=== PATIENT | male | born 1975 | race Caucasian/White ===

== ENCOUNTER → 2019-12-03 | Outpatient (CLI) | payer BC ==
--- NOTE | 2019-12-03 18:15 | Diagnostic Imaging Report ---
INDICATION: Injury to right wrist. EXAMINATION: AP, oblique, and lateral views of the right wrist are obtained. FINDINGS: No fracture or acute bony abnormality is seen. Joint spaces appear unremarkable. IMPRESSION: Negative right wrist. Dictated by: Dictated on workstation # [id number]
== END ==
LOC: RAD FS 17:08
PROVIDERS: ATTEND Nurse Practitioner
DX: S69.91XA Unspecified injury of right wrist, hand and finger(s), initial encounter (principal)
CPT/HCPCS: 73110

== ENCOUNTER 2021-07-22 15:36 | Observation (INO) | payer BC ==
[~2021-07-22] VITALS: Ht 180.4 cm; Wt 116.3 kg
--- NOTE | 2021-07-22 16:16 | ED General ---
General Chief Complaint: General Problems/Pain Stated Complaint: LOW HEMOGLOBIN Source of Information: Patient Exam Limitations: No Limitations History of Present Illness Date Seen by Provider: Jul 22, 2021 Time Seen by Provider: 15:59 Initial Comments Patient is a 45-year-old type II diabetic who presents to the emergency department with a chief complaint of "low hemoglobin. Patient states that he recently about 10 days ago started seeing a nurse practitioner at [facility] in [place]. He states 3 days ago he had labs that showed his hemoglobin was 5. He had another fingerstick done yesterday which confirmed this at [facility]. He states in recent weeks he has become very fatigued, short of breath. Over the last several weeks he has developed significant lymphedema. He only takes medications for type 2 diabetes. He states he recently restarted them. He had gone about 2 years without seeing a physician right around the time his got with their [id number] son. He states that the edema is quite decreased over recent weeks. He has developed sores on his bilateral lower extremities that are weeping. He has been putting Shadi wraps around his lower legs and he states at times been wearing an abdominal binder. He denies any black or bloody stools, blood in his urine. He is not on blood thinners. He does take about 600 mg of ibuprofen twice daily for the discomfort in his legs. He is a smoker. All other review of systems reviewed and negative except as stated Timing/Duration: Getting Worse Severity: Severe Associated Systoms: Malaise, Shortness of Air, Weakness Allergies and Home Medications Allergies Coded Allergies: No Known Drug Allergies (Unverified , 07/22/21) Patient Home Medication List Home Medication List Reviewed: Yes Review of Systems Review of Systems Constitutional: see HPI, malaise, weakness EENTM: no symptoms reported Respiratory: dyspnea on exertion, short of breath Cardiovascular: no symptoms reported Gastrointestinal: no symptoms reported Genitourinary: no symptoms reported Musculoskeletal: joint swelling Skin: other (wounds on legs) Psychiatric/Neurological: No Symptoms Reported All Other Systems Reviewed Negative Unless Noted: Yes Physical Exam Vital Signs Vital Signs - First Documented 07/22/21 15:55 Temp 37.7 Pulse 87 Resp 22 B/P (MAP) 160/84 (109) Pulse Ox 97 O2 Delivery Room Air Capillary Refill : Height, Weight, BMI Height: '" Weight: lbs. oz. kg; BMI Method: General Appearance: No Apparent Distress, WD/WN Eyes: Bilateral Eye PERRL, Bilateral Eye EOMI, Bilateral Eye Conjunctivae Pale HEENT: PERRL/EOMI, Pharynx Normal, Other (pale oral mucosa) Neck: Normal Inspection Respiratory: Lungs Clear, Normal Breath Sounds, No Accessory Muscle Use, No Respiratory Distress Cardiovascular: Regular Rate, Rhythm, Normal Peripheral Pulses (good DP pulses bilater feet), Systolic Murmur (hars systolic murmur 3+/5 best heard left upper sternal border) Gastrointestinal: Non Tender, Soft, Other (morbid obesity) Genital/Rectal: Other (no ext hemorrhoids; soft yellow stool in vault; heme negative) Extremity: Pedal Edema (3+ edema nilat LE with pustules and open shallow ulcers on the anterior surfaces of both shins) Neurologic/Psychiatric: Alert, Oriented x3, No Motor/Sensory Deficits, Normal 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, 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 Norm as Tested Skin: Warm/Dry, Pallor Progress/Results/Core Measures Suspected Sepsis SIRS Temperature: Pulse: Respiratory Rate: Laboratory Tests 07/22/21 16:00: White Blood Count 8.0 Blood Pressure / Mean: Laboratory Tests 07/22/21 16:00: Creatinine 0.79, Platelet Count 271, Total Bilirubin 0.5 Results/Orders Lab Results Laboratory Tests Test 07/22/21 16:00 Range/Units White Blood Count 8.0 4.3-11.0 10^3/uL Red Blood Count 3.42 L 4.30-5.52 10^6/uL Hemoglobin 6.0 *L 13.3-17.7 g/dL Hematocrit 23 L 40-54 % Mean Corpuscular Volume 67 L 80-99 fL Mean Corpuscular Hemoglobin 18 L 25-34 pg Mean Corpuscular Hemoglobin Concent 26 L 32-36 g/dL Red Cell Distribution Width 18.6 H 10.0-14.5 % Platelet Count 271 130-400 10^3/uL Mean Platelet Volume 9.7 9.0-12.2 fL Immature Granulocyte % (Auto) 1 % Neutrophils (%) (Auto) 68 42-75 % Lymphocytes (%) (Auto) 24 12-44 % Monocytes (%) (Auto) 6 0-12 % Eosinophils (%) (Auto) 1 0-10 % Basophils (%) (Auto) 1 0-10 % Neutrophils # (Auto) 5.4 1.8-7.8 10^3/uL Lymphocytes # (Auto) 1.9 1.0-4.0 10^3/uL Monocytes # (Auto) 0.5 0.0-1.0 10^3/uL Eosinophils # (Auto) 0.1 0.0-0.3 10^3/uL Basophils # (Auto) 0.1 0.0-0.1 10^3/uL Immature Granulocyte # (Auto) 0.1 0.0-0.1 10^3/uL Percent Immature Platelet Fraction 1.8 0.0-7.6 % Absolute Reticulocyte Count 112 H 24-90 10e9/uL Percent Reticulocyte Count 3.26 H 0.50-2.40 % Sodium Level 134 L 135-145 MMOL/L Potassium Level 3.6 3.6-5.0 MMOL/L Chloride Level 103 98-107 MMOL/L Carbon Dioxide Level 20 L 21-32 MMOL/L Anion Gap 11 5-14 MMOL/L Blood Urea Nitrogen 9 7-18 MG/DL Creatinine 0.79 0.60-1.30 MG/DL Estimat Glomerular Filtration Rate 112 BUN/Creatinine Ratio 11 Glucose Level 436 *H 70-105 MG/DL Calcium Level 7.7 L 8.5-10.1 MG/DL Corrected Calcium 8.7 8.5-10.1 MG/DL Total Bilirubin 0.5 0.1-1.0 MG/DL Aspartate Amino Transf (AST/SGOT) 47 H 5-34 U/L Alanine Aminotransferase (ALT/SGPT) 53 0-55 U/L Alkaline Phosphatase 125 40-136 U/L Total Protein 6.5 6.4-8.2 GM/DL Albumin 2.7 L 3.2-4.5 GM/DL My Orders Orders - JOE CHOE MD Ed Iv/Invasive Line Start (07/22/21 16:08) Cbc With Automated Diff (07/22/21 16:08) Comprehensive Metabolic Panel (07/22/21 16:08) Urinalysis (07/22/21 16:08) Wound Culture (07/22/21 16:08) Iron Tibc %Sat & Ferritin (07/22/21 16:08) Reticulocyte Count (07/22/21 16:08) Chest 1 View, Ap/Pa Only (07/22/21 16:08) Fecal Occult Bedside (07/22/21 16:08) Type And Screen (07/22/21 16:08) Red Cells Leukocytes Reduced (07/22/21 16:16) Smear For Path Review (07/22/21 17:11) Vital Signs/I&O 07/22/21 15:55 Temp 37.7 Pulse 87 Resp 22 B/P (MAP) 160/84 (109) Pulse Ox 97 O2 Delivery Room Air Capillary Refill : Progress Note : Time: 16:15 Progress Note Advised the patient he would require at least one overnight stay to work-up and evaluate causes for anemia along with blood transfusions. He is reluctantly accepting of this. Vital signs are stable. He does have a really loud systolic ejection murmur. He is got multiple shallow ulcers that appear slightly cellulitic. He does not have fever tachycardia low blood pressure concerning for sepsis. Hemoccult negative on digital rectal examination. Abdomen is soft and nontender. I am uncertain that he actually grasps the severity of his current clinical condition. He is quite hesitant about undergoing medical evaluation Departure Communication (Admissions) Time/Spoke to Admitting Phy: 17:[address] Tyler; add B12 level Impression Primary Impression: Anemia Qualified Codes: D64.9 - Anemia, unspecified Additional Impressions: Hyperglycemia due to type 2 diabetes mellitus Qualified Codes: E11.65 - Type 2 diabetes mellitus with hyperglycemia Peripheral edema Disposition: ADMITTED INPATIENT Condition: Stable Admissions Decision to Admit Reason: Admit from ER (General) Decision to Admit/Date: Jul 22, 2021 Time/Decision to Admit Time: 17:28 Departure-Patient Inst. Referrals: SLICK LOGAN BASEBALL INSPECTOR AND REPAIRER (PCP/Family) Primary Care Physician JOE CHOE MD Jul 22, 2021 16:16
--- NOTE | 2021-07-22 16:27 | Diagnostic Imaging Report ---
INDICATION: Shortness of breath. COMPARISON: None. FINDINGS: Single view of the chest demonstrates mild cardiac enlargement with interstitial infiltrates. This may represent pneumonia and/or CHF. There is no pneumothorax or effusion. Osseous structures are stable. IMPRESSION: Pneumonia versus CHF. Dictated by: Dictated on workstation # [id number]
[2021-07-22 16:32] LABS: ALBUMIN 2.7 GM/DL (3.2-4.5); POTASSIUM 3.6 MMOL/L (3.6-5.0)
[2021-07-22 16:33] LABS: CALCIUM 7.7 MG/DL (8.5-10.1)
[2021-07-22 16:35] LABS: TOTAL PROTEIN 6.5 GM/DL (6.4-8.2)
[2021-07-22 16:36] LABS: BILIRUBIN,TOTAL 0.5 MG/DL (0.1-1.0)
[2021-07-22 16:38] LABS: CREATININE SERUM 0.79 MG/DL (0.60-1.30)
[2021-07-22 17:26] LABS: ABSOLUTE RETIC # 112 10e9/uL (24-90); BASOPHILS # (AUTO) 0.1 10^3/uL (0.0-0.1); BASOPHILS % (AUTO) 1 % (0-10); EOSINOPHILS # (AUTO) 0.1 10^3/uL (0.0-0.3); EOSINOPHILS % (AUTO) 1 % (0-10); HEMATOCRIT 23 % (40-54); LYMPHOCYTES # (AUTO) 1.8 10^3/uL (1.0-4.0); LYMPHOCYTES % (AUTO) 22 % (12-44); MEAN CORPUSCULAR HEMOGLOBIN 18 pg (25-34); MEAN CORPUSCULAR HGB CONC 27 g/dL (32-36); MEAN CORPUSCULAR VOLUME 67 fL (80-99); MEAN PLATELET VOLUME 9.6 fL (9.0-12.2); MONOCYTES # (AUTO) 0.5 10^3/uL (0.0-1.0); MONOCYTES % (AUTO) 6 % (0-12); NEUTROPHILS # (AUTO) 5.6 10^3/uL (1.8-7.8); NEUTROPHILS % (AUTO) 69 % (42-75); PLATELET COUNT 268 10^3/uL (130-400); RETICULOCYTE % 3.26 % (0.50-2.40); WHITE BLOOD COUNT 8.1 10^3/uL (4.3-11.0)
[2021-07-22] MEDS ORDERED: LORazepam 0.5 MG (ATIVAN) TABLET PO STA (17:40)
[2021-07-22] MEDS ORDERED: NICOTINE 14 MG (NICODERM) PATCH TD ONE ×2 (17:45→21:18)
[2021-07-22] MEDS ORDERED: inSUlin (REGULAR) HUMAN 1 UNIT/0.01 ML (CHARGE PER UNIT) SC STA (17:50)
[2021-07-22 17:54] LABS: HEMOGLOBIN 6.1 g/dL (13.3-17.7)
[2021-07-22 18:06] LABS: BAND NEUTROPHILS 0 %; BASOPHILS % (MANUAL) 1 %; EOSINOPHILS % (MANUAL) 0 %; LYMPHOCYTES % (MANUAL) 16 %; MONOCYTES % (MANUAL) 3 %; NEUTROPHILS % (MANUAL) 80 %; POLYCHROMASIA SLIGHT
[2021-07-22 18:07] LABS: ANISOCYTOSIS MARKED; HYPOCHROMASIA MARKED; MICROCYTOSIS MARKED
[2021-07-22 18:18] LABS: BILIRUBIN,URINE NEGATIVE (NEGATIVE); CLARITY,URINE CLEAR; COLOR,URINE YELLOW; GLUCOSE, URINE (UA) 3+ (NEGATIVE); KETONES,URINE NEGATIVE (NEGATIVE); LEUKOCYTE ESTERASE ,URINE NEGATIVE (NEGATIVE); NITRITE,URINE NEGATIVE (NEGATIVE); PROTEIN,URINE NEGATIVE (NEGATIVE)
[2021-07-22 18:21] VITALS: BP 140/63
[2021-07-22 18:28] LABS: BACTERIA,URINE NEGATIVE /HPF
[2021-07-22] MEDS ORDERED: NS 100 ML (IVPB) BAG IV NR (18:30)
[2021-07-22] MEDS ORDERED: NS IV 500 ML 500 ML ONE (18:32)
[2021-07-22] MEDS ORDERED: CATHETER FLUSH 10 ML SYR IVP PRN (18:45)
[2021-07-22 18:49] VITALS: BP 146/73
[2021-07-22 19:04] VITALS: BP 136/74
[2021-07-22 19:32] VITALS: BP 146/73
[2021-07-22] MEDS ORDERED: inSUlin ASPART (NovoLOG) 1 UNIT/0.01 ML (CHARGE PER UNIT) SC SCH ×2 (20:00)
[2021-07-22] MEDS ORDERED: inSUlin (REGULAR) HUMAN 1 UNIT/0.01 ML (CHARGE PER UNIT) SC SCH ×2 (21:00)
[2021-07-22] MEDS: inSUlin (REGULAR) HUMAN 1 UNIT/0.01 ML (CHARGE PER UNIT) SC SCH (21:23)
[2021-07-22 21:32] VITALS: BP 128/60
[2021-07-23] VITALS (7 sets, daily range): BP systolic 126–151; BP diastolic 60–77
[2021-07-23 00:04] LABS: HEMOGLOBIN 6.2 g/dL (13.3-17.7)
[2021-07-23] MEDS ORDERED: NS IV 500 ML 500 ML IV SCH (00:30)
[2021-07-23] MEDS: inSUlin (REGULAR) HUMAN 1 UNIT/0.01 ML (CHARGE PER UNIT) SC SCH (05:16)
[2021-07-23 06:42] LABS: BASOPHILS # (AUTO) 0.1 10^3/uL (0.0-0.1); BASOPHILS % (AUTO) 1 % (0-10); EOSINOPHILS # (AUTO) 0.2 10^3/uL (0.0-0.3); EOSINOPHILS % (AUTO) 2 % (0-10); HEMATOCRIT 26 % (40-54); HEMOGLOBIN 7.2 g/dL (13.3-17.7); LYMPHOCYTES # (AUTO) 2.8 10^3/uL (1.0-4.0); LYMPHOCYTES % (AUTO) 29 % (12-44); MEAN CORPUSCULAR HEMOGLOBIN 19 pg (25-34); MEAN CORPUSCULAR HGB CONC 28 g/dL (32-36); MEAN CORPUSCULAR VOLUME 69 fL (80-99); MONOCYTES # (AUTO) 0.7 10^3/uL (0.0-1.0); MONOCYTES % (AUTO) 7 % (0-12); NEUTROPHILS # (AUTO) 5.9 10^3/uL (1.8-7.8); NEUTROPHILS % (AUTO) 61 % (42-75); PLATELET COUNT 241 10^3/uL (130-400); WHITE BLOOD COUNT 9.7 10^3/uL (4.3-11.0)
[2021-07-23] MEDS ORDERED: BUPR1TAB45 PO (09:32)
[2021-07-23] MEDS ORDERED: EMPA1TAB15 PO (09:32)
[2021-07-23] MEDS ORDERED: FERR-84 PO (09:57)
--- NOTE | 2021-07-23 10:42 | Short Stay Summary-Hospitalist ---
History of Present Illness HPI/Chief Complaint Patient is a 45-year-old type II diabetic who presents to the emergency department with a chief complaint of "low hemoglobin. Patient states that he recently about 10 days ago started seeing a nurse practitioner at [facility] in [place]. He states 3 days ago he had labs that showed his hemoglobin was 5. He had another fingerstick done yesterday which confirmed this at [facility]. He states in recent weeks he has become very fatigued, short of breath. Over the last several weeks he has developed significant lymphedema. He only takes medications for type 2 diabetes. He states he recently restarted them. He had gone about 2 years without seeing a physician right around the time his got with their 30-osjem-smm son. He states that the edema is quite decreased over recent weeks. He has developed sores on his bilateral lower extremities that are weeping. He has been putting Shadi wraps around his lower legs and he states at times been wearing an abdominal binder. He denies any black or bloody stools, blood in his urine. He is not on blood thinners. He does take about 600 mg of ibuprofen twice daily for the discomfort in his legs. Patient reports that he been feeling well and until he moved from [place] to [place] several months ago. He had been eating at home previous to this but he and his have been getting all of their nutrition from fast food typic ally 2 meals per day bouts when he noted increased swelling in the lower extremities. Denied chest pain orthopnea PND but did note fatigue and for me denied melena indigestion dysphagia with some occasional lower quadrant abdominal cramping and no bright red blood per rectum or bowel habit change. He also denied cough night sweats chills or fever. Date Seen 07/23/21 Time Seen by a Provider: 08:00 Attending Physician Noah Tyler MD PCP Meghan Judd Aprn Referring Physician Date of Admission Jul 22, 2021 at 17:27 Home Medications & Allergies Home Medications Reviewed patient Home Medication Reconciliation performed by pharmacy medication reconciliations underwriting technician and/or nursing. Patients Allergies have been reviewed. Allergies Allergies Coded Allergies No Known Drug Allergies (Unverified07/22/21) Past Wuddmeq-Bjnmxh-Ssibnr Hx Patient Social History Tobacco Use?: Yes Tobacco type used: Cigarettes Smoking Status: Current Everyday Smoker Use of E-Cig and/or Vaping dev: No Substance use?: No Alcohol Use?: No Pt feels they are or have been: No Current Status Advance Directives: No Communicates: Verbally Primary Language: Fijian Preferred Spoken Language: Fijian Is interpretation needed?: No Implanted or Applied Medical D: None Review of Systems Constitutional: see HPI Physical Exam Physical Exam Vital Signs Vital Signs - First Documented 07/22/21 15:55 Temp 37.7 Pulse 87 Resp 22 B/P (MAP) 160/84 (109) Pulse Ox 97 O2 Delivery Room Air Capillary Refill : Less Than 3 Seconds Height, Weight, BMI Height: '" Weight: lbs. oz. kg; 35.73 BMI Method: General Appearance: No Apparent Distress, WD/WN Eyes: Bilateral Eye PERRL, Bilateral Eye EOMI, Bilateral Eye Conjunctivae Pale HEENT: PERRL/EOMI, Pharynx Normal, Other (pale oral mucosa) Neck: Normal Inspection Respiratory: Lungs Clear, Normal Breath Sounds, No Accessory Muscle Use, No Respiratory Distress Cardiovascular: Regular Rate, Rhythm, Normal Peripheral Pulses (good DP pulses bilater feet), Systolic Murmur (hars systolic murmur 3+/5 best heard left upper sternal border) Gastrointestinal: Non Tender, Soft, Other (morbid obesity) Genital/Rectal: Other (no ext hemorrhoids; soft yellow stool in vault; heme negative) Extremity: Pedal Edema (3+ edema nilat LE with pustules and open shallow ulcers on the anterior surfaces of both shins) Neurologic/Psychiatric: Alert, Oriented x3, No Motor/Sensory Deficits, Normal Mood/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 Short Stay Diagnosis Discharge Diagnosis-Short Stay Admission Diagnosis 1. Severe iron deficiency anemia confirmed with iron studies. Stool occult negative. 2. uncontrolled type 2 diabetes mellitus with recent initiation of of Synjardy. 3. Systolic ejection murmur 4. Lower extremity edema with likely venous insufficiency related ulceration and inflammatory change doubt cellulitis. Final Discharge Diagnosis Same as admission diagnosis Conclusion Plan Patient was admitted and given 2 units of packed cells overnight. Hemoglobin increased from 5-7.2. Patient denied shortness of breath or chest discomfort and was ambulating to the bathroom and back without assistance. Patient is noted significant decrease in edema of the lower extremities and increase in urination over the past several days likely due to the recent addition of Synjardy his only diabetic medication. We discussed the fact that combination of fast food with increased salt intake and persistent ibuprofen use were likely aggravating lower extremity swelling lower extremities were wrapped discussed the importance of elevation avoiding fast food and discontinuing ibuprofen. Discussed possibility of silent ulceration secondary to ibuprofen and advised Tylenol only with follow-up with his primary care provider next week which he was planning on. Upon my arrival the morning of his discharge his systolic ejection murmur was graded at 2/6 likely improved from description from the emergency room physician. While there is likely underlying cardiac pathology his murmur was probably more significant last night due to profound anemia and better after 2 units of packed cells. He is being discharged on ferrous sulfate 325 mg daily and there should be consideration for endoscopy despite occult negative stool study in the emergency room. he reports that he is in the process of being set up for echocardiography for further evaluation of his murmur which based on physical examination appears to be emanating from the aortic valve. Copy Copies To 1: [facility]/NOAH SANTANA MD Jul 23, 2021 10:41
== END 2021-07-23 09:54 | disposition home or self-care (01) ==
LOC: EDUNIT# 15:36 → ER 15:38 → UNDOADMOB 17:27 → 4TH 17:27 → UNDODISOB 07-23 11:00
PROVIDERS: ADMIT Internal Medicine; ATTEND Internal Medicine
DX: E11.65 Type 2 diabetes mellitus with hyperglycemia (principal); D50.9 Iron deficiency anemia, unspecified; R60.9 Edema, unspecified; F17.210 Nicotine dependence, cigarettes, uncomplicated
CPT/HCPCS: 71045; 80053; 81000; 82274; 82728; 82947 ×2; 83540; 83550; 85007; 85014; 85018; 85025 ×2; 85027; 85045; 85055; 86850; 86900; 86901; 86920; 87070; 87077; 87186; 87205; 96372; 99284; P9016 ×2; 36415; 36430; G0378

== ENCOUNTER 2022-05-30 17:51 | Inpatient (IN) | payer BC ==
[~2022-05-30] VITALS: Ht 180.3 cm; Wt 82.3 kg
[~2022-05-30 17:51] MED LIST: BUPR1TAB45 SL; EMPA1TAB15 PO; FERR-84 PO
--- NOTE | 2022-05-30 18:00 | ED Lower Extremity ---
General Stated Complaint: SORE ON FOOT BLEEDING History of Present Illness Date Seen by Provider: May 30, 2022 Time Seen by Provider: 18:00 Initial Comments 46-year-old male with PMH of DM 2, uncontrolled/HTN/umbilical hernia with history of 4 past surgeries/fatty liver/chronic nonhealing left foot ulcer, is here with complaints of left foot wound bleeding from the ulcer. Patient states that his last hemoglobin A1c was 11. Patient ran out of insulin and has not seen his PCP for refills yet. Patient also has redness and swelling and pain in his lower extremities. Denies fever and chills, abdominal pain, nausea and vomiting, injuries, trauma, falls. Allergies and Home Medications Allergies Coded Allergies: No Known Drug Allergies (Unverified , 07/22/21) Patient Home Medication List Home Medication List Reviewed: Yes Buprenorphine HCl/Naloxone HCl (Buprenorphin-Naloxon 8-2 mg Sl) 8 Mg-2 Mg Tab.subl, 8 MG PO BID PRN PRN for AGITATION, (Reported) Entered as Reported by: ANTHONY MCDANIEL on 07/23/21 0932 Empagliflozin/Metformin HCl (Synjardy Xr 10-1,000 mg Tablet) 10 Mg-1,000 Mg Tab.bp.24h, 10-1,000 MG PO DAILY, (Reported) Entered as Reported by: ANTHONY MCDANIEL on 07/23/21 0932 Ferrous Sulfate (Iron) 325 Mg (65 Mg Iron) Tablet, 325 MG PO DAILY Prescribed by: ADRI MACIEL on 07/23/21 0957 Review of Systems Constitutional: no symptoms reported EENTM: no symptoms reported Respiratory: no symptoms reported Cardiovascular: no symptoms reported Gastrointestinal: no symptoms reported Genitourinary: no symptoms reported Musculoskeletal: joint pain Skin: lesions Psychiatric/Neurological: No Symptoms Reported Physical Exam Vital Signs Vital Signs - First Documented 05/30/22 18:01 Temp 36.7 Pulse 98 Resp 18 B/P (MAP) 148/90 (109) Pulse Ox 99 O2 Delivery Room Air Capillary Refill : Height, Weight, BMI Height: '" Weight: lbs. oz. kg; 35.73 BMI Method: General Appearance: WD/WN, no apparent distress HEENT: PERRL/EOMI Neck: full range of motion Cardiovascular: regular rate, rhythm Respiratory: lungs clear, normal breath sounds Gastrointestinal: normal bowel sounds, non tender, soft, distended Back: no CVA tenderness Ankles: bilateral ankle soft tissue tenderness (Bilateral erythema/warm to touch/swelling/bruising present up to mid lower leg.), bilateral ankle swelling Feet: left foot normal range of motion, left foot bone tenderness, left foot infection (Chronic nonhealing ulcer on the sole of the foot on the forefoot at the base of the fifth toe that measures approximately 3 cm diameter, with exposure of underlying bone. Multiple chronic ulcers in between the toes of the left foot with mild bleeding and discharge), left foot pain, left foot soft tissue tenderness, left foot swelling Neurologic/Tendon: normal sensation, normal motor functions Neurologic/Psychiatric: no motor/sensory deficits, alert, normal mood/affect, oriented x 3 Skin: other (See ankle and foot exam) Progress/Results/Core Measures Results/Orders Lab Results Laboratory Tests Test 05/30/22 18:10 05/30/22 18:51 Range/Units White Blood Count 12.4 H 4.3-11.0 10^3/uL Red Blood Count 4.64 4.30-5.52 10^6/uL Hemoglobin 13.6 13.3-17.7 g/dL Hematocrit 39 L 40-54 % Mean Corpuscular Volume 84 80-99 fL Mean Corpuscular Hemoglobin 29 25-34 pg Mean Corpuscular Hemoglobin Concent 35 32-36 g/dL Red Cell Distribution Width 14.2 10.0-14.5 % Platelet Count 166 130-400 10^3/uL Mean Platelet Volume 9.0 9.0-12.2 fL Immature Granulocyte % (Auto) 1 % Neutrophils (%) (Auto) 59 42-75 % Lymphocytes (%) (Auto) 28 12-44 % Monocytes (%) (Auto) 9 0-12 % Eosinophils (%) (Auto) 3 0-10 % Basophils (%) (Auto) 1 0-10 % Neutrophils # (Auto) 7.4 1.8-7.8 10^3/uL Lymphocytes # (Auto) 3.5 1.0-4.0 10^3/uL Monocytes # (Auto) 1.1 H 0.0-1.0 10^3/uL Eosinophils # (Auto) 0.4 H 0.0-0.3 10^3/uL Basophils # (Auto) 0.1 0.0-0.1 10^3/uL Immature Granulocyte # (Auto) 0.1 0.0-0.1 10^3/uL Erythrocyte Sedimentation Rate 39 H 0-15 MM/HR Prothrombin Time 14.4 12.2-14.7 SEC INR Comment 1.1 0.8-1.4 Activated Partial Thromboplast Time 30 24-35 SEC D-Dimer 0.70 H 0.00-0.49 UG/ML Sodium Level 137 135-145 MMOL/L Potassium Level 3.9 3.6-5.0 MMOL/L Chloride Level 102 98-107 MMOL/L Carbon Dioxide Level 25 21-32 MMOL/L Anion Gap 10 5-14 MMOL/L Blood Urea Nitrogen 10 7-18 MG/DL Creatinine 0.47 L 0.60-1.30 MG/DL Estimat Glomerular Filtration Rate 130 BUN/Creatinine Ratio 21 Glucose Level 257 H 70-105 MG/DL Calcium Level 8.9 8.5-10.1 MG/DL Corrected Calcium 9.5 8.5-10.1 MG/DL Total Bilirubin 0.7 0.1-1.0 MG/DL Aspartate Amino Transf (AST/SGOT) 54 H 5-34 U/L Alanine Aminotransferase (ALT/SGPT) 74 H 0-55 U/L Alkaline Phosphatase 229 H 40-136 U/L C-Reactive Protein 2.64 H <0.50 MG/DL Pro-B-Type Natriuretic Peptide 98.8 <125.0 PG/ML Total Protein 7.6 6.4-8.2 GM/DL Albumin 3.3 3.2-4.5 GM/DL Urine Color YELLOW Urine Clarity CLEAR Urine pH 6.0 5-9 Urine Specific [place] 1.010 L 1.016-1.022 Urine Protein NEGATIVE NEGATIVE Urine Glucose (UA) 3+ H NEGATIVE Urine Ketones NEGATIVE NEGATIVE Urine Nitrite NEGATIVE NEGATIVE Urine Bilirubin NEGATIVE NEGATIVE Urine Urobilinogen 2.0 < = 1.0 MG/DL Urine Leukocyte Esterase NEGATIVE NEGATIVE Urine RBC (Auto) NEGATIVE NEGATIVE Urine RBC NONE /HPF Urine WBC NONE /HPF Urine Squamous Epithelial Cells 0-2 /HPF Urine Crystals NONE /LPF Urine Bacteria NEGATIVE /HPF Urine Casts NONE /LPF Urine Mucus NEGATIVE /LPF Urine Culture Indicated NO My Orders Orders - MORENO BALBUENA MD Cbc With Automated Diff (05/30/22 18:10) Comprehensive Metabolic Panel (05/30/22 18:10) Fibrin Degradation Products (05/30/22 18:10) Protime With Inr (05/30/22 18:10) Partial Thromboplastin Time (05/30/22 18:10) Ua Culture If Indicated (05/30/22 18:10) Erythrocyte Sedimentation Rate (05/30/22 18:10) Probnp Fs (05/30/22 18:10) Crp Fs (05/30/22 18:10) Foot 3 View Left (05/30/22 18:11) Vital Signs/I&O 05/30/22 18:01 Temp 36.7 Pulse 98 Resp 18 B/P (MAP) 148/90 (109) Pulse Ox 99 O2 Delivery Room Air Progress Progress Note : Progress Note 1. CELLULITIS BILATERAL LOWER EXTREMITIES/ CHRONIC NON-HEALING LEFT FOOT ULCER/ SUSPICION FOR OSTEOMYELITIS: - XR LEFT FOOT: Fracture of the distal third metatarsal with some distraction at the fracture site. Involvement with osteomyelitis cannot be entirely excluded. - WBC is 12.4 - ESR is 39 and CRP is 2.64 - D-dimer is slightly elevated at 0.70. Patient will be needing Doppler ultrasound, which is not available at [employer] [facility] at this time. - Blood cultures and wound cultures sent -Patient will need MRI of the bone tomorrow at [place]. -Wound cleaning and dressing done in the ER - Vanco/ Zosyn iv STAT in ER -Discussed with hospitalist and accepted for admission to observation unit Diagnostic Imaging Diagonstic Imaging: Xray Plain Films/CT/US/NM/MRI: other Comments [facility], [place] NAME: MABEL TORREZ [facility] REC#: [id number] PT STATUS: REG ER : 1975 PHYSICIAN: MORENO BALBUENA MD ADMIT DATE: 05/30/22/ER FS Draft Date of Exam:05/30/22 FOOT 3 VIEW LEFT INDICATION: Left foot ulceration. Study is performed to evaluate for osteomyelitis. TIME OF EXAM: 06:19 p.m. COMPARISON: No prior studies available for comparison. FINDINGS: There is a fracture in the distal aspect of the third metatarsal. There is some distraction at the fracture site. There appears to be some periosteal reaction involving the distal aspect of the fourth metatarsal. The third toe is significantly demineralized and somewhat difficult to evaluate. The remaining phalanges are intact. Remaining metatarsals are intact. Midfoot and hindfoot are unremarkable apart from a large plantar calcaneal spur. No other fractures are seen. There is questionable ulceration noted on the lateral view in the plantar aspect of the level of the MTP joints. IMPRESSION: Fracture of the distal third metatarsal with some distraction at the fracture site. There is also periosteal reaction of the distal fourth metatarsal. The third toe appears to be severely demineralized and incompletely imaged on this study. Involvement with osteomyelitis cannot be entirely excluded. No other significant abnormalities are seen. Dictated on workstation # [id number] Dict: 05/30/22 183 Trans: 05/30/221837 AS6 [id number] Interpreted by: BENJY WILKERSON MD Electronically signed by: Departure Communication (Admissions) Time/Spoke to Admitting Phy: 18:[address] Langley, hospitalist, and accepted for admission to observation Impression Primary Impression: Bilateral cellulitis of lower leg Additional Impressions: Non-healing ulcer of left foot with necrosis of bone Osteomyelitis of left foot Qualified Codes: M86.9 - Osteomyelitis, unspecified Fracture of third metatarsal bone of left foot Qualified Codes: S92.335A - Nondisplaced fracture of third metatarsal bone, left foot, initial encounter for closed fracture Disposition: 30 STILL A PATIENT Condition: Stable Admissions Decision to Admit Reason: Admit from ER (General) Decision to Admit/Date: May 30, 2022 Time/Decision to Admit Time: 18:00 Transfer Method of Transfer: EMS Departure-Patient Inst. Referrals: SLICK LOGAN APRN (PCP/Family) Primary Care Physician MORENO BALBUENA MD May 30, 2022 18:00
[2022-05-30 18:24] LABS: BASOPHILS # (AUTO) 0.1 10^3/uL (0.0-0.1); BASOPHILS % (AUTO) 1 % (0-10); EOSINOPHILS # (AUTO) 0.4 10^3/uL (0.0-0.3); EOSINOPHILS % (AUTO) 3 % (0-10); HEMATOCRIT 39 % (40-54); HEMOGLOBIN 13.6 g/dL (13.3-17.7); LYMPHOCYTES # (AUTO) 3.5 10^3/uL (1.0-4.0); LYMPHOCYTES % (AUTO) 28 % (12-44); MEAN CORPUSCULAR HEMOGLOBIN 29 pg (25-34); MEAN CORPUSCULAR HGB CONC 35 g/dL (32-36); MEAN CORPUSCULAR VOLUME 84 fL (80-99); MONOCYTES # (AUTO) 1.1 10^3/uL (0.0-1.0); MONOCYTES % (AUTO) 9 % (0-12); NEUTROPHILS # (AUTO) 7.4 10^3/uL (1.8-7.8); NEUTROPHILS % (AUTO) 59 % (42-75); PLATELET COUNT 166 10^3/uL (130-400); WHITE BLOOD COUNT 12.4 10^3/uL (4.3-11.0)
--- NOTE | 2022-05-30 18:38 | Diagnostic Imaging Report ---
INDICATION: Left foot ulceration. Study is performed to evaluate for osteomyelitis. TIME OF EXAM: 06:19 p.m. COMPARISON: No prior studies available for comparison. FINDINGS: There is a fracture in the distal aspect of the third metatarsal. There is some distraction at the fracture site. There appears to be some periosteal reaction involving the distal aspect of the fourth metatarsal. The third toe is significantly demineralized and somewhat difficult to evaluate. The remaining phalanges are intact. Remaining metatarsals are intact. Midfoot and hindfoot are unremarkable apart from a large plantar calcaneal spur. No other fractures are seen. There is questionable ulceration noted on the lateral view in the plantar aspect of the level of the MTP joints. IMPRESSION: Fracture of the distal third metatarsal with some distraction at the fracture site. There is also periosteal reaction of the distal fourth metatarsal. The third toe appears to be severely demineralized and incompletely imaged on this study. Involvement with osteomyelitis cannot be entirely excluded. No other significant abnormalities are seen. Dictated by: Dictated on workstation # [id number]
[2022-05-30 18:47] LABS: FIBRIN DEGRADATION PRODUCTS 0.7 UG/ML (0.00-0.49); INR 1.1 (0.8-1.4); PROTHROMBIN TIME PATIENT 14.4 SEC (12.2-14.7)
[2022-05-30 18:55] LABS: POTASSIUM 3.9 MMOL/L (3.6-5.0)
[2022-05-30 18:56] LABS: ALBUMIN 3.3 GM/DL (3.2-4.5); BILIRUBIN,TOTAL 0.7 MG/DL (0.1-1.0); CALCIUM 8.9 MG/DL (8.5-10.1); CREATININE SERUM 0.47 MG/DL (0.60-1.30); TOTAL PROTEIN 7.6 GM/DL (6.4-8.2)
[2022-05-30 19:00] LABS: ERYTHROCYTE SEDIMENTATION RATE 39 MM/HR (0-15)
[2022-05-30 19:01] LABS: BILIRUBIN,URINE NEGATIVE (NEGATIVE); CLARITY,URINE CLEAR; COLOR,URINE YELLOW; GLUCOSE, URINE (UA) 3+ (NEGATIVE); KETONES,URINE NEGATIVE (NEGATIVE); LEUKOCYTE ESTERASE ,URINE NEGATIVE (NEGATIVE); NITRITE,URINE NEGATIVE (NEGATIVE); PROTEIN,URINE NEGATIVE (NEGATIVE)
[2022-05-30 19:18] LABS: BACTERIA,URINE NEGATIVE /HPF; SQUAMOUS EPITHELIAL CELL,UR 0-2 /HPF
[2022-05-30] MEDS ORDERED: PIPERACILLIN SODIUM/TAZOBACTAM 4.5 GM in NS (IVPB) 100 ML IV ONE (19:30)
[2022-05-30] MEDS ORDERED: VANCOMYCIN INJECTION 1,000 MG in NS (IVPB) 250 ML IV ONE (19:30)
[2022-05-30] MEDS ORDERED: NS (IVPB) 100 ML ONE (19:36)
[2022-05-30] MEDS ORDERED: VANCOMYCIN 1000 MG/VIAL ONE (19:36)
[2022-05-30] MEDS ORDERED: NS (IVPB) 250 ML ONE (19:36)
[2022-05-30] MEDS ORDERED: PIPERACILLIN/TAZO 4.5 GM VIAL (ZOSYN) IV ONE (19:36)
[2022-05-30 22:25] VITALS: BP 163/77
[2022-05-30] MEDS ORDERED: KETOROLAC 15 MG/ML VIAL IV PRN (23:00)
[2022-05-30] MEDS ORDERED: VANCOMYCIN 750 MG/NS 250 ML IVPB IV ONE ×2 (23:00)
[2022-05-30] MEDS ORDERED: ACETAMINOPHEN 325 MG TABLET PO PRN (23:00)
[2022-05-30] MEDS ORDERED: RT-ALBUTEROL SULF 2.5 MG/3 ML PRE-MIX VIAL INH PRN (23:00)
[2022-05-30 23:21] VITALS: BP 129/70
[2022-05-30] MEDS: MELATONIN 3 MG TABLET PO PRN (23:53)
[2022-05-30] MEDS: LORazepam 1 MG (ATIVAN) TAB PO PRN (23:53)
[2022-05-31] MEDS: PIPERACILLIN SODIUM/TAZOBACTAM 4.5 GM in NS (IVPB) 100 ML IV SCH ×3 (02:52→18:12)
[2022-05-31 03:04] VITALS: BP 135/63
[2022-05-31] MEDS: VANCOMYCIN 1250 MG/NS 250 ML PREMIX IV SCH ×3 (05:45→20:59)
[2022-05-31] MEDS: CATHETER FLUSH 10 ML SYR IVP SCH ×3 (05:46→21:02)
[2022-05-31 05:50] LABS: BASOPHILS % (AUTO) 0 % (0-10); EOSINOPHILS # (AUTO) 0.4 10^3/uL (0.0-0.3); EOSINOPHILS % (AUTO) 3 % (0-10); HEMATOCRIT 35 % (40-54); HEMOGLOBIN 12.1 g/dL (13.3-17.7); LYMPHOCYTES # (AUTO) 3.2 10^3/uL (1.0-4.0); LYMPHOCYTES % (AUTO) 28 % (12-44); MEAN CORPUSCULAR HEMOGLOBIN 29 pg (25-34); MEAN CORPUSCULAR HGB CONC 34 g/dL (32-36); MEAN CORPUSCULAR VOLUME 85 fL (80-99); MEAN PLATELET VOLUME 8.8 fL (9.0-12.2); MONOCYTES # (AUTO) 0.8 10^3/uL (0.0-1.0); MONOCYTES % (AUTO) 7 % (0-12); NEUTROPHILS # (AUTO) 6.8 10^3/uL (1.8-7.8); NEUTROPHILS % (AUTO) 61 % (42-75); PLATELET COUNT 150 10^3/uL (130-400); WHITE BLOOD COUNT 11.2 10^3/uL (4.3-11.0)
[2022-05-31 06:06] LABS: CALCIUM 8.3 MG/DL (8.5-10.1); CREATININE SERUM 0.58 MG/DL (0.60-1.30); POTASSIUM 3.9 MMOL/L (3.6-5.0)
[2022-05-31] MEDS: inSUlin ASPART (NovoLOG) 1 UNIT/0.01 ML (CHARGE PER UNIT) SC SCH ×4 (06:27→21:00)
[2022-05-31] MEDS ORDERED: GADOTERATE 0.5 MMOL/ML (CLARISCAN) 20 ML VIAL IV ONE (08:00)
--- NOTE | 2022-05-31 08:18 | Consultation - Surgery ---
AARON FLORES 05/31/22 0818: History of Present Illness History of Present Illness Patient Consulted On(pepper/time) 05/31/22 08:13 Date Seen by Provider: May 31, 2022 Time Seen by Provider: 08:13 History of Present Illness 46-year-old male with PMH of DM 2, uncontrolled/HTN/umbilical hernia with history of 4 past surgeries/fatty liver/chronic nonhealing left foot ulcer was admitted overnight for a bleeding ulcer over the later left foot. Pt states he first noticed the ulcer 1 month ago and it has continued to worsen and expand ever since. Pts last A1C was 11 and has ran out of insulin and not seen PCP to refill. He states he is in no pain today. Denies any fever,chills, SOB, CP, n/v, or unrinary symptoms. Pt states his last BM was 3 days ago but that is "normal for my bowel habits." Left foot covered with dressing with associated bloody discharge. X-ray showed fx of 3rd metatarsal and periosteal retraction and demineralization of 4th metatarsal. Pt states the last time he had anything to drink or eat was before midnight. Allergies and Home Medications Allergies Coded Allergies: No Known Drug Allergies (Unverified , 07/22/21) Patient Home Medication List Buprenorphine HCl/Naloxone HCl (Buprenorphin-Naloxon 8-2 mg Sl) 8 Mg-2 Mg Tab.subl, 1 EA SL BID, (Reported) Entered as Reported by: ANTHONY MCDANIEL on 07/23/21 0932 Last Action: Converted Empagliflozin/Metformin HCl (Synjardy Xr 12.5-1,000 mg Tab) 12.5 Mg-1,000 Mg Tab.bp.24h, 1 EA PO BID, (Reported) Entered as Reported by: AGUSTO BRYANT on 05/31/221156 Last Action: Held Ferrous Sulfate (Ferosul) 325 Mg (65 Mg Iron) Tablet, 325 MG PO DAILY, (Reported) Entered as Reported by: AGUSTO BRYANT on 05/31/221156 Last Action: Continued Lisinopril (Lisinopril) 10 Mg Tablet, 10 MG PO DAILY, (Reported) Entered as Reported by: AGUSTO BRYANT on 05/31/221156 Last Action: Continued Discontinued Medications Empagliflozin/Metformin HCl (Synjardy Xr 10-1,000 mg Tablet) 10 Mg-1,000 Mg Tab.bp.24h, 10-1,000 MG PO DAILY, (Reported) Discontinued Reason: Duplicate Order Entered as Reported by: ANTHONY MCDANIEL on 07/23/21931 Last Action: Discontinued Ferrous Sulfate (Iron) 325 Mg (65 Mg Iron) Tablet, 325 MG PO DAILY Discontinued Reason: Duplicate Order Prescribed by: ADRI MACIEL on 07/23/21956 Last Action: Discontinued Past Ukeqcpb-Jxhqlt-Wgldll Hx Patient Social History Smoking Status: Current Everyday Smoker Alcohol Use?: No Surgeries History of Surgeries: Yes Surgeries: Abdominal ( cholecystectomy ) Respiratory History of Respiratory Disorde: No Cardiovascular History of Cardiac Disorders: Yes Cardiac Disorders: Hypertension Neurological History of Neurological Disord: No Reproductive System Hx Reproductive Disorders: No Sexually Transmitted Disease: No HIV/AIDS: No Genitourinary History of Genitourinary Disor: No Gastrointestinal History of Gastrointestinal Di: Yes Gastrointestinal Disorders: Abdominal Hernia (x4) Musculoskeletal History of Musculoskeletal Dis: No Endocrine History of Endocrine Disorders: Yes Endocrine Disorders: Diabetes, Insulin dep HEENT History of HEENT Disorders: No Cancer History of Cancer: No Psychosocial History of Psychiatric Problem: No Family Medical History Significant Family History: Heart Disease (Father- CHF secondary to drug abuse, at 55), Cancer (mom- ovarian dx at 50, at 57 ) Review of Systems-General Constitutional: No chills, No diaphoresis EENTM: No blurred vision, No double vision, No nose congestion Respiratory: No cough, No dyspnea on exertion, No short of breath Cardiovascular: No chest pain, No palpitations, No syncope Gastrointestinal: No abdominal pain, No diarrhea, No dysphagia Genitourinary: No dysuria, No frequency Musculoskeletal: No back pain, No muscle pain Skin: lesions (lt foot); No lumps, No pruritus Psychiatric/Neurological: Denies Anxiety, Denies Depressed, Denies Headache Physical Exam-General Problems Physical Exam Vital Signs Vital Signs - First Documented 05/30/22 05/30/22 18:01 22:45 Temp 36.7 Pulse 98 Resp 18 B/P (MAP) 148/90 (109) Pulse Ox 99 O2 Delivery Room Air FiO2 21 Capillary Refill : General Appearance: WD/WN, no apparent distress Eyes: Bilateral Eye Normal Inspection, Bilateral Eye PERRL, Bilateral Eye EOMI HEENT: PERRL/EOMI, other (moist mucus membranes ) Neck: non-tender, normal inspection Respiratory: chest non-tender, lungs clear, normal breath sounds, no respiratory distress, no accessory muscle use Cardiovascular: regular rate, rhythm, no murmur Peripheral Pulses: 2+ Dorsalis Pedis (R), 2+ Left Dors-Pedis (L); 3+ Radial Pulses (R), 3+ Radial Pulses (L) Gastrointestinal: normal bowel sounds, non tender, soft, no organomegaly, no pulsatile mass Back: normal inspection, no CVA tenderness Extremities: non-tender, no calf tenderness, other (lt foot wrapped in dressing with bloody discharge, errythema of proximal lt foot. ) Neurologic/Psychiatric: alert, normal mood/affect, oriented x 3 Skin: warm/dry, other (errythema of distal lt LE) Lymphatic: no adenopathy Data Review Labs Laboratory Tests 05/30/22 18:10: White Blood Count 12.4H, Red Blood Count 4.64, Hemoglobin 13.6, Hematocrit 39L, Mean Corpuscular Volume 84, Mean Corpuscular Hemoglobin 29, Mean Corpuscular Hemoglobin Concent 35, Red Cell Distribution Width 14.2, Platelet Count 166, Mean Platelet Volume 9.0, Immature Granulocyte % (Auto) 1, Neutrophils (%) (Auto) 59, Lymphocytes (%) (Auto) 28, Monocytes (%) (Auto) 9, Eosinophils (%) (Auto) 3, Basophils (%) (Auto) 1, Neutrophils # (Auto) 7.4, Lymphocytes # (Auto) 3.5, Monocytes # (Auto) 1.1H, Eosinophils # (Auto) 0.4H, Basophils # (Auto) 0.1, Immature Granulocyte # (Auto) 0.1, Erythrocyte Sedimentation Rate 39H, Prothrombin Time 14.4, INR Comment 1.1, Activated Partial Thromboplast Time 30, D-Dimer 0.70H, Sodium Level 137, Potassium Level 3.9, Chloride Level 102, Carbon Dioxide Level 25, Anion Gap 10, Blood Urea Nitrogen 10, Creatinine 0.47L, Estimat Glomerular Filtration Rate 130, BUN/Creatinine Ratio 21, Glucose Level 257H, Calcium Level 8.9, Corrected Calcium 9.5, Total Bilirubin 0.7, Aspartate Amino Transf (AST/SGOT) 54H, Alanine Aminotransferase (ALT/SGPT) 74H, Alkaline Phosphatase 229H, C-Reactive Protein 2.64H, Pro-B-Type Natriuretic Peptide 98.8, Total Protein 7.6, Albumin 3.3 05/30/22 18:51: Urine Color YELLOW, Urine Clarity CLEAR, Urine pH 6.0, Urine Specific [place] 1.010L, Urine Protein NEGATIVE, Urine Glucose (UA) 3+H, Urine Ketones NEGATIVE, Urine Nitrite NEGATIVE, Urine Bilirubin NEGATIVE, Urine Urobilinogen 2.0, Urine Leukocyte Esterase NEGATIVE, Urine RBC (Auto) NEGATIVE, Urine RBC NONE, Urine WBC NONE, Urine Squamous Epithelial Cells 0-2, Urine Crystals NONE, Urine Bacteria NEGATIVE, Urine Casts NONE, Urine Mucus NEGATIVE, Urine Culture In dicated NO 05/31/22 05:43: White Blood Count 11.2H, Red Blood Count 4.16L, Hemoglobin 12.1L, Hematocrit 35L , Mean Corpuscular Volume 85, Mean Corpuscular Hemoglobin 29, Mean Corpuscular Hemoglobin Concent 34, Red Cell Distribution Width 14.0, Platelet Count 150, Mean Platelet Volume 8.8L, Immature Granulocyte % (Auto) 0, Neutrophils (%) (Auto) 61, Lymphocytes (%) (Auto) 28, Monocytes (%) (Auto) 7, Eosinophils (%) (Auto) 3, Basophils (%) (Auto) 0, Neutrophils # (Auto) 6.8, Lymphocytes # (Auto) 3.2, Monocytes # (Auto) 0.8, Eosinophils # (Auto) 0.4H, Basophils # (Auto) 0.0, Immature Granulocyte # (Auto) 0.1, Sodium Level 139, Potassium Level 3.9, Chloride Level 110H, Carbon Dioxide Level 22, Anion Gap 7, Blood Urea Nitrogen 11, Creatinine 0.58L, Estimat Glomerular Filtration Rate 122, BUN/Creatinine Ratio 19, Glucose Level 160H, Calcium Level 8.3L Assessment/Plan Assessment/Plan Assessment/Plan non healing Diabetic ulcer of left foot- CT confirmed osteomylitis DMII HTN tobacco use NPO discussed possible amputation with associated intra-operative cultures continue IV abx therapy continue insulin therapy start on home HTN medication regimen nicotine supplementation MABEL MYRICK DO 05/31/22 1245: History of Present Illness History of Present Illness Time Seen by Provider: 09:00 History of Present Illness Surgery asked to consult regarding Non-healing wound left foot, possible Osteomyelitis. HPI per ED: 46-year-old male with PMH of DM 2, uncontrolled/HTN/umbilical hernia with history of 4 past surgeries/fatty liver/chronic nonhealing left foot ulcer, is here with complaints of left foot wound bleeding from the ulcer. Patient states that his last hemoglobin A1c was 11. Patient ran out of insulin and has not seen his PCP for refills yet. Patient also has redness and swelling and pain in his lower extremities. Denies fever and chills, abdominal pain, nausea and vomiting, injuries, trauma, falls. When I spoke with pt he denied any trauma to the foot, doesn't remember kicking anything. He states his foot has been "bad" for over a month and he has been "just trying to put gauze and stuff on it at home". Denies pain of that foot. Allergies and Home Medications Allergies Coded Allergies: No Known Drug Allergies (Unverified , 07/22/21) Patient Home Medication List Home Medication List Reviewed: Yes Buprenorphine HCl/Naloxone HCl (Buprenorphin-Naloxon 8-2 mg Sl) 8 Mg-2 Mg Tab.subl, 1 EA SL BID, (Reported) Entered as Reported by: ANTHONY MCDANIEL on 07/23/21931 Last Action: Converted Empagliflozin/Metformin HCl (Synjardy Xr 12.5-1,000 mg Tab) 12.5 Mg-1,000 Mg Tab.bp.24h, 1 EA PO BID, (Reported) Entered as Reported by: AGUSTO BRYANT on 05/31/221156 Last Action: Held Ferrous Sulfate (Ferosul) 325 Mg (65 Mg Iron) Tablet, 325 MG PO DAILY, (Rep orted) Entered as Reported by: AGUSTO BRYANT on 05/31/221156 Last Action: Continued Lisinopril (Lisinopril) 10 Mg Tablet, 10 MG PO DAILY, (Reported) Entered as Reported by: AGUSTO BRYANT on 05/31/221156 Last Action: Continued Discontinued Medications Empagliflozin/Metformin HCl (Synjardy Xr 10-1,000 mg Tablet) 10 Mg-1,000 Mg Tab.bp.24h, 10-1,000 MG PO DAILY, (Reported) Discontinued Reason: Duplicate Order Entered as Reported by: ANTHONY MCDANIEL on 07/23/21931 Last Action: Discontinued Ferrous Sulfate (Iron) 325 Mg (65 Mg Iron) Tablet, 325 MG PO DAILY Discontinued Reason: Duplicate Order Prescribed by: ADRI MACIEL on 07/23/21956 Last Action: Discontinued Past Kyoklox-Dviybu-Vdkklp Hx Patient Social History Smoking Status: Current Everyday Smoker Alcohol Use?: No Surgeries History of Surgeries: Yes Surgeries: Abdominal ( cholecystectomy ) Respiratory History of Respiratory Disorde: No Cardiovascular History of Cardiac Disorders: Yes Cardiac Disorders: Hypertension Neurological History of Neurological Disord: Yes Neurological Disorders: Neuropathy Reproductive System Hx Reproductive Disorders: No Sexually Transmitted Disease: No HIV/AIDS: No Genitourinary History of Genitourinary Disor: No Gastrointestinal History of Gastrointestinal Di: Yes Gastrointestinal Disorders: Abdominal Hernia (x4) Musculoskeletal History of Musculoskeletal Dis: Yes Musculoskeletal Disorders: Fractures Endocrine History of Endocrine Disorders: Yes Endocrine Disorders: Diabetes, Insulin dep HEENT History of HEENT Disorders: No Cancer History of Cancer: No Integumentary History of Skin or Integumenta: Yes (foot) Family Medical History Significant Family History: Heart Disease (Father- CHF secondary to drug abuse, at 55), Cancer (mom- ovarian dx at 50, at 57 ) Review of Systems-General Constitutional: No chills, No diaphoresis EENTM: No blurred vision, No double vision, No nose congestion Respiratory: No cough, No dyspnea on exertion, No short of breath Cardiovascular: No chest pain, No palpitations, No syncope Gastrointestinal: No abdominal pain, No diarrhea, No dysphagia Genitourinary: No dysuria, No frequency Musculoskeletal: No back pain, No muscle pain Skin: lesions (lt foot); No lumps, No pruritus Psychiatric/Neurological: Denies Anxiety, Denies Depressed, Denies Headache Physical Exam-General Problems Physical Exam General Appearance: WD/WN, no apparent distress Eyes: Bilateral Eye PERRL, Bilateral Eye EOMI HEENT: pharynx normal; No scleral icterus (R), No scleral icterus (L); other (edentulous) Neck: non-tender, supple Respiratory: chest non-tender, lungs clear, normal breath sounds, no respiratory distress, no accessory muscle use Cardiovascular: regular rate, rhythm, no murmur Gastrointestinal: normal bowel sounds, non tender, soft, no organomegaly, no pulsatile mass Rectal: deferred Back: normal inspection, no CVA tenderness Extremities: non-tender, no calf tenderness, other (lt foot wrapped in dressing with bloody discharge, errythema of proximal lt foot. ) Neurologic/Psychiatric: alert, normal mood/affect, oriented x 3 Skin: warm/dry, other (errythema of distal lt LE, venous stasis changes) Lymphatic: no adenopathy (neck, axilla or groin) Data Review Radiology Date of Exam:05/31/22 MRI LT LOWER EXT W/WO CON TECHNIQUE: Multiplanar, multisequence pre and post contrast-enhanced MRI of the left lower extremity was accomplished. INDICATION: Swelling and redness with seeping from the left forefoot. Possible osteomyelitis. EXAMINATION: Left lower extremity MRI with and without contrast 05/31/2022 CORRELATION made to radiographs of the foot from 05/30/2022 FINDINGS: There is diffuse abnormal signal intensity involving the mid and distal aspects of the fourth metatarsal diffusely hyperintense on T2-weighted imaging and hypointense on T1-weighted imaging. This also involves all of the phalanges of the fourth toe. Mild similar abnormal signal intensity is seen throughout the distal third metatarsal some of which may be due to the known underlying fracture although superimposed osteomyelitis is suspected. Abnormal signal intensity involves all of the residual third phalanges with areas of T1 hyperintensity of uncertain etiology perhaps blood products. Mild signal alteration is noted within the distal aspect of the proximal second phalanx and the second middle phalanx possibly osteomyelitis as well. Enhancement in all of the above-mentioned abnormal osseous structures is noted consistent with osteomyelitis. Within the soft tissues surrounding the fourth metatarsal and fourth toe, diffuse abnormal signal intensity is noted with areas of T2 hyperintensity and multiple fluid collections demonstrating peripheral enhancement consistent with abscesses. The largest abnormality lies along the plantar surface of the fourth metatarsophalangeal joint level extending to the joint likely causing a septic joint. This extends in the plantar surface of the fourth toe and proximally extends in between the third and fourth metatarsal heads. Given its extent, it is difficult to measure but is approximately 1.9 x 0.6 x 0.6 cm in size. This extends across the plantar surface of the fourth metatarsal head level to lie in between the 4th and 5th toes, as well. Diffuse surrounding heterogeneous signal intensity is likely due to cellulitis. Visualized tendons appear intact. There is however surrounding inflammatory/infectious change about the flexor tendons of the fourth toe with tenosynovitis likely. There is diffuse T2 hyperintensity and enhancement within all visualized musculature of the forefoot suggesting myositis. IMPRESSION: 1. Findings of osteomyelitis which involve the mid and distal 4th metatarsal, the mid and distal third metatarsal, all fourth and third phalanges and possibly portions of the second toe, as described above. Surrounding findings of edema and cellulitis noted with abscesses along the plantar surface of the forefoot surrounding the fourth metatarsophalangeal joint and toe, fourth toe as detailed above. A septic joint at the fourth metatarsophalangeal joint is also suspected. 2. Likely tenosynovitis along the fourth flexor tendon. 3. Not mentioned in the body report, mild signal alteration is seen throughout the fifth phalanges. Early osteomyelitis in the 5th toe is not excluded. Dictated by: Dictated on workstation # [id number] Dict: 05/31/22 0913 Trans: 05/31/22 [address] [facility] [id number] Interpreted by: DEDRICK ORDAZ MD Electronically signed by: DEDRICK ORDAZ MD 05/31/22 1007 Assessment/Plan Assessment/Plan Assessment/Plan Osteomyelitis - MRI confirmed, Left foot Non healing Diabetic ulcer of left foot DMII - uncontrolled HTN tobacco use Plan I reviewed the MRI and discussed his case with Dr. Langley. When I first saw him a 9am, I gave him 3 choices; 1) do nothing, 2) attempted debridement and then 8 weeks of PICC line IV ABX (daily) and 3) Left BKA. All of those were before I saw the MRI. I haven't gone back to talk to pt, but unfortunately with MRI reading he now only has option 3. I will go back to discuss possible amputation with associated intra-operative cultures. At this time will continue IV abx therapy, continue insulin therapy (needs to get good glucose control so he heals well), start on home HTN medication regimen, nicotine patch. Supervisory-Addendum Brief Verification & Attestation Participated in pt care: history, MDM, physical Personally performed: exam, history, MDM, supervision of care Care discussed with: Medical Student Procedures: n/a Verification and Attestation of Medical Student E/M Service A medical student performed and documented this service. I then reviewed and verified all information documented by the medical student and made modifications to such information, when appropriate. I personally performed a physical exam, medical decision making and then discussed any differences between the notes and made revisions as necessary to create one note. Mabel Myrick , 05/31/22 , 12:49 AARON JACKSON May 31, 2022 08:18 MABEL MYRICK DO May 31, 2022 12:45
--- NOTE | 2022-05-31 08:26 | Diagnostic Imaging Report ---
INDICATION: Bilateral cellulitis COMPARISON: None TECHNIQUE: Duplex, watson-scale and color-flow imaging of the bilateral lower extremity venous system was performed. FINDINGS: The common femoral vein, superficial femoral vein, profunda femoris, and popliteal veins are normal. These vessels show normal compressibility, color flow, and doppler augmentation. The deep calf veins, although not very well seen, demonstrate no distinct intraluminal thrombus. IMPRESSION: Negative venous Doppler of the bilateral lower extremities. Dictated by: Dictated on workstation # [id number]
--- NOTE | 2022-05-31 09:43 | Diagnostic Imaging Report ---
TECHNIQUE: Multiplanar, multisequence pre and post contrast-enhanced MRI of the left lower extremity was accomplished. INDICATION: Swelling and redness with seeping from the left forefoot. Possible osteomyelitis. EXAMINATION: Left lower extremity MRI with and without contrast 05/31/2022 CORRELATION made to radiographs of the foot from 05/30/2022 FINDINGS: There is diffuse abnormal signal intensity involving the mid and distal aspects of the fourth metatarsal diffusely hyperintense on T2-weighted imaging and hypointense on T1-weighted imaging. This also involves all of the phalanges of the fourth toe. Mild similar abnormal signal intensity is seen throughout the distal third metatarsal some of which may be due to the known underlying fracture although superimposed osteomyelitis is suspected. Abnormal signal intensity involves all of the residual third phalanges with areas of T1 hyperintensity of uncertain etiology perhaps blood products. Mild signal alteration is noted within the distal aspect of the proximal second phalanx and the second middle phalanx possibly osteomyelitis as well. Enhancement in all of the above-mentioned abnormal osseous structures is noted consistent with osteomyelitis. Within the soft tissues surrounding the fourth metatarsal and fourth toe, diffuse abnormal signal intensity is noted with areas of T2 hyperintensity and multiple fluid collections demonstrating peripheral enhancement consistent with abscesses. The largest abnormality lies along the plantar surface of the fourth metatarsophalangeal joint level extending to the joint likely causing a septic joint. This extends in the plantar surface of the fourth toe and proximally extends in between the third and fourth metatarsal heads. Given its extent, it is difficult to measure but is approximately 1.9 x 0.6 x 0.6 cm in size. This extends across the plantar surface of the fourth metatarsal head level to lie in between the 4th and 5th toes, as well. Diffuse surrounding heterogeneous signal intensity is likely due to cellulitis. Visualized tendons appear intact. There is however surrounding inflammatory/infectious change about the flexor tendons of the fourth toe with tenosynovitis likely. There is diffuse T2 hyperintensity and enhancement within all visualized musculature of the forefoot suggesting myositis. IMPRESSION: 1. Findings of osteomyelitis which involve the mid and distal 4th metatarsal, the mid and distal third metatarsal, all fourth and third phalanges and possibly portions of the second toe, as described above. Surrounding findings of edema and cellulitis noted with abscesses along the plantar surface of the forefoot surrounding the fourth metatarsophalangeal joint and toe, fourth toe as detailed above. A septic joint at the fourth metatarsophalangeal joint is also suspected. 2. Likely tenosynovitis along the fourth flexor tendon. 3. Not mentioned in the body report, mild signal alteration is seen throughout the fifth phalanges. Early osteomyelitis in the 5th toe is not excluded. Dictated by: Dictated on workstation # [id number]
[2022-05-31 09:44] VITALS: BP 138/76
--- NOTE | 2022-05-31 10:07 | History & Physical ---
HPI History of Present Illness: Pt states he has been having high blood sugars, states due to not having right meds. Has only been on Jardiance, blood sugars have been above 300, they had asked about lantus, and they were going to start if he stayed high, they just called and were trying to get that started but haven't yet. Has ulcer on bottom of foot, has been doing care at home, that has been 1-2 months ago. He has had problems with ulcers in the past, but they had been doing better before this. He states he just didn't make it happen getting in to wound care. Foot started swelling about a week ago more significantly and he thinks that's when cellulitis hit, but at first he just thought if he elevated it that would help, but he admits he didn't even really do that, was trying to help with their 2.5 year old. Yesterday he was walking around with a adhesive bandage making operator and he looked down and had blood seeping out of the toe of the shoe. Denies fever. Source: patient Date seen by provider: May 31, 2022 Time Seen by Provider: 10:05 Attending Physician Meghan Judd Aprn PCP Admitting Physician: Alejandrina Langley MD Attending Physician: Alejandrina Langley MD Consult Date of Admission May 30, 2022 at 22:05 Home Medications Home Medications Reviewed patient Home Medication Reconciliation performed by pharmacy medication reconciliations alignment technician and/or nursing. Patients Allergies have been reviewed. Allergies Coded Allergies: No Known Drug Allergies (Unverified , 07/22/21) PVU-[id number] Hx Patient Social History Smoking Status: Current Everyday Smoker Alcohol Use?: No Tobacco type used: Cigarettes Immunizations Up To Date Influenza Vaccine Up-to-Date: No; Not Current COVID19 Vaccine Community Director: NEVER RECEIVED Past Medical History PMHx: DMII HTN Opioid dependence disorder SurgHx: Abdominal hernia repair x 4 Cholecystectomy Review of Systems ([facility]) Constitutional: No fever EENTM: nose congestion; No throat pain Respiratory: No cough, No short of breath Cardiovascular: No chest pain Gastrointestinal: No abdominal pain, No constipation, No diarrhea, No nausea, No vomiting Genitourinary: No dysuria Musculoskeletal: see HPI Skin: see HPI Psychiatric/Neurological: Anxiety; Denies Depressed Reviewed Test Results Reviewed Test Results Lab Laboratory Tests Test 05/30/22 18:10 05/30/22 18:51 05/31/22 05:43 Range/Units White Blood Count 12.4 H 11.2 H 4.3-11.0 10^3/uL Red Blood Count 4.64 4.16 L 4.30-5.52 10^6/uL Hemoglobin 13.6 12.1 L 13.3-17.7 g/dL Hematocrit 39 L 35 L 40-54 % Mean Corpuscular Volume 84 85 80-99 fL Mean Corpuscular Hemoglobin 29 29 25-34 pg Mean Corpuscular Hemoglobin Concent 35 34 32-36 g/dL Red Cell Distribution Width 14.2 14.0 10.0-14.5 % Platelet Count 166 150 130-400 10^3/uL Mean Platelet Volume 9.0 8.8 L 9.0-12.2 fL Immature Granulocyte % (Auto) 1 0 % Neutrophils (%) (Auto) 59 61 42-75 % Lymphocytes (%) (Auto) 28 28 12-44 % Monocytes (%) (Auto) 9 7 0-12 % Eosinophils (%) (Auto) 3 3 0-10 % Basophils (%) (Auto) 1 0 0-10 % Neutrophils # (Auto) 7.4 6.8 1.8-7.8 10^3/uL Lymphocytes # (Auto) 3.5 3.2 1.0-4.0 10^3/uL Monocytes # (Auto) 1.1 H 0.8 0.0-1.0 10^3/uL Eosinophils # (Auto) 0.4 H 0.4 H 0.0-0.3 10^3/uL Basophils # (Auto) 0.1 0.0 0.0-0.1 10^3/uL Immature Granulocyte # (Auto) 0.1 0.1 0.0-0.1 10^3/uL Erythrocyte Sedimentation Rate 39 H 0-15 MM/HR Prothrombin Time 14.4 12.2-14.7 SEC INR Comment 1.1 0.8-1.4 Activated Partial Thromboplast Time 30 24-35 SEC D-Dimer 0.70 H 0.00-0.49 UG/ML Sodium Level 137 139 135-145 MMOL/L Potassium Level 3.9 3.9 3.6-5.0 MMOL/L Chloride Level 102 110 H 98-107 MMOL/L Carbon Dioxide Level 25 22 21-32 MMOL/L Anion Gap 10 7 5-14 MMOL/L Blood Urea Nitrogen 10 11 7-18 MG/DL Creatinine 0.47 L 0.58 L 0.60-1.30 MG/DL Estimat Glomerular Filtration Rate 130 122 BUN/Creatinine Ratio 21 19 Glucose Level 257 H 160 H 70-105 MG/DL Calcium Level 8.9 8.3 L 8.5-10.1 MG/DL Corrected Calcium 9.5 8.5-10.1 MG/DL Total Bilirubin 0.7 0.1-1.0 MG/DL Aspartate Amino Transf (AST/SGOT) 54 H 5-34 U/L Alanine Aminotransferase (ALT/SGPT) 74 H 0-55 U/L Alkaline Phosphatase 229 H 40-136 U/L C-Reactive Protein 2.64 H <0.50 MG/DL Pro-B-Type Natriuretic Peptide 98.8 <125.0 PG/ML Total Protein 7.6 6.4-8.2 GM/DL Albumin 3.3 3.2-4.5 GM/DL Urine Color YELLOW Urine Clarity CLEAR Urine pH 6.0 5-9 Urine Specific Morris 1.010 L 1.016-1.022 Urine Protein NEGATIVE NEGATIVE Urine Glucose (UA) 3+ H NEGATIVE Urine Ketones NEGATIVE NEGATIVE Urine Nitrite NEGATIVE NEGATIVE Urine Bilirubin NEGATIVE NEGATIVE Urine Urobilinogen 2.0 < = 1.0 MG/DL Urine Leukocyte Esterase NEGATIVE NEGATIVE Urine RBC (Auto) NEGATIVE NEGATIVE Urine RBC NONE /HPF Urine WBC NONE /HPF Urine Squamous Epithelial Cells 0-2 /HPF Urine Crystals NONE /LPF Urine Bacteria NEGATIVE /HPF Urine Casts NONE /LPF Urine Mucus NEGATIVE /LPF Urine Culture Indicated NO Radiology 05/30/22 Foot xray: IMPRESSION: Fracture of the distal third metatarsal with some distraction at the fracture site. There is also periosteal reaction of the distal fourth metatarsal. The third toe appears to be severely demineralized and incompletely imaged on this study. Involvement with osteomyelitis cannot be entirely excluded. No other significant abnormalities are seen. MRI foot: IMPRESSION: 1. Findings of osteomyelitis which involve the mid and distal 4th metatarsal, the mid and distal third metatarsal, all fourth and third phalanges and possibly portions of the second toe, as described above. Surrounding findings of edema and cellulitis noted with abscesses along the plantar surface of the forefoot surrounding the fourth metatarsophalangeal joint and toe, fourth toe as detailed above. A septic joint at the fourth metatarsophalangeal joint is also suspected. 2. Likely tenosynovitis along the fourth flexor tendon. 3. Not mentioned in the body report, mild signal alteration is seen throughout the fifth phalanges. Early osteomyelitis in the 5th toe is not excluded. Bilateral venous dopplers: IMPRESSION: Negative venous Doppler of the bilateral lower extremities. Physical Exam-([facility]) Physical Exam Vital Signs VS - Last 72 Hours, by Label 05/30/22 05/30/22 05/30/22 05/30/22 18:01 21:08 22:25 22:30 Temp 36.7 36.4 Pulse 98 85 87 Resp 18 18 20 B/P (MAP) 148/90 (109) 145/73 163/77 (105) Pulse Ox 99 98 100 O2 Delivery Room Air Room Air Room Air Room Air 05/30/22 05/30/22 05/31/22 05/31/22 22:45 23:21 03:04 09:44 Temp 36.6 36.6 36.8 Pulse 87 86 82 77 Resp 20 20 18 B/P (MAP) 129/70 (89) 135/63 (87) 138/76 (96) Pulse Ox 99 97 97 98 O2 Delivery Room Air Room Air Room Air FiO2 21 05/31/22 11:17 Temp 36.9 Pulse 68 Resp 18 B/P (MAP) 147/73 (97) Pulse Ox 98 O2 Delivery Room Air Capillary Refill : General Appearance: no apparent distress Respiratory: lungs clear, normal breath sounds Cardiovascular: regular rate, rhythm, no murmur Gastrointestinal: normal bowel sounds, non tender, soft Extremities: other (left foot wrapped in gazue and TRE, bleeding noted from distal toe area. Erythema to distal third of calf.) Neurologic/Psychiatric: alert, other (anxious) Assessment/Plan Assessment/Plan Admission Status: Inpatient Order (span 2 midnights) Reason for Inpatient Admission: Osteomyelitis (1) Osteomyelitis of left foot Status: Acute Assessment & Plan: Started Zosyn and vancomycin on admit. Surgery consulted. He does not want to have surgery, was hoping to manage with IV antibiotics, however, MRI findings are quite significant. Discussed with him I anticipate need for surgery. He is very anxious and tearful, wants to go home first. I disc ussed the danger of that and recommend staying for IV antibiotics, and can continue to process the information and discuss next steps while inpatient and he agrees that is acceptable to him. Qualifiers: Qualified Codes: M86.9 - Osteomyelitis, unspecified (2) Hyperglycemia due to type 2 diabetes mellitus Status: Acute Assessment & Plan: Sliding scale insulin. Anticipate will need scheduled long acting, will determine pending intake and glucose results. Qualifiers: Qualified Codes: E11.65 - Type 2 diabetes mellitus with hyperglycemia (3) Bilateral cellulitis of lower leg Status: Acute (4) Hypertension Status: Chronic Assessment & Plan: Resume home meds (5) Opioid dependence in remission Status: Chronic Assessment & Plan: Resume home meds (6) Elevated liver enzymes Status: Acute Assessment & Plan: Uncertain chronicity. Will review clinic chart. Check hepatitis panel, consider liver US if not done prior. (7) DVT prophylaxis Status: Acute Assessment & Plan: Enoxaparin if not going to surgery shortly ALEJANDRINA LANGLEY MD May 31, 2022 10:07
[2022-05-31] MEDS ORDERED: HYPOCHLOROUS ACID/NaCl (VASHE) 250 ML IR SCH (11:15)
[2022-05-31 11:17] VITALS: BP 147/73
[2022-05-31] MEDS ORDERED: EMPA1TAB21 PO (11:57)
[2022-05-31] MEDS ORDERED: LISI10TA25 PO (11:57)
[2022-05-31] MEDS ORDERED: FERR325T24 PO (11:57)
--- NOTE | 2022-05-31 15:34 | Diagnostic Imaging Report ---
PROCEDURE: US Bilateral lower extremity arterial. TECHNIQUE: Multiple real-time grayscale images are obtained through both lower extremity arterial systems with color Doppler imaging and color Doppler spectral analysis. INDICATION: Osteomyelitis, cellulitis, left foot ulceration. COMPARISON: None. FINDINGS: There is atherosclerosis in the bilateral lower extremities. Right lower extremity: The right common femoral artery is triphasic and measures 121 cm/s. The deep femoral artery is triphasic and measures 141 cm/s. The superficial femoral artery is triphasic and ranges between 95 and 125 cm/s. The popliteal artery is triphasic and measures 92 cm/s. The posterior tibial artery is triphasic and measures 101 cm/s. The dorsalis pedis is triphasic and measures 35 cm/s. Left lower extremity: The left common femoral artery is triphasic and measures 161 cm/s. The deep femoral artery is biphasic and measures 51 cm/s. The superficial femoral artery is triphasic and ranges between 139 and 152 cm/s. The popliteal artery is triphasic and measures 213 cm/s. The posterior tibial artery is monophasic and measures 113 cm/s. The dorsalis pedis is monophasic and measures 140 cm/s. The anterior tibial artery is monophasic and measures 118 cm/s. There are multiple prominent lymph nodes in the left inguinal region, likely reactive. IMPRESSION: 1. Atherosclerosis in the lower extremities with no high-grade stenosis or occlusion seen. 2. Monophasic waveforms in the left lower leg may be due to distal hyperemia. 3. Prominent left inguinal lymph nodes, likely reactive. Dictated by: Dictated on workstation # [id number]
[2022-05-31 16:11] VITALS: BP 135/71
[2022-05-31 19:28] VITALS: BP 137/72
[2022-05-31] MEDS ORDERED: TROUGH ORDER-PHARMACY XX NR (20:00)
[2022-05-31 23:06] VITALS: BP 128/69
[2022-05-31 23:45] LABS: HEPATITIS C ANTIBODY C Reactive (Non-Reactive)
[2022-06-01] MEDS: PIPERACILLIN SODIUM/TAZOBACTAM 4.5 GM in NS (IVPB) 100 ML IV SCH ×3 (01:54→17:11)
[2022-06-01] MEDS: CATHETER FLUSH 10 ML SYR IVP SCH ×3 (01:54→21:15)
[2022-06-01] MEDS: VANCOMYCIN 1250 MG/NS 250 ML PREMIX IV SCH ×3 (04:07→21:11)
[2022-06-01 04:10] VITALS: BP 143/80
[2022-06-01 05:29] LABS: HEMATOCRIT 36 % (40-54); HEMOGLOBIN 12.4 g/dL (13.3-17.7); MEAN CORPUSCULAR HEMOGLOBIN 29 pg (25-34); MEAN CORPUSCULAR HGB CONC 35 g/dL (32-36); MEAN CORPUSCULAR VOLUME 84 fL (80-99); PLATELET COUNT 143 10^3/uL (130-400); WHITE BLOOD COUNT 9.5 10^3/uL (4.3-11.0)
[2022-06-01 05:45] LABS: ALBUMIN 2.5 GM/DL (3.2-4.5)
[2022-06-01 05:47] LABS: CALCIUM 7.8 MG/DL (8.5-10.1)
[2022-06-01 05:48] LABS: TOTAL PROTEIN 6.4 GM/DL (6.4-8.2)
[2022-06-01 05:50] LABS: BILIRUBIN,TOTAL 0.7 MG/DL (0.1-1.0)
[2022-06-01 05:51] LABS: CREATININE SERUM 0.59 MG/DL (0.60-1.30)
[2022-06-01] MEDS: inSUlin ASPART (NovoLOG) 1 UNIT/0.01 ML (CHARGE PER UNIT) SC SCH ×4 (06:10→21:14)
[2022-06-01 07:35] VITALS: BP 142/74
--- NOTE | 2022-06-01 07:56 | Progress Note - Surgery ---
KULDIP TEJEDA 06/01/22 0756: Subjective Date Seen by a Provider: Jun 01, 2022 Time Seen by a Provider: 07:50 Subjective/Events-last exam Patient denies pain of the left foot or leg or numbness of the extremities. He additionally denies chills, fatigue, SOB, or CP. Review of Systems General: No Chills, No Night Sweats HEENT: No Head Aches Pulmonary: No Dyspnea Cardiovascular: No: Chest Pain Gastrointestinal: No: Nausea, Vomiting, Abdominal Pain Genitourinary: No Dysuria, No Frequency Musculoskeletal: No: leg pain, foot pain Neurological: No: Weakness, Numbness Objective Exam Vital Signs Date Time Temp Pulse Resp B/P (MAP) Pulse Ox O2 Delivery O2 Flow Rate FiO2 06/01/22 07:35 36.2 79 18 142/74 (96) 94 Room Air 06/01/22 04:10 36.4 67 20 143/80 (101) 97 Room Air 05/31/22 23:06 36.3 66 20 128/69 (88) 96 Room Air 05/31/22 20:58 Room Air 05/31/22 19:28 35.4 73 20 137/72 (93) 96 Room Air 05/31/22 16:11 35.9 69 20 135/71 (92) 98 Room Air 05/31/22 11:17 36.9 68 18 147/73 (97) 98 Room Air 05/31/22 09:44 36.8 77 18 138/76 (96) 98 Room Air 05/31/22 08:00 Room Air I & O 06/01/22 07:00 Intake Total 3640 ml Output Total 4425 ml Balance -785 ml Capillary Refill : General Appearance: No Apparent Distress Neck: Non Tender, Supple Respiratory: Lungs Clear Cardiovascular: Regular Rate, Rhythm Peripheral Pulses: 2+ Dorsalis Pedis (R), 2+ Left Dors-Pedis (L); 3+ Radial Pulses (R), 3+ Radial Pulses (L) Gastrointestinal: normal bowel sounds, non tender, soft, no organomegaly, no pulsatile mass Extremity: Normal Capillary Refill, No Calf Tenderness, Other (erythema and swelling on left lower leg above casting) Neurologic/Psychiatric: Alert, Oriented x3 Skin: Warm/Dry Results Lab Laboratory Tests 05/31/22 19:58: Vancomycin Level Trough 15.5 05/31/22 20:52: Glucometer 252H 06/01/22 05:00: White Blood Count 9.5, Red Blood Count 4.27L, Hemoglobin 12.4L, Hematocrit 36L, Mean Corpuscular Volume 84, Mean Corpuscular Hemoglobin 29, Mean Corpuscular Hemoglobin Concent 35, Red Cell Distribution Width 13.8, Platelet Count 143, Mean Platelet Volume 9.0, Sodium Level 136, Potassium Level 4.0, Chloride Level 108H, Carbon Dioxide Level 21, Anion Gap 7, Blood Urea Nitrogen 12, Creatinine 0.59L, Estimat Glomerular Filtration Rate 121, BUN/Creatinine Ratio 20, Glucose Level 156H, Calcium Level 7.8L, Corrected Calcium 9.0, Total Bilirubin 0.7, Aspartate Amino Transf (AST/SGOT) 95H, Alanine Aminotransferase (ALT/SGPT) 86H, Alkaline Phosphatase 148H, Total Protein 6.4, Albumin 2.5L Microbiology 05/30/22 Blood Culture - Preliminary, Resulted No growth Assessment/Plan Assessment/Plan Assessment/Plan Osteomyelitis - MRI confirmed, Left foot Non healing Diabetic ulcer of left foot DMII - uncontrolled HTN tobacco use Plan I reviewed the MRI and discussed his case with Dr. Langley. When I first saw him a 9am, I gave him 3 choices; 1) do nothing, 2) attempted debridement and then 8 weeks of PICC line IV ABX (daily) and 3) Left BKA. All of those were before I saw the MRI. I haven't gone back to talk to pt, but unfortunately with MRI reading he now only has option 3. I will go back to discuss possible amputation with associated intra-operative cultures. At this time will continue IV abx therapy, continue insulin therapy (needs to get good glucose control so he heals well), start on home HTN medication regimen, nicotine patch. NOLAN MYRICK DO 06/01/22 0923: Subjective Time Seen by a Provider: 08:48 Subjective/Events-last exam Pt seen and examined, no changes. Denies abdominal pain or leg pain. Review of Systems Pulmonary: No Dyspnea Cardiovascular: No: Chest Pain Gastrointestinal: No: Nausea, Vomiting, Abdominal Pain Musculoskeletal: No: leg pain Objective Exam General Appearance: No Apparent Distress HEENT: Moist Mucous Membranes Respiratory: Lungs Clear, Normal Breath Sounds, No Accessory Muscle Use, No Respiratory Distress Cardiovascular: Regular Rate, Rhythm, No Murmur Gastrointestinal: non tender, soft, no organomegaly, other (pt has scar just above umbilicus "from my 4 hernia surgeries", palpable mesh - firm mass) Extremity: No Calf Tenderness, Other (erythema and edema with chronic venous stasis changes. bandage covering left foot) Neurologic/Psychiatric: Alert, Oriented x3 Assessment/Plan Assessment/Plan Assessment/Plan Osteomyelitis - MRI confirmed, Left foot Non healing Diabetic ulcer of left foot DMII - uncontrolled HTN tobacco use Plan I did talk to pt yesterday about amputation, he was not very receptive; when I spoke to him today asking if he had made a decision he said he knew he needed it but wants his here to discuss it more. At this time will continue IV abx therapy, continue insulin therapy (needs to get good glucose control so he heals well), start on home HTN medication regimen, nicotine patch. Supervisory-Addendum Brief Verification & Attestation Participated in pt care: history, MDM, physical Personally performed: exam, history, MDM, supervision of care Care discussed with: Medical Student Procedures: n/a Verification and Attestation of Medical Student E/M Service A medical student performed and documented this service. I then reviewed and verified all information documented by the medical student and made modifications to such information, when appropriate. I personally performed a physical exam, medical decision making and then discussed any differences between the notes and made revisions as necessary to create one note. Nolan Myrick , 06/01/22 , 09:22 KULDIP TEJEDA Jun 01, 2022 07:56 NOLAN MYRICK DO Jun 01, 2022 09:23
[2022-06-01] MEDS: FERROUS SULF 325 MG (IRON) TAB PO SCH (09:20)
[2022-06-01] MEDS: lisINopril 10 MG (PRINIVIL) TABLET PO SCH (09:20)
[2022-06-01] MEDS ORDERED: NALOXONE SL SCH (10:30)
[2022-06-01] MEDS ORDERED: BUPRENORPHINE SL SCH (10:30)
[2022-06-01 11:08] VITALS: BP 141/79
--- NOTE | 2022-06-01 12:40 | Progress Note - Hospitalist ---
JENNIFER MYERS 06/01/22 1240: Subjective HPI/CC On Admission Date Seen by Provider: Jun 01, 2022 Time Seen by Provider: 09:00 Lower limb cellulitis/high BGL Subjective/Events-last exam Patient seen at bedside this morning. He has not spoken with general surgery today but seems to be aware that he "needs his foot removed" due to the severity of his wound. He otherwise has no complaints. He's been eating/drinking and urinating. He has not had a BM yet but feels that he may have one today. Hospital Course: This is a 46 y/o male who presented to the ER on 05/31 complaining of uncontrolled blood sugars and seeping from his left foot ulcer he has had chronically. He reported to admitting team that he was at work yesterday when he noticed the wound had seeped through his sock and was bloody appearing. He also said that he had been taking Jardiance for his DM but his BGLs have been in the 300s and that he wasn't on the right medication regimens. His lower extremities were imaged via XR and MRI and were found to have extensive osteomyelitis in the 2-4 metatarsals along with septic joint involvement. General surgery had been consulted prior to this and had previously told the patient he could do nothing, do long-term IV antibiotic treatment in conjunction with a debridement, or a BKA. After the imaging results however, general surgery strongly recommended a BKA as the only option. Currently the patient's BGLs and chronic conditions are being managed by IM as he awaits his BKA surgery scheduled for 06/02/2022. Objective Exam Vital Signs Vital Signs Date Time Temp Pulse Resp B/P (MAP) Pulse Ox O2 Delivery O2 Flow Rate FiO2 06/01/22 11:08 36.2 68 18 141/79 (99) 97 Room Air 05/30/22 22:45 21 Capillary Refill : General Appearance: No Apparent Distress, Anxious HEENT: PERRL/EOMI, Moist Mucous Membranes Neck: Full Range of Motion, Supple Respiratory: Lungs Clear Cardiovascular: Regular Rate, Rhythm, Systolic Murmur (Crescendo-decrescendo, grade 2/6) Gastrointestinal: Normal Bowel Sounds, Non Tender, Soft Rectal: Deferred Extremity: No Pedal Edema, Other (cellulitis/wound on left foot, appropriately bandaged/dressed) Neurologic/Psychiatric: Alert, Oriented x3 Skin: Normal Color, Warm/Dry Results/Procedures Lab Laboratory Tests 06/01/22 05:00 Patient resulted labs reviewed. Imaging: Reviewed Imaging Films Radiology NAME: MABEL TORREZ [facility] REC#: [id number] PT STATUS: ADM Bel[place] : 1975 PHYSICIAN: ALEJANDRINA LAO MD ADMIT DATE: 05/30/22 Signed Date of Exam:05/31/22 MRI LT LOWER EXT W/WO CON TECHNIQUE: Multiplanar, multisequence pre and post contrast-enhanced MRI of the left lower extremity was accomplished. INDICATION: Swelling and redness with seeping from the left forefoot. Possible osteomyelitis. EXAMINATION: Left lower extremity MRI with and without contrast 05/31/2022 CORRELATION made to radiographs of the foot from 05/30/2022 FINDINGS: There is diffuse abnormal signal intensity involving the mid and distal aspects of the fourth metatarsal diffusely hyperintense on T2-weighted imaging and hypointense on T1-weighted imaging. This also involves all of the phalanges of the fourth toe. Mild similar abnormal signal intensity is seen throughout the distal third metatarsal some of which may be due to the known underlying fracture although superimposed osteomyelitis is suspected. Abnormal signal intensity involves all of the residual third phalanges with areas of T1 hyperintensity of uncertain etiology perhaps blood products. Mild signal alteration is noted within the distal aspect of the proximal second phalanx and the second middle phalanx possibly osteomyelitis as well. Enhancement in all of the above-mentioned abnormal osseous structures is noted consistent with osteomyelitis. Within the soft tissues surrounding the fourth metatarsal and fourth toe, diffuse abnormal signal intensity is noted with areas of T2 hyperintensity and multiple fluid collections demonstrating peripheral enhancement consistent with abscesses. The largest abnormality lies along the plantar surface of the fourth metatarsophalangeal joint level extending to the joint likely causing a septic joint. This extends in the plantar surface of the fourth toe and proximally extends in between the third and fourth metatarsal heads. Given its extent, it is difficult to measure but is approximately 1.9 x 0.6 x 0.6 cm in size. This extends across the plantar surface of the fourth metatarsal head level to lie in between the 4th and 5th toes, as well. Diffuse surrounding heterogeneous signal intensity is likely due to cellulitis. Visualized tendons appear intact. There is however surrounding inflammatory/infectious change about the flexor tendons of the fourth toe with tenosynovitis likely. There is diffuse T2 hyperintensity and enhancement within all visualized musculature of the forefoot suggesting myositis. IMPRESSION: 1. Findings of osteomyelitis which involve the mid and distal 4th metatarsal, the mid and distal third metatarsal, all fourth and third phalanges and possibly portions of the second toe, as described above. Surrounding findings of edema and cellulitis noted with abscesses along the plantar surface of the forefoot surrounding the fourth metatarsophalangeal joint and toe, fourth toe as detailed above. A septic joint at the fourth metatarsophalangeal joint is also suspected. 2. Likely tenosynovitis along the fourth flexor tendon. 3. Not mentioned in the body report, mild signal alteration is seen throughout the fifth phalanges. Early osteomyelitis in the 5th toe is not excluded. Dictated by: Dictated on workstation # [id number] Dict: 05/31/22 0913 Trans: 05/31/22 1007 [facility] [id number] Interpreted by: DEDRICK ORDAZ MD Electronically signed by: DEDRICK ORDAZ MD 05/31/22 1007 NAME: MABEL TORREZ MED REC#: [id number] PT STATUS: ADM IN : 1975 PHYSICIAN: ALEJANDRINA LAO MD ADMIT DATE: 05/30/22 Signed Date of Exam:05/31/22 US VENOUS LOWER EXT NAYANA INDICATION: Bilateral cellulitis COMPARISON: None TECHNIQUE: Duplex, watson-scale and color-flow imaging of the bilateral lower extremity venous system was performed. FINDINGS: The common femoral vein, superficial femoral vein, profunda femoris, and popliteal veins are normal. These vessels show normal compressibility, color flow, and doppler augmentation. The deep calf veins, although not very well seen, demonstrate no distinct intraluminal thrombus. IMPRESSION: Negative venous Doppler of the bilateral lower extremities. Dictated by: Dictated on workstation # [id number] Dict: 05/31/22821 Trans: 05/31/22 1718 [facility] [id number] Interpreted by: GURDEEP CROWE MD Electronically signed by: GURDEEP CROWE MD 05/31/22 1718 NAME: MABEL TORREZ MED REC#: [id number] PT STATUS: ADM IN : 1975 PHYSICIAN: ALEJANDRINA LAO MD ADMIT DATE: 05/30/22 Signed Date of Exam:05/31/22 US NAYANA LOWER EXT [id number] PROCEDURE: US Bilateral lower extremity arterial. TECHNIQUE: Multiple real-time grayscale images are obtained through both lower extremity arterial systems with color Doppler imaging and color Doppler spectral analysis. INDICATION: Osteomyelitis, cellulitis, left foot ulceration. COMPARISON: None. FINDINGS: There is atherosclerosis in the bilateral lower extremities. Right lower extremity: The right common femoral artery is triphasic and measures 121 cm/s. The deep femoral artery is triphasic and measures 141 cm/s. The superficial femoral artery is triphasic and ranges between 95 and 125 cm/s. The popliteal artery is triphasic and measures 92 cm/s. The posterior tibial artery is triphasic and measures 101 cm/s. The dorsalis pedis is triphasic and measures 35 cm/s. Left lower extremity: The left common femoral artery is triphasic and measures 161 cm/s. The deep femoral artery is biphasic and measures 51 cm/s. The superficial femoral artery is triphasic and ranges between 139 and 152 cm/s. The popliteal artery is triphasic and measures 213 cm/s. The posterior tibial artery is monophasic and measures 113 cm/s. The dorsalis pedis is monophasic and measures 140 cm/s. The anterior tibial artery is monophasic and measures 118 cm/s. There are multiple prominent lymph nodes in the left inguinal region, likely reactive. IMPRESSION: 1. Atherosclerosis in the lower extremities with no high-grade stenosis or occlusion seen. 2. Monophasic waveforms in the left lower leg may be due to distal hyperemia. 3. Prominent left inguinal lymph nodes, likely reactive. Dictated by: Dictated on workstation # [id number] Dict: 05/31/22 1519 Trans: 05/31/22 1723 [id number] Interpreted by: MACHO JARVIS MD Electronically signed by: MACHO JARVIS MD 05/31/22 1722 Assessment/Plan Assessment and Plan Assess & Plan/Chief Complaint Assessment: This is a 46 y/o male who presented with a exudative left lower limb wound and uncontrolled diabetes mellitus Osteomyelitis of the left lower 2nd, 3rd, and 4th metatarsal with probable septic joint involvement Hyperglycemia, Type II Diabetes mellitus - uncontrolled HTN Opioid use disorder - remission Elevated liver enzymes on admission 1) Osteomyelitis of LLE Septic Joint -On vanc/zosyn -Surgery planning for BKA tomorrow -VSS, afebrile -Lower extremity U/S and dopplers negative for any clots/blockages/significant atherosclerosis disrupting blood flow to the wound area. 2) Hyperglycemia 2/2 uncontrolled TIIDM -Fasting BGL have been ~150s in AM on CMPs -Post-prandials 240-250s -Continue SSI for inpatient cares -Post-operatively can consider adding on long-acting insulin agent -Renal function WNL, on lisinopril 3) HTN -continuing home lisinopril -mildly elevated BP to 140s systolic; 4) Opioid use disorder - remission -using ketorlac/APAP for pain management currently -Refused suboxone - will DC as been in long-term remission -Post-operative pain control per surgery 5) Elevated liver enzymes -Bili WNL -Unclear etiology at this time, possibly chronic NAFLD -Recommend FU outpatient after acute problems addressed BETTE ANNA DO 06/02/22 0456: Supervisory-Addendum Brief Verification & Attestation Participated in pt care: history, MDM, physical Personally performed: exam, history, MDM, supervision of care Care discussed with: Medical Student Procedures: n/a Results interpretation: Verified all documentation Verification and Attestation of Medical Student E/M Service A medical student performed and documented this service in my presence. I reviewed and verified all information documented by the medical student and made modifications to such information, when appropriate. I personally performed the physical exam and medical decision making. Bette Anna Jun 02, 2022,04:56 JENNIFER MYERS Jun 01, 2022 12:40 BETTE ANNA DO Jun 02, 2022 04:56
[2022-06-01] MEDS: LORazepam 1 MG (ATIVAN) TAB PO PRN ×2 (13:36→21:22)
[2022-06-01] MEDS ORDERED: CATHETER FLUSH 10 ML SYR IVP PRN (14:30)
[2022-06-01 16:39] VITALS: BP 149/80
[2022-06-01 20:15] VITALS: BP 158/83
[2022-06-01 23:24] VITALS: BP 137/70
[2022-06-02] VITALS (12 sets, daily range): BP systolic 111–173; BP diastolic 58–92
[2022-06-02] MEDS: PIPERACILLIN SODIUM/TAZOBACTAM 4.5 GM in NS (IVPB) 100 ML IV SCH ×3 (01:56→17:25)
[2022-06-02] MEDS: CATHETER FLUSH 10 ML SYR IVP SCH ×3 (01:56→20:52)
[2022-06-02] MEDS: VANCOMYCIN 1250 MG/NS 250 ML PREMIX IV SCH ×3 (04:49→20:52)
[2022-06-02] MEDS: inSUlin ASPART (NovoLOG) 1 UNIT/0.01 ML (CHARGE PER UNIT) SC SCH ×4 (06:08→20:51)
--- NOTE | 2022-06-02 06:36 | Progress Note - Surgery ---
KULDIP TEJEDA 06/02/22 0636: Subjective Date Seen by a Provider: Jun 02, 2022 Time Seen by a Provider: 06:20 Subjective/Events-last exam 46 you patient with a history of uncontrolled DM-II, HTN and tobacco use being followed for osteomyelitis, cellulitis, and plantar abscesses of the left foot. He was awoken from sleep to perform the evaluation and drowsy when answering questions. He denies foot and ankle pain, tingling or tenderness, chills, lightheadedness, SOB, chest pain, abdominal pain or N/V/D. Left BKA is scheduled for today. Review of Systems General: No Chills, No Fatigue HEENT: No Head Aches Pulmonary: No Dyspnea Cardiovascular: No: Chest Pain, Palpitations Gastrointestinal: No: Nausea, Vomiting, Abdominal Pain Genitourinary: No Dysuria, No Frequency Musculoskeletal: No: leg pain, foot pain Objective Exam Vital Signs Date Time Temp Pulse Resp B/P (MAP) Pulse Ox O2 Delivery O2 Flow Rate FiO2 06/02/22 04:51 36.6 82 18 154/81 (105) 94 Room Air 06/02/22 03:14 68 97 21 06/01/22 23:24 36.3 78 18 137/70 (92) 96 Room Air 06/01/22 23:02 Room Air 06/01/22 20:45 Room Air 06/01/22 20:15 36.1 70 18 158/83 (108) 97 Room Air 06/01/22 16:39 36.3 71 17 149/80 (103) 98 Room Air 06/01/22 11:08 36.2 68 18 141/79 (99) 97 Room Air 06/01/22 10:58 Room Air 06/01/22 08:00 Room Air 06/01/22 07:35 36.2 79 18 142/74 (96) 94 Room Air I & O 06/02/22 07:00 Intake Total 2480 ml Output Total 3850 ml Balance -1370 ml Capillary Refill : General Appearance: No Apparent Distress, Anxious HEENT: Pharynx Normal, Moist Mucous Membranes Neck: Non Tender, Supple Respiratory: Lungs Clear, Normal Breath Sounds, No Accessory Muscle Use Cardiovascular: Regular Rate, Rhythm, No Murmur, Systolic Murmur (Crescendo- decrescendo, grade 2/6) Peripheral Pulses: 2+ Dorsalis Pedis (R), 2+ Left Dors-Pedis (L); 3+ Radial Pulses (R), 3+ Radial Pulses (L) Gastrointestinal: normal bowel sounds, non tender, soft, no organomegaly, other (surgical scar above umbilicus, surgical mesh palpable (hx of hernia repairs)) Extremity: No Calf Tenderness, Other (cellulitis/wound on left foot, appropriately bandaged/dressed) Neurologic/Psychiatric: Alert, Oriented x3 Skin: Normal Color (erythema and edema of ankles bilaterally consistent with venous stasis), Warm/Dry, Other Results Lab Laboratory Tests 06/01/22 11:03: Glucometer 242H 06/01/22 16:43: Glucometer 215H 06/01/22 20:19: Glucometer 226H 06/02/22 06:07: Glucometer 194H Microbiology 05/30/22 Blood Culture - Preliminary, Resulted No growth Assessment/Plan Assessment/Plan Assessment/Plan Osteomyelitis - MRI confirmed, Left foot Non healing Diabetic ulcer of left foot DMII - uncontrolled HTN tobacco use Plan: Left BKA today Clinical Quality Measures DVT/VTE Risk/Contraindication: Contraindications-Pharm: Other *list below* Other: OR NOLAN GUNDERSON DO 06/02/22 0945: Subjective Time Seen by a Provider: 09:06 Subjective/Events-last exam Pt seen and examined, with family in the room. Pt denies any new complaints, they have a few questions about surgery. Review of Systems HEENT: No Head Aches Pulmonary: No Dyspnea Cardiovascular: No: Chest Pain, Palpitations Gastrointestinal: No: Nausea, Vomiting, Abdominal Pain Objective Exam General Appearance: No Apparent Distress, Anxious Respiratory: Lungs Clear, Normal Breath Sounds, No Accessory Muscle Use, No Respiratory Distress Cardiovascular: Systolic Murmur (Crescendo-decrescendo, grade 2/6) Gastrointestinal: normal bowel sounds, non tender, soft, no organomegaly, other (surgical scar above umbilicus, surgical mesh palpable (hx of hernia repairs)) Extremity: Other (cellulitis/wound on left foot, appropriately bandaged/dressed) Neurologic/Psychiatric: Alert, Oriented x3 Assessment/Plan Assessment/Plan Assessment/Plan Osteomyelitis - MRI confirmed, Left foot Non healing Diabetic ulcer of left foot DMII - uncontrolled HTN tobacco use Plan: Left BKA today Supervisory-Addendum Brief Verification & Attestation Participated in pt care: history, MDM, physical Personally performed: exam, history, MDM, supervision of care Care discussed with: Medical Student Procedures: n/a Verification and Attestation of Medical Student E/M Service A medical student performed and documented this service. I then reviewed and verified all information documented by the medical student and made modifications to such information, when appropriate. I personally performed a physical exam, medical decision making and then discussed any differences between the notes and made revisions as necessary to create one note. Nolan Gunderson , 06/02/22 , 09:45 KULDIP TEJEDA Jun 02, 2022 06:36 NOLAN GUNDERSON DO Jun 02, 2022 09:45
[2022-06-02] MEDS: LACTATED RINGERS 1,000 ML IV PRN ×2 (09:45→10:39)
[2022-06-02] MEDS ORDERED: ONDANSETRON 4 MG/2 ML (SDV) Z0FRAN ONE (09:46)
[2022-06-02] MEDS ORDERED: ROCURONIUM 50 MG/5 ML (ZEMURON) VIAL IV ONE (09:46)
[2022-06-02] MEDS ORDERED: MIDAZOLAM 2 MG/2 ML (VERSED) VIAL ONE (09:46)
[2022-06-02] MEDS ORDERED: fentaNYL INJ 100 MCG/2 ML AMP ONE ×2 (09:46→11:34)
[2022-06-02] MEDS ORDERED: proPOfol 200 MG/20 ML (DIPRIVAN) VIAL IV ONE (09:46)
[2022-06-02] MEDS ORDERED: LIDOCAINE PF 2% 5 ML (XYLOCAINE) VIAL ONE (09:46)
[2022-06-02] MEDS ORDERED: NEOSTIGMINE (BLOXIVERZ ) 1 MG/1ML 10 ML VIAL ONE (11:05)
[2022-06-02] MEDS ORDERED: SEVOFLURANE (ULTANE) 15 ML INHAL SOLN ONE (11:05)
[2022-06-02] MEDS ORDERED: GLYCOPYRROLATE 0.2 MG/ML (ROBINUL) 2 ML VIAL ONE (11:05)
[2022-06-02] MEDS ORDERED: HYDROmorphone 2 MG/ML VIAL (DILAUDID) ONE (11:06)
--- NOTE | 2022-06-02 11:17 | Progress Note-Post Operative ---
Post-Operative Progess Note Surgeon (s)/Bone Char Operator (s) Surgeon MABEL MYRICK DO Bone Char Operator: Claude Pre-Operative Diagnosis Osteomyelitis left foot Post-Operative Diagnosis same Procedure & Operative Findings Date of Procedure 06/02/22 Procedure Performed/Findings Left BKA After informed consent was obtained, the patient was brought to the operating room, a fish mouth incision was made about a 20 cm below the patella with a #10 blade, carried down through skin and subcutaneous tissue, had raised the tourniquet on the upper leg and then continued this incision with Bovie electrocautery going through muscle, skin and tissue. The tissue was very hard and firm because of venous stasis changes went into the muscle, identifying the vascular bundles and tying them off, going up to about 10 cm below the tibial plateau on the tibia and then pushed all the muscle and periosteum off, then used a bone saw to come through here. Continued cutting through muscle and went up to about 8 cm below the tibial plateau with the fibula and then cut this off of the bone saw and then took the rest of the muscle off with Bovie electrocautery. Completed the fishmouth incision on the back of the leg and then removed this portion of the leg. At this point, then started cauterizing muscle to stop the bleeding. There were some larger vessels these were tied off with 0 Vicryl tie. Then started to close the incision to control for some of the oozing muscle. All of the vessels had stopped the bleeding, brought the tissue together with 0 Prolene sutures approximately 8 or 9 vertical mattress and then closed the skin with naye. Area was cleaned and dried and then a pressure dressing placed. The patient tolerated the procedure. Sponge, instrument and needle count correct at the end of the case. Dr. Arce assisted on this case helping to make incision, identify anatomy and hold anatomy out of the way Anesthesia Type GET Estimated Blood Loss Estimated blood loss (mL): appx 50ml Specimens/Packing Specimens Removed Left leg MABEL MYRICK DO Jun 02, 2022 11:17
--- NOTE | 2022-06-02 11:25 | Anesthesia-General Post-Op ---
General Patient Condition Mental Status/LOC: Same as Preop Cardiovascular: Satisfactory Nausea/Vomiting: Absent Respiratory: Satisfactory Pain: Controlled Complications: Absent Post Op Complications Complications None Follow Up Care/Instructions Patient Instructions None needed. Anesthesia/Patient Condition Patient Condition Patient is doing well, no complaints, stable vital signs, no apparent adverse anesthesia problems. No complications reported per nursing. SYLVIA ALFONSO CRNA Jun 02, 2022 11:25
[2022-06-02] MEDS ORDERED: ONDANSETRON 4 MG/2 ML (SDV) Z0FRAN IVP PRN (11:30)
[2022-06-02] MEDS ORDERED: fentaNYL INJ 100 MCG/2 ML AMP IVP ONE (11:30)
[2022-06-02] MEDS ORDERED: HYDROmorphone 2 MG/ML VIAL (DILAUDID) IV ONE (11:30)
[2022-06-02] MEDS: lisINopril 10 MG (PRINIVIL) TABLET PO SCH (12:46)
[2022-06-02] MEDS: LORazepam 1 MG (ATIVAN) TAB PO PRN ×2 (12:46→20:51)
[2022-06-02] MEDS: FERROUS SULF 325 MG (IRON) TAB PO SCH (12:46)
--- NOTE | 2022-06-02 12:51 | Progress Note - Hospitalist ---
JENNIFER MYERS 06/02/22 1251: Subjective HPI/CC On Admission Date Seen by Provider: Jun 02, 2022 Time Seen by Provider: 09:25 Hospital Course: This is a 46 y/o male who presented to the ER on 05/31 complaining of uncontrolled blood sugars and seeping from his left foot ulcer he has had chronically. He reported to admitting team that he was at work yesterday when he noticed the wound had seeped through his sock and was bloody appearing. He also said that he had been taking Jardiance for his DM but his BGLs have been in the 300s and that he wasn't on the right medication regimens. His lower extremities were imaged via XR and MRI and were found to have extensive osteomyelitis in the 2-4 m etatarsals along with septic joint involvement. General surgery had been consulted prior to this and had previously told the patient he could do nothing, do long-term IV antibiotic treatment in conjunction with a debridement, or a BKA. After the imaging results however, general surgery strongly recommended a BKA as the only option. Currently the patient's BGLs and chronic conditions are being managed by IM as he awaits his BKA surgery scheduled for 06/02/2022. Subjective/Events-last exam Patient is seen at bedside. He is sitting up in bed and has many family members visiting him this AM before his surgery. He says he was anxious last night and xanax helped and thought he could use another one. He otherwise has no complaints or concerns at this time but is just ready to get through the surgery. Objective Exam Vital Signs Vital Signs Date Time Temp Pulse Resp B/P (MAP) Pulse Ox O2 Delivery O2 Flow Rate FiO2 06/02/22 12:38 36.7 95 18 127/65 (85) 94 Room Air 06/02/22 11:45 2.00 06/02/22 03:14 21 Capillary Refill : General Appearance: No Apparent Distress, Anxious HEENT: PERRL/EOMI Neck: Full Range of Motion, Non Tender Respiratory: Lungs Clear, Normal Breath Sounds Cardiovascular: Regular Rate, Rhythm, Systolic Murmur (crescendo-decrescendo, grade 2/6.) Gastrointestinal: Normal Bowel Sounds, Non Tender, Soft Extremity: Other (LLE is bandaged where cellulitis/wound is. ) Results/Procedures Lab Imaging: Reviewed Imaging Films Radiology No new images to report on 06/02/22. Assessment/Plan Assessment and Plan Assess & Plan/Chief Complaint Assessment: This is a 46 y/o male who presented with a exudative left lower limb wound and uncontrolled diabetes mellitus Osteomyelitis of the left lower 2nd, 3rd, and 4th metatarsal with probable septic joint involvement Hyperglycemia, Type II Diabetes mellitus - uncontrolled HTN Opioid use disorder - remission Elevated liver enzymes on admission Reactive Hepatitis C ab 1) Osteomyelitis of LLE Septic Joint -On vanc/zosyn - will likely be able to DC post-operatively as no blood culture growth -Surgery planning for BKA tomorrow -VSS, afebrile -Lower extremity U/S and dopplers negative for any clots/blockages/significant atherosclerosis disrupting blood flow to the wound area. 2) Hyperglycemia 2/2 uncontrolled TIIDM -Fasting BGL have been ~150s in AM on CMPs -Post-prandials 240-250s -Continue SSI for inpatient cares -Post-operatively can consider adding on long-acting insulin agent -Renal function WNL, on lisinopril 3) HTN -continuing home lisinopril 10mg -elevated BPs up to 170s overnight; diastolics ok likely 2/2 to anxiety -will reevaluate post-operatively 4) Opioid use disorder - remission -using ketorlac/APAP for pain management currently -Refused suboxone - will DC as been in long-term remission -Post-operative pain control per surgery 5) Elevated aminotransferases Acute hepatitis C infection vs chronic vs cleared previous infection -Bili WNL -HCV ab reactive as of 05/31 with ab index high at 14.3 will check [facility] records for any record of HCV hx or testing -Can draw viral load if uncertain records -No symptoms of acute hepatitis at this time Clinical Quality Measures DVT/VTE Risk/Contraindication: Contraindications-Pharm: Other *list below* Other: OR BETTE ANNA DO 06/03/22 0539: Supervisory-Addendum Brief Verification & Attestation Participated in pt care: history, MDM, physical Personally performed: exam, history, MDM, supervision of care Care discussed with: Medical Student Procedures: n/a Results interpretation: Verified all documentation Verification and Attestation of Medical Student E/M Service A medical student performed and documented this service in my presence. I reviewed and verified all information documented by the medical student and made modifications to such information, when appropriate. I personally performed the physical exam and medical decision making. Bette Anna, Jun 03, 2022,05:38 JENNIFER MYERS Jun 02, 2022 12:51 BETTE ANNA DO Jun 03, 2022 05:39
[2022-06-02] MEDS: morphine INJ 4 MG/ML 1 ML (VIAL/SYRINGE) IVP PRN ×2 (14:30→17:25)
[2022-06-02] MEDS: oxyCODONE/APAP 7.5-325 MG (PERCOCET 7.5) TABLET PO PRN ×2 (16:16→20:51)
[2022-06-03] VITALS (7 sets, daily range): BP systolic 136–172; BP diastolic 78–93
[2022-06-03] MEDS: MELATONIN 3 MG TABLET PO PRN (01:19)
[2022-06-03] MEDS: oxyCODONE/APAP 7.5-325 MG (PERCOCET 7.5) TABLET PO PRN ×3 (01:20→20:45)
[2022-06-03] MEDS: PIPERACILLIN SODIUM/TAZOBACTAM 4.5 GM in NS (IVPB) 100 ML IV SCH ×3 (01:21→18:35)
[2022-06-03] MEDS: VANCOMYCIN 1250 MG/NS 250 ML PREMIX IV SCH ×3 (05:26→20:49)
[2022-06-03] MEDS: CATHETER FLUSH 10 ML SYR IVP SCH ×3 (05:26→20:49)
[2022-06-03] MEDS: inSUlin ASPART (NovoLOG) 1 UNIT/0.01 ML (CHARGE PER UNIT) SC SCH ×5 (06:06→20:48)
--- NOTE | 2022-06-03 07:33 | Progress Note - Hospitalist ---
Subjective HPI/CC On Admission Date Seen by Provider: Jun 03, 2022 Time Seen by Provider: 11:00 Hospital Course: This is a 46 y/o male who presented to the ER on 05/31 complaining of uncontrolled blood sugars and seeping from his left foot ulcer he has had chronically. He reported to admitting team that he was at work yesterday when he noticed the wound had seeped through his sock and was bloody appearing. He also said that he had been taking Jardiance for his DM but his BGLs have been in the 300s and that he wasn't on the right medication regimens. His lower extremities were imaged via XR and MRI and were found to have extensive osteomyelitis in the 2-4 metatarsals along with septic joint involvement. General surgery had been consulted prior to this and had previously told the patient he could do nothing, do long-term IV antibiotic treatment in conjunction with a debridement, or a BKA. After the imaging results however, general surgery strongly recommended a BKA as the only option. Currently the patient's BGLs and chronic conditions are being managed by IM as he awaits his BKA surgery scheduled for 06/02/2022. Subjective/Events-last exam Sleeping Pain is an issue Noted sugar levels Increased insulin Review of Systems General: Fatigue, Malaise Musculoskeletal: leg pain Objective Exam Vital Signs Vital Signs Date Time Temp Pulse Resp B/P (MAP) Pulse Ox O2 Delivery O2 Flow Rate FiO2 06/03/22 19:36 36.5 102 19 151/86 (107) 97 Room Air 06/03/22 08:00 2.00 06/02/22 03:14 21 Capillary Refill : General Appearance: No Apparent Distress, WD/WN, Chronically ill Respiratory: Lungs Clear, Normal Breath Sounds Cardiovascular: Regular Rate, Rhythm Results/Procedures Lab Laboratory Tests 06/03/22 12:45 Patient resulted labs reviewed. Imaging: Reviewed Imaging Films Assessment/Plan Assessment and Plan Assess & Plan/Chief Complaint Assessment: This is a 46 y/o male who presented with a exudative left lower limb wound and uncontrolled diabetes mellitus Osteomyelitis of the left lower 2nd, 3rd, and 4th metatarsal with probable septic joint involvement Hyperglycemia, Type II Diabetes mellitus - uncontrolled HTN Opioid use disorder - remission Elevated liver enzymes on admission Reactive Hepatitis C ab 1) Osteomyelitis of LLE Septic Joint -On vanc/zosyn - will likely be able to DC post-operatively as no blood culture growth -Surgery planning for BKA tomorrow -VSS, afebrile -Lower extremity U/S and dopplers negative for any clots/blockages/significant atherosclerosis disrupting blood flow to the wound area. 2) Hyperglycemia 2/2 uncontrolled TIIDM -Fasting BGL have been ~150s in AM on CMPs -Post-prandials 240-250s -Continue SSI for inpatient cares -Post-operatively can consider adding on long-acting insulin agent -Renal function WNL, on lisinopril 3) HTN -continuing home lisinopril 10mg -elevated BPs up to 170s overnight; diastolics ok likely 2/2 to anxiety -will reevaluate post-operatively 4) Opioid use disorder - remission -using ketorlac/APAP for pain management currently -Refused suboxone - will DC as been in long-term remission -Post-operative pain control per surgery 5) Elevated aminotransferases Acute hepatitis C infection vs chronic vs cleared previous infection -Bili WNL -HCV ab reactive as of 05/31 with ab index high at 14.3 will check [facility] records for any record of HCV hx or testing -Can draw viral load if uncertain records -No symptoms of acute hepatitis at this time Clinical Quality Measures DVT/VTE Risk/Contraindication: Contraindications-Pharm: Other *list below* Other: OR DESTIN ANNA DO Jun 03, 2022 07:33
[2022-06-03] MEDS: FERROUS SULF 325 MG (IRON) TAB PO SCH (08:25)
[2022-06-03] MEDS: lisINopril 10 MG (PRINIVIL) TABLET PO SCH (08:26)
[2022-06-03] MEDS: LORazepam 1 MG (ATIVAN) TAB PO PRN ×2 (08:30→20:48)
--- NOTE | 2022-06-03 08:42 | Progress Note - Surgery ---
MATTHEW COSTA 06/03/22 0842: Subjective Date Seen by a Provider: Jun 03, 2022 Subjective/Events-last exam Mr Javed is seen at bedside this morning resting comfortably. He reports last night he fell off the side of the bed while attempting to urinate and hit his stump on the floor. It began to bleed and caused severe pain. After pain medications and adjustment of the dressing his pain improved and he was able to rest. Reports 6/10 pain in L lower extremity this morning that is improved from before surgery. No BM since surgery. Tolerating normal diet without issue. Wound is covered and does not appear to have bled through dressing. Review of Systems General: No Chills, No Night Sweats HEENT: No Head Aches Pulmonary: No Dyspnea, No Cough Cardiovascular: No: Chest Pain, Palpitations Gastrointestinal: No: Nausea, Vomiting, Abdominal Pain Genitourinary: No Dysuria, No Hematuria Musculoskeletal: leg pain Neurological: No: Weakness, Confusion Objective Exam Vital Signs Date Time Temp Pulse Resp B/P (MAP) Pulse Ox O2 Delivery O2 Flow Rate FiO2 06/03/22 07:38 36.6 94 18 153/86 (108) 98 Room Air 06/03/22 04:04 36.3 95 18 167/93 (117) 97 Room Air 06/03/22 00:20 36.4 92 18 159/89 (112) 97 Room Air 06/02/22 23:31 36.9 96 18 163/86 (111) 97 Room Air 06/02/22 22:01 Room Air 06/02/22 20:50 Room Air 06/02/22 19:12 37.4 110 20 173/92 (119) 98 Room Air 06/02/22 15:31 36.6 105 18 171/89 (116) 98 Room Air 06/02/22 12:38 36.7 95 18 127/65 (85) 94 Room Air 06/02/22 12:18 Room Air 06/02/22 12:10 36.7 16 131/74 (93) 97 Room Air 06/02/22 12:00 Room Air 06/02/22 12:00 18 137/77 (97) 95 Room Air 06/02/22 11:50 16 129/64 (85) 97 Room Air 06/02/22 11:45 OxyMask 2.00 06/02/22 11:40 17 111/62 (78) 97 OxyMask 2.00 06/02/22 11:30 OxyMask 3.00 06/02/22 11:30 17 116/58 (77) 96 OxyMask 3.00 06/02/22 11:19 OxyMask 6.00 06/02/22 11:19 36.7 20 140/79 (99) 97 OxyMask 6.00 I & O 06/03/22 07:00 Intake Total 3340 ml Output Total 5100 ml Balance -1760 ml Capillary Refill : General Appearance: No Apparent Distress, Anxious HEENT: PERRL/EOMI Neck: Full Range of Motion, Non Tender Respiratory: Lungs Clear, Normal Breath Sounds Cardiovascular: Regular Rate, Rhythm, Systolic Murmur (crescendo-decrescendo, grade 2/6.) Peripheral Pulses: 2+ Dorsalis Pedis (R), 2+ Left Dors-Pedis (L); 3+ Radial Pulses (R), 3+ Radial Pulses (L) Gastrointestinal: normal bowel sounds, non tender, soft, no organomegaly, other (surgical scar above umbilicus, surgical mesh palpable (hx of hernia repairs)) Extremity: No Pedal Edema (R), Other (LLE is covered at stump after surgery) Neurologic/Psychiatric: Alert, Oriented x3 Skin: Normal Color (erythema remains in R lower extremity w slight edema), Warm/Dry, Other Lymphatic: No Adenopathy Results Lab Laboratory Tests 06/02/22 12:37: Glucometer 238H 06/02/22 15:33: Glucometer 265H 06/02/22 20:43: Glucometer 257H 06/03/22 05:31: Glucometer 210H Microbiology 06/02/22 MRSA Screen - Preliminary, Resulted MRSA not isolated 05/30/22 Blood Culture - Preliminary, Resulted No growth Assessment/Plan Assessment/Plan Assessment/Plan Osteomyelitis - MRI confirmed, Left foot Non healing Diabetic ulcer of left foot DMII - uncontrolled HTN tobacco use POD1 L BKA Plan: Pain control w percocet and morphine Continue abx- Vanc and Zosyn Continue changing dressing as needed, monitor for signs of purulence or increased bleeding from wound Pt is agreeable that he needs to use call light for nurses when he want to get out of bed to avoid further damaging his L LE Clinical Quality Measures DVT/VTE Risk/Contraindication: Contraindications-Pharm: Other *list below* Other: OR CHELLY ARCE DO 06/03/22 1219: Subjective Subjective/Events-last exam Patient resting. Hit stump last night and had some bleeding. Reinforced. Pain better controlled, last night had a few delays in pain meds given. No new complaints. Denies n/v fever sweats chills shortness of breath or chest pain. Objective Exam General Appearance: No Apparent Distress HEENT: PERRL/EOMI Neck: Full Range of Motion, Non Tender Respiratory: Chest Non Tender, No Accessory Muscle Use, No Respiratory Distress Cardiovascular: Regular Rate, Rhythm, No JVD Gastrointestinal: non tender, soft, other (surgical scar above umbilicus, surgical mesh palpable (hx of hernia repairs)) Extremity: Other (LLE is covered at stump ) Neurologic/Psychiatric: Alert Skin: Normal Color (erythema remains in R lower extremity w slight edema), Warm/Dry Lymphatic: No Adenopathy Assessment/Plan Assessment/Plan Assessment/Plan S/p left bka pain control repeat labs in am will leave dressing intact today and take down tomorrow. Supervisory-Addendum Brief Verification & Attestation Participated in pt care: history, MDM, physical Personally performed: exam, history, MDM, supervision of care Care discussed with: Medical Student Procedures: n/a Results interpretation: Verified all documentation Verification and Attestation of Medical Student E/M Service A medical student performed and documented this service in my presence. I reviewed and verified all information documented by the medical student and made modifications to such information, when appropriate. I personally performed the physical exam and medical decision making. Chelly Arce Jun 03, 2022,12:19 MATTHEW COSTA Jun 03, 2022 08:42 CHELLY ARCE DO Jun 03, 2022 12:19
[2022-06-03] MEDS: morphine INJ 4 MG/ML 1 ML (VIAL/SYRINGE) IVP PRN ×2 (09:43→15:46)
[2022-06-03] MEDS ORDERED: hydrALAZINE (APRESOLINE) 25 MG TAB PO PRN (12:15)
[2022-06-03] MEDS ORDERED: amLODIPine 5 MG (NORVASC) TAB PO ONE (12:15)
[2022-06-03 12:54] LABS: BASOPHILS # (AUTO) 0.1 10^3/uL (0.0-0.1); BASOPHILS % (AUTO) 0 % (0-10); EOSINOPHILS % (AUTO) 0 % (0-10); HEMATOCRIT 40 % (40-54); LYMPHOCYTES # (AUTO) 3.3 10^3/uL (1.0-4.0); LYMPHOCYTES % (AUTO) 16 % (12-44); MEAN CORPUSCULAR HEMOGLOBIN 29 pg (25-34); MEAN CORPUSCULAR HGB CONC 35 g/dL (32-36); MEAN CORPUSCULAR VOLUME 83 fL (80-99); MEAN PLATELET VOLUME 8.5 fL (9.0-12.2); MONOCYTES # (AUTO) 1.1 10^3/uL (0.0-1.0); MONOCYTES % (AUTO) 5 % (0-12); NEUTROPHILS # (AUTO) 15.5 10^3/uL (1.8-7.8); NEUTROPHILS % (AUTO) 77 % (42-75); PLATELET COUNT 154 10^3/uL (130-400); WHITE BLOOD COUNT 20.1 10^3/uL (4.3-11.0)
[2022-06-03] MEDS ORDERED: ENOXAPARIN 40 MG/0.4 ML (LOVENOX) SYR SC SCH (13:00)
[2022-06-03 13:05] LABS: ALBUMIN 2.8 GM/DL (3.2-4.5); POTASSIUM 4.3 MMOL/L (3.6-5.0)
[2022-06-03 13:06] LABS: CALCIUM 8.2 MG/DL (8.5-10.1)
[2022-06-03 13:07] LABS: TOTAL PROTEIN 7.1 GM/DL (6.4-8.2)
[2022-06-03 13:11] LABS: CREATININE SERUM 0.67 MG/DL (0.60-1.30)
[2022-06-03 13:16] LABS: BAND NEUTROPHILS 0 %; BASOPHILS % (MANUAL) 0 %; EOSINOPHILS % (MANUAL) 0 %; LYMPHOCYTES % (MANUAL) 14 %; MONOCYTES % (MANUAL) 4 %; NEUTROPHILS % (MANUAL) 82 %; RBC MORPH NORMAL
--- NOTE | 2022-06-03 15:40 | Physical Therapy Evaluation ---
PT Evaluation-General Medical Diagnosis Admission Date May 30, 2022 at 22:05 Medical Diagnosis: (L) BKA Onset Date: May 30, 2022 Therapy Diagnosis Therapy Diagnosis: limited mobility and recent fall Precautions Precautions/Isolations: Standard Precautions Weight Bear Status Right Lower Extremity: Right Full Weight Bearing Referral Physician: Bette Corey DO Reason for Referral: Evaluation/Treatment Medical History Pertinent Medical History: DM, HTN Additional Medical History opiod dependence disorder, hernia 4x, cholecystectomy Current History Admit due to (L) LE cellulitis, with subsequent (L) BKA performed. Reviewed History: Yes Social History Home: Single Level Current Living Status: Significant Other Entry Into Home: Stairs With Railing PT Steps Into Home: 4 Prior Prior Level of Function SCALE: Activities may be completed with or without assistive devices. 4-Lweqjhxvyc-jgtcbmb completes the activity by him/herself with no assistance from a helper. 5-Set-up or Clean-up Assistance-helper sets up or cleans up; patient completes activity. [place] assists only prior to or following the activity. 4-Supervision or Touching Assistance-helper provides verbal cues and/or touching/steadying and/or contact guard assistance as patient completes activity. Assistance may be provided throughout the activity or intermittently. 3-Partial/Moderate Assistance-helper does LESS THAN HALF the effort. [place] lifts, holds or supports trunk or limbs, but provides less than half the effort. 2-Substantial/Maximal Assistance-helper does MORE THAN HALF the effort. [place] lifts or holds trunk or limbs and provides more than half the effort. 3-Yhpjrzzob-nmnosc does ALL the effort. Patient does none of the effort to complete the activity. Or, the assistance of 2 or more helpers is required for the patient to complete the activity. If activity was not attempted, code reason: 7-Patient Refused. 9-Not Applicable-not attempted and the patient did not perform the activity before the current illness, exacerbation or injury. 10-Not Attempted due to Environmental Limitations-(lack of equipment, weather restraints, etc.). 88-Not Attempted due to Medical Conditions or Safety Concerns. Bed Mobility: 6 Transfers (B,C,W/C): 6 Gait: 6 Stairs: 6 Indoor Mobility (Ambulation): Independent Stairs: Independent Pt had only just recently begun using a walker in the past week. PT Evaluation-Current Subjective (L) LE pain with movement. Pt fell while sitting up to use the urinal last night. Landing on the (L) residual limb. Pain Numeric Pain Scale: 8 Location: Left Location Body Site: Calf Pain Description: Stabbing, Throbbing, Burning, Sharp Pt/Family Goals Return home Objective Patient Orientation: Person, Place, Time, Situation Attachments: IV ROM/Strength ROM Upper Extremities WFL ROM Lower Extremities WFL Strength Upper Extremities WFL Strength Lower Extremities (I) with supine exercises for (B) LEs Integumentary/Posture Bowel Incontinence: No Bladder Incontinence: Yes Neuromuscular (Tone, Coordination, Reflexes) intact Sensory Vision: Functional Hearing: Functional Hand Dominance: Right Sensation Right Upper Extremit: Intact Sensation Left Upper Extremity: Intact Sensation Right Lower Extremit: Intact Sensation Left Lower Extremity: Intact Sensation Lower Extremities (L) residual limb is currently wrapped, but pt reported intact sensation in that area. Transfers Roll Left to Right (QC): 6 Sit to Lying (QC): 6 Lying to Sitting/Side of Bed(Q: 6 Sit to Stand (QC): 3 Chair/Lss-pn-Vpkuy Xfer(QC): 3 Gait Does the Patient Walk?: Yes Mode of Locomotion: Walk Anticipated Mode of Locomotion: Walk Walk 10 feet (QC): 3 Distance: 12ft Gait Assistive Device: FWW Comments/Gait Description Good stability with gait and able to make a full turn, slowly, with good form. Pt had to stop his walk short to use the urinal, but he was not able to make it to the urinal and voided on the floor. Wheelchair Training Does the Pt Use a Wheelchair?: No Balance Sitting Static: Good Sitting Dynamic: Good Standing Static: Fair Standing Dynamic: Fair Assessment/Needs Pt performed well with bed mobility, transfer, and gait. He absolutely requires supervision during transfers and gait. Rehab Potential: Good PT Senior Care Goals Senior Care Goals PT Uniform Force Captain Goals Time Frame: Jun 10, 2022 Roll Left & Right (QC): 6 Sit to Lying (QC): 6 Lying-Sitting on Side/Bed(QC): 6 Sit to Stand (QC): 6 Chair/Cgd-mc-Szvey Xfer(QC): 6 Toilet Transfer (QC): 6 Car Transfer (QC): 6 Does the Patient Walk: Yes Walk 10 feet (QC): 6 Walk 50ft with 2 Turns (QC): 6 Walk 150 ft (QC): 3 1 Step (curb) (QC): 4 PT Plan Problem List Problem List: Activity Tolerance, Safety, Balance, Gait, Transfer, Bed Mobility Treatment/Plan Treatment Plan: Continue Plan of Care Treatment Plan: Functional Activity Angeli, Functional Strength, Gait, Safety, Therapeutic Exercise, Transfers Treatment Duration: Jun 03, 2022 Frequency: 6 times per week Estimated Hrs Per Day: .25 hour per day Patient and/or Family Agrees t: Yes Time Time In: 1250 Time Out: 1305 DATE: Jun 03, 2022 Total Billed Treatment Time: 15 Total Billed Treatment 1, harshad 15 GARY MANN PT Jun 03, 2022 15:40
[2022-06-04 03:19] VITALS: BP 137/77
[2022-06-04] MEDS: VANCOMYCIN 1250 MG/NS 250 ML PREMIX IV SCH ×3 (05:06→20:50)
[2022-06-04] MEDS: CATHETER FLUSH 10 ML SYR IVP SCH ×3 (05:06→20:52)
[2022-06-04 05:30] LABS: BASOPHILS # (AUTO) 0.1 10^3/uL (0.0-0.1); BASOPHILS % (AUTO) 1 % (0-10); EOSINOPHILS # (AUTO) 0.2 10^3/uL (0.0-0.3); EOSINOPHILS % (AUTO) 1 % (0-10); HEMATOCRIT 38 % (40-54); HEMOGLOBIN 13.4 g/dL (13.3-17.7); LYMPHOCYTES # (AUTO) 4.3 10^3/uL (1.0-4.0); LYMPHOCYTES % (AUTO) 22 % (12-44); MEAN CORPUSCULAR HEMOGLOBIN 29 pg (25-34); MEAN CORPUSCULAR HGB CONC 35 g/dL (32-36); MEAN CORPUSCULAR VOLUME 83 fL (80-99); MEAN PLATELET VOLUME 8.8 fL (9.0-12.2); MONOCYTES # (AUTO) 1.4 10^3/uL (0.0-1.0); MONOCYTES % (AUTO) 7 % (0-12); NEUTROPHILS # (AUTO) 13.4 10^3/uL (1.8-7.8); NEUTROPHILS % (AUTO) 69 % (42-75); PLATELET COUNT 168 10^3/uL (130-400); WHITE BLOOD COUNT 19.6 10^3/uL (4.3-11.0)
[2022-06-04 05:52] LABS: ALBUMIN 2.6 GM/DL (3.2-4.5); BILIRUBIN,TOTAL 0.9 MG/DL (0.1-1.0); CALCIUM 8.4 MG/DL (8.5-10.1); CREATININE SERUM 0.59 MG/DL (0.60-1.30); POTASSIUM 3.6 MMOL/L (3.6-5.0); TOTAL PROTEIN 7.1 GM/DL (6.4-8.2)
[2022-06-04] MEDS: inSUlin ASPART (NovoLOG) 1 UNIT/0.01 ML (CHARGE PER UNIT) SC SCH ×7 (05:54→20:52)
--- NOTE | 2022-06-04 07:10 | Progress Note - Hospitalist ---
Subjective HPI/CC On Admission Date Seen by Provider: Jun 04, 2022 Time Seen by Provider: 11:00 Hospital Course: This is a 46 y/o male who presented to the ER on 05/31 complaining of uncontrolled blood sugars and seeping from his left foot ulcer he has had chronically. He reported to admitting team that he was at work yesterday when he noticed the wound had seeped through his sock and was bloody appearing. He also said that he had been taking Jardiance for his DM but his BGLs have been in the 300s and that he wasn't on the right medication regimens. His lower extremities were imaged via XR and MRI and were found to have extensive osteomyelitis in the 2-4 metatarsals along with septic joint involvement. General surgery had been consulted prior to this and had previously told the patient he could do nothing, do long-term IV antibiotic treatment in conjunction with a debridement, or a BKA. After the imaging results however, general surgery strongly recommended a BKA as the only option. Currently the patient's BGLs and chronic conditions are being managed by IM as he awaits his BKA surgery scheduled for 06/02/2022. Subjective/Events-last exam No major issues Updated patient and on ARU Labs ok Sugars improved with increased insulin Updated him on dx of HCV Has appt with GI for liver issues Review of Systems General: Fatigue, Malaise Objective Exam Vital Signs Vital Signs Date Time Temp Pulse Resp B/P (MAP) Pulse Ox O2 Delivery O2 Flow Rate FiO2 06/04/22 12:42 Room Air 06/04/22 11:15 36.2 85 18 130/77 (94) 95 06/03/22 08:00 2.00 06/02/22 03:14 21 Capillary Refill : General Appearance: No Apparent Distress, WD/WN, Chronically ill Respiratory: Lungs Clear, Normal Breath Sounds Cardiovascular: Regular Rate, Rhythm Neurologic/Psychiatric: Alert, Oriented x3 Results/Procedures Lab Laboratory Tests 06/04/22 05:13 Patient resulted labs reviewed. Imaging: Reviewed Imaging Films Assessment/Plan Assessment and Plan Assess & Plan/Chief Complaint Assessment: This is a 46 y/o male who presented with a exudative left lower limb wound and uncontrolled diabetes mellitus Osteomyelitis of the left lower 2nd, 3rd, and 4th metatarsal with probable septi c joint involvement Hyperglycemia, Type II Diabetes mellitus - uncontrolled HTN Opioid use disorder - remission Elevated liver enzymes on admission Reactive Hepatitis C ab 1) Osteomyelitis of LLE Septic Joint -On vanc/zosyn - will likely be able to DC post-operatively as no blood culture growth -Surgery s/p BKA -VSS, afebrile -Lower extremity U/S and dopplers negative for any clots/blockages/significant atherosclerosis disrupting blood flow to the wound area. 2) Hyperglycemia 2/2 uncontrolled TIIDM -Fasting BGL have been ~150s in AM on CMPs -Post-prandials 240-250s -Continue SSI for inpatient cares -Post-operatively can consider adding on long-acting insulin agent -Renal function WNL, on lisinopril 3) HTN -continuing home lisinopril 10mg -elevated BPs up to 170s overnight; diastolics ok likely 2/2 to anxiety -will reevaluate post-operatively 4) Opioid use disorder - remission -using ketorlac/APAP for pain management currently -Refused suboxone - will DC as been in long-term remission -Post-operative pain control per surgery 5) Elevated aminotransferases Acute hepatitis C infection vs chronic vs cleared previous infection -Bili WNL -HCV ab reactive as of 05/31 with ab index high at 14.3 will check [facility] records for any record of HCV hx or testing -Can draw viral load if uncertain records -No symptoms of acute hepatitis at this time Clinical Quality Measures DVT/VTE Risk/Contraindication: Contraindications-Pharm: Other *list below* Other: OR DESTIN ANNA DO Jun 04, 2022 07:10
[2022-06-04 07:41] VITALS: BP 109/73
[2022-06-04] MEDS: amLODIPine 5 MG (NORVASC) TAB PO SCH (08:34)
[2022-06-04] MEDS: FERROUS SULF 325 MG (IRON) TAB PO SCH (08:34)
[2022-06-04] MEDS: lisINopril 10 MG (PRINIVIL) TABLET PO SCH (08:34)
[2022-06-04] MEDS: oxyCODONE/APAP 7.5-325 MG (PERCOCET 7.5) TABLET PO PRN ×3 (08:39→20:54)
[2022-06-04] MEDS: LORazepam 1 MG (ATIVAN) TAB PO PRN ×2 (08:39→15:51)
--- NOTE | 2022-06-04 09:03 | Progress Note - Surgery ---
MATTHEW COSTA 06/04/22 0903: Subjective Date Seen by a Provider: Jun 04, 2022 Time Seen by a Provider: 08:58 Subjective/Events-last exam Mr Javed is seen at bedside this morning. He reports pain is improved, 5/10 in LLE. He reports being tired but rested well overnight with no new issues. No more falls out of bed. No fever or chills overnight. Dressing in place, will be changed today. Denies bleeding or purulence at surgical site. Review of Systems General: No Chills, No Night Sweats HEENT: No Head Aches, No Sore Throat Pulmonary: No Dyspnea, No Cough Cardiovascular: No: Chest Pain, Palpitations, Lt Headedness Gastrointestinal: No: Nausea, Vomiting, Abdominal Pain Genitourinary: No Dysuria, No Hematuria Musculoskeletal: leg pain Neurological: No: Change in speech, Confusion Objective Exam Vital Signs Date Time Temp Pulse Resp B/P (MAP) Pulse Ox O2 Delivery O2 Flow Rate FiO2 06/04/22 07:41 36.8 95 16 109/73 (85) 96 Room Air 06/04/22 03:19 36.2 87 16 137/77 (97) 97 Room Air 06/03/22 23:53 35.8 75 16 136/78 (97) 97 Room Air 06/03/22 20:45 Room Air 06/03/22 19:36 36.5 102 19 151/86 (107) 97 Room Air 06/03/22 15:23 36.5 100 20 172/87 (115) 98 Room Air 06/03/22 11:42 36.6 92 18 166/87 (113) 97 Room Air 06/03/22 09:56 Room Air I & O 06/04/22 07:00 Intake Total 2440 ml Output Total 3000 ml Balance -560 ml Capillary Refill : General Appearance: No Apparent Distress, WD/WN HEENT: PERRL/EOMI, Moist Mucous Membranes Neck: Full Range of Motion, Non Tender Respiratory: Lungs Clear, Normal Breath Sounds Cardiovascular: Regular Rate, Rhythm, Normal Peripheral Pulses Peripheral Pulses: 3+ Radial Pulses (R), 3+ Radial Pulses (L) Gastrointestinal: non tender, soft, other (surgical scar above umbilicus, surgical mesh palpable (hx of hernia repairs)) Extremity: Other (LLE is covered, dressing appears clean) Neurologic/Psychiatric: Alert, Oriented x3 Skin: Normal Color (erythema remains in R lower extremity, not painful or worsening), Warm/Dry Lymphatic: No Adenopathy Results Lab Laboratory Tests 06/03/22 12:18: Glucometer 201H 06/03/22 12:45: White Blood Count 20.1H, Red Blood Count 4.77, Hemoglobin 14.0, Hematocrit 40, Mean Corpuscular Volume 83, Mean Corpuscular Hemoglobin 29, Mean Corpuscular Hemoglobin Concent 35, Red Cell Distribution Width 14.0, Platelet Count 154, Mean Platelet Volume 8.5L, Immature Granulocyte % (Auto) 1, Neutrophils (%) (Auto) 77H, Lymphocytes (%) (Auto) 16, Monocytes (%) (Auto) 5, Eosinophils (%) (Auto) 0, Basophils (%) (Auto) 0, Neutrophils # (Auto) 15.5H, Lymphocytes # (Auto) 3.3, Monocytes # (Auto) 1.1H, Eosinophils # (Auto) 0.0, Basophils # (Auto) 0.1, Immature Granulocyte # (Auto) 0.1, Neutrophils % (Manual) 82, Lymphocytes % (Manual) 14, Monocytes % (Manual) 4, Eosinophils % (Manual) 0, Basophils % (Manual) 0, Band Neutrophils 0, Blood Morphology Comment NORMAL, Sodium Level 134L, Potassium Level 4.3, Chloride Level 103, Carbon Dioxide Level 23, Anion Gap 8, Blood Urea Nitrogen 10, Creatinine 0.67, Estimat Glomerular Filtration Rate 117, BUN/Creatinine Ratio 15, Glucose Level 207H, Calcium Level 8.2L, Corrected Calcium 9.2, Total Bilirubin 1.0, Aspartate Amino Transf (AST/SGOT) 86H, Alanine Aminotransferase (ALT/SGPT) 105H, Alkaline Phosphatase 172H, Total Protein 7.1, Albumin 2.8L 06/03/22 15:52: Glucometer 246H 06/03/22 20:25: Glucometer 246H 06/04/22 05:13: White Blood Count 19.6H, Red Blood Count 4.57, Hemoglobin 13.4, Hematocrit 38L, Mean Corpuscular Volume 83, Mean Corpuscular Hemoglobin 29, Mean Corpuscular Hemoglobin Concent 35, Red Cell Distribution Width 14.2, Platelet Count 168, Mean Platelet Volume 8.8L, Immature Granulocyte % (Auto) 1, Neutrophils (%) (Auto) 69, Lymphocytes (%) (Auto) 22, Monocytes (%) (Auto) 7, Eosinophils (%) (Auto) 1, Basophils (%) (Auto) 1, Neutrophils # (Auto) 13.4H, Lymphocytes # (Auto) 4.3H, Monocytes # (Auto) 1.4H, Eosinophils # (Auto) 0.2, Basophils # (Auto) 0.1, Immature Granulocyte # (Auto) 0.2H, Sodium Level 135, Potassium Level 3.6, Chloride Level 103, Carbon Dioxide Level 25, Anion Gap 7, Blood Urea Nitrogen 11, Creatinine 0.59L, Estimat Glomerular Filtration Rate 121, BUN/Creatinine Ratio 19, Glucose Level 165H, Calcium Level 8.4L, Corrected Calcium 9.5, Total Bilirubin 0.9, Aspartate Amino Transf (AST/SGOT) 72H, Alanine Aminotransferase (ALT/SGPT) 91H, Alkaline Phosphatase 152H, Total Protein 7.1, Albumin 2.6L Microbiology 06/02/22 MRSA Screen - Final, Complete MRSA not isolated 05/30/22 Blood Culture - Preliminary, Resulted No growth Assessment/Plan Assessment/Plan Assessment/Plan Osteomyelitis - MRI confirmed, Left foot Non healing Diabetic ulcer of left foot DMII - uncontrolled HTN tobacco use POD1 L BKA Plan: Pain control w percocet and morphine- improving Continue abx- Vanc and Zosyn Dressing will be changes today Medicine team has started long acting and mealtime insulin for glucose control Clinical Quality Measures DVT/VTE Risk/Contraindication: Contraindications-Pharm: Other *list below* Other: OR CHELLY ARCE DO 06/04/22 1248: Subjective Subjective/Events-last exam Pain better controlled. No new complaints. Denies n/v fever sweats chills shortness of breath or chest pain. Objective Exam General Appearance: No Apparent Distress, WD/WN HEENT: PERRL/EOMI, Moist Mucous Membranes Neck: Full Range of Motion, Non Tender Respiratory: Chest Non Tender, No Accessory Muscle Use, No Respiratory Distress Cardiovascular: Regular Rate, Rhythm, No JVD Gastrointestinal: non tender, soft, other (surgical scar above umbilicus, surgical mesh palpable (hx of hernia repairs)) Extremity: Other (LLE is slight blood clot and superficial blisters no signs of infection) Neurologic/Psychiatric: Alert, Oriented x3 Skin: Normal Color (erythema remains in R lower extremity, not painful or worsening), Warm/Dry Lymphatic: No Adenopathy Assessment/Plan Assessment/Plan Assessment/Plan Osteomyelitis - MRI confirmed, Left foot Non healing Diabetic ulcer of left foot DMII - uncontrolled HTN tobacco use POD2 L BKA Plan: Pain control w percocet and morphine- improving Continue abx- Vanc and Zosyn Dressing changed Medicine team has started long acting and mealtime insulin for glucose control Supervisory-Addendum Brief Verification & Attestation Participated in pt care: history, MDM, physical Personally performed: exam, history, MDM, supervision of care Care discussed with: Medical Student Procedures: n/a Results interpretation: Verified all documentation Verification and Attestation of Medical Student E/M Service A medical student performed and documented this service in my presence. I reviewed and verified all information documented by the medical student and made modifications to such information, when appropriate. I personally performed the physical exam and medical decision making. Chelly Arce Jun 04, 2022,12:48 MATTHEW COSTA Jun 04, 2022 09:03 CHELLY ARCE DO Jun 04, 2022 12:48
[2022-06-04] MEDS: morphine INJ 4 MG/ML 1 ML (VIAL/SYRINGE) IVP PRN (11:03)
[2022-06-04 11:15] VITALS: BP 130/77
--- NOTE | 2022-06-04 11:15 | Consultation-Cardiology ---
HPI-Cardiology Cardiology Consultation Date of Consultation 06/04/22 Date of Admission Time Seen by Provider: 11:10 Indication: Peripheral arterial disease HPI 46 years old gentleman with history of diabetes mellitus, hypertension and tobaccoism. Patient was admitted for hyperglycemia, he had nonhealing wound with cellulitis on his lower extremity for the past month. Patient was admitted, underwent left BKA. On my evaluation was laying down comfortably in bed, denied any chest pain. No shortness of breath. Home Medications & Allergies Allergies: Coded Allergies: No Known Drug Allergies (Unverified , 07/22/21) Home Medication List Reviewed: Yes EGO-Wxeirm-Mefbbe Hx Patient Social History Marital Status: Employed/Student: employed Smoking Status: Current Everyday Smoker Alcohol Use?: No Past Medical History Discussed below Family Medical History Significant Family History: Heart Disease (Father- CHF secondary to drug abuse, at 55), Cancer (mom- ovarian dx at 50, at 57 ) Review of Systems-General Review of Systems Constitutional: No chills, No diaphoresis EENTM: No blurred vision, No double vision, No nose congestion Respiratory: No cough, No dyspnea on exertion, No short of breath Cardiovascular: see HPI; No chest pain, No palpitations, No syncope Gastrointestinal: No abdominal pain, No diarrhea, No dysphagia Genitourinary: No dysuria, No frequency Musculoskeletal: No back pain, No muscle pain Skin: lesions (lt foot); No lumps, No pruritus Psychiatric/Neurological: Denies Anxiety, Denies Depressed, Denies Headache Reviewed Test Results Reviewed Test Results Lab Laboratory Tests Test 06/03/22 12:18 06/03/22 12:45 06/03/22 15:52 06/03/22 20:25 Range/Units Glucometer 201 H 246 H 246 H 70-110 MG/DL White Blood Count 20.1 H 4.3-11.0 10^3/uL Red Blood Count 4.77 4.30-5.52 10^6/uL Hemoglobin 14.0 13.3-17.7 g/dL Hematocrit 40 40-54 % Mean Corpuscular Volume 83 80-99 fL Mean Corpuscular Hemoglobin 29 25-34 pg Mean Corpuscular Hemoglobin Concent 35 32-36 g/dL Red Cell Distribution Width 14.0 10.0-14.5 % Platelet Count 154 130-400 10^3/uL Mean Platelet Volume 8.5 L 9.0-12.2 fL Immature Granulocyte % (Auto) 1 % Neutrophils (%) (Auto) 77 H 42-75 % Lymphocytes (%) (Auto) 16 12-44 % Monocytes (%) (Auto) 5 0-12 % Eosinophils (%) (Auto) 0 0-10 % Basophils (%) (Auto) 0 0-10 % Neutrophils # (Auto) 15.5 H 1.8-7.8 10^3/uL Lymphocytes # (Auto) 3.3 1.0-4.0 10^3/uL Monocytes # (Auto) 1.1 H 0.0-1.0 10^3/uL Eosinophils # (Auto) 0.0 0.0-0.3 10^3/uL Basophils # (Auto) 0.1 0.0-0.1 10^3/uL Immature Granulocyte # (Auto) 0.1 0.0-0.1 10^3/uL Neutrophils % (Manual) 82 % Lymphocytes % (Manual) 14 % Monocytes % (Manual) 4 % Eosinophils % (Manual) 0 % Basophils % (Manual) 0 % Band Neutrophils 0 % Blood Morphology Comment NORMAL Sodium Level 134 L 135-145 MMOL/L Potassium Level 4.3 3.6-5.0 MMOL/L Chloride Level 103 98-107 MMOL/L Carbon Dioxide Level 23 21-32 MMOL/L Anion Gap 8 5-14 MMOL/L Blood Urea Nitrogen 10 7-18 MG/DL Creatinine 0.67 0.60-1.30 MG/DL Estimat Glomerular Filtration Rate 117 BUN/Creatinine Ratio 15 Glucose Level 207 H 70-105 MG/DL Calcium Level 8.2 L 8.5-10.1 MG/DL Corrected Calcium 9.2 8.5-10.1 MG/DL Total Bilirubin 1.0 0.1-1.0 MG/DL Aspartate Amino Transf (AST/SGOT) 86 H 5-34 U/L Alanine Aminotransferase (ALT/SGPT) 105 H 0-55 U/L Alkaline Phosphatase 172 H 40-136 U/L Total Protein 7.1 6.4-8.2 GM/DL Albumin 2.8 L 3.2-4.5 GM/DL Test 06/04/22 05:13 Range/Units White Blood Count 19.6 H 4.3-11.0 10^3/uL Red Blood Count 4.57 4.30-5.52 10^6/uL Hemoglobin 13.4 13.3-17.7 g/dL Hematocrit 38 L 40-54 % Mean Corpuscular Volume 83 80-99 fL Mean Corpuscular Hemoglobin 29 25-34 pg Mean Corpuscular Hemoglobin Concent 35 32-36 g/dL Red Cell Distribution Width 14.2 10.0-14.5 % Platelet Count 168 130-400 10^3/uL Mean Platelet Volume 8.8 L 9.0-12.2 fL Immature Granulocyte % (Auto) 1 % Neutrophils (%) (Auto) 69 42-75 % Lymphocytes (%) (Auto) 22 12-44 % Monocytes (%) (Auto) 7 0-12 % Eosinophils (%) (Auto) 1 0-10 % Basophils (%) (Auto) 1 0-10 % Neutrophils # (Auto) 13.4 H 1.8-7.8 10^3/uL Lymphocytes # (Auto) 4.3 H 1.0-4.0 10^3/uL Monocytes # (Auto) 1.4 H 0.0-1.0 10^3/uL Eosinophils # (Auto) 0.2 0.0-0.3 10^3/uL Basophils # (Auto) 0.1 0.0-0.1 10^3/uL Immature Granulocyte # (Auto) 0.2 H 0.0-0.1 10^3/uL Sodium Level 135 135-145 MMOL/L Potassium Level 3.6 3.6-5.0 MMOL/L Chloride Level 103 98-107 MMOL/L Carbon Dioxide Level 25 21-32 MMOL/L Anion Gap 7 5-14 MMOL/L Blood Urea Nitrogen 11 7-18 MG/DL Creatinine 0.59 L 0.60-1.30 MG/DL Estimat Glomerular Filtration Rate 121 BUN/Creatinine Ratio 19 Glucose Level 165 H 70-105 MG/DL Calcium Level 8.4 L 8.5-10.1 MG/DL Corrected Calcium 9.5 8.5-10.1 MG/DL Total Bilirubin 0.9 0.1-1.0 MG/DL Aspartate Amino Transf (AST/SGOT) 72 H 5-34 U/L Alanine Aminotransferase (ALT/SGPT) 91 H 0-55 U/L Alkaline Phosphatase 152 H 40-136 U/L Total Protein 7.1 6.4-8.2 GM/DL Albumin 2.6 L 3.2-4.5 GM/DL Radiology Date of Exam:05/31/22 MRI LT LOWER EXT W/WO CON TECHNIQUE: Multiplanar, multisequence pre and post contrast-enhanced MRI of the left lower extremity was accomplished. INDICATION: Swelling and redness with seeping from the left forefoot. Possible osteomyelitis. EXAMINATION: Left lower extremity MRI with and without contrast 05/31/2022 CORRELATION made to radiographs of the foot from 05/30/2022 FINDINGS: There is diffuse abnormal signal intensity involving the mid and distal aspects of the fourth metatarsal diffusely hyperintense on T2-weighted imaging and hypointense on T1-weighted imaging. This also involves all of the phalanges of the fourth toe. Mild similar abnormal signal intensity is seen throughout the distal third metatarsal some of which may be due to the known underlying fracture although superimposed osteomyelitis is suspected. Abnormal signal intensity involves all of the residual third phalanges with areas of T1 hyperintensity of uncertain etiology perhaps blood products. Mild signal alteration is noted within the distal aspect of the proximal second phalanx and the second middle phalanx possibly osteomyelitis as well. Enhancement in all of the above-mentioned abnormal osseous structures is noted consistent with osteomyelitis. Within the soft tissues surrounding the fourth metatarsal and fourth toe, diffuse abnormal signal intensity is noted with areas of T2 hyperintensity and multiple fluid collections demonstrating peripheral enhancement consistent with abscesses. The largest abnormality lies along the plantar surface of the fourth metatarsophalangeal joint level extending to the joint likely causing a septic joint. This extends in the plantar surface of the fourth toe and proximally extends in between the third and fourth metatarsal heads. Given its extent, it is difficult to measure but is approximately 1.9 x 0.6 x 0.6 cm in size. This extends across the plantar surface of the fourth metatarsal head level to lie in between the 4th and 5th toes, as well. Diffuse surrounding heterogeneous signal intensity is likely due to cellulitis. Visualized tendons appear intact. There is however surrounding inflammatory/infectious change about the flexor tendons of the fourth toe with tenosynovitis likely. There is diffuse T2 hyperintensity and enhancement within all visualized musculature of the forefoot suggesting myositis. IMPRESSION: 1. Findings of osteomyelitis which involve the mid and distal 4th metatarsal, the mid and distal third metatarsal, all fourth and third phalanges and possibly portions of the second toe, as described above. Surrounding findings of edema and cellulitis noted with abscesses along the plantar surface of the forefoot surrounding the fourth metatarsophalangeal joint and toe, fourth toe as detailed above. A septic joint at the fourth metatarsophalangeal joint is also suspected. 2. Likely tenosynovitis along the fourth flexor tendon. 3. Not mentioned in the body report, mild signal alteration is seen throughout the fifth phalanges. Early osteomyelitis in the 5th toe is not excluded. Dictated by: Dictated on workstation # [id number] Dict: 05/31/22 0913 Trans: 05/31/22 1007 [facility] [id number] Interpreted by: DEDRICK ORDAZ MD Electronically signed by: DEDRICK ORDAZ MD 05/31/22 1007 Physical Exam Physical Exam Vital Signs Vital Signs - First Documented 05/30/22 05/30/22 06/02/22 18:01 22:45 11:19 Temp 36.7 Pulse 98 Resp 18 B/P (MAP) 148/90 (109) Pulse Ox 99 O2 Delivery Room Air O2 Flow Rate 6.00 FiO2 21 Capillary Refill : Height, Weight, BMI Height: '" Weight: lbs. oz. kg; 24.97 BMI Method: General Appearance: No Apparent Distress, WD/WN Eyes: Bilateral Eye Normal Inspection, Bilateral Eye PERRL, Bilateral Eye EOMI HEENT: PERRL/EOMI, Moist Mucous Membranes Neck: Full Range of Motion, Non Tender Respiratory: Lungs Clear, Normal Breath Sounds Cardiovascular: Regular Rate, Rhythm, Normal Peripheral Pulses Gastrointestinal: Normal Bowel Sounds, Non Tender, Soft Rectal: Deferred Extremity: Other (LLE is covered, dressing appears clean) Neurologic/Psychiatric: Alert, Oriented x3 Skin: Normal Color (erythema remains in R lower extremity, not painful or worsening), Warm/Dry Lymphatic: No Adenopathy A/P-Cardiology Admission Diagnosis Osteomyelitis Peripheral arterial disease Diabetes mellitus Hypertension Assessment/Plan Peripheral arterial disease, nonhealing left foot ulcer, osteomyelitis Status post left BKA. Recovering slowly Diabetes mellitus, poor control. Noncompliant with medication, managed by medical team History of sinus tachycardia and anemia. Currently better, continue to monitor Hypertension, was maintained on lisinopril as an outpatient. Continue to monitor Elevated liver enzymes. History of opioid dependence Clinical Quality Measures DVT/VTE Risk/Contraindication: Contraindications-Pharm: Other *list below* Other: OR NOÉ MARTEL MD Jun 04, 2022 11:15
[2022-06-04] MEDS: LACTULOSE SYRUP 10GM/15ML (ENULOSE) 30ML UDC PO SCH ×2 (12:06→20:52)
[2022-06-04] MEDS: SENNA W/DOCUSATE (SENOKOT S) TABLET PO SCH ×2 (12:06→20:50)
[2022-06-04] MEDS: polyethylene glycoL POWDER 17 GM (MIRALAX) PACK PO SCH ×2 (12:06→20:51)
[2022-06-04 15:39] VITALS: BP 129/57
[2022-06-04 19:40] VITALS: BP 135/68
[2022-06-05] VITALS (7 sets, daily range): BP systolic 116–135; BP diastolic 59–77
[2022-06-05] MEDS: LORazepam 1 MG (ATIVAN) TAB PO PRN ×3 (00:20→20:43)
[2022-06-05] MEDS: oxyCODONE/APAP 7.5-325 MG (PERCOCET 7.5) TABLET PO PRN ×4 (04:47→20:43)
[2022-06-05 05:55] LABS: BASOPHILS # (AUTO) 0.1 10^3/uL (0.0-0.1); BASOPHILS % (AUTO) 0 % (0-10); EOSINOPHILS # (AUTO) 0.4 10^3/uL (0.0-0.3); EOSINOPHILS % (AUTO) 2 % (0-10); HEMATOCRIT 33 % (40-54); HEMOGLOBIN 11.4 g/dL (13.3-17.7); LYMPHOCYTES % (AUTO) 24 % (12-44); MEAN CORPUSCULAR HEMOGLOBIN 29 pg (25-34); MEAN CORPUSCULAR HGB CONC 35 g/dL (32-36); MEAN CORPUSCULAR VOLUME 84 fL (80-99); MEAN PLATELET VOLUME 8.9 fL (9.0-12.2); MONOCYTES # (AUTO) 1.2 10^3/uL (0.0-1.0); MONOCYTES % (AUTO) 8 % (0-12); NEUTROPHILS # (AUTO) 10.5 10^3/uL (1.8-7.8); NEUTROPHILS % (AUTO) 65 % (42-75); PLATELET COUNT 164 10^3/uL (130-400); WHITE BLOOD COUNT 16.2 10^3/uL (4.3-11.0)
[2022-06-05] MEDS: CATHETER FLUSH 10 ML SYR IVP SCH ×3 (06:01→20:44)
[2022-06-05] MEDS: inSUlin ASPART (NovoLOG) 1 UNIT/0.01 ML (CHARGE PER UNIT) SC SCH ×7 (06:02→20:43)
[2022-06-05 06:19] LABS: ALBUMIN 2.3 GM/DL (3.2-4.5); BILIRUBIN,TOTAL 0.7 MG/DL (0.1-1.0); CALCIUM 8.1 MG/DL (8.5-10.1); CREATININE SERUM 0.57 MG/DL (0.60-1.30); POTASSIUM 3.7 MMOL/L (3.6-5.0); TOTAL PROTEIN 6.5 GM/DL (6.4-8.2)
--- NOTE | 2022-06-05 07:33 | Progress Note - Surgery ---
AARON JACKSON 06/05/22 0733: Subjective Date Seen by a Provider: Jun 05, 2022 Time Seen by a Provider: 06:45 Subjective/Events-last exam 46 M day 4 s/p Lt BKA due to osteomyelitis on Lt foot is resting comfortably in bed during examination. Pt states his pain has decreased since yesterday rating it a 4/10 that is localized to the Lt LE. Wound is covered w/o signs of drainage. Dressing was last changed yesterday after Dr. Arce examined wound site. Pt is tolerating diet w/o complaints. Voiding with no issues. Pt has not had a BM since his surgery, but claims he is passing flatus. Was given stool softeners and laxatives last night. Denies any fever, chills, n/v, SOB, or CP. Pt last saw PT/OT on Sunday and was expressing he would like more therapy prior to dc. Review of Systems General: No Chills, No Night Sweats HEENT: No Head Aches, No Dysphasia Pulmonary: No Dyspnea, No Cough Cardiovascular: No: Chest Pain, Palpitations Gastrointestinal: Constipation; No: Nausea, Vomiting, Abdominal Pain Genitourinary: No Dysuria, No Frequency Musculoskeletal: leg pain (Lt LE); No: back pain Neurological: No: Weakness, Numbness Objective Exam Vital Signs Date Time Temp Pulse Resp B/P (MAP) Pulse Ox O2 Delivery O2 Flow Rate FiO2 06/05/22 03:44 36.1 91 18 133/72 (92) 95 Room Air 06/05/22 00:22 36.5 86 18 128/73 (91) 95 Room Air 06/04/22 20:45 Room Air 06/04/22 19:40 35.4 90 20 135/68 (90) 95 Room Air 0.00 0.00 06/04/22 15:39 35.3 98 20 129/57 (81) 97 Room Air 06/04/22 12:42 Room Air 06/04/22 11:15 36.2 85 18 130/77 (94) 95 Room Air 06/04/22 10:50 Room Air 06/04/22 07:41 36.8 95 16 109/73 (85) 96 Room Air I & O 06/05/22 07:00 Intake Total 2120 ml Output Total 3450 ml Balance -1330 ml Capillary Refill : General Appearance: No Apparent Distress, WD/WN HEENT: PERRL/EOMI, Moist Mucous Membranes Neck: Full Range of Motion, Non Tender Respiratory: Lungs Clear, Normal Breath Sounds, No Accessory Muscle Use, No Respiratory Distress Cardiovascular: Regular Rate, Rhythm, No Murmur Peripheral Pulses: 2+ Dorsalis Pedis (R); 3+ Radial Pulses (R), 3+ Radial Pulses (L) Gastrointestinal: non tender, soft, abnormal bowel sounds (hypoactive x 4 ), distended, other (surgical scar above umbilicus, surgical mesh palpable (hx of hernia repairs)) Extremity: Non Tender (RT LE), Other (LLE covered by dressing w/o signs of surrounding inflamation or infection ) Neurologic/Psychiatric: Alert, Oriented x3 Skin: Normal Color (erythema remains in R lower extremity, not painful or worsening), Warm/Dry Lymphatic: No Adenopathy Results Lab Laboratory Tests 06/04/22 11:14: Glucometer 176H 06/04/22 15:13: Glucometer 205H 06/05/22 05:22: White Blood Count 16.2H, Red Blood Count 3.93L, Hemoglobin 11.4L, Hematocrit 33L , Mean Corpuscular Volume 84, Mean Corpuscular Hemoglobin 29, Mean Corpuscular Hemoglobin Concent 35, Red Cell Distribution Width 14.3, Platelet Count 164, Mean Platelet Volume 8.9L, Immature Granulocyte % (Auto) 1, Neutrophils (%) (Auto) 65, Lymphocytes (%) (Auto) 24, Monocytes (%) (Auto) 8, Eosinophils (%) (Auto) 2, Basophils (%) (Auto) 0, Neutrophils # (Auto) 10.5H, Lymphocytes # (Auto) 4.0, Monocytes # (Auto) 1.2H, Eosinophils # (Auto) 0.4H, Basophils # (Auto) 0.1, Immature Granulocyte # (Auto) 0.1, Sodium Level 134L, Potassium Level 3.7, Chloride Level 104, Carbon Dioxide Level 25, Anion Gap 5, Blood Urea Nitrogen 13, Creatinine 0.57L, Estimat Glomerular Filtration Rate 122, BUN/Creatinine Ratio 23, Glucose Level 170H, Calcium Level 8.1L, Corrected Calcium 9.5, Total Bilirubin 0.7, Aspartate Amino Transf (AST/SGOT) 77H, Alanine Aminotransferase (ALT/SGPT) 85H, Alkaline Phosphatase 138H, Total Protein 6.5, Albumin 2.3L 06/05/22 05:37: Glucometer 161H Microbiology 06/02/22 MRSA Screen - Final, Complete MRSA not isolated 05/30/22 Blood Culture - Preliminary, Resulted No growth Assessment/Plan Assessment/Plan Assessment/Plan Osteomyelitis - MRI confirmed, Left foot Non healing Diabetic ulcer of left foot DMII - uncontrolled HTN tobacco use POD4 L BKA Hemoglobin decreasing from 13.4 to 11.2 today, continue to monitor with serial CBC post-op constipation Plan: continue pain control w percocet and morphine Continue IV abx- Vanc and Zosyn continue post-prandial glucose control PT/OT continue stool softener and laxative PRN, increase ambulation leave wound dressing today, plan to replace tomorrow Clinical Quality Measures DVT/VTE Risk/Contraindication: Contraindications-Pharm: Other *list below* Other: OR NOLAN MYRICK DO 06/05/22 1112: Subjective Time Seen by a Provider: 10:54 Subjective/Events-last exam Pt seen and examined, standing at bedside with PT. He states pain is mostly controlled. Review of Systems General: No Chills, No Night Sweats Pulmonary: No Dyspnea, No Cough Cardiovascular: No: Chest Pain, Palpitations Gastrointestinal: Constipation Objective Exam General Appearance: No Apparent Distress, WD/WN Respiratory: Lungs Clear, Normal Breath Sounds, No Accessory Muscle Use, No Respiratory Distress Cardiovascular: Regular Rate, Rhythm, No Murmur Gastrointestinal: abnormal bowel sounds (hypoactive x 4 ), distended, other (surgical scar above umbilicus, surgical mesh palpable (hx of hernia repairs)) Extremity: Other (LLE covered by dressing w/o signs of surrounding inflamation or infection ) Assessment/Plan Assessment/Plan Assessment/Plan S/P L BKA for Osteomyelitis left foot POD #4 DMII - uncontrolled HTN tobacco use Anemia - Hg decreased from 13.4 to 11.2 today, continue to monitor with serial CBC post-op constipation Plan: continue pain control w percocet and morphine Continue IV abx- Vanc and Zosyn continue glucose control PT/OT continue stool softener and laxative PRN, increase ambulation leave wound dressing today, plan to replace tomorrow Supervisory-Addendum Brief Verification & Attestation Participated in pt care: history, MDM, physical Personally performed: exam, history, MDM, supervision of care Care discussed with: Medical Student Procedures: n/a Verification and Attestation of Medical Student E/M Service A medical student performed and documented this service. I then reviewed and verified all information documented by the medical student and made modifications to such information, when appropriate. I personally performed a physical exam, medical decision making and then discussed any differences between the notes and made revisions as necessary to create one note. Nolan Myrick , 06/05/22 , 11:11 AARON JACKSON Jun 05, 2022 07:33 NOLAN MYRICK DO Jun 05, 2022 11:12
[2022-06-05] MEDS: lisINopril 10 MG (PRINIVIL) TABLET PO SCH (07:36)
[2022-06-05] MEDS: FERROUS SULF 325 MG (IRON) TAB PO SCH (07:36)
[2022-06-05] MEDS: amLODIPine 5 MG (NORVASC) TAB PO SCH (07:36)
[2022-06-05] MEDS: LACTULOSE SYRUP 10GM/15ML (ENULOSE) 30ML UDC PO SCH ×2 (07:41→20:45)
[2022-06-05] MEDS: polyethylene glycoL POWDER 17 GM (MIRALAX) PACK PO SCH ×2 (07:41→20:45)
[2022-06-05] MEDS: SENNA W/DOCUSATE (SENOKOT S) TABLET PO SCH ×2 (07:41→20:45)
--- NOTE | 2022-06-05 09:18 | Cardiology Progress Note ---
Subjective Date Seen by Provider: Jun 05, 2022 Time Seen by Provider: 09:17 Subjective/Events-last exam Patient was seen at bedside, laying down comfortably. No new complain Review of Systems General: No Chills, No Night Sweats, No Fatigue, No Malaise, No Appetite, No Other HEENT: No Head Aches, No Visual Changes, No Eye Pain, No Ear Pain, No Dysphasia, No Sinus Congestion, No Post Nasal Drip, No Sore Throat, No Other Pulmonary: No Dyspnea, No Cough, No Pleuritic Chest Pain, No Other Cardiovascular: No: Chest Pain, Palpitations, Orthopnea, Paroxysmal Noc. Dyspnea, Edema, Lt Headedness, Other Objective-Cardiology Exam Last Set of Vital Signs Vital Signs 06/02/22 06/04/22 06/05/22 03:14 19:40 07:51 Temp 36.0 Pulse 94 Resp 16 B/P (MAP) 132/66 (88) Pulse Ox 94 O2 Delivery Room Air O2 Flow Rate 0.00 0.00 FiO2 21 I&O Intake and Output 06/05/22 00:00 Intake Total 2120 ml Output Total 3050 ml Balance -930 ml Intake Oral 2120 ml Output Urine Total 3050 ml General: Alert, Oriented X3, Cooperative HEENT: Atraumatic, PERRLA Neck: Supple, No JVD, No Thyromegaly Lungs: Clear to Auscultation, Normal Air Movement Heart: Regular Rate, Normal S1, Normal S2, No Murmurs Abdomen: Normal Bowel Sounds, Soft, No Tenderness, No Hepatosplenomegaly, No Masses Extremities: No Clubbing, No Cyanosis, No Edema, Normal Pulses, No Tenderness/Swelling, Other (Left BKA) Skin: No Rashes, No Breakdown, No Significant Lesion Neuro: Normal Gait, Normal Speech, Strength at 5/5 X4 Ext, Normal Tone, Sensation Intact Psych/Mental Status: Mental Status NL, Mood NL Results Lab Laboratory Tests 06/05/22 05:22 A/P-Cardiology Admission Diagnosis Osteomyelitis Peripheral arterial disease Diabetes mellitus Hypertension Assessment/Plan Peripheral arterial disease, nonhealing left foot ulcer, osteomyelitis Status post left BKA. Recovering slowly Diabetes mellitus, poor control. Noncompliant with medication, managed by medical team History of sinus tachycardia and anemia. Currently better, continue to monitor Multiple risk factors for coronary artery disease, will consider stress test as an outpatient Hypertension, was maintained on lisinopril as an outpatient. Continue to monitor Elevated liver enzymes. History of opioid dependence NOÉ MARTEL MD Jun 05, 2022 09:18
--- NOTE | 2022-06-05 09:18 | Cardiology Progress Note ---
Subjective Date Seen by Provider: Jun 05, 2022 Time Seen by Provider: 09:16 Subjective/Events-last exam Patient in bed, denies any chest pain or dyspnea. Objective-Cardiology Exam Last Set of Vital Signs Vital Signs 06/02/22 06/04/22 06/05/22 06/05/22 03:14 19:40 07:51 08:00 Temp 36.0 Pulse 94 Resp 16 B/P (MAP) 132/66 (88) Pulse Ox 94 O2 Delivery Room Air O2 Flow Rate 0.00 0.00 FiO2 21 I&O Intake and Output 06/05/22 00:00 Intake Total 2120 ml Output Total 3050 ml Balance -930 ml Intake Oral 2120 ml Output Urine Total 3050 ml General: Alert, Oriented X3, Cooperative Lungs: Clear to Auscultation, Normal Air Movement Heart: Regular Rate Abdomen: Normal Bowel Sounds, Soft Extremities: No Edema Skin: No Rashes, No Significant Lesion Psych/Mental Status: Mental Status NL Results Lab Laboratory Tests 06/05/22 05:22 A/P-Cardiology Admission Diagnosis Osteomyelitis Peripheral arterial disease Diabetes mellitus Hypertension Assessment/Plan Peripheral arterial disease, nonhealing left foot ulcer, osteomyelitis Status post left BKA. Recovering slowly Diabetes mellitus, poor control. Noncompliant with medication, managed by medical team History of sinus tachycardia and anemia. Currently better, continue to monitor Hypertension, was maintained on lisinopril as an outpatient. Continue to mo nitor blood pressure Elevated liver enzymes. History of opioid dependence ANGELO GUERRA Jun 05, 2022 09:18
[2022-06-05] MEDS ORDERED: BISACODYL 10 MG SUPP (DULCOLAX) PR NR (10:00)
[2022-06-05] MEDS ORDERED: BISACODYL 10 MG SUPP (DULCOLAX) PR PRN (10:00)
--- NOTE | 2022-06-05 11:15 | Progress Note - Hospitalist ---
JENNIFER MYERS 06/05/22 1115: Subjective HPI/CC On Admission Hospital Course: This is a 46 y/o male who presented to the ER on 05/31 complaining of uncontrolled blood sugars and seeping from his left foot ulcer he has had chronically. He reported to admitting team that he was at work yesterday when he noticed the wound had seeped through his sock and was bloody appearing. He also said that he had been taking Jardiance for his DM but his BGLs have been in the 300s and that he wasn't on the right medication regimens. His lower extremities were imaged via XR and MRI and were found to have extensive osteomyelitis in the 2-4 metatarsals along with septic joint involvement. General surgery had been consulted prior to this and had previously told the patient he could do nothing, do long-term IV antibiotic treatment in conjunction with a debridement, or a BKA. After the imaging results however, general surgery strongly recommended a BKA as the only option. Currently the patient's BGLs and chronic conditions are being managed by IM as he awaits his BKA surgery scheduled for 06/02/2022. Subjective/Events-last exam Pt is seen at bedside this AM. He is doing well and in good spirits. Urinating well. Worked with PT for first time yesterday and he feels good about this and ready to keep progressing. Waiting for insurance approval to move to inpatient rehab. Patient expresses concerns about diabetes management once he is out of the hospital and plans to move to [place] and would like to work with endocrinology. Eating a regular diet without issue. No BMs since before surgery but he is passing gas. Reports pain is very manageable. Objective Exam Vital Signs Vital Signs Date Time Temp Pulse Resp B/P (MAP) Pulse Ox O2 Delivery O2 Flow Rate FiO2 06/05/22 08:00 Room Air 06/05/22 07:51 36.0 94 16 132/66 (88) 94 06/04/22 19:40 0.00 0.00 06/02/22 03:14 21 Capillary Refill : General Appearance: No Apparent Distress HEENT: PERRL/EOMI Neck: Full Range of Motion, Supple Respiratory: Lungs Clear, Normal Breath Sounds Cardiovascular: Regular Rate, Rhythm, Systolic Murmur (Best heard over aortic area, crescendo-decrescendo grade 2/6. ) Gastrointestinal: Normal Bowel Sounds, Non Tender, Soft Back: Normal Inspection Extremity: No Pedal Edema, Other (Left lower extremity surgically absent below knee, bandaging is in place, no drainage apparent. Right lower leg/foot is hyperpigmented. Right pedal pulse 2/4. ) Neurologic/Psychiatric: Alert, Oriented x3, Normal Mood/Affect Results/Procedures Lab Laboratory Tests 06/05/22 05:22 Patient resulted labs reviewed. Assessment/Plan Assessment and Plan Assess & Plan/Chief Complaint Assessment: This is a 46 y/o male who presented with a exudative left lower limb wound and uncontrolled diabetes mellitus now on HD 6. Osteomyelitis of the left lower 2nd, 3rd, and 4th metatarsal with probable septic joint involvement Hyperglycemia, Type II Diabetes mellitus - uncontrolled HTN Opioid use disorder - remission Elevated liver enzymes on admission Reactive Hepatitis C ab 1) Osteomyelitis of LLE s/p BKA Septic Joint PAD -DC'd vanc/zosyn -VSS, afebrile -Routine post-operative cares -Awaiting approval for inpatient rehab -Continue inpatient PT -pain well controlled -Cardiology following for PAD; appreciate recs. -Echo today normal EF. Grade I diastolic dysfunction. Pulm a. pressures 15-20 mmHg. 2) Hyperglycemia 2/2 uncontrolled TIIDM -Post-prandials low 200s -Continue SSI for inpatient cares -Added 15u levemir SQ BID -Fasting BGL this AM 170 -Renal function WNL, on lisinopril 3) HTN -continuing home lisinopril 10mg -Cardiology added Norvasc on 06/04, BPs improved; appreciate recs -Hydralazine PRN for SBP >170 4) Opioid use disorder - remission -using scheduled APAP -Using percocet/morphine PRN -Refused suboxone - will DC as been in long-term remission 5) Elevated aminotransferases Acute hepatitis C infection vs chronic infection -Bili WNL -HCV ab reactive as of 05/31 with ab index high at 14.3 will check [facility] records for any record of HCV hx or testing -No record of viral hepatitis panel pre-admission -Outpatient liver U/S c/w cirrhosis -HCV viral load pending -Appointment with GI/hepatology scheduled for early July 6) FEN/GI -No maitenance fluids -electrolyte replacement PRN -Regular diet -Bowel regimen in place, senna, docusate, lactulose, miralax. Dispo: Stable. Ready for transfer to inpatient rehab pending insurance approval. Clinical Quality Measures DVT/VTE Risk/Contraindication: Contraindications-Pharm: Other *list below* Other: OR BETTE ANNA DO 06/06/22 0444: Supervisory-Addendum Brief Verification & Attestation Participated in pt care: history, MDM, physical Personally performed: exam, history, MDM, supervision of care Care discussed with: Medical Student Procedures: n/a Results interpretation: Verified all documentation Verification and Attestation of Medical Student E/M Service A medical student performed and documented this service in my presence. I reviewed and verified all information documented by the medical student and made modifications to such information, when appropriate. I personally performed the physical exam and medical decision making. Bette Anna, Jun 06, 2022,04:43 JENNIFER MYERS Jun 05, 2022 11:15 BETTE ANNA DO Jun 06, 2022 04:44
--- NOTE | 2022-06-05 12:44 | Physical Therapy Daily Note ---
PT Daily Note-Current Subjective Patient agrees to PT. He reports he is fearful of falling due to an episode he had resulting in a fall. Pain Section J - Health Conditions 1. Rarely or not at all 2. Occasionally 3. Frequently 4. Almost constantly 8. Unable to answer Pain Effect on Sleep: 1 Pain Interference with Therapy: 1 Pain Interference w/Day-to-Day: 1 Mental Status Patient Orientation: Normal For Age Transfers SCALE: Activities may be completed with or without assistive devices. 6-Lobfcnbskn-junguvp completes the activity by him/herself with no assistance from a helper. 5-Set-up or Clean-up Assistance-helper sets up or cleans up; patient completes activity. [place] assists only prior to or following the activity. 4-Supervision or Touching Assistance-helper provides verbal cues and/or touching/steadying and/or contact guard assistance as patient completes activity. Assistance may be provided throughout the activity or intermittently. 3-Partial/Moderate Assistance-helper does LESS THAN HALF the effort. [place] lifts, holds or supports trunk or limbs, but provides less than half the effort. 2-Substantial/Maximal Assistance-helper does MORE THAN HALF the effort. [place] lifts or holds trunk or limbs and provides more than half the effort. 1-Evkjdhvyt-owoklf does ALL the effort. Patient does none of the effort to c omplete the activity. Or, the assistance of 2 or more helpers is required for the patient to complete the activity. If activity was not attempted, code reason: 7-Patient Refused. 9-Not Applicable-not attempted and the patient did not perform the activity before the current illness, exacerbation or injury. 10-Not Attempted due to Environmental Limitations-(lack of equipment, weather restraints, etc.). 88-Not Attempted due to Medical Conditions or Safety Concerns. Lying to Sitting/Side of Bed(Q: 6 Sit to Stand (QC): 3 (x 5 sets to FWW standing 2 minutes each time) Chair/Jmh-or-Adjyi Xfer(QC): 3 Weight Bearing Right Lower Extremity: Right Full Weight Bearing Gait Training Does the Patient Walk?: No and Walking Goal IS indicated Exercises Supine Ex: Quad Set, Heel Slides, Straight leg raise, Hip abd/add Supine Reps: 15 (x 2 sets) Seated Therapy Exercises: Long arc quads Seated Reps: 15 Assessment Patient progressing with treatment plan and is up in recliner. Patient educated on standing erect in FWW with use of bilateral UE's and right LE. Patient improved during session. PT to continue to increase activity as tolerated by patient. PT Administrative Assistant Coordinator Goals Administrative Assistant Coordinator Goals PT Retirement Goals Time Frame: Jun 10, 2022 Roll Left & Right (QC): 6 Sit to Lying (QC): 6 Lying-Sitting on Side/Bed(QC): 6 Sit to Stand (QC): 6 Chair/Uym-kk-Vjgnn Xfer(QC): 6 Toilet Transfer (QC): 6 Car Transfer (QC): 6 Does the Patient Walk: Yes Walk 10 feet (QC): 6 Walk 50ft with 2 Turns (QC): 6 Walk 150 ft (QC): 3 1 Step (curb) (QC): 4 PT Plan Treatment/Plan Treatment Plan: Continue Plan of Care Treatment Plan: Functional Activity Angeli, Functional Strength, Gait, Safety, Therapeutic Exercise, Transfers Treatment Duration: Jun 03, 2022 Frequency: 6 times per week Estimated Hrs Per Day: .25 hour per day Patient and/or Family Agrees t: Yes Time Time In: 1045 Time Out: 1108 DATE: Jun 05, 2022 Total Billed Treatment Time: 23 Total Billed Treatment 1 visit EX x 2 23min DANDY BUCK PT Jun 05, 2022 12:44
--- NOTE | 2022-06-05 15:23 | Occ Therapy Progress Note ---
Therapy Progress Note OT initiated evaluation this morning, Patient refused and reported he was too tired. OT attempted again at 1500 and patient again refused stating he was to tired. OT will monitor and attempt tomorrow 06/06/22 CHARLOTTE ESPINOZA OT Jun 05, 2022 15:23
[2022-06-05] MEDS: MELATONIN 3 MG TABLET PO PRN (20:43)
[2022-06-06 03:40] VITALS: BP 130/75
[2022-06-06] MEDS: inSUlin ASPART (NovoLOG) 1 UNIT/0.01 ML (CHARGE PER UNIT) SC SCH ×7 (05:29→20:38)
[2022-06-06] MEDS: CATHETER FLUSH 10 ML SYR IVP SCH ×3 (05:29→20:41)
[2022-06-06] MEDS: oxyCODONE/APAP 7.5-325 MG (PERCOCET 7.5) TABLET PO PRN ×4 (05:59→20:38)
[2022-06-06] MEDS: LORazepam 1 MG (ATIVAN) TAB PO PRN ×2 (05:59→15:54)
[2022-06-06 06:03] LABS: ALBUMIN 2.7 GM/DL (3.2-4.5)
[2022-06-06 06:04] LABS: BASOPHILS # (AUTO) 0.1 10^3/uL (0.0-0.1); BASOPHILS % (AUTO) 1 % (0-10); EOSINOPHILS # (AUTO) 0.3 10^3/uL (0.0-0.3); EOSINOPHILS % (AUTO) 2 % (0-10); HEMATOCRIT 36 % (40-54); HEMOGLOBIN 12.1 g/dL (13.3-17.7); LYMPHOCYTES # (AUTO) 3.4 10^3/uL (1.0-4.0); LYMPHOCYTES % (AUTO) 26 % (12-44); MEAN CORPUSCULAR HEMOGLOBIN 29 pg (25-34); MEAN CORPUSCULAR HGB CONC 34 g/dL (32-36); MEAN CORPUSCULAR VOLUME 85 fL (80-99); MEAN PLATELET VOLUME 9.2 fL (9.0-12.2); MONOCYTES # (AUTO) 1.1 10^3/uL (0.0-1.0); MONOCYTES % (AUTO) 8 % (0-12); NEUTROPHILS # (AUTO) 8.2 10^3/uL (1.8-7.8); NEUTROPHILS % (AUTO) 63 % (42-75); PLATELET COUNT 184 10^3/uL (130-400); POTASSIUM 4.1 MMOL/L (3.6-5.0); WHITE BLOOD COUNT 13.1 10^3/uL (4.3-11.0)
[2022-06-06 06:05] LABS: CALCIUM 8.1 MG/DL (8.5-10.1)
[2022-06-06 06:06] LABS: TOTAL PROTEIN 7.2 GM/DL (6.4-8.2)
[2022-06-06 06:08] LABS: BILIRUBIN,TOTAL 0.7 MG/DL (0.1-1.0)
[2022-06-06 06:10] LABS: CREATININE SERUM 0.58 MG/DL (0.60-1.30)
[2022-06-06 07:27] VITALS: BP 120/61
[2022-06-06] MEDS: SENNA W/DOCUSATE (SENOKOT S) TABLET PO SCH ×2 (07:51→20:37)
[2022-06-06] MEDS: amLODIPine 5 MG (NORVASC) TAB PO SCH (08:23)
[2022-06-06] MEDS: lisINopril 10 MG (PRINIVIL) TABLET PO SCH (08:23)
[2022-06-06] MEDS: FERROUS SULF 325 MG (IRON) TAB PO SCH (08:23)
[2022-06-06] MEDS: polyethylene glycoL POWDER 17 GM (MIRALAX) PACK PO SCH ×2 (08:24→20:39)
[2022-06-06] MEDS: LACTULOSE SYRUP 10GM/15ML (ENULOSE) 30ML UDC PO SCH ×2 (08:24→20:40)
--- NOTE | 2022-06-06 08:26 | Cardiology Progress Note ---
Subjective Date Seen by Provider: Jun 06, 2022 Time Seen by Provider: 08:25 Subjective/Events-last exam Patient in bed, no new complaints. Objective-Cardiology Exam Last Set of Vital Signs Vital Signs 06/02/22 06/06/22 06/06/22 03:14 03:40 07:27 Temp 35.9 Pulse 82 Resp 18 B/P (MAP) 120/61 (80) Pulse Ox 96 O2 Delivery Room Air O2 Flow Rate 0.00 0.00 FiO2 21 I&O Intake and Output 06/06/22 00:00 Intake Total 2600 ml Output Total 2750 ml Balance -150 ml Intake Oral 2600 ml Output Urine Total 2750 ml # Bowel Movements 1 General: Alert, Oriented X3, Cooperative HEENT: Atraumatic, PERRLA Neck: Supple, No JVD, No Thyromegaly Lungs: Clear to Auscultation, Normal Air Movement Heart: Regular Rate, Normal S1, Normal S2, No Murmurs Abdomen: Normal Bowel Sounds, Soft, No Tenderness, No Hepatosplenomegaly, No Masses Extremities: No Clubbing, No Cyanosis, No Edema, Normal Pulses, No Tenderness/Swelling, Other (Left BKA) Skin: No Rashes, No Breakdown, No Significant Lesion Neuro: Normal Gait, Normal Speech, Strength at 5/5 X4 Ext, Normal Tone, Sensation Intact Psych/Mental Status: Mental Status NL, Mood NL Results Lab Laboratory Tests 06/06/22 05:18 A/P-Cardiology Admission Diagnosis Osteomyelitis Peripheral arterial disease Diabetes mellitus Hypertension Assessment/Plan Peripheral arterial disease, nonhealing left foot ulcer, osteomyelitis Status post left BKA. Recovering slowly Diabetes mellitus, poor control. Noncompliant with medication, managed by medical team History of sinus tachycardia and anemia. Currently better, continue to monitor Multiple risk factors for coronary artery disease, will consider stress test as an outpatient Hypertension, was maintained on lisinopril as an outpatient. Continue to monitor Elevated liver enzymes. History of opioid dependence Supervisory-Addendum Brief Supervisory Addendum Participated in pt care: history, MDM, physical Personally performed: exam, history, MDM Care discussed with: DUY Results interpretation: Verified all documentation Notes: Patient was seen and evaluated with Angelo, examination performed, management plan was discussed, agree with the current scribed note, I made few changes to the note using Italic font Patient was seen at bedside, laying down comfortably, feeling better No new complaint Continue to monitor blood pressure, no changes are recommended ANGELO GUERRA Jun 06, 2022 08:26 NOÉ MARTEL MD Jun 06, 2022 08:41
--- NOTE | 2022-06-06 08:27 | Progress Note - Surgery ---
AARON JACKSON 06/06/22 0827: Subjective Date Seen by a Provider: Jun 06, 2022 Time Seen by a Provider: 07:30 Subjective/Events-last exam 46 M s/p day 4 of Lt BKA secondary to osteomyelitis of left resting comfortably in bed during evaluation. Pt states his pain has improved from yesterday but still rates it at 4/10 localized to the left LE with associated pruritus. Wound is covered with bandages w/ no discharge or surrounding erythema. Pt was able to have a BM last night. Voiding w/o complaints. Tolerating PT/OT well and waiting on insurance approval for in-pt rehab admission. Pt expresses he would like to be set up with endocrinology prior to d/c. Tolerating normal diet. Denies any fever. chills. n/v, SOB, or CP. Review of Systems General: No Chills, No Night Sweats HEENT: No Head Aches, No Dysphasia Pulmonary: No Dyspnea, No Cough Cardiovascular: No: Chest Pain, Palpitations Gastrointestinal: No: Nausea, Vomiting, Abdominal Pain Genitourinary: No Dysuria, No Frequency Musculoskeletal: leg pain (Lt LE); No: back pain Neurological: No: Change in speech, Confusion Objective Exam Vital Signs Date Time Temp Pulse Resp B/P (MAP) Pulse Ox O2 Delivery O2 Flow Rate FiO2 06/06/22 07:27 35.9 82 18 120/61 (80) 96 Room Air 06/06/22 03:40 36.8 94 20 130/75 (93) 95 Room Air 0.00 0.00 06/05/22 23:34 36.2 84 20 135/77 (96) 95 Room Air 0.00 0.00 06/05/22 20:50 Room Air 06/05/22 19:17 35.9 90 20 127/68 (87) 97 Room Air 06/05/22 15:27 35.8 89 20 135/65 (88) 98 Room Air 06/05/22 11:59 37.0 94 16 116/59 (78) 99 Room Air I & O 06/06/22 07:00 Intake Total 2800 ml Output Total 2425 ml Balance 375 ml Capillary Refill : General Appearance: No Apparent Distress, WD/WN HEENT: PERRL/EOMI, Moist Mucous Membranes Neck: Full Range of Motion, Normal Inspection Respiratory: Lungs Clear, Normal Breath Sounds, No Accessory Muscle Use, No Respiratory Distress Cardiovascular: Regular Rate, Rhythm, No Gallop Peripheral Pulses: 2+ Dorsalis Pedis (R); 3+ Radial Pulses (R), 3+ Radial Pulses (L) Gastrointestinal: normal bowel sounds, non tender, no organomegaly, no pulsatile mass, distended (mild, improved from yesterday ); No guarding; other (surgical scar above umbilicus, surgical mesh palpable (hx of hernia repairs)) Extremity: Non Tender, No Calf Tenderness, No Pedal Edema, Other (Left lower extremity surgically absent below knee, bandaging is in place, no drainage apparent. Right lower leg/foot is hyperpigmented. Right pedal pulse 2/4. ) Neurologic/Psychiatric: Alert, Oriented x3, Normal Mood/Affect Skin: Normal Color (erythema remains in R lower extremity, not painful or worsening), Warm/Dry Lymphatic: No Adenopathy Results Lab Laboratory Tests 06/05/22 11:02: Glucometer 183H 06/05/22 15:30: Glucometer 247H 06/05/22 20:36: Glucometer 268H 06/06/22 05:16: Glucometer 174H 06/06/22 05:18: White Blood Count 13.1H, Red Blood Count 4.16L, Hemoglobin 12.1L, Hematocrit 36L , Mean Corpuscular Volume 85, Mean Corpuscular Hemoglobin 29, Mean Corpuscular Hemoglobin Concent 34, Red Cell Distribution Width 14.5, Platelet Count 184, Mean Platelet Volume 9.2, Immature Granulocyte % (Auto) 1, Neutrophils (%) (Auto) 63, Lymphocytes (%) (Auto) 26, Monocytes (%) (Auto) 8, Eosinophils (%) (Auto) 2, Basophils (%) (Auto) 1, Neutrophils # (Auto) 8.2H, Lymphocytes # (Auto) 3.4, Monocytes # (Auto) 1.1H, Eosinophils # (Auto) 0.3, Basophils # (Auto) 0.1, Immature Granulocyte # (Auto) 0.1, Sodium Level 135, Potassium Level 4.1, Chloride Level 103, Carbon Dioxide Level 24, Anion Gap 8, Blood Urea Nitrogen 12, Creatinine 0.58L, Estimat Glomerular Filtration Rate 122, BUN/Creatinine Ratio 21, Glucose Level 174H, Calcium Level 8.1L, Corrected Calcium 9.1, Total Bilirubin 0.7, Aspartate Amino Transf (AST/SGOT) 97H, Alanine Aminotransferase (ALT/SGPT) 103H, Alkaline Phosphatase 139H, Total Protein 7.2, Albumin 2.7L Microbiology 06/02/22 MRSA Screen - Final, Complete MRSA not isolated 05/30/22 Blood Culture - Final, Complete No growth Assessment/Plan Assessment/Plan Assessment/Plan S/P L BKA for Osteomyelitis left foot POD #5 DMII - uncontrolled HTN tobacco use Anemia - Hemoglobin increased from 11.4 to 12.1 today, continue to monitor post-op constipation - resolved Plan: continue proper pain control continue glucose control increase PT/OT continue stool softener and laxative PRN, increase ambulation Change wound dressings today Clinical Quality Measures DVT/VTE Risk/Contraindication: Contraindications-Pharm: Other *list below* Other: OR NOLAN GUNDERSON DO 06/06/22 1401: Subjective Time Seen by a Provider: 11:49 Subjective/Events-last exam Pt seen and examined, states he is feeling better and pain better controlled. He also had a BM. Review of Systems General: No Chills, No Night Sweats Pulmonary: No Dyspnea, No Cough Cardiovascular: No: Chest Pain, Palpitations Gastrointestinal: No: Nausea, Vomiting, Abdominal Pain Genitourinary: Frequency Musculoskeletal: leg pain (Lt LE) Objective Exam General Appearance: No Apparent Distress, WD/WN HEENT: Moist Mucous Membranes Respiratory: Lungs Clear, Normal Breath Sounds, No Accessory Muscle Use, No Respiratory Distress Cardiovascular: Regular Rate, Rhythm, No Murmur Gastrointestinal: guarding Extremity: Other (Left lower extremity surgically absent below knee, no drainage apparent the ventral aspect of skin has some possibly mild ischemic changes, dorsal aspect looks completely fine. There is swelling in this area, probably seroma and hematoma) Neurologic/Psychiatric: Alert, Oriented x3 Assessment/Plan Assessment/Plan Assessment/Plan S/P L BKA for Osteomyelitis left foot POD #5 DMII - uncontrolled HTN tobacco use Anemia - Hemoglobin increased from 11.4 to 12.1 today, continue to monitor post-op constipation - resolved Plan: continue proper pain control continue glucose control increase PT/OT continue stool softener and laxative PRN, increase ambulation Change wound dressings today Supervisory-Addendum Brief Verification & Attestation Participated in pt care: history, MDM, physical Personally performed: exam, history, MDM, supervision of care Care discussed with: Medical Student Procedures: n/a Verification and Attestation of Medical Student E/M Service A medical student performed and documented this service. I then reviewed and verified all information documented by the medical student and made modifications to such information, when appropriate. I personally performed a physical exam, medical decision making and then discussed any differences between the notes and made revisions as necessary to create one note. Nolan Gunderson , 06/06/22 , 14:01 AARON JACKSON Jun 06, 2022 08:27 NOLAN GUNDERSON DO Jun 06, 2022 14:01
--- NOTE | 2022-06-06 09:50 | Occupational Therapy Eval ---
OT Evaluation-General/PLF Medical Diagnosis Admission Date May 30, 2022 at 22:05 Medical Diagnosis: (L) BKA Onset Date: May 30, 2022 Therapy Diagnosis Therapy Diagnosis: weakness Precautions Precautions/Isolations: Fall Prevention, Standard Precautions Weight Bear Status Weight Bearing Restriction: Non Weight Bearing Location Restriction: L LE Referral Physician: Bette Corey DO Referral Reason: Activity Tolerance, Self Care, Evaluation/Treatment, Strengthening/ROM Medical History Pertinent Medical History: DM, HTN Current History Left foot ulcer requiring BKA. Reviewed History: Yes Social History Home: Single Level Current Living Status: Significant Other Entry Into Home: Stairs With Railing Steps Into Home: 4 ADL-Prior Level of Function SCALE: Activities may be completed with or without assistive devices. 7-Pmlpeqhqdf-sswyfhw completes the activity by him/herself with no assistance from a helper. 5-Set-up or Clean-up Assistance-helper sets up or cleans up; patient completes activity. [place] assists only prior to or following the activity. 4-Supervision or Touching Assistance-helper provides verbal cues and/or touching/steadying and/or contact guard assistance as patient completes activity. Assistance may be provided throughout the activity or intermittently. 3-Partial/Moderate Assistance-helper does LESS THAN HALF the effort. [place] lifts, holds or supports trunk or limbs, but provides less than half the effort. 2-Substantial/Maximal Assistance-helper does MORE THAN HALF the effort. [place] lifts or holds trunk or limbs and provides more than half the effort. 4-Cqauhwmek-yvknyi does ALL the effort. Patient does none of the effort to complete the activity. Or, the assistance of 2 or more helpers is required for the patient to complete the activity. If activity was not attempted, code reason: 7-Patient Refused. 9-Not Applicable-not attempted and the patient did not perform the activity before the current illness, exacerbation or injury. 10-Not Attempted due to Environmental Limitations-(lack of equipment, weather restraints, etc.). 88-Not Attempted due to Medical Conditions or Safety Concerns. Self Care: Independent Functional Cognition: Independent Drive Self: Yes OT Current Status Subjective Patient awake resting in bed, has completed breakfast and is agreeable for OT Pain Numeric Pain Scale: 3 (no phantom pain reported) Location: Left Location Body Site: Knee Pain Description: Ache, Dull Mental Status/Objective Patient Orientation: Person, Place, Time, Situation Attachments: Other-See Comments (wound dressing and TRE wrap on LLE) Current Hand Dominance: Right Upper Extremity ROM BUE ROM WNL Upper Extremity Strength +4/5 BUES, sustains ambulation w/ FWW s/p LBKA for transfers form bed, toilet, and recliner ADL-Treatment Eating (QC): 6 Oral Hygiene (QC): 4 (standing at sink w/ FWW) Shower/Bathe Self (QC): 7 Upper Body Dressing (QC): 5 Lower Body Dressing (QC): 5 (performed in supine posiiton in bed) On/Off Footwear (QC): 5 Toileting Hygiene (QC): 4 Other Treatments education for desensitization Education OT Patient Education: Correct positioning, Home exercise program, Modified ADL techniques, Progress toward Goal/Update tx plan, Purpose of tx/functional activities, Reviewed precautions, Rehab process, Safety issues, Transfer techniques, Use of adapted equipment Teaching Recipient: Patient Teaching Methods: Demonstration, Discussion Response to Teaching: Verbalize Understanding, Return Demonstration, R einforcement Needed OT Longterm Goals Longterm Goals Oral Hygiene (QC): 6 Toileting Hygiene (QC): 6 Shower/Bathe Self (QC): 6 Upper Body Dressing (QC): 6 Lower Body Dressing (QC): 6 On/Off Footwear (QC): 6 1=Demonstrate adherence to instructed precautions during ADL tasks. 2=Patient will verbalize/demonstrate understanding of assistive devices/modifica tions for ADL. 3=Patient will improve strength/tolerance for activity to enable patient to perform ADL's. OT Education/Plan Problem List/Assessment Assessment: Decreased Activ Tolerance, Decreased UE Strength, Impaired Funct Balance, Impaired Self-Care Skills Discharge Recommendations Plan/Recommendations: Continue POC Therapy Discharge Recommendati: Post Acute OT Treatment Plan/Plan of Care Treatment,Training & Education: Yes Patient would benefit from OT for education, treatment and training to promote independence in ADL's, mobility, safety and/or upper extremity function for ADL's. Plan of Care: ADL Retraining, Concurrent Therapy, Functional Mobility, Group Exercise/Act as Ind, Orthotic Fitting/Training, UE Funct Exercise/Act Treatment Duration: Jun 17, 2022 Frequency: 3 times per week (3-5 times per week) Estimated Hrs Per Day: .25 hour per day Agreement: Yes Rehab Potential: Good Up in recliner with tray table and call light in reach, all needs met Time Start Time: 09:17 Stop Time: 09:37 DATE: Jun 06, 2022 Total Time Billed (hr/min): 20 Billed Treatment Time EVM 20 min CHARLOTTE ESPINOZA OT Jun 06, 2022 09:50
--- NOTE | 2022-06-06 11:13 | Physical Therapy Daily Note ---
PT Daily Note-Current Subjective Patient is very agreeable to participate with PT. Pain Numeric Pain Scale: 0-No Pain Location: No Pain Reported Section J - Health Conditions 1. Rarely or not at all 2. Occasionally 3. Frequently 4. Almost constantly 8. Unable to answer Pain Effect on Sleep: 1 Pain Interference with Therapy: 1 Pain Interference w/Day-to-Day: 1 Mental Status Patient Orientation: Normal For Age Transfers SCALE: Activities may be completed with or without assistive devices. 0-Kveumeutvc-bkoiccv completes the activity by him/herself with no assistance from a helper. 5-Set-up or Clean-up Assistance-helper sets up or cleans up; patient completes activity. [place] assists only prior to or following the activity. 4-Supervision or Touching Assistance-helper provides verbal cues and/or touching/steadying and/or contact guard assistance as patient completes activity. Assistance may be provided throughout the activity or intermittently. 3-Partial/Moderate Assistance-helper does LESS THAN HALF the effort. [place] lifts, holds or supports trunk or limbs, but provides less than half the effort. 2-Substantial/Maximal Assistance-helper does MORE THAN HALF the effort. [place] lifts or holds trunk or limbs and provides more than half the effort. 3-Laodefwoe-ovzhrd does ALL the effort. Patient does none of the effort to complete the activity. Or, the assistance of 2 or more helpers is required for the patient to complete the activity. If activity was not attempted, code reason: 7-Patient Refused. 9-Not Applicable-not attempted and the patient did not perform the activity before the current illness, exacerbation or injury. 10-Not Attempted due to Environmental Limitations-(lack of equipment, weather restraints, etc.). 88-Not Attempted due to Medical Conditions or Safety Concerns. Sit to Lying (QC): 6 Lying to Sitting/Side of Bed(Q: 6 Sit to Stand (QC): 4 Weight Bearing Right Lower Extremity: Right Full Weight Bearing Gait Training Does the Patient Walk?: Yes Distance: 50' x 2 Walk 10 feet (QC): 4 Walk 50 ft with 2 Turns(QC): 4 Gait Assistive Device: FWW slow, steady sequence (one seated recovery period due to fatigue) Exercises Supine Ex: Quad Set, Heel Slides, Straight leg raise, Hip abd/add Supine Reps: 15 (x 2 sets bilaterally) Seated Therapy Exercises: Long arc quads Seated Reps: 15 Assessment Patient continues to progress with treatment plan. Patient returned to bed with needs met. Continue to increase activity as tolerated by patient. PT Wash Worker Goals Wash Worker Goals PT Care Home Goals Time Frame: Jun 10, 2022 Roll Left & Right (QC): 6 Sit to Lying (QC): 6 Lying-Sitting on Side/Bed(QC): 6 Sit to Stand (QC): 6 Chair/Eoq-yp-Xudim Xfer(QC): 6 Toilet Transfer (QC): 6 Car Transfer (QC): 6 Does the Patient Walk: Yes Walk 10 feet (QC): 6 Walk 50ft with 2 Turns (QC): 6 Walk 150 ft (QC): 3 1 Step (curb) (QC): 4 PT Plan Treatment/Plan Treatment Plan: Continue Plan of Care Treatment Plan: Functional Activity Angeli, Functional Strength, Gait, Safety, Therapeutic Exercise, Transfers Treatment Duration: Jun 03, 2022 Frequency: 6 times per week Estimated Hrs Per Day: .25 hour per day Patient and/or Family Agrees t: Yes Time Time In: 1020 Time Out: 1043 DATE: Jun 06, 2022 Total Billed Treatment Time: 23 Total Billed Treatment 1 visit EX 15 min GT 8 min DANDY BUCK PT Jun 06, 2022 11:12
[2022-06-06 11:15] VITALS: BP 132/63
--- NOTE | 2022-06-06 11:30 | Progress Note ---
JENNIFER MYERS 06/06/22 1130: Subjective Date Seen by a Provider: Jun 06, 2022 Time Seen by a Provider: 08:25 Subjective/Events-last exam Pt is seen at bedside this AM. He is sitting up in bed. He says working with PT went well yesterday and he had no falls. Still getting used to normal day to day things with OT. Still concerned about establishing with new PCP in [place] after discharge. Waiting for inpatient rehab placement. He is urinating without issue and had a BM yesterday. No N/V, fever or chills. Hospital Course: This is a 46 y/o male who presented to the ED on 05/30/22 for uncontrolled high blood sugars and was found to have a persistent weeping wound on his left foot. A1c was >10, blood sugars in 300s on arrival and XR/MRI revealed extensive osteomyelitis, septic joint, and abscess formation in the left lower foot/left lower leg. He was started on empiric Vanc/Zosyn. Decision was subsequently made for a BKA with general surgery which took place on 06/02. Post-operatively the patient met his milestones and began to work with PT/OT while awaiting placement for inpatient rehab and more structured therapy. During the course of the stay the medical team managed his ongoing HTN, DM, and newly diagnosed HCV infection. Medicine also requested cardiology consultation for CAD/PAD due to concern of right lower extremity PAD. Plan was made for patient to go through inpatient rehab and then discharge to new PCP in [place] along with a referral to GI/hepatology for HCV management and possibly a referral to endocrinology as patient is very motivated to control his DM to avoid further complications. Objective Exam Last Set of Vital Signs Vital Signs Date Time Temp Pulse Resp B/P (MAP) Pulse Ox O2 Delivery O2 Flow Rate FiO2 06/06/22 11:15 36.2 81 18 132/63 (86) 97 Room Air 06/06/22 03:40 0.00 0.00 06/02/22 03:14 21 Capillary Refill : I&O Intake and Output 06/06/22 00:00 Intake Total 2600 ml Output Total 2750 ml Balance -150 ml Intake Oral 2600 ml Output Urine Total 2750 ml # Bowel Movements 1 General: Alert, Oriented X3 HEENT: Atraumatic, PERRLA, EOMI Lungs: Clear to Auscultation, Normal Air Movement Heart: Regular Rate, Normal S1, Normal S2, Other (Systolic crescendo-decrescend o murmur best heard over aortic area grade II/.) Abdomen: Normal Bowel Sounds, Soft Extremities: Other (LLE surgically absent. Bandaging below knee is clean/dry. Right pedal pulse is +2/4. ) Skin: Other (Has hyperpigementation of RLE from foot to midshin.) Neuro: Normal Speech Psych/Mental Status: Mental Status NL, Mood NL Results Lab Laboratory Tests 06/05/22 15:30: Glucometer 247H 06/05/22 20:36: Glucometer 268H 06/06/22 05:16: Glucometer 174H 06/06/22 05:18: White Blood Count 13.1H, Red Blood Count 4.16L, Hemoglobin 12.1L, Hematocrit 36L , Mean Corpuscular Volume 85, Mean Corpuscular Hemoglobin 29, Mean Corpuscular Hemoglobin Concent 34, Red Cell Distribution Width 14.5, Platelet Count 184, Mean Platelet Volume 9.2, Immature Granulocyte % (Auto) 1, Neutrophils (%) (Auto) 63, Lymphocytes (%) (Auto) 26, Monocytes (%) (Auto) 8, Eosinophils (%) (Auto) 2, Basophils (%) (Auto) 1, Neutrophils # (Auto) 8.2H, Lymphocytes # (Auto) 3.4, Monocytes # (Auto) 1.1H, Eosinophils # (Auto) 0.3, Basophils # (Auto) 0.1, Immature Granulocyte # (Auto) 0.1, Sodium Level 135, Potassium Level 4.1, Chloride Level 103, Carbon Dioxide Level 24, Anion Gap 8, Blood Urea Nitro gen 12, Creatinine 0.58L, Estimat Glomerular Filtration Rate 122, BUN/Creatinine Ratio 21, Glucose Level 174H, Calcium Level 8.1L, Corrected Calcium 9.1, Total Bilirubin 0.7, Aspartate Amino Transf (AST/SGOT) 97H, Alanine Aminotransferase (ALT/SGPT) 103H, Alkaline Phosphatase 139H, Total Protein 7.2, Albumin 2.7L 06/06/22 10:52: Glucometer 193H Microbiology 06/02/22 MRSA Screen - Final, Complete MRSA not isolated 05/30/22 Blood Culture - Final, Complete No growth Radiology No recent radiology studies. Assessment/Plan Assessment/Plan Assess & Plan/Chief Complaint ssessment: This is a 46 y/o male who presented with a exudative left lower limb wound and uncontrolled diabetes mellitus now on HD 6. Osteomyelitis of the left lower 2nd, 3rd, and 4th metatarsal with probable septic joint involvement Hyperglycemia, Type II Diabetes mellitus - uncontrolled HTN Opioid use disorder - remission Elevated liver enzymes on admission Reactive Hepatitis C ab 1) Osteomyelitis of LLE s/p BKA now POD#4 Septic Joint PAD -DC'd vanc/zosyn -VSS, afebrile -Routine post-operative cares -Awaiting approval for inpatient rehab -Continue inpatient PT -pain well controlled -Surgical pathology c/w admitting imaging -Cardiology following for PAD; appreciate recs. -Echo today normal EF. Grade I diastolic dysfunction. Pulm a. pressures 15-20 mmHg. 2) Hyperglycemia 2/2 uncontrolled TIIDM -Post-prandials low 200s -Continue SSI for inpatient cares -Added 15u levemir SQ BID -Fasting BGL this AM 170 -Renal function WNL, on lisinopril 3) HTN -continuing home lisinopril 10mg -Cardiology added Norvasc on 06/04, BPs improved; appreciate recs -Hydralazine PRN for SBP >170 4) Opioid use disorder - remission -using scheduled APAP -Using percocet/morphine PRN -Refused suboxone - will DC as been in long-term remission -Work to taper narcotic use 5) Elevated aminotransferases Acute hepatitis C infection vs chronic infection -Bili WNL -HCV ab reactive as of 05/31 -No record of viral hepatitis panel pre-admission -Outpatient liver U/S c/w cirrhosis -HCV viral load 1.4 million copies. -Appointment with GI/hepatology scheduled for early August 05) FEN/GI -No maintenance fluids; UOP 1.39 ml/kg/hr yesterday (06/05). -electrolyte replacement PRN -Regular diet -Bowel regimen in place, senna, docusate, lactulose, miralax. Dispo: Stable. Ready for transfer to inpatient rehab pending insurance approval. Clinical Quality Measures DVT/VTE Risk/Contraindication: Contraindications-Pharm: Other *list below* Other: OR BETTE ANNA DO 06/07/22 0437: Supervisory-Addendum Brief Verification & Attestation Participated in pt care: history, MDM, physical Personally performed: exam, history, MDM, supervision of care Care discussed with: Medical Student Procedures: n/a Results interpretation: Verified all documentation Verification and Attestation of Medical Student E/M Service A medical student performed and documented this service in my presence. I reviewed and verified all information documented by the medical student and made modifications to such information, when appropriate. I personally performed the physical exam and medical decision making. Bette Anna, Jun 07, 2022,04:36 JENNIFER MYERS Jun 06, 2022 11:30 BETTE ANNA DO Jun 07, 2022 04:37
--- NOTE | 2022-06-06 14:24 | Physical Therapy Progress Note ---
Therapy Progress Note Spoke with 4th floor nursing supervisor sterile processing who contacted Dr. Gunderson regarding the stump portable machine sander. At this time Dr. Gunderson does not want the stump portable machine sander placed due to the possibility of ischemia to the residual limb. Order placed for stump portable machine sander to be fit at future time when appropriate. Will continue to follow patient while on Acute floor to ensure appropriate stump portable machine sander placement. CHULA LOPEZ PT Jun 06, 2022 14:24
[2022-06-06 15:15] VITALS: BP 127/75
[2022-06-06] MEDS: NICOTINE 14 MG (NICODERM) PATCH TD SCH (18:24)
[2022-06-06 19:14] VITALS: BP 109/65
[2022-06-07] MEDS: MELATONIN 3 MG TABLET PO PRN (00:05)
[2022-06-07] MEDS: LORazepam 1 MG (ATIVAN) TAB PO PRN ×2 (00:05→08:32)
[2022-06-07 00:27] VITALS: BP 130/71
[2022-06-07 04:11] VITALS: BP 133/74
[2022-06-07] MEDS ORDERED: AMLO-250 PO (05:19)
[2022-06-07] MEDS ORDERED: OXYC1TAB16 PO (05:19)
[2022-06-07] MEDS ORDERED: INSU100V16 SC (05:19)
[2022-06-07] MEDS ORDERED: INSU100V5 SQ (05:19)
--- NOTE | 2022-06-07 05:20 | Discharge Summary ---
Diagnosis/Chief Complaint Date of Admission May 30, 2022 at 22:05 Date of Discharge Discharge Date: Jun 07, 2022 Discharge Diagnosis Assessment Osteomyelitis of the left lower 2nd, 3rd, and 4th metatarsal with septic joint involvement Hyperglycemia, Type II Diabetes mellitus - uncontrolled HTN Opioid use disorder - remission Elevated liver enzymes on admission with ultrasound evidence of cirrhosis Reactive Hepatitis C ab Discharge Summary Discharge Physical Examination Allergies: Coded Allergies: No Known Drug Allergies (Unverified , 07/22/21) Vitals & I&Os Vital Signs Date Time Temp Pulse Resp B/P (MAP) Pulse Ox O2 Delivery O2 Flow Rate FiO2 06/07/22 08:49 36.4 78 18 129/68 99 Room Air 0.00 06/02/22 03:14 21 General Appearance: Alert, Oriented X3 Respiratory: Clear to Auscultation Psych/Mental Status: Mental Status NL Hospital Course Was the Problem List Reviewed?: Yes Hospital Course: This is a 46 y/o male who presented to the ED on 05/30/22 for uncontrolled high blood sugars and was found to have a persistent weeping wound on his left foot. A1c was >10, blood sugars in 300s on arrival and XR/MRI revealed extensive osteomyelitis, septic joint, and abscess formation in the left lower foot/left lower leg. He was started on empiric Vanc/Zosyn. Decision was subsequently made for a BKA with general surgery which took place on 06/02. Post-operatively the patient met his milestones and began to work with PT/OT while awaiting placement for inpatient rehab and more structured therapy. During the course of the stay the medical team managed his ongoing HTN, DM, and newly diagnosed HCV infection. Medicine also requested cardiology consultation for CAD/PAD due to concern of right lower extremity PAD. Plan was made for patient to go through inpatient rehab and then discharge to new PCP in [place] along with a referral to GI/hepatology for HCV management and possibly a referral to endocrinology as patient is very motivated to control his DM to avoid further complications. 1) Osteomyelitis of LLE s/p BKA Septic Joint PAD -DC'd vanc/zosyn -VSS, afebrile -Routine post-operative cares -Awaiting approval for inpatient rehab -Continue inpatient PT -pain well controlled -Surgical pathology c/w admitting imaging -Cardiology following for PAD; appreciate recs. -Echo today normal EF. Grade I diastolic dysfunction. Pulm a. pressures 15-20 mmHg. 2) Hyperglycemia 2/2 uncontrolled TIIDM -Post-prandials low 200s -Continue SSI for inpatient cares -Added 15u levemir SQ BID -Fasting BGL this AM 170 -Renal function WNL, on lisinopril 3) HTN -continuing home lisinopril 10mg -Cardiology added Norvasc on 06/04, BPs improved; appreciate recs -Hydralazine PRN for SBP >170 4) Opioid use disorder - remission -using scheduled APAP -Using percocet/morphine PRN -Refused suboxone - will DC as been in long-term remission -Work to taper narcotic use 5) Elevated aminotransferases Acute hepatitis C infection vs chronic infection -Bili WNL -HCV ab reactive as of 05/31 -No record of viral hepatitis panel pre-admission -Outpatient liver U/S c/w cirrhosis -HCV viral load 1.4 million copies. -Appointment with GI/hepatology scheduled for early July 6) FEN/GI -No maintenance fluids; UOP 1.39 ml/kg/hr yesterday (06/05). -electrolyte replacement PRN -Regular diet -Bowel regimen in place, senna, docusate, lactulose, miralax. Dispo: Stable. Ready for transfer to inpatient rehab pending insurance approval. Labs (last 24 hrs) Laboratory Tests 05/30/22 18:10: White Blood Count 12.4H, Red Blood Count 4.64, Hemoglobin 13.6, Hematocrit 39L, Mean Corpuscular Volume 84, Mean Corpuscular Hemoglobin 29, Mean Corpuscular Hemoglobin Concent 35, Red Cell Distribution Width 14.2, Platelet Count 166, Mean Platelet Volume 9.0, Immature Granulocyte % (Auto) 1, Neutrophils (%) (Auto) 59, Lymphocytes (%) (Auto) 28, Monocytes (%) (Auto) 9, Eosinophils (%) (Auto) 3, Basophils (%) (Auto) 1, Neutrophils # (Auto) 7.4, Lymphocytes # (Auto) 3.5, Monocytes # (Auto) 1.1H, Eosinophils # (Auto) 0.4H, Basophils # (Auto) 0.1, Immature Granulocyte # (Auto) 0.1, Erythrocyte Sedimentation Rate 39H, Prothrombin Time 14.4, INR Comment 1.1, Activated Partial Thromboplast Time 30, D-Dimer 0.70H, Sodium Level 137, Potassium Level 3.9, Chloride Level 102, Carbon Dioxide Level 25, Anion Gap 10, Blood Urea Nitrogen 10, Creatinine 0.47L, Estimat Glomerular Filtration Rate 130, BUN/Creatinine Ratio 21, Glucose Level 257H, Calcium Level 8.9, Corrected Calcium 9.5, Total Bilirubin 0.7, Aspartate Amino Transf (AST/SGOT) 54H, Alanine Aminotransferase (ALT/SGPT) 74H, Alkaline Phosphatase 229H, C-Reactive Protein 2.64H, Pro-B-Type Natriuretic Peptide 98.8, Total Protein 7.6, Albumin 3.3 05/30/22 18:51: Urine Color YELLOW, Urine Clarity CLEAR, Urine pH 6.0, Urine Specific [place] 1.010L, Urine Protein NEGATIVE, Urine Glucose (UA) 3+H, Urine Ketones NEGATIVE, Urine Nitrite NEGATIVE, Urine Bilirubin NEGATIVE, Urine Urobilinogen 2.0, Urine Leukocyte Esterase NEGATIVE, Urine RBC (Auto) NEGATIVE, Urine RBC NONE, Urine WBC NONE, Urine Squamous Epithelial Cells 0-2, Urine Crystals NONE, Urine Bacteria NEGATIVE, Urine Casts NONE, Urine Mucus NEGATIVE, Urine Culture Indicated NO 05/31/22 05:43: White Blood Count 11.2H, Red Blood Count 4.16L, Hemoglobin 12.1L, Hematocrit 35L , Mean Corpuscular Volume 85, Mean Corpuscular Hemoglobin 29, Mean Corpuscular Hemoglobin Concent 34, Red Cell Distribution Width 14.0, Platelet Count 150, Mean Platelet Volume 8.8L, Immature Granulocyte % (Auto) 0, Neutrophils (%) (Auto) 61, Lymphocytes (%) (Auto) 28, Monocytes (%) (Auto) 7, Eosinophils (%) (Auto) 3, Basophils (%) (Auto) 0, Neutrophils # (Auto) 6.8, Lymphocytes # (Auto) 3.2, Monocytes # (Auto) 0.8, Eosinophils # (Auto) 0.4H, Basophils # (Auto) 0.0, Immature Granulocyte # (Auto) 0.1, Sodium Level 139, Potassium Level 3.9, Chloride Level 110H, Carbon Dioxide Level 22, Anion Gap 7, Blood Urea Nitrogen 11, Creatinine 0.58L, Estimat Glomerular Filtration Rate 122, BUN/Creatinine Ratio 19, Glucose Level 160H, Calcium Level 8.3L, Mean Blood Glucose 258H, Hemoglobin A1c 10.6H, Hepatitis A IgM Antibody Non-Reactive, Hepatitis B Surface Antigen Non-Reactive, Hepatitis B Core IgM Antibody Non-Reactive, Hepatitis C Antibody ReactiveH, Hepatitis C Antibody Index 14.30H 05/31/22 19:58: Vancomycin Level Trough 15.5 05/31/22 20:52: Glucometer 252H 06/01/22 05:00: White Blood Count 9.5, Red Blood Count 4.27L, Hemoglobin 12.4L, Hematocrit 36L, Mean Corpuscular Volume 84, Mean Corpuscular Hemoglobin 29, Mean Corpuscular Hemoglobin Concent 35, Red Cell Distribution Width 13.8, Platelet Count 143, Mean Platelet Volume 9.0, Sodium Level 136, Potassium Level 4.0, Chloride Level 108H, Carbon Dioxide Level 21, Anion Gap 7, Blood Urea Nitrogen 12, Creatinine 0.59L, Estimat Glomerular Filtration Rate 121, BUN/Creatinine Ratio 20, Glucose Level 156H, Calcium Level 7.8L, Corrected Calcium 9.0, Total Bilirubin 0.7, Aspartate Amino Transf (AST/SGOT) 95H, Alanine Aminotransferase (ALT/SGPT) 86H, Alkaline Phosphatase 148H, Total Protein 6.4, Albumin 2.5L 06/01/22 11:03: Glucometer 242H 06/01/22 16:43: Glucometer 215H 06/01/22 20:19: Glucometer 226H 06/02/22 06:07: Glucometer 194H 06/02/22 12:37: Glucometer 238H 06/02/22 15:33: Glucometer 265H 06/02/22 20:43: Glucometer 257H 06/03/22 05:31: Glucometer 210H 06/03/22 12:18: Glucometer 201H 06/03/22 12:45: White Blood Count 20.1H, Red Blood Count 4.77, Hemoglobin 14.0, Hematocrit 40, Mean Corpuscular Volume 83, Mean Corpuscular Hemoglobin 29, Mean Corpuscular Hemoglobin Concent 35, Red Cell Distribution Width 14.0, Platelet Count 154, Mean Platelet Volume 8.5L, Immature Granulocyte % (Auto) 1, Neutrophils (%) (Auto) 77H, Lymphocytes (%) (Auto) 16, Monocytes (%) (Auto) 5, Eosinophils (%) (Auto) 0, Basophils (%) (Auto) 0, Neutrophils # (Auto) 15.5H, Lymphocytes # (Auto) 3.3, Monocytes # (Auto) 1.1H, Eosinophils # (Auto) 0.0, Basophils # (Auto) 0.1, Immature Granulocyte # (Auto) 0.1, Neutrophils % (Manual) 82, Lym phocytes % (Manual) 14, Monocytes % (Manual) 4, Eosinophils % (Manual) 0, Basophils % (Manual) 0, Band Neutrophils 0, Blood Morphology Comment NORMAL, Sodium Level 134L, Potassium Level 4.3, Chloride Level 103, Carbon Dioxide Level 23, Anion Gap 8, Blood Urea Nitrogen 10, Creatinine 0.67, Estimat Glomerular Filtration Rate 117, BUN/Creatinine Ratio 15, Glucose Level 207H, Calcium Level 8.2L, Corrected Calcium 9.2, Total Bilirubin 1.0, Aspartate Amino Transf (AST/SGOT) 86H, Alanine Aminotransferase (ALT/SGPT) 105H, Alkaline Phosphatase 172H, Total Protein 7.1, Albumin 2.8L, Hepatitis C RNA (PCR) IUs/ml [id number], Hepatitis C RNA (PCR) log IUs/ml 6.17H 06/03/22 15:52: Glucometer 246 06/03/22 20:25: Glucometer [facility] 06/04/22 05:13: White Blood Count 19.6H, Red Blood Count 4.57, Hemoglobin 13.4, Hematocrit 38L, Mean Corpuscular Volume 83, Mean Corpuscular Hemoglobin 29, Mean Corpuscular Hemoglobin Concent 35, Red Cell Distribution Width 14.2, Platelet Count 168, Mean Platelet Volume 8.8L, Immature Granulocyte % (Auto) 1, Neutrophils (%) (Auto) 69, Lymphocytes (%) (Auto) 22, Monocytes (%) (Auto) 7, Eosinophils (%) (Auto) 1, Basophils (%) (Auto) 1, Neutrophils # (Auto) 13.4H, Lymphocytes # (Auto) 4.3H, Monocytes # (Auto) 1.4H, Eosinophils # (Auto) 0.2, Basophils # (Auto) 0.1, Immature Granulocyte # (Auto) 0.2H, Sodium Level 135, Potassium Level 3.6, Chloride Level 103, Carbon Dioxide Level 25, Anion Gap 7, Blood Urea Nitrogen 11, Creatinine 0.59L, Estimat Glomerular Filtration Rate 121, BUN/Creatinine Ratio 19, Glucose Level 165H, Calcium Level 8.4L, Corrected Calcium 9.5, Total Bilirubin 0.9, Aspartate Amino Transf (AST/SGOT) 72H, Alanine Aminotransferase (ALT/SGPT) 91H, Alkaline Phosphatase 152H, Total Protein 7.1, Albumin 2.6L 06/04/22 11:14: Glucometer 176H 06/04/22 15:13: Glucometer 205H 06/05/22 05:22: White Blood Count 16.2H, Red Blood Count 3.93L, Hemoglobin 11.4L, Hematocrit 33L , Mean Corpuscular Volume 84, Mean Corpuscular Hemoglobin 29, Mean Corpuscular Hemoglobin Concent 35, Red Cell Distribution Width 14.3, Platelet Count 164, Mean Platelet Volume 8.9L, Immature Granulocyte % (Auto) 1, Neutrophils (%) (Auto) 65, Lymphocytes (%) (Auto) 24, Monocytes (%) (Auto) 8, Eosinophils (%) (Auto) 2, Basophils (%) (Auto) 0, Neutrophils # (Auto) 10.5H, Lymphocytes # (Auto) 4.0, Monocytes # (Auto) 1.2H, Eosinophils # (Auto) 0.4H, Basophils # (Auto) 0.1, Immature Granulocyte # (Auto) 0.1, Sodium Level 134L, Potassium L evel 3.7, Chloride Level 104, Carbon Dioxide Level 25, Anion Gap 5, Blood Urea Nitrogen 13, Creatinine 0.57L, Estimat Glomerular Filtration Rate 122, BUN/Creatinine Ratio 23, Glucose Level 170H, Calcium Level 8.1L, Corrected Calcium 9.5, Total Bilirubin 0.7, Aspartate Amino Transf (AST/SGOT) 77H, Alanine Aminotransferase (ALT/SGPT) 85H, Alkaline Phosphatase 138H, Total Protein 6.5, Albumin 2.3L 06/05/22 05:37: Glucometer 161H 06/05/22 11:02: Glucometer 183H 06/05/22 15:30: Glucometer 247H 06/05/22 20:36: Glucometer 268H 06/06/22 05:16: Glucometer 174H 06/06/22 05:18: White Blood Count 13.1H, Red Blood Count 4.16L, Hemoglobin 12.1L, Hematocrit 36L , Mean Corpuscular Volume 85, Mean Corpuscular Hemoglobin 29, Mean Corpuscular Hemoglobin Concent 34, Red Cell Distribution Width 14.5, Platelet Count 184, Mean Platelet Volume 9.2, Immature Granulocyte % (Auto) 1, Neutrophils (%) (Auto) 63, Lymphocytes (%) (Auto) 26, Monocytes (%) (Auto) 8, Eosinophils (%) (Auto) 2, Basophils (%) (Auto) 1, Neutrophils # (Auto) 8.2H, Lymphocytes # (Auto) 3.4, Monocytes # (Auto) 1.1H, Eosinophils # (Auto) 0.3, Basophils # (Auto) 0.1, Immature Granulocyte # (Auto) 0.1, Sodium Level 135, Potassium Level 4.1, Chloride Level 103, Carbon Dioxide Level 24, Anion Gap 8, Blood Urea Nitrogen 12, Creatinine 0.58L, Estimat Glomerular Filtration Rate 122, BUN/Creatinine Ratio 21, Glucose Level 174H, Calcium Level 8.1L, Corrected Calcium 9.1, Total Bilirubin 0.7, Aspartate Amino Transf (AST/SGOT) 97H, Alanine Aminotransferase (ALT/SGPT) 103H, Alkaline Phosphatase 139H, Total Protein 7.2, Albumin 2.7L 06/06/22 10:52: Glucometer 193H 06/06/22 15:18: Glucometer 197H 06/06/22 20:26: Glucometer 251H 06/07/22 05:32: White Blood Count 10.4, Red Blood Count 3.90L, Hemoglobin 11.5L, Hematocrit 33L, Mean Corpuscular Volume 85, Mean Corpuscular Hemoglobin 30, Mean Corpuscular He moglobin Concent 35, Red Cell Distribution Width 14.5, Platelet Count 171, Mean Platelet Volume 9.0, Immature Granulocyte % (Auto) 1, Neutrophils (%) (Auto) 61, Lymphocytes (%) (Auto) 28, Monocytes (%) (Auto) 7, Eosinophils (%) (Auto) 3, Basophils (%) (Auto) 0, Neutrophils # (Auto) 6.4, Lymphocytes # (Auto) 3.0, Monocytes # (Auto) 0.7, Eosinophils # (Auto) 0.3, Basophils # (Auto) 0.0, Immature Granulocyte # (Auto) 0.1, Sodium Level 134L, Potassium Level 4.1, Chloride Level 103, Carbon Dioxide Level 24, Anion Gap 7, Blood Urea Nitrogen 14, Creatinine 0.65, Estimat Glomerular Filtration Rate 118, BUN/Creatinine Ra colby 22, Glucose Level 237H, Calcium Level 8.4L, Corrected Calcium 9.6, Total Bilirubin 0.7, Aspartate Amino Transf (AST/SGOT) 93H, Alanine Aminotransferase (ALT/SGPT) 105H, Alkaline Phosphatase 142H, Total Protein 6.9, Albumin 2.5L Microbiology 06/02/22 MRSA Screen - Final, Complete MRSA not isolated 05/30/22 Blood Culture - Final, Complete No growth Pending Labs Microbiology Date/Time Source Procedure Growth Status 06/02/22 04:52 Nasal MRSA Screen - Final MRSA not isolated Complete 05/30/22 18:18 Peripheral Rt Ac Blood Culture - Final No growth Complete 05/30/22 18:10 Peripheral Rt Ac Blood Culture - Final No growth Complete Laboratory Tests 05/30/22 18:10: White Blood Count 12.4, Red Blood Count 4.64, Hemoglobin 13.6, Hematocrit 39, Mean Corpuscular Volume 84, Mean Corpuscular Hemoglobin 29, Mean Corpuscular Hemoglobin Concent 35, Red Cell Distribution Width 14.2, Platelet Count 166, Mean Platelet Volume 9.0, Immature Granulocyte % (Auto) 1, Neutrophils (%) (Auto) 59, Lymphocytes (%) (Auto) 28, Monocytes (%) (Auto) 9, Eosinophils (%) (Auto) 3, Basophils (%) (Auto) 1, Neutrophils # (Auto) 7.4, Lymphocytes # (Auto) 3.5, Monocytes # (Auto) 1.1, Eosinophils # (Auto) 0.4, Basophils # (Auto) 0.1, Immature Granulocyte # (Auto) 0.1, Erythrocyte Sedimentation Rate 39, Prothrombin Time 14.4, INR Comment 1.1, Activated Partial Thromboplast Time 30, D-Dimer 0.70, Sodium Level 137, Potassium Level 3.9, Chloride Level 102, Carbon Dioxide Level 25, Anion Gap 10, Blood Urea Nitrogen 10, Creatinine 0.47, Estimat Glomerular Filtration Rate 130, BUN/Creatinine Ratio 21, Glucose Level 257, Calcium Level 8.9, Corrected Calcium 9.5, Total Bilirubin 0.7, Aspartate Amino Transf (AST/SGOT) 54, Alanine Aminotransferase (ALT/SGPT) 74, Alkaline Phosphatase 229, C-Reactive Protein 2.64, Pro-B-Type Natriuretic Peptide 98.8, Total Protein 7.6, Albumin 3.3 05/30/22 18:51: Urine Color YELLOW, Urine Clarity CLEAR, Urine pH 6.0, Urine Specific [place] 1.010, Urine Protein NEGATIVE, Urine Glucose (UA) 3+, Urine Ketones NEGATIVE, Urine Nitrite NEGATIVE, Urine Bilirubin NEGATIVE, Urine Urobilinogen 2.0, Urine Leukocyte Esterase NEGATIVE, Urine RBC (Auto) NEGATIVE, Urine RBC NONE, Urine WBC NONE, Urine Squamous Epithelial Cells 0-2, Urine Crystals NONE, Urine Bacteria NEGATIVE, Urine Casts NONE, Urine Mucus NEGATIVE, Urine Culture Indicated NO 05/31/22 05:43: White Blood Count 11.2, Red Blood Count 4.16, Hemoglobin 12.1, Hematocrit 35, Mean Corpuscular Volume 85, Mean Corpuscular Hemoglobin 29, Mean Corpuscular Hemoglobin Concent 34, Red Cell Distribution Width 14.0, Platelet Count 150, Mean Platelet Volume 8.8, Immature Granulocyte % (Auto) 0, Neutrophils (%) (Auto) 61, Lymphocytes (%) (Auto) 28, Monocytes (%) (Auto) 7, Eosinophils (%) (Auto) 3, Basophils (%) (Auto) 0, Neutrophils # (Auto) 6.8, Lymphocytes # (Auto) 3.2, Monocytes # (Auto) 0.8, Eosinophils # (Auto) 0.4, Basophils # (Auto) 0.0, Immature Granulocyte # (Auto) 0.1, Sodium Level 139, Potassium Level 3.9, Chloride Level 110, Carbon Dioxide Level 22, Anion Gap 7, Blood Urea Nitrogen 11, Creatinine 0.58, Estimat Glomerular Filtration Rate 122, BUN/Creatinine Ratio 19, Glucose Level 160, Calcium Level 8.3, Mean Blood Glucose 258, Hemoglobin A1c 10.6, Hepatitis A IgM Antibody Non-Reactive, Hepatitis B Surface Antigen Non-Reactive, Hepatitis B Core IgM Antibody Non-Reactive, Hepatitis C Antibody Reactive, Hepatitis C Antibody Index 14.30 05/31/22 19:58: Vancomycin Level Trough 15.5 05/31/22 20:52: Glucometer 252 06/01/22 05:00: White Blood Count 9.5, Red Blood Count 4.27, Hemoglobin 12.4, Hematocrit 36, Mean Corpuscular Volume 84, Mean Corpuscular Hemoglobin 29, Mean Corpuscular Hemoglobin Concent 35, Red Cell Distribution Width 13.8, Platelet Count 143, Mean Platelet Volume 9.0, Sodium Level 136, Potassium Level 4.0, Chloride Level 108, Carbon Dioxide Level 21, Anion Gap 7, Blood Urea Nitrogen 12, Creatinine 0.59, Estimat Glomerular Filtration Rate 121, BUN/Creatinine Ratio 20, Glucose Level 156, Calcium Level 7.8, Corrected Calcium 9.0, Total Bilirubin 0.7, Aspartate Amino Transf (AST/SGOT) 95, Alanine Aminotransferase (ALT/SGPT) 86, Alkaline Phosphatase 148, Total Protein 6.4, Albumin 2.5 06/01/22 11:03: Glucometer 242 06/01/22 16:43: Glucometer 215 06/01/22 20:19: Glucometer 226 06/02/22 06:07: Glucometer 194 06/02/22 12:37: Glucometer 238 06/02/22 15:33: Glucometer 265 06/02/22 20:43: Glucometer 257 06/03/22 05:31: Glucometer 210 06/03/22 12:18: Glucometer 201 06/03/22 12:45: White Blood Count 20.1, Red Blood Count 4.77, Hemoglobin 14.0, Hematocrit 40, Mean Corpuscular Volume 83, Mean Corpuscular Hemoglobin 29, Mean Corpuscular Hemoglobin Concent 35, Red Cell Distribution Width 14.0, Platelet Count 154, Carole n Platelet Volume 8.5, Immature Granulocyte % (Auto) 1, Neutrophils (%) (Auto) 77, Lymphocytes (%) (Auto) 16, Monocytes (%) (Auto) 5, Eosinophils (%) (Auto) 0, Basophils (%) (Auto) 0, Neutrophils # (Auto) 15.5, Lymphocytes # (Auto) 3.3, Monocytes # (Auto) 1.1, Eosinophils # (Auto) 0.0, Basophils # (Auto) 0.1, Immature Granulocyte # (Auto) 0.1, Neutrophils % (Manual) 82, Lymphocytes % (Manual) 14, Monocytes % (Manual) 4, Eosinophils % (Manual) 0, Basophils % (Manual) 0, Band Neutrophils 0, Blood Morphology Comment NORMAL, Sodium Level 134, Potassium Level 4.3, Chloride Level 103, Carbon Dioxide Level 23, Anion Gap 8, Blood Urea Nitrogen 10, Creatinine 0.67, Estimat Glomerular Filtration Rate 117, BUN/Creatinine Ratio 15, Glucose Level 207, Calcium Level 8.2, Corrected Calcium 9.2, Total Bilirubin 1.0, Aspartate Amino Transf (AST/SGOT) 86, Alanine Aminotransferase (ALT/SGPT) 105, Alkaline Phosphatase 172, Total Protein 7.1, Albumin 2.8, Hepatitis C RNA (PCR) IUs/ml [id number], Hepatitis C RNA (PCR) log IUs/ml 6.17 06/03/22 15:52: Glucometer 246 06/03/22 20:25: Glucometer 246 06/04/22 05:13: White Blood Count 19.6, Red Blood Count 4.57, Hemoglobin 13.4, Hematocrit 38, Mean Corpuscular Volume 83, Mean Corpuscular Hemoglobin 29, Mean Corpuscular Hemoglobin Concent 35, Red Cell Distribution Width 14.2, Platelet Count 168, Mean Platelet Volume 8.8, Immature Granulocyte % (Auto) 1, Neutrophils (%) (Auto) 69, Lymphocytes (%) (Auto) 22, Monocytes (%) (Auto) 7, Eosinophils (%) (Auto) 1, Basophils (%) (Auto) 1, Neutrophils # (Auto) 13.4, Lymphocytes # (Auto) 4.3, Monocytes # (Auto) 1.4, Eosinophils # (Auto) 0.2, Basophils # (Auto) 0.1, Immature Granulocyte # (Auto) 0.2, Sodium Level 135, Potassium Level 3.6, Chloride Level 103, Carbon Dioxide Level 25, Anion Gap 7, Blood Urea Nitrogen 11, Creatinine 0.59, Estimat Glomerular Filtration Rate 121, BUN/Creatinine Ratio 19, Glucose Level 165, Calcium Level 8.4, Corrected Calcium 9.5, Total Bilirubin 0.9, Aspartate Amino Transf (AST/SGOT) 72, Alanine Aminotransferase (ALT/SGPT) 91, Alkaline Phosphatase 152, Total Protein 7.1, Albumin 2.6 06/04/22 11:14: Glucometer 176 06/04/22 15:13: Glucometer 205 06/05/22 05:22: White Blood Count 16.2, Red Blood Count 3.93, Hemoglobin 11.4, Hematocrit 33, Mean Corpuscular Volume 84, Mean Corpuscular Hemoglobin 29, Mean Corpuscular Hemoglobin Concent 35, Red Cell Distribution Width 14.3, Platelet Count 164, Mean Platelet Volume 8.9, Immature Granulocyte % (Auto) 1, Neutrophils (%) (Auto) 65, Lymphocytes (%) (Auto) 24, Monocytes (%) (Auto) 8, Eosinophils (%) (Auto) 2, Basophils (%) (Auto) 0, Neutrophils # (Auto) 10.5, Lymphocytes # (Auto) 4.0, Monocytes # (Auto) 1.2, Eosinophils # (Auto) 0.4, Basophils # (Auto) 0.1, Immature Granulocyte # (Auto) 0.1, Sodium Level 134, Potassium Level 3.7, Chloride Level 104, Carbon Dioxide Level 25, Anion Gap 5, Blood Urea Nitrogen 13, Creatinine 0.57, Estimat Glomerular Filtration Rate 122, BUN/Creatinine Ratio 23, Glucose Level 170, Calcium Level 8.1, Corrected Calcium 9.5, Total Bilirubin 0.7, Aspartate Amino Transf (AST/SGOT) 77, Alanine Aminotransferase (ALT/SGPT) 85, Alkaline Phosphatase 138, Total Protein 6.5, Albumin 2.3 06/05/22 05:37: Glucometer 161 06/05/22 11:02: Glucometer 183 06/05/22 15:30: Glucometer 247 06/05/22 20:36: Glucometer 268 06/06/22 05:16: Glucometer 174 06/06/22 05:18: White Blood Count 13.1, Red Blood Count 4.16, Hemoglobin 12.1, Hematocrit 36, Mean Corpuscular Volume 85, Mean Corpuscular Hemoglobin 29, Mean Corpuscular Hemoglobin Concent 34, Red Cell Distribution Width 14.5, Platelet Count 184, Mean Platelet Volume 9.2, Immature Granulocyte % (Auto) 1, Neutrophils (%) (Auto) 63, Lymphocytes (%) (Auto) 26, Monocytes (%) (Auto) 8, Eosinophils (%) (Auto) 2, Basophils (%) (Auto) 1, Neutrophils # (Auto) 8.2, Lymphocytes # (Auto) 3.4, Monocytes # (Auto) 1.1, Eosinophils # (Auto) 0.3, Basophils # (Auto) 0.1, Immature Granulocyte # (Auto) 0.1, Sodium Level 135, Potassium Level 4.1, Chloride Level 103, Carbon Dioxide Level 24, Anion Gap 8, Blood Urea Nitrogen 12, Creatinine 0.58, Estimat Glomerular Filtration Rate 122, BUN/Creatinine Ratio 21, Glucose Level 174, Calcium Level 8.1, Corrected Calcium 9.1, Total Bilirubin 0.7, Aspartate Amino Transf (AST/SGOT) 97, Alanine Aminotransferase (ALT/SGPT) 103, Alkaline Phosphatase 139, Total Protein 7.2, Albumin 2.7 06/06/22 10:52: Glucometer 193 06/06/22 15:18: Glucometer 197 06/06/22 20:26: Glucometer 251 06/07/22 05:32: White Blood Count 10.4, Red Blood Count 3.90, Hemoglobin 11.5, Hematocrit 33, Mean Corpuscular Volume 85, Mean Corpuscular Hemoglobin 30, Mean Corpuscular Hemoglobin Concent 35, Red Cell Distribution Width 14.5, Platelet Count 171, Mean Platelet Volume 9.0, Immature Granulocyte % (Auto) 1, Neutrophils (%) (Auto) 61, Lymphocytes (%) (Auto) 28, Monocytes (%) (Auto) 7, Eosinophils (%) (Auto) 3, Basophils (%) (Auto) 0, Neutrophils # (Auto) 6.4, Lymphocytes # (Auto) 3.0, Monocytes # (Auto) 0.7, Eosinophils # (Auto) 0.3, Basophils # (Auto) 0.0, Immature Granulocyte # (Auto) 0.1, Sodium Level 134, Potassium Level 4.1, Chloride Level 103, Carbon Dioxide Level 24, Anion Gap 7, Blood Urea Nitrogen 14, Creatinine 0.65, Estimat Glomerular Filtration Rate 118, BUN/Creatinine Ratio 22, Glucose Level 237, Calcium Level 8.4, Corrected Calcium 9.6, Total Bilirubin 0.7, Aspartate Amino Transf (AST/SGOT) 93, Alanine Aminotransferase (ALT/SGPT) 105, Alkaline Phosphatase 142, Total Protein 6.9, Albumin 2.5 Discharge Home Medications: Active Scripts Active Percocet 7.5-325 mg Tablet (Oxycodone HCl/Acetaminophen) 1 Each Tablet 1 Each PO Q4H PRN 7 Days Amlodipine Besylate 5 Mg Tablet 5 Mg PO DAILY 7 Days Novolog (Insulin Aspart) 100 Unit/Ml Susp 5 Unit SC AC 7 Days Levemir (Insulin Determir) 100 Unit/Ml Soln 15 Unit SQ BID 7 Days Reported Lisinopril 10 Mg Tablet 10 Mg PO DAILY Ferosul (Ferrous Sulfate) 325 Mg (65 Mg Iron) Tablet 325 Mg PO DAILY Instructions to patient/family Please see electronic discharge instructions given to patient. Clinical Quality Measures DVT/VTE Risk/Contraindication: Contraindications-Pharm: Other *list below* Other: OR DESTIN ANNA DO Jun 07, 2022 05:20
[2022-06-07 05:43] LABS: BASOPHILS % (AUTO) 0 % (0-10); EOSINOPHILS # (AUTO) 0.3 10^3/uL (0.0-0.3); EOSINOPHILS % (AUTO) 3 % (0-10); HEMATOCRIT 33 % (40-54); HEMOGLOBIN 11.5 g/dL (13.3-17.7); LYMPHOCYTES % (AUTO) 28 % (12-44); MEAN CORPUSCULAR HEMOGLOBIN 30 pg (25-34); MEAN CORPUSCULAR HGB CONC 35 g/dL (32-36); MEAN CORPUSCULAR VOLUME 85 fL (80-99); MONOCYTES # (AUTO) 0.7 10^3/uL (0.0-1.0); MONOCYTES % (AUTO) 7 % (0-12); NEUTROPHILS # (AUTO) 6.4 10^3/uL (1.8-7.8); NEUTROPHILS % (AUTO) 61 % (42-75); PLATELET COUNT 171 10^3/uL (130-400); WHITE BLOOD COUNT 10.4 10^3/uL (4.3-11.0)
[2022-06-07] MEDS: inSUlin ASPART (NovoLOG) 1 UNIT/0.01 ML (CHARGE PER UNIT) SC SCH ×2 (05:44→09:22)
[2022-06-07] MEDS: oxyCODONE/APAP 7.5-325 MG (PERCOCET 7.5) TABLET PO PRN (05:44)
[2022-06-07] MEDS: CATHETER FLUSH 10 ML SYR IVP SCH (05:45)
[2022-06-07 06:16] LABS: ALBUMIN 2.5 GM/DL (3.2-4.5); BILIRUBIN,TOTAL 0.7 MG/DL (0.1-1.0); CALCIUM 8.4 MG/DL (8.5-10.1); CREATININE SERUM 0.65 MG/DL (0.60-1.30); POTASSIUM 4.1 MMOL/L (3.6-5.0); TOTAL PROTEIN 6.9 GM/DL (6.4-8.2)
--- NOTE | 2022-06-07 07:26 | Progress Note - Surgery ---
AARON JACKSON 06/07/22 0726: Subjective Date Seen by a Provider: Jun 07, 2022 Time Seen by a Provider: 07:00 Subjective/Events-last exam 46 M s/p day 5 of Lt BKA secondary to left LE osteomyelitis is resting comfortably in bed during the examination. States a continued improvement in his pain rating it still at 4/10 localized to the Lt LE. He stated he worked himself hard yesterday wtih PT/OT and began to have phantom limb pain that has since subsided. Denies any fever, chills, n/v, CP, SOB. Continues to have BMs and voids w/o complaints. Tolerating normal diet. Pt is to be discharged to in-pt rehab today for continued therapy. Review of Systems General: No Chills, No Night Sweats HEENT: No Head Aches, No Dysphasia Pulmonary: No Dyspnea, No Cough Cardiovascular: No: Chest Pain, Palpitations Gastrointestinal: No: Nausea, Vomiting, Abdominal Pain Genitourinary: No Dysuria, No Frequency Musculoskeletal: leg pain (Lt LE); No: back pain Neurological: No: Change in speech, Confusion Objective Exam Vital Signs Date Time Temp Pulse Resp B/P (MAP) Pulse Ox O2 Delivery O2 Flow Rate FiO2 06/07/22 04:11 36.3 88 18 133/74 (93) 96 Room Air 06/07/22 00:27 36.2 88 18 130/71 (90) 96 Room Air 06/06/22 20:40 Room Air 06/06/22 19:14 37.2 96 20 109/65 (80) 94 Room Air 06/06/22 15:15 35.8 84 20 127/75 (92) 99 Room Air 06/06/22 11:15 36.2 81 18 132/63 (86) 97 Room Air 06/06/22 08:00 Room Air 06/06/22 07:27 35.9 82 18 120/61 (80) 96 Room Air I & O 06/07/22 07:00 Intake Total 2840 ml Output Total 1100 ml Balance 1740 ml Capillary Refill : General Appearance: No Apparent Distress, WD/WN HEENT: PERRL/EOMI, Moist Mucous Membranes Neck: Full Range of Motion, Non Tender Respiratory: Lungs Clear, Normal Breath Sounds, No Accessory Muscle Use, No Respiratory Distress Cardiovascular: Regular Rate, Rhythm, No Murmur Peripheral Pulses: 2+ Dorsalis Pedis (R); 3+ Radial Pulses (R), 3+ Radial Pulses (L) Gastrointestinal: normal bowel sounds, non tender, soft, no organomegaly, no pulsatile mass Extremity: Non Tender, Other (Lt LE covered with dressing with mild surround ecchymosis, Rt distal LE appears hyperpigmented ) Neurologic/Psychiatric: Alert, Oriented x3 Skin: Normal Color (erythema remains in R lower extremity, not painful or worsening), Warm/Dry, Other (Rt distal LE hyperpigmented ) Results Lab Laboratory Tests 06/06/22 10:52: Glucometer 193H 06/06/22 15:18: Glucometer 197H 06/06/22 20:26: Glucometer 251H 06/07/22 05:32: White Blood Count 10.4, Red Blood Count 3.90L, Hemoglobin 11.5L, Hematocrit 33L, Mean Corpuscular Volume 85, Mean Corpuscular Hemoglobin 30, Mean Corpuscular Hemoglobin Concent 35, Red Cell Distribution Width 14.5, Platelet Count 171, Mean Platelet Volume 9.0, Immature Granulocyte % (Auto) 1, Neutrophils (%) (Auto) 61, Lymphocytes (%) (Auto) 28, Monocytes (%) (Auto) 7, Eosinophils (%) (Auto) 3, Basophils (%) (Auto) 0, Neutrophils # (Auto) 6.4, Lymphocytes # (Auto) 3.0, Monocytes # (Auto) 0.7, Eosinophils # (Auto) 0.3, Basophils # (Auto) 0.0, Immature Granulocyte # (Auto) 0.1, Sodium Level 134L, Potassium Level 4.1, Chloride Level 103, Carbon Dioxide Level 24, Anion Gap 7, Blood Urea Nitrogen 14, Creatinine 0.65, Estimat Glomerular Filtration Rate 118, BUN/Creatinine Ratio 22, Glucose Level 237H, Calcium Level 8.4L, Corrected Calcium 9.6, Total Bilirubin 0.7, Aspartate Amino Transf (AST/SGOT) 93H, Alanine Aminotransferase (ALT/SGPT) 105H, Alkaline Phosphatase 142H, Total Protein 6.9, Albumin 2.5L Microbiology 06/02/22 MRSA Screen - Final, Complete MRSA not isolated 05/30/22 Blood Culture - Final, Complete No growth Assessment/Plan Assessment/Plan Assessment/Plan S/P L BKA for Osteomyelitis left foot POD #5 DMII - uncontrolled, glucose 237 this morning HTN tobacco use Anemia - Hemoglobin dropped from 12.1 to 11.5, continue to monitor with CBC post-op constipation - resolved Elevated liver enzymes- continue to monitor with CMP Plan: continue proper pain control avoiding hepatotoxic agents due to elevated liver enzymes continue glucose control DC to in-pt rehab today for continued therapy Clinical Quality Measures DVT/VTE Risk/Contraindication: Contraindications-Pharm: Other *list below* Other: OR NOLAN GUNDERSON DO 06/08/22 1236: Subjective Time Seen by a Provider: 12:51 Subjective/Events-last exam This is late entry note, pt seen at appx 12:51 yesterday. Pt seen and examined, no new complaints. Review of Systems Pulmonary: No Dyspnea, No Cough Cardiovascular: No: Chest Pain, Palpitations Musculoskeletal: leg pain (Lt LE) Objective Exam General Appearance: No Apparent Distress, WD/WN HEENT: PERRL/EOMI, Moist Mucous Membranes Respiratory: Lungs Clear, Normal Breath Sounds, No Accessory Muscle Use, No Respiratory Distress Cardiovascular: Regular Rate, Rhythm, No Murmur Peripheral Pulses: 3+ Radial Pulses (R) Extremity: Other (Lt LE with mild surround ecchymosis above (anterior portion of leg) incision, still with edema but not worse than yesterday) Neurologic/Psychiatric: Alert, Oriented x3 Assessment/Plan Assessment/Plan Assessment/Plan S/P L BKA for Osteomyelitis left foot POD #5 DMII - uncontrolled, glucose 237 this morning HTN tobacco use Anemia - Hemoglobin dropped from 12.1 to 11.5, continue to monitor with CBC post-op constipation - resolved Elevated liver enzymes- continue to monitor with CMP Plan: continue proper pain control avoiding hepatotoxic agents due to elevated liver enzymes continue glucose control DC to in-pt rehab today for continued therapy Supervisory-Addendum Brief Verification & Attestation Participated in pt care: history, MDM, physical Personally performed: exam, history, MDM, supervision of care Care discussed with: Medical Student Procedures: n/a Verification and Attestation of Medical Student E/M Service A medical student performed and documented this service. I then reviewed and verified all information documented by the medical student and made modifications to such information, when appropriate. I personally performed a physical exam, medical decision making and then discussed any differences between the notes and made revisions as necessary to create one note. Nolan Gunderson , 06/08/22 , 12:36 AARON JACKSON Jun 07, 2022 07:26 NOLAN GUNDERSON DO Jun 08, 2022 12:36
[2022-06-07 08:22] VITALS: BP 129/68
[2022-06-07] MEDS: FERROUS SULF 325 MG (IRON) TAB PO SCH (08:32)
[2022-06-07] MEDS: polyethylene glycoL POWDER 17 GM (MIRALAX) PACK PO SCH (08:33)
[2022-06-07] MEDS: SENNA W/DOCUSATE (SENOKOT S) TABLET PO SCH (08:33)
[2022-06-07] MEDS: LACTULOSE SYRUP 10GM/15ML (ENULOSE) 30ML UDC PO SCH (08:33)
[2022-06-07] MEDS: lisINopril 10 MG (PRINIVIL) TABLET PO SCH (08:33)
[2022-06-07] MEDS: amLODIPine 5 MG (NORVASC) TAB PO SCH (08:33)
[2022-06-07] MEDS: NICOTINE 14 MG (NICODERM) PATCH TD SCH (08:34)
[2022-06-07 08:49] VITALS: BP 129/68
[2022-06-08] MEDS ORDERED: NICOTINE PATCH REMOVAL TP SCH (08:59)
== END 2022-06-07 09:26 | DRG 617 ==
LOC: EDUNIT# 17:51 → ER FS 17:53 → OBSVTOIN 22:05 → 4TH 22:05
PROVIDERS: ADMIT Family Medicine; ATTEND Internal Medicine
PROC: 0Y6J0Z1 Detachment at Left Lower Leg, High, Open Approach (ICD-10-PCS; principal; 2022-06-02 09:50)
DX: E11.621 Type 2 diabetes mellitus with foot ulcer (principal); L03.115 Cellulitis of right lower limb; M86.9 Osteomyelitis, unspecified; L97.424 Non-pressure chronic ulcer of left heel and midfoot with necrosis of bone; M00.9 Pyogenic arthritis, unspecified; L03.116 Cellulitis of left lower limb; M80.872A Other osteoporosis with current pathological fracture, left ankle and foot, initial encounter for fracture; E11.69 Type 2 diabetes mellitus with other specified complication; E11.65 Type 2 diabetes mellitus with hyperglycemia; E11.51 Type 2 diabetes mellitus with diabetic peripheral angiopathy without gangrene; K74.60 Unspecified cirrhosis of liver; B19.20 Unspecified viral hepatitis C without hepatic coma; K59.09 Other constipation; T38.3X6A Underdosing of insulin and oral hypoglycemic [antidiabetic] drugs, initial encounter; F11.21 Opioid dependence, in remission; Z79.84 Long term (current) use of oral hypoglycemic drugs; Z91.128 Patient's intentional underdosing of medication regimen for other reason; Z79.899 Other long term (current) drug therapy; F17.210 Nicotine dependence, cigarettes, uncomplicated
CPT/HCPCS: 36415; 73630; 73720; 80048; 80053; 80074; 80202; 81000; 82947; 83036; 83880; 85007; 85025; 85027; 85379; 85610; 85652; 85730; 86141; 87040; 87081; 87522; 88307; 93306; 93925; 93970; 96365; 96367

== ENCOUNTER 2022-06-07 09:30 | Inpatient (IN) | payer BC ==
[~2022-06-07] VITALS: Ht 180.3 cm; Wt 86.5 kg
[~2022-06-07 09:30] MED LIST changes: +ACETAMINOPHEN 325 MG TABLET PO PRN; +AMLO-250 PO; +BISACODYL 10 MG SUPP (DULCOLAX) PR PRN; +CALCIUM CARBONATE 500 MG (TUMS) TAB.CHEW PO PRN; +DOCUSATE SODIUM 100 MG (COLACE) CAP PO PRN; +EMPA1TAB21 PO; +FERR325T24 PO; +FLEET ENEMA ADULT 1 EA BTL PR PRN; +INSU100V16 SC; +INSU100V5 SQ; +LACTULOSE SYRUP 10GM/15ML (ENULOSE) 30ML UDC PO PRN; +LISI10TA25 PO; +LOPERAMIDE 2 MG (IMODIUM) TABLET PO PRN; +MELATONIN 3 MG TABLET PO PRN; +ONDANSETRON 4 MG (ZOFRAN) ORAL DISSOLVE TAB PO PRN; +OXYC1TAB16 PO; +SENNA W/DOCUSATE (SENOKOT S) TABLET PO SCH; +diphenhydrAMINE 25 MG TAB (BENADRYL) PO PRN; +guaiFENesin/CODEINE (ROBITUSSIN AC) 10ML UDC PO PRN; +polyethylene glycoL POWDER 17 GM (MIRALAX) PACK PO SCH
--- NOTE | 2022-06-07 10:07 | PM&R Post Admission Assessment ---
PM&R HP Date of Visit: Jun 07, 2022 Time of Visit: 10:15 History of Present Illness Chief complaint: Left below the knee amputation HPI: This is a 46-year-old male patient of [facility] with a past medical history of smoking, illicit drug use, new diagnosis of hepatitis C causing elevated liver enzymes and an ultrasound performed at [facility] clinic revealed findings consistent with cirrhosis and diabetes just started on insulin due to aju-vf-[id number] levels who presents to inpatient rehab in need of recovery following left below the knee amputation. Surgery performed the amputation in an uncomplicated manner. Patient continues to have pain but it is manageable. Bowel regimen maintained and his bowel function is normal. at bedside. They will be in process of moving to [facility] will need a primary care provider and GI/tongue presser in order to establish care for a multitude of medical issues. Prior level of function was independent but now he is wheelchair-bound and uses walker for transfers. Hospital Course: This is a 46 y/o male who presented to the ED on 05/30/22 for uncontrolled high blood sugars and was found to have a persistent weeping wound on his left foot. A1c was >10, blood sugars in 300s on arrival and XR/MRI revealed extensive osteomyelitis, septic joint, and abscess formation in the left lower foot/left lower leg. He was started on empiric Vanc/Zosyn. Decision was subsequently made for a BKA with general surgery which took place on 06/02. Post-operatively the patient met his milestones and began to work with PT/OT while awaiting placement for inpatient rehab and more structured therapy. During the course of the stay the medical team managed his ongoing HTN, DM, and newly diagnosed HCV infection. Medicine also requested cardiology consultation for CAD/PAD due to concern of right lower extremity PAD. Plan was made for patient to go through inpatient rehab and then discharge to new PCP in [place] along with a referral to GI/hepatology for HCV management and possibly a referral to endocrinology as patient is very motivated to control his DM to avoid further complications. 1) Osteomyelitis of LLE s/p BKA Septic Joint PAD -DC'd vanc/zosyn -VSS, afebrile -Routine post-operative cares -Awaiting approval for inpatient rehab -Continue inpatient PT -pain well controlled -Surgical pathology c/w admitting imaging -Cardiology following for PAD; appreciate recs. -Echo today normal EF. Grade I diastolic dysfunction. Pulm a. pressures 15-20 mmHg. 2) Hyperglycemia 2/2 uncontrolled TIIDM -Post-prandials low 200s -Continue SSI for inpatient cares -Added 15u levemir SQ BID -Fasting BGL this AM 170 -Renal function WNL, on lisinopril 3) HTN -continuing home lisinopril 10mg -Cardiology added Norvasc on 06/04, BPs improved; appreciate recs -Hydralazine PRN for SBP >170 4) Opioid use disorder - remission -using scheduled APAP -Using percocet/morphine PRN -Refused suboxone - will DC as been in long-term remission -Work to taper narcotic use 5) Elevated aminotransferases Acute hepatitis C infection vs chronic infection -Bili WNL -HCV ab reactive as of 05/31 -No record of viral hepatitis panel pre-admission -Outpatient liver U/S c/w cirrhosis -HCV viral load 1.4 million copies. -Appointment with GI/hepatology scheduled for early August 05) FEN/GI -No maintenance fluids; UOP 1.39 ml/kg/hr yesterday (06/05). -electrolyte replacement PRN -Regular diet -Bowel regimen in place, senna, docusate, lactulose, miralax. Dispo: Stable. Ready for transfer to inpatient rehab pending insurance approval. Past Rizieql-Qitsrl-Bxmetw Hx Past Med/Social Hx: Reviewed Nursing Past Med/Soc Hx, Reviewed and Corrections made Patient Social History Marrital Status: Employed/Student: unemployed Alcohol Use: Rarely Uses Recreational Drug Use: No Smoking Status: Current Everyday Smoker Past Medical History Surgeries: Abdominal, Orthopedic Currently Using CPAP: No Currently Using BIPAP: No Cardiac: Hypertension Neurological: Neuropathy Reproductive: No Sexually Transmitted Disease: No HIV/AIDS: No Gastrointestinal: Abdominal Hernia Musculoskeletal: Fractures Endocrine: Diabetes, Insulin dep Family History Heart Disease, Cancer PM&R Allergy/Meds/Data Review Allergies Coded Allergies: No Known Drug Allergies (Unverified , 07/22/21) Home Medications Scheduled Amlodipine Besylate (Amlodipine Besylate), 5 MG PO DAILY Ferrous Sulfate (Ferosul), 325 MG PO DAILY, (Reported) Insulin Aspart (Novolog), 5 UNIT SC AC Insulin Determir (Levemir), 15 UNIT SQ BID Lisinopril (Lisinopril), 10 MG PO DAILY, (Reported) Scheduled PRN Oxycodone HCl/Acetaminophen (Percocet 7.5-325 mg Tablet), 1 EACH PO Q4H PRN for PAIN-MODERATE (5-7) Discontinued Medications Buprenorphine HCl/Naloxone HCl (Buprenorphin-Naloxon 8-2 mg Sl), 1 EA SL BID, (Reported) Empagliflozin/Metformin HCl (Synjardy Xr 10-1,000 mg Tablet), 10-1,000 MG PO DAILY, (Reported) Discontinued Reason: Duplicate Order Empagliflozin/Metformin HCl (Synjardy Xr 12.5-1,000 mg Tab), 1 EA PO BID, (Reported) Ferrous Sulfate (Iron), 325 MG PO DAILY Discontinued Reason: Duplicate Order Current Medications Current Medications Reviewed Review of Systems Constitutional: see HPI, malaise, weakness EENTM: no symptoms reported Respiratory: no symptoms reported Cardiovascular: no symptoms reported Gastrointestinal: no symptoms reported Genitourinary: no symptoms reported Musculoskeletal: back pain, joint pain, joint swelling, muscle pain, muscle stiffness, muscle cramps Skin: see HPI Psychiatric/Neurological: Anxiety, Depressed All Other Systems Reviewed Negative Unless Noted: Yes Physical Exam Physical Exam Vital Signs Capillary Refill : Height, Weight, BMI Height: '" Weight: lbs. oz. kg; 25.22 BMI Method: General Appearance: No Apparent Distress, WD/WN, Chronically ill Eyes: Bilateral Eye Normal Inspection, Bilateral Eye PERRL HEENT: PERRL/EOMI, Normal ENT Inspection, Pharynx Normal Neck: Full Range of Motion, Normal Inspection, Non Tender, Supple, Carotid Bruit Respiratory: Chest Non Tender, Lungs Clear, Normal Breath Sounds, No Accessory Muscle Use, No Respiratory Distress Cardiovascular: Regular Rate, Rhythm, No Edema, No Gallop, No JVD, No Murmur, Normal Peripheral Pulses Gastrointestinal: Normal Bowel Sounds, No Organomegaly, No Pulsatile Mass, Non Tender, Soft Back: Normal Inspection, No CVA Tenderness, No Vertebral Tenderness Extremity: Normal Capillary Refill, Normal Inspection, Normal Range of Motion, Non Tender, No Calf Tenderness, No Pedal Edema, Other (Left below the knee amputation with dressing intact) Neurologic/Psychiatric: Alert, Oriented x3, No Motor/Sensory Deficits, gas engine mechanic II- XII Norm as Tested, Abnormal Gait, Depressed Affect Skin: Normal Color, Warm/Dry Lymphatic: No Adenopathy PM&R Medical Assessment & Plan REHAB/MEDICAL ASSESSMENT AND PLAN: REHAB IMPAIRMENT GROUP: Left below the knee amputation ETIOLOGIC DIAGNOSIS: Left below the knee amputation The comorbidities that impact the patients function and/or functional outcome by:Left below the knee amputation, smoker, hepatitis C new diagnosis, insulin- dependent diabetes REHAB PLAN: The patient is being admitted to our comprehensive inpatient rehabilitation facility and can tolerate the intensity of service consisting of at least: 180 minutes of therapy a day, 5 out of 7 days a week Rehab treatment will consist of: PT and OT will focus on wheelchair mobility along with recovery of independent ADLs in order to return back home with spouse The patient/family has a good understanding of our discharge process and will benefit from an interdisciplinary inpatient rehabilitation program. The patient has potential to make improvement and is in need of at least two of the following multidisciplinary therapies including but not limited to physical, occupational, speech, and prosthetics and orthotics. Additionally the patient will need services from respiratory, nutritional services, wound care, psychology, etc. (Customize this to each patient). Given the patients complex condition and risk of further medical complications, rehabilitation services cannot be safely or effectively provided at a lower level of care such as a chcf facility. BARRIERS TO DISCHARGE: Left below-knee amputation ESTIMATED LOS: 7 days DISPOSITION: Home RELEVANT CHANGES SINCE PREADMISSION SCREENING: I have compared the patients medical and functional status at the time of the preadmission screening and there are: no changes PROGNOSIS: Good REHABILITATION GOALS: 1. PT and OT will focus on wheelchair mobility along with recovery of independent ADLs in order to return back home with spouse All the above goals were reviewed with the patient and he/she is in agreement. By signing this document, I acknowledge that I have personally performed a full physical examination on this patient within 24 hours of admission to this inpatient rehabilitation facility and have determined the patient to be able to tolerate the above course of treatment at an intensive level for a reasonable period of time. I will be completing a detailed individualized Plan of Care for this patient by day #4 of the patients stay based upon the Preadmission Screen, the Post-Admission Evaluation, and the therapy evaluations. Admission Dx/Comorbidities: (1) Below-knee amputation of left lower extremity ICD Codes: S88.112A - Complete traumatic amputation at level between knee and ankle, left lower leg, initial encounter (2) Hepatitis C ICD Codes: B19.20 - Unspecified viral hepatitis C without hepatic coma (3) Opioid dependence in remission Status: Chronic ICD Codes: F11.21 - Opioid dependence, in remission (4) Hypertension Status: Chronic ICD Codes: I10 - Essential (primary) hypertension (5) Elevated liver enzymes Status: Acute ICD Codes: R74.8 - Abnormal levels of other serum enzymes (6) Hyperglycemia due to type 2 diabetes mellitus Status: Acute ICD Codes: E11.65 - Type 2 diabetes mellitus with hyperglycemia Assessment/Plan Assessment and Plan Assess & Plan/Chief Complaint Assessment: 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 lower 2nd, 3rd, and 4th metatarsal with septic joint involvement Hyperglycemia, Type II Diabetes mellitus - uncontrolled started on insulin HTN Opioid use disorder - remission Elevated liver enzymes on admission with ultrasound evidence of cirrhosis Reactive Hepatitis C ab will need tongue presser referral Smoker Plan: Supportive care PT and OT Pain control Bowel regimen Insulin DESTIN ANNA DO Jun 07, 2022 10:07
[2022-06-07] MEDS ORDERED: PATIENT MAY USE OWN MED,SINGLE MED PO SCH (10:15)
[2022-06-07] MEDS ORDERED: RT-ALBUTEROL SULF 2.5 MG/3 ML PRE-MIX VIAL INH PRN (10:15)
[2022-06-07] MEDS ORDERED: BISACODYL 10 MG SUPP (DULCOLAX) PR PRN (10:15)
[2022-06-07] MEDS ORDERED: MELATONIN 3 MG TABLET PO PRN (10:15)
[2022-06-07] MEDS ORDERED: ACETAMINOPHEN 325 MG TABLET PO PRN (10:15)
[2022-06-07] MEDS ORDERED: ONDANSETRON 4 MG/2 ML (SDV) Z0FRAN IVP PRN (10:15)
[2022-06-07] MEDS ORDERED: morphine INJ 4 MG/ML 1 ML (VIAL/SYRINGE) IVP PRN (10:15)
[2022-06-07] MEDS ORDERED: CATHETER FLUSH 10 ML SYR IVP PRN (10:15)
[2022-06-07] MEDS ORDERED: hydrALAZINE (APRESOLINE) 25 MG TAB PO PRN (10:15)
--- NOTE | 2022-06-07 10:19 | Occupational Therapy Eval ---
OT Evaluation-General/PLF Medical Diagnosis Admission Date Jun 07, 2022 at 09:30 Medical Diagnosis: s/p L BKA Onset Date: Jun 02, 2022 Therapy Diagnosis Therapy Diagnosis: decreased ADL status Weight Bear Status Weight Bearing Restriction: Non Weight Bearing Location Restriction: L MATY Referral Physician: Leora Singleton Reason: Evaluation/Treatment Medical History Pertinent Medical History: DM, HTN Additional Medical History DM, HTN, opioid dependence disorder. Current History Admit 05/30 with nonhealing diabetic foot ulcer. s/p L BKA 06/02 Social History Home: Single Level Current Living Status: Other Family ( & son) Entry Into Home: Stairs With Railing Steps Into Home: 4 discharging to Aunt's house in [place], pt unsure of layout, steps, or bathroom layout. ADL-Prior Level of Function SCALE: Activities may be completed with or without assistive devices. 5-Tlocvuvzko-qdxtkxd completes the activity by him/herself with no assistance from a helper. 5-Set-up or Clean-up Assistance-helper sets up or cleans up; patient completes activity. Maramec assists only prior to or following the activity. 4-Supervision or Touching Assistance-helper provides verbal cues and/or touching/steadying and/or contact guard assistance as patient completes activity. Assistance may be provided throughout the activity or intermittently. 3-Partial/Moderate Assistance-helper does LESS THAN HALF the effort. Maramec lifts, holds or supports trunk or limbs, but provides less than half the effort. 2-Substantial/Maximal Assistance-helper does MORE THAN HALF the effort. Maramec lifts or holds trunk or limbs and provides more than half the effort. 7-Ifjmrjcny-haiweo does ALL the effort. Patient does none of the effort to complete the activity. Or, the assistance of 2 or more helpers is required for the patient to complete the activity. If activity was not attempted, code reason: 7-Patient Refused. 9-Not Applicable-not attempted and the patient did not perform the activity bef ore the current illness, exacerbation or injury. 10-Not Attempted due to Environmental Limitations-(lack of equipment, weather r estraints, etc.). 88-Not Attempted due to Medical Conditions or Safety Concerns. ADL PLOF Comments Pt was independent with ADLs and functional mobility without AD. Pt plans to discharge to Aunt's house, pt unsure on bathroom layout. His aunt is a RN. Self Care: Independent Functional Cognition: Independent OT Current Status Subjective Pt in bed, agreeable to OT evaluation and tx. Mental Status/Objective Patient Orientation: Person, Place, Time, Situation Current Glasses/Contacts: Yes (reading) Hearing Aids: No Dentures/Partials: No Hand Dominance: Right Upper Extremity ROM WFL Upper Extremity Coordination WFL Upper Extremity Sensation WFL, neuropathy in fingertips. Upper Extremity Strength grossly 4/5 BUEs ADL-Treatment Eating (QC): 6 Oral Hygiene (QC): 6 Shower/Bathe Self (QC): 4 (Supervision sponge bath) Upper Body Dressing (QC): 5 Lower Body Dressing (QC): 4 (Supervision) On/Off Footwear (QC): 5 (set up) Toileting Hygiene (QC): 4 (Supervision) Other Treatments Pt in bed, transferred supine to sit EOB, independently. Pt performed SPT from bed to w/c, CGA. Pt propelled w/c to sink in bathroom, completing dressing, and sponge bath, supervision provided with stands. Pt propelled w/c around [facility] common area, VCs for technique due to pt being unfamiliar with w/c, no physical assistance provided. Post tx, pt in room up in w/c, call light in reach and all needs met. Education OT Patient Education: Correct positioning, Energy conservation, Modified ADL techniques, Progress toward Goal/Update tx plan, Purpose of tx/functional activities, Rehab process Teaching Recipient: Patient Teaching Methods: Discussion Response to Teaching: Verbalize Understanding BIMS CAM BIMS Expression of Ideas and Wants: Without Difficulty Understanding Verbal Content: Understands Brief Interview/Mental Status: Yes IRF MARIAJOSE BIMS: IRF MARIAJOSE BIMS Response (Comments) Value Repitition of Three Words Three 3 Recalls Socks Yes, No Cue Required 2 Recalls Blue Yes, No Cue Required 2 Recalls Bed Yes, No Cue Required 2 Year Correct 3 Month Accurate Within 5 Days 2 Day Correct 1 Total [address] Mental [address] No CAM Mental Status Change/Baseline: 0 Inattention: 0 Disorganized thinkin Altered level of consciousness: 0 OT Longterm Goals Librarian Helper Goals Time Frame: Jun 30, 2022 Eating (QC): 6 Oral Hygiene (QC): 6 Toileting Hygiene (QC): 6 Shower/Bathe Self (QC): 6 Upper Body Dressing (QC): 6 Lower Body Dressing (QC): 6 On/Off Footwear (QC): 6 Additional Goals: 1-Demonstrate ADL Tasks, 2-Verbalize Understanding, 3- ImproveStrength/Angeli 1=Demonstrate adherence to instructed precautions during ADL tasks. 2=Patient will verbalize/demonstrate understanding of assistive devices/modifications for ADL. 3=Patient will improve strength/tolerance for activity to enable patient to perform ADL's. OT Education/Plan Problem List/Assessment Assessment: Decreased Activ Tolerance, Decreased UE Strength, Impaired Funct Balance, Impaired I ADL's, Impaired Self-Care Skills Discharge Recommendations Plan/Recommendations: Continue POC Treatment Plan/Plan of Care Patient would benefit from OT for education, treatment and training to promote independence in ADL's, mobility, safety and/or upper extremity function for ADL's. Plan of Care: ADL Retraining, Functional Mobility, Group Exercise/Act as Ind, UE Funct Exercise/Act Treatment Duration: Jun 30, 2022 Frequency: At least 5 of 7 days/Wk (IRF) Estimated Hrs Per Day: 1.5 hours per day Agreement: Yes Rehab Potential: Good Time Start Time: 10:05 Stop Time: 11:05 DATE: Jun 07, 2022 Total Time Billed (hr/min): 60 Billed Treatment Time 1, EVL (10'), ADL 2 (40'), FA (10') JESSICA ULLOA OT Jun 07, 2022 10:19
[2022-06-07] MEDS: DOCUSATE SODIUM 100 MG (COLACE) CAP PO SCH ×2 (11:36→21:09)
--- NOTE | 2022-06-07 11:53 | Physical Therapy Evaluation ---
PT Evaluation-General Medical Diagnosis Admission Date Jun 07, 2022 at 09:30 Medical Diagnosis: s/p L BKA Onset Date: Jun 02, 2022 Therapy Diagnosis Therapy Diagnosis: impaired mobility Precautions Precautions/Isolations: Fall Prevention, Standard Precautions Referral Physician: Bette Corey DO Reason for Referral: Evaluation/Treatment Medical History Pertinent Medical History: DM, HTN Reviewed History: Yes Social History Home: Single Level Current Living Status: Other Family ( & son) Entry Into Home: Stairs With Railing PT Steps Into Home: 4 Prior Prior Level of Function SCALE: Activities may be completed with or without assistive devices. 1-Xhrrhabxpm-iozgmxk completes the activity by him/herself with no assistance from a helper. 5-Set-up or Clean-up Assistance-helper sets up or cleans up; patient completes activity. [place] assists only prior to or following the activity. 4-Supervision or Touching Assistance-helper provides verbal cues and/or touching/steadying and/or contact guard assistance as patient completes activity. Assistance may be provided throughout the activity or intermittently. 3-Partial/Moderate Assistance-helper does LESS THAN HALF the effort. [place] lifts, holds or supports trunk or limbs, but provides less than half the effort. 2-Substantial/Maximal Assistance-helper does MORE THAN HALF the effort. [place] lifts or holds trunk or limbs and provides more than half the effort. 2-Ttwqmjyho-adbuon does ALL the effort. Patient does none of the effort to complete the activity. Or, the assistance of 2 or more helpers is required for the patient to complete the activity. If activity was not attempted, code reason: 7-Patient Refused. 9-Not Applicable-not attempted and the patient did not perform the activity before the current illness, exacerbation or injury. 10-Not Attempted due to Environmental Limitations-(lack of equipment, weather restraints, etc.). 88-Not Attempted due to Medical Conditions or Safety Concerns. Bed Mobility: 6 Transfers (B,C,W/C): 6 Gait: 6 Stairs: 6 Indoor Mobility (Ambulation): Independent Stairs: Independent PT Evaluation-Current Subjective Patient in recliner pre tx, agrees to PT, has no pain at rest. Pain Section J - Health Conditions 1. Rarely or not at all 2. Occasionally 3. Frequently 4. Almost constantly 8. Unable to answer Pain Effect on Sleep: 2 Pain Interference with Therapy: 2 Pain Interference w/Day-to-Day: 2 Pt/Family Goals to be independent at home Objective Patient Orientation: Person, Place, Situation ROM/Strength ROM Lower Extremities WNL RLE, left knee has full extension and flexes to about 95 degrees Strength Lower Extremities RLE grossly 5/5, LLE not tested Sensory Vision: Functional Hearing: Functional Hand Dominance: Right Sensation Right Lower Extremit: Impaired Sensation Left Lower Extremity: Impaired Sensation Lower Extremities Patient has decreased light touch sensation in right foot Transfers Roll Left & Right (QC): 6 Sit to Lying (QC): 6 Lying to Sitting/Side of Bed(Q: 6 Sit to Stand (QC): 4 Chair/Ieh-jy-Shyxu Xfer(QC): 4 Toilet Transfer (QC): 4 Car Transfer (QC): 4 Patient performs rolling and supine <-> sit with independence, sit <-> stand and transfers with CGA, car transfer CGA. Patient needs occasional cues for positi oning and safety. Gait Does the Patient Walk?: Yes Mode of Locomotion: Walk Anticipated Mode of Locomotion: Walk Walk 10 feet (QC): 4 Walk 50 ft with 2 Turns(QC): 4 Walk 150 ft (QC): 88 Walking 10ft/uneven surface-QC: 4 Distance: 120', 100' Gait Assistive Device: FWW Comments/Gait Description Patient can ambulate 120' with a rolling walker with CGA (including 50' with at least 2 turns of 90 degrees and 10' over an uneven surface), patient hops well, has good arm strength, occasionally may hop a little too big Wheelchair Training Wheel 50 ft with 2 turns (QC): 4 Wheel 150 ft (QC): 4 Type of Wheelchair: Manual SBA Stairs #of Steps: 1 1 Step (curb) (QC): 4 4 Steps (QC): 88 12 Steps (QC): 88 Walking Assistive Device: Walker Patient can go up and down 1 step using a rolling walker with CGA, cues for positioning and safety Balance Sitting Static: Normal Sitting Dynamic: Normal Standing Static: Good Standing Dynamic: Good Picking up an Object (QC): 4 (CGA using a superintendent production) Treatment prone hip stretch 5 min, supine knee extension stretch 5 min, NuStep level 4 for 10 min. Assessment/Needs Patient in bed post tx with nurse call, phone, tray, all needs met. Patient has impaired mobility. Is CGA with transfers and ambulation. Rehab Potential: Fair PT Custodial Goals Custodial Goals PT Custodial Goals Time Frame: Jun 14, 2022 Roll Left to Right (QC): 6 Sit to Lying (QC): 6 Lying-Sitting on Side/Bed(QC): 6 Sit to Stand (QC): 6 Chair/Yjb-fx-Xcswo Xfer(QC): 6 Toilet/Commode Transfer (QC): 6 Car Transfer (QC): 6 Walk 10 feet (QC): 6 Walk 10ft-Uneven Surface(QC): 6 Walk 50ft with 2 Turns (QC): 6 Walk 150 ft (QC): 88 Wheel 50 feet with 2 turns (QC: 6 Wheel 150 feet: 6 1 Step (curb) (QC): 4 (SBA) 4 Steps (QC): 4 (SBA) 12 Steps (QC): 88 Picking up an Object (QC): 6 (using superintendent production) PT Plan Problem List Problem List: Activity Tolerance, Functional Strength, Safety, Balance, Gait, Transfer, Bed Mobility, ROM Treatment/Plan Treatment Plan: Continue Plan of Care Treatment Plan: Bed Mobility, Education, Functional Activity Angeli, Functional Strength, Group Therapy, Gait, Safety, Therapeutic Exercise, Transfers Treatment Duration: Jun 21, 2022 Frequency: At least 5 of 7 days/Wk (IRF) Estimated Hrs Per Day: 1.5 hours per day Patient and/or Family Agrees t: Yes Safety Risks/Education Patient Education: Gait Training, Transfer Techniques, Steps, Correct Positioning, Safety Issues Teaching Recipient: Patient Teaching Methods: Demonstration, Discussion Response to Teaching: Reinforcement Needed Discharge Recommendations Plan Patient will perform bed mobility and transfer training, balance and endurance training, functional strengthening, stair training, gait training, and education, to improve functional mobility and independence at home. Therapy Discharge Recommendati: Home & Family, Post Acute PT Time Time In: 1105 Time Out: 1205 DATE: Jun 07, 2022 Total Billed Treatment Time: 60 Total Billed Treatment 1 visit EVM 15' EX 25' FA 20' ANNIKA DONALD PT Jun 07, 2022 11:53
--- NOTE | 2022-06-07 12:37 | Cardiology Progress Note ---
Subjective Date Seen by Provider: Jun 07, 2022 Time Seen by Provider: 08:30 Subjective/Events-last exam Patient sitting up in bed, no new complaints. Denies any chest pain or dyspnea. Objective-Cardiology Exam General: Alert, Oriented X3, Cooperative HEENT: Atraumatic, PERRLA Lungs: Clear to Auscultation, Normal Air Movement Heart: Regular Rate, Normal S1, Normal S2 Abdomen: Normal Bowel Sounds, Soft Extremities: Other (L BKA) A/P-Cardiology Admission Diagnosis PVD S/p Left BKA Debility/weakness HTN Assessment/Plan Peripheral arterial disease, nonhealing left foot ulcer, osteomyelitis Status post left BKA. Recovering slowly Diabetes mellitus, poor control. Noncompliant with medication, managed by medical team History of sinus tachycardia and anemia. Currently better, continue to monitor Multiple risk factors for coronary artery disease, will consider stress test as an outpatient Hypertension, was maintained on lisinopril as an outpatient. Continue to monitor Elevated liver enzymes. History of opioid dependence Supervisory-Addendum Brief Supervisory Addendum Participated in pt care: history, MDM, physical Personally performed: exam, history, MDM Care discussed with: DUY Results interpretation: Verified all documentation Notes: Patient was seen and evaluated with Angelo, examination performed, management plan was discussed, agree with the current scribed note, I made few changes to the note using Italic font Patient was seen at bedside laying down comfortably No new complaint Starting physical therapy Monitor blood pressure ANGELO GUERRA Jun 07, 2022 12:37 NOÉ MARTEL MD Jun 07, 2022 16:18
[2022-06-07] MEDS: GABAPENTIN 100 MG (NEURONTIN) CAP PO SCH ×2 (13:44→21:06)
[2022-06-07] MEDS: oxyCODONE/APAP 7.5-325 MG (PERCOCET 7.5) TABLET PO PRN ×2 (13:45→21:06)
[2022-06-07] MEDS: inSUlin ASPART (NovoLOG) 1 UNIT/0.01 ML (CHARGE PER UNIT) SC SCH ×2 (13:46→17:30)
[2022-06-07] MEDS: EMPAGLIFLOZIN 10 MG TABLET (JARDIANCE) PO SCH (13:46)
--- NOTE | 2022-06-07 14:28 | Occupational Ther Daily Note ---
OT Current Status-Daily Note Subjective Pt in bed, agreeable to OT Tx. Mental Status/Objective Patient Orientation: Person, Place, Time, Situation ADL-Treatment Therapy Code Descriptions/Definitions Functional [place] Measure: 0=Not Assessed/NA 4=Minimal Assistance 1=Total Assistance 5=Supervision or Setup 2=Maximal Assistance 6=Modified [place] 3=Moderate Assistance 7=Complete IndependenceSCALE: Activities may be completed with or without assistive devices. 8-Hjvfkoyvgx-vgiersr completes the activity by him/herself with no assistance from a helper. 5-Set-up or Clean-up Assistance-helper sets up or cleans up; patient completes activity. [place] assists only prior to or following the activity. 4-Supervision or Touching Assistance-helper provides verbal cues and/or touching/steadying and/or contact guard assistance as patient completes activity. Assistance may be provided throughout the activity or intermittently. 3-Partial/Moderate Assistance-helper does LESS THAN HALF the effort. [place] lifts, holds or supports trunk or limbs, but provides less than half the effort. 2-Substantial/Maximal Assistance-helper does MORE THAN HALF the effort. [place] lifts or holds trunk or limbs and provides more than half the effort. 7-Mwmyodooo-ataypx does ALL the effort. Patient does none of the effort to complete the activity. Or, the assistance of 2 or more helpers is required for the patient to complete the activity. If activity was not attempted, code reason: 7-Patient Refused. 9-Not Applicable-not attempted and the patient did not perform the activity before the current illness, exacerbation or injury. 10-Not Attempted due to Environmental Limitations-(lack of equipment, weather restraints, etc.). 88-Not Attempted due to Medical Conditions or Safety Concerns. Other Treatment Pt in bed, transferred supine to sit EOB independently, then SBA SPT to w/c. Pt propelled w/c to therapy gym. In order to increase BUE Strength and activity tolerance, pt completed arm bike, x10 mins, 20 Watt resistance. Pt propelled w/c back to his room, education provided on w/c mobility. Pt stood at toilet using FWW to urinate, SBA, then used FWW to transfer to EOB, CGA. Pt transferred EOB to supine independently. Post tx, pt in bed, call light in reach and all needs met. OT Industrial Education Teacher Goals Senior Care Goals Time Frame: Jun 30, 2022 Acute change in mental status: 0 Inattention: 0 Disorganized thinkin Altered level of consciousness: 0 Eating (QC): 6 Oral Hygiene (QC): 6 Toileting Hygiene (QC): 6 Shower/Bathe Self (QC): 6 Upper Body Dressing (QC): 6 Lower Body Dressing (QC): 6 On/Off Footwear (QC): 6 Additional Goals: 1-Demonstrate ADL Tasks, 2-Verbalize Understanding, 3- ImproveStrength/Angeli 1=Demonstrate adherence to instructed precautions during ADL tasks. 2=Patient will verbalize/demonstrate understanding of assistive devices/modifications for ADL. 3=Patient will improve strength/tolerance for activity to enable patient to perform ADL's. OT Education/Plan Problem List/Assessment Assessment: Decreased Activ Tolerance, Decreased UE Strength, Impaired Funct Balance, Impaired I ADL's, Impaired Self-Care Skills Discharge Recommendations Plan/Recommendations: Continue POC Treatment Plan/Plan of Care Patient would benefit from OT for education, treatment and training to promote independence in ADL's, mobility, safety and/or upper extremity function for ADL's. Plan of Care: ADL Retraining, Functional Mobility, Group Exercise/Act as Ind, UE Funct Exercise/Act Treatment Duration: Jun 30, 2022 Frequency: At least 5 of 7 days/Wk (IRF) Estimated Hrs Per Day: 1.5 hours per day Agreement: Yes Rehab Potential: Fair Time Start Time: 13:00 Stop Time: 13:30 DATE: Jun 07, 2022 Total Time Billed (hr/min): 30 Billed Treatment Time 1, EX (20'), ADL (10') JESSICA ULLOA OT Jun 07, 2022 14:28
--- NOTE | 2022-06-07 15:21 | Physical Therapy Daily Note ---
PT Daily Note-Current Subjective Patient in bed pre tx, agrees to PT, has no complaints of pain. Pain Section J - Health Conditions 1. Rarely or not at all 2. Occasionally 3. Frequently 4. Almost constantly 8. Unable to answer Pain Effect on Sleep: 2 Pain Interference with Therapy: 2 Pain Interference w/Day-to-Day: 2 Appearance Patient in bed post tx with nurse call, phone, tray, all needs met. Mental Status Patient Orientation: Normal For Age Transfers SCALE: Activities may be completed with or without assistive devices. 4-Ycudkhiteq-yjvgwtj completes the activity by him/herself with no assistance from a helper. 5-Set-up or Clean-up Assistance-helper sets up or cleans up; patient completes activity. [place] assists only prior to or following the activity. 4-Supervision or Touching Assistance-helper provides verbal cues and/or touching/steadying and/or contact guard assistance as patient completes activity. Assistance may be provided throughout the activity or intermittently. 3-Partial/Moderate Assistance-helper does LESS THAN HALF the effort. [place] lifts, holds or supports trunk or limbs, but provides less than half the effort. 2-Substantial/Maximal Assistance-helper does MORE THAN HALF the effort. [place] lifts or holds trunk or limbs and provides more than half the effort. 9-Smrfyshzo-wmoenz does ALL the effort. Patient does none of the effort to complete the activity. Or, the assistance of 2 or more helpers is required for the patient to complete the activity. If activity was not attempted, code reason: 7-Patient Refused. 9-Not Applicable-not attempted and the patient did not perform the activity before the current illness, exacerbation or injury. 10-Not Attempted due to Environmental Limitations-(lack of equipment, weather restraints, etc.). 88-Not Attempted due to Medical Conditions or Safety Concerns. Roll Left & Right (QC): 6 Sit to Lying (QC): 6 Lying to Sitting/Side of Bed(Q: 6 Sit to Stand (QC): 4 Gait Training Distance: 120'x2 Walk 10 feet (QC): 4 Walk 50 ft with 2 Turns(QC): 4 Gait Persons Needed: 1 Gait Assistive Device: FWW CGA, slow but steady ambulation, good hopping Exercises Supine Ex: Heel Slides, Straight leg raise, Hip abd/add Supine Reps: 20 (LLE only) bridging and LTR with legs on ball x20 Treatments bed mobility and transfers ambulation, ROM Assessment Current Status: Fair Progress good progress with ambulation and transfers PT Senior Care Goals Senior Care Goals PT Refrigerating Engineer Head Goals Time Frame: Jun 14, 2022 Roll Left & Right (QC): 6 Sit to Lying (QC): 6 Lying-Sitting on Side/Bed(QC): 6 Sit to Stand (QC): 6 Chair/Tys-pc-Mdbji Xfer(QC): 6 Toilet Transfer (QC): 6 Car Transfer (QC): 6 Does the Patient Walk: Yes Walk 10 feet (QC): 6 Walk 50ft with 2 Turns (QC): 6 Walk 150 ft (QC): 88 Walking 10ft on Uneven Surface: 6 1 Step (curb) (QC): 4 (SBA) 4 Steps (QC): 4 (SBA) 12 Steps (QC): 88 Picking up an Object (QC): 6 (using field crew chief) Wheel 50 feet with 2 turns (QC: 6 Wheel 150 feet: 6 PT Plan Problem List Problem List: Activity Tolerance, Functional Strength, Safety, Balance, Gait, Transfer, Bed Mobility, ROM Treatment/Plan Treatment Plan: Continue Plan of Care Treatment Plan: Bed Mobility, Education, Functional Activity Angeli, Functional Strength, Group Therapy, Gait, Safety, Therapeutic Exercise, Transfers Treatment Duration: Jun 21, 2022 Frequency: At least 5 of 7 days/Wk (IRF) Estimated Hrs Per Day: 1.5 hours per day Patient and/or Family Agrees t: Yes Safety Risks/Education Patient Education: Gait Training, Transfer Techniques, Correct Positioning, Safety Issues Teaching Recipient: Patient Teaching Methods: Demonstration, Discussion Response to Teaching: Reinforcement Needed Time Time In: 1430 Time Out: 1500 DATE: Jun 07, 2022 Total Billed Treatment Time: 30 Total Billed Treatment 1 visit EX 15' FA 15' ANNIKA DONALD PT Jun 07, 2022 15:21
[2022-06-07] MEDS: ALPRAZolam 0.25 MG (XANAX) TAB PO PRN (17:29)
[2022-06-07] MEDS: metFORMIN 500 MG (GLUCOPHAGE) TAB PO SCH (17:29)
[2022-06-07 20:27] VITALS: BP 131/68
[2022-06-07] MEDS: polyethylene glycoL POWDER 17 GM (MIRALAX) PACK PO SCH (21:08)
[2022-06-07] MEDS: SENNA W/DOCUSATE (SENOKOT S) TABLET PO SCH (21:08)
[2022-06-07] MEDS: LACTULOSE SYRUP 10GM/15ML (ENULOSE) 30ML UDC PO SCH (21:09)
[2022-06-08] MEDS: LORazepam 1 MG (ATIVAN) TAB PO PRN ×2 (04:11→14:52)
[2022-06-08] MEDS: oxyCODONE/APAP 7.5-325 MG (PERCOCET 7.5) TABLET PO PRN ×3 (04:11→20:02)
--- NOTE | 2022-06-08 05:06 | PM&R Progress Note ---
Subjective HPI/CC On Admission Date Seen by Provider: Jun 08, 2022 Time Seen by Provider: 12:00 Subjective/Events-last exam 06/08/2022: Much improved overall No pain issues BM+ Sugars reviewed Review of Systems General: Fatigue, Malaise Objective Exam Vital Signs Vital Signs Date Time Temp Pulse Resp B/P (MAP) Pulse Ox O2 Delivery O2 Flow Rate FiO2 06/08/22 20:50 36.4 82 20 118/58 (78) 98 Room Air Capillary Refill : General Appearance: No Apparent Distress, WD/WN, Chronically ill HEENT: PERRL/EOMI, Normal ENT Inspection, Pharynx Normal Neck: Full Range of Motion, Normal Inspection, Non Tender, Supple, Carotid Bruit Respiratory: Chest Non Tender, Lungs Clear, Normal Breath Sounds, No Accessory Muscle Use, No Respiratory Distress Cardiovascular: Regular Rate, Rhythm, No Edema, No Gallop, No JVD, No Murmur, Normal Peripheral Pulses Gastrointestinal: Normal Bowel Sounds, No Organomegaly, No Pulsatile Mass, Non Tender, Soft Back: Normal Inspection, No CVA Tenderness, No Vertebral Tenderness Extremity: Normal Capillary Refill, Normal Inspection, Normal Range of Motion, Non Tender, No Calf Tenderness, No Pedal Edema, Other (Left below the knee amputation with dressing intact) Neurologic/Psychiatric: Alert, Oriented x3, No Motor/Sensory Deficits, people greeter II- XII Norm as Tested, Abnormal Gait, Depressed Affect Skin: Normal Color, Warm/Dry Lymphatic: No Adenopathy Results/Procedures Lab Laboratory Tests 06/08/22 05:30 Patient resulted labs reviewed. FIM Transfers Therapy Code Descriptions/Definitions Functional [place] Measure: 0=Not Assessed/NA 4=Minimal Assistance 1=Total Assistance 5=Supervision or Setup 2=Maximal Assistance 6=Modified [place] 3=Moderate Assistance 7=Complete IndependenceSCALE: Activities may be completed with or without assistive devices. 6-Ifwwibwyje-iqgptkt completes the activity by him/herself with no assistance from a helper. 5-Set-up or Clean-up Assistance-helper sets up or cleans up; patient completes activity. [place] assists only prior to or following the activity. 4-Supervision or Touching Assistance-helper provides verbal cues and/or therese martina/steadying and/or contact guard assistance as patient completes activity. Assistance may be provided throughout the activity or intermittently. 3-Partial/Moderate Assistance-helper does LESS THAN HALF the effort. [place] lifts, holds or supports trunk or limbs, but provides less than half the effort. 2-Substantial/Maximal Assistance-helper does MORE THAN HALF the effort. [place] lifts or holds trunk or limbs and provides more than half the effort. 6-Fnmksnqej-qiatrh does ALL the effort. Patient does none of the effort to complete the activity. Or, the assistance of 2 or more helpers is required for the patient to complete the activity. If activity was not attempted, code reason: 7-Patient Refused. 9-Not Applicable-not attempted and the patient did not perform the activity b efore the current illness, exacerbation or injury. 10-Not Attempted due to Environmental Limitations-(lack of equipment, weather restraints, etc.). 88-Not Attempted due to Medical Conditions or Safety Concerns. Roll Left to Right (QC): 6 Sit to Lying (QC): 6 Sit to Stand (QC): 4 Chair/Gni-lj-Svvlv Xfer(QC): 4 Car Transfer (QC): 4 Gait Training Does the Patient Walk?: Yes Distance: 120'x2 Walk 10 feet (QC): 4 Walk 50 ft with 2 Turns(QC): 4 Walk 150 ft (QC): 88 Walking 10ft/uneven surface-QC: 4 Gait Persons Needed: 1 Gait Assistive Device: FWW Wheelchair Training Wheel 50 ft with 2 turns (QC): 4 Wheel 150 ft (QC): 4 Type of Wheelchair: Manual Stair Training #of Steps: 1 1 Step (curb) (QC): 4 4 Steps (QC): 88 12 Steps (QC): 88 Balance Picking up an Object (QC): 4 (CGA using a dietary aide teacher) ADL-Treatment Eating (QC): 6 Oral Hygiene (QC): 6 Shower/Bathe Self (QC): 4 (Supervision sponge bath) Upper Body Dressing (QC): 5 Lower Body Dressing (QC): 4 (Supervision) On/Off Footwear (QC): 5 (set up) Toileting Hygiene (QC): 4 (Supervision) Assessment/Plan Assessment and Plan Assess & Plan/Chief Complaint Assessment: 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 lower 2nd, 3rd, and 4th metatarsal with septic joint involvement Hyperglycemia, Type II Diabetes mellitus - uncontrolled started on insulin HTN Opioid use disorder - remission Elevated liver enzymes on admission with ultrasound evidence of cirrhosis Reactive Hepatitis C ab will need beach attendant referral Smoker Plan: Supportive care PT and OT Pain control Bowel regimen Insulin 06/08/2022: Monitor closely (1) Below-knee amputation of left lower extremity (2) Hepatitis C (3) Opioid dependence in remission Status: Chronic (4) Hypertension Status: Chronic (5) Elevated liver enzymes Status: Acute (6) Hyperglycemia due to type 2 diabetes mellitus Status: Acute DESTIN ANNA DO Jun 08, 2022 05:06
--- NOTE | 2022-06-08 05:07 | Individualized Plan of Care ---
Individualized Plan of Care Rehab Nursing IPOC Order Admission Date Jun 07, 2022 at 09:30 Current Orders Orders Admission Order(Inpt,Obs,Sdc) (06/07/22 05:23) Vital Signs: Per Unit Policy ( 08,16,00 (06/07/22 05:23) Tadeo Merida (06/07/22 05:23) Sequential Compression Device (06/07/22 05:23) Media Aid-Inpt Rehab Con (06/07/22 05:23) Rehab Nursing Orders-Ipoc (06/07/22 05:23) Physical Therapy Rehab Orders (06/07/22 05:23) Occupational Therapy Rehab Ord (06/07/22 05:23) Speech Therapy Rehab Orders (06/07/22 05:23) Cbc With Automated Diff (06/08/22 06:00) Comprehensive Metabolic Panel (06/08/22 06:00) Precautions (Aru) (06/07/22 05:23) Weekly Weight WEEK (06/07/22 05:23) Rehab-Intensity Of Therapy (06/07/22 05:23) Initiate Admission Nursing Pro .admission (06/07/22 05:23) Alprazolam Tablet (Xanax Tablet) (06/07/22 05:30) Calcium Carbonate Chew Tablet (Antacid C (06/07/22 05:30) Diphenhydramine Tablet (Benadryl Tablet) (06/07/22 05:30) Docusate Sodium Capsule (Colace Capsule) (06/07/22 09:00) Docusate Sodium Capsule (Colace Capsule) (06/07/22 05:30) Bisacodyl Suppository (Dulcolax Supposit (06/07/22 05:30) Lactulose Oral Solution (Enulose Oral So (06/07/22 05:30) Na Phos/Na Biphos Enema (Fleet Enema Chaka (06/07/22 05:30) Guaifenesin/Codeine Syrup (Robitussin Ac (06/07/22 05:30) Loperamide Tablet (Imodium Tablet) (06/07/22 05:30) Melatonin Tablet (Melatonin Tablet) (06/07/22 05:30) Polyethylene Glycol Powder Pkt (Miralax (06/07/22 09:00) Ondansetron Oral Dissolve Tab (Zofran (06/07/22 05:30) Senna S Tablet (Senokot S Tablet) (06/07/22 09:00) Acetaminophen Tablet/Caplet (Tylenol T (06/07/22 05:30) Code/Resuscitation (06/07/22 05:23) Initiate Admission Nursing Pro .admission (06/07/22 05:23) Admission Arrival Bed Request (06/07/22 09:40) Code/Resuscitation (06/07/22 10:09) Accucheck Achs ACHS (06/07/22 10:09) Tobacco Replacement Protocol (06/07/22 10:09) Cho 90g/M 0snack (25-2900 Tommy) (06/07/22 Lunch) Acetaminophen Tablet/Caplet (Tylenol T (06/07/22 10:15) Albuterol Pre-Mix Nebs (Rt) (Proventil (06/07/22 10:15) Bisacodyl Suppository (Dulcolax Supposit (06/07/22 10:15) Ferrous Sulfate Tablet (Feosol Tablet) (06/08/22 09:00) Lorazepam Tablet (Ativan Tablet) (06/07/22 10:15) Lactulose Oral Solution (Enulose Oral So (06/07/22 21:00) Melatonin Tablet (Melatonin Tablet) (06/07/22 10:15) Nicotine Patch (Nicoderm Patch) (06/08/22 09:00) Patch Removal (Patch Removal) (06/08/22 09:00) Senna S Tablet (Senokot S Tablet) (06/07/22 21:00) Sodium Chloride Flush (Catheter Flush Sy (06/07/22 10:15) Ondansetron Injection (Zofran Injectio (06/07/22 10:15) Amlodipine Tablet (Norvasc Tablet) (06/08/22 09:00) Hydralazine Tablet (Apresoline Tablet) (06/07/22 10:15) Insulin Aspart (Novolog) (Novolog (Charg (06/07/22 12:00) Insulin Determir (Per Unit) (Levemir (Pe (06/07/22 21:00) Lisinopril Tablet (Zestril Tablet) (06/08/22 09:00) Morphine Injection (Morphine Injection (06/07/22 10:15) Oxycodone/Apap 7.5/325mg Tab (Percocet (06/07/22 10:15) Polyethylene Glycol Powder Pkt (Miralax (06/07/22 21:00) Consult Cardiology (06/07/22 10:09) Consult Prosthetics (06/07/22 10:09) Svn Small Volume Nebulizer (06/07/22 10:09) Svn Small Volume Nebulizer (06/07/22 10:09) Empagliflozin Tablet (Jardiance Tablet) (06/07/22 10:15) Patient May Use Own Med,Single (Patient (06/07/22 10:15) Gabapentin Capsule/Tablet (Neurontin Cap (06/07/22 13:00) Metformin Tablet (Glucophage Tablet) (06/07/22 17:00) Patient Visit (06/07/22 ) Pt Eval Moderate Complexity (06/07/22 ) Functional Activities, Ea 15 (06/07/22 ) Exercise Therap, Ea 15 Min (06/07/22 ) Enoxaparin Injection (Lovenox Injection) (06/09/22 09:00) Patient Visit (06/08/22 ) Exercise Therap, Ea 15 Min (06/08/22 ) Functional Activities, Ea 15 (06/08/22 ) Dressing Order (Intervention) BID (06/08/22 15:00) Hypochlorous Acid/Sod Chloride (Vashe Wo (06/08/22 15:00) Rehab Nursing Orders: Ongoing Assess. of Cognitive Status, Ongoing Assess. of Function Status, Bladder Management, Bladder Scan, Bladder Training, Bowel Management, Bowel Training, Disease Management & Educaiton, DVT Prophylaxis, Fall Prevention, Fluid/Electrolyte/Nutrition Mgmt, Infection Prevention, Medication Management & Education, Management of Risks & Complications, Management of Skin Intergrity, Nutrition Management, Pain Management, Patient/Family Support, Safety Management Intensity of Therapy to be met Patient to be seen: Min.3h per day/5 of 7d PT IPOC Problem List: Activity Tolerance, Functional Strength, Safety, Balance, Gait, Transfer, Bed Mobility, ROM Treatment Plan: Continue Plan of Care Bed Mobility, Education, Functional Activity Angeli, Functional Strength, Group Therapy, Gait, Safety, Therapeutic Exercise, Transfers Treatment Duration: Jun 21, 2022 Frequency: At least 5 of 7 days/Wk (IRF) Estimated Hrs Per Day: 1.5 hours per day OT IPOC Problems: Decreased Activ Tolerance, Decreased UE Strength, Impaired Funct Balance, Impaired I ADL's, Impaired Self-Care Skills OT Treatment, Training and Edu: Yes Plan of Care: ADL Retraining, Functional Mobility, Group Exercise/Act as Ind, UE Funct Exercise/Act Treatment Duration: Jun 30, 2022 Frequency: At least 5 of 7 days/Wk (IRF) Estimated Hrs Per Day: 1.[address] IPOC Speech Therapy Treatment Plan: Discontinue ST Treatment Duration: Jun 08, 2022 Frequency: Modified Program (IRF) Estimated Hrs Per Day: Other Media Aid/Case Mgmt Media Aid/Case Managemen: Discharge Planning Dietitian/Floor Finisher Helper Dietitian/Floor Finisher Helper to monitor nutritional status and make changes and/or recommendations as needed and work with speech pathology on dietary upgrades as the occur. Physician IPOC Medical Issues being managed closely and that require the 24 hour availability of a physician: Recent BKA on left with DM OOC will require close monitoring of the wound for infection signs and sugar management with insulin to monitor for decompensation Medical Issues: Bowel/Bladder Function, DVT Prophylaxis, Falls Precautions, Flu id/Electrolyte/Nutrition Balance, Infection Protection, Pain Management, Wound Care Brief Synthesis of Preadmission Screen, Post-Admission Evaluation, and Therapy Evaluations: PT OT will focus on regaining function following left BKA with use of AD in ord er to regain independence along with ADL's Medical Prognosis: Fair Anticipated Length of Stay: 10 days DESTIN ANNA DO Jun 08, 2022 05:07
[2022-06-08 05:42] LABS: BASOPHILS # (AUTO) 0.1 10^3/uL (0.0-0.1); BASOPHILS % (AUTO) 0 % (0-10); EOSINOPHILS # (AUTO) 0.3 10^3/uL (0.0-0.3); EOSINOPHILS % (AUTO) 3 % (0-10); HEMATOCRIT 33 % (40-54); HEMOGLOBIN 11.5 g/dL (13.3-17.7); LYMPHOCYTES # (AUTO) 3.5 10^3/uL (1.0-4.0); LYMPHOCYTES % (AUTO) 31 % (12-44); MEAN CORPUSCULAR HEMOGLOBIN 30 pg (25-34); MEAN CORPUSCULAR HGB CONC 35 g/dL (32-36); MEAN CORPUSCULAR VOLUME 85 fL (80-99); MEAN PLATELET VOLUME 8.8 fL (9.0-12.2); MONOCYTES % (AUTO) 9 % (0-12); NEUTROPHILS # (AUTO) 6.4 10^3/uL (1.8-7.8); NEUTROPHILS % (AUTO) 57 % (42-75); PLATELET COUNT 187 10^3/uL (130-400); WHITE BLOOD COUNT 11.3 10^3/uL (4.3-11.0)
[2022-06-08 05:54] LABS: ALBUMIN 2.6 GM/DL (3.2-4.5)
[2022-06-08 05:55] LABS: POTASSIUM 3.9 MMOL/L (3.6-5.0)
[2022-06-08 05:56] LABS: CALCIUM 8.5 MG/DL (8.5-10.1)
[2022-06-08 05:57] LABS: TOTAL PROTEIN 6.9 GM/DL (6.4-8.2)
[2022-06-08 05:59] LABS: BILIRUBIN,TOTAL 0.8 MG/DL (0.1-1.0)
[2022-06-08 06:01] LABS: CREATININE SERUM 0.62 MG/DL (0.60-1.30)
--- NOTE | 2022-06-08 07:28 | Progress Note - Surgery ---
AARON JACKSON 06/08/22 0728: Subjective Date Seen by a Provider: Jun 08, 2022 Time Seen by a Provider: 07:00 Subjective/Events-last exam 46 M day 6 s/p Lt BKA secondary to osteomyelitis states the first day in in-pt rehab was s success. Claims he has minimal pain today states as an intermittent ache, rated 3-4/10 localized to the Lt LE. The previous complaints of itching and phantom limb pain has subsided. Pt is having BMs and voiding w/o complaints. Tolerating normal diet. Was fitted last evening for a prosthetic. Tolerating PT/OT well. Denies any fever, chills, SOB, CP, n/v, or lightheadedness. Review of Systems General: No Chills, No Night Sweats HEENT: No Head Aches, No Dysphasia Pulmonary: No Dyspnea, No Cough Cardiovascular: No: Chest Pain, Palpitations Gastrointestinal: No: Nausea, Vomiting, Abdominal Pain Genitourinary: No Dysuria, No Incontinence Musculoskeletal: leg pain (Lt LE); No: back pain Neurological: No: Weakness, Change in speech Objective Exam Vital Signs Date Time Temp Pulse Resp B/P (MAP) Pulse Ox O2 Delivery O2 Flow Rate FiO2 06/07/22 21:00 97 Room Air 06/07/22 20:27 36.8 86 20 131/68 (89) 98 Room Air 06/07/22 10:00 95 Room Air I & O 06/08/22 07:00 Intake Total 2820 ml Output Total 5000 ml Balance -2180 ml Capillary Refill : General Appearance: No Apparent Distress, WD/WN HEENT: PERRL/EOMI, Moist Mucous Membranes Neck: Full Range of Motion, Non Tender Respiratory: Chest Non Tender, Lungs Clear, Normal Breath Sounds, No Accessory Muscle Use, No Respiratory Distress Cardiovascular: Regular Rate, Rhythm, No Edema, No Murmur Peripheral Pulses: 2+ Dorsalis Pedis (R); 3+ Radial Pulses (R), 3+ Radial P ulses (L) Gastrointestinal: normal bowel sounds, non tender, soft, no organomegaly, other (Umbilical hernia ) Extremity: Non Tender, No Pedal Edema, Other (Lt LE covered by dressing, mild surrounding ecchymosis, no drainage seen around dressing, Rt LE apperes hyperpigmented from foot to mid tibia) Neurologic/Psychiatric: Alert, Oriented x3 Skin: Normal Color, Warm/Dry Results Lab Laboratory Tests 06/07/22 12:02: Glucometer 233H 06/07/22 15:17: Glucometer 209H 06/07/22 21:04: Glucometer 158H 06/08/22 05:30: White Blood Count 11.3H, Red Blood Count 3.86L, Hemoglobin 11.5L, Hematocrit 33L , Mean Corpuscular Volume 85, Mean Corpuscular Hemoglobin 30, Mean Corpuscular Hemoglobin Concent 35, Red Cell Distribution Width 14.6H, Platelet Count 187, Mean Platelet Volume 8.8L, Immature Granulocyte % (Auto) 1, Neutrophils (%) (Auto) 57, Lymphocytes (%) (Auto) 31, Monocytes (%) (Auto) 9, Eosinophils (%) (Auto) 3, Basophils (%) (Auto) 0, Neutrophils # (Auto) 6.4, Lymphocytes # (Auto) 3.5, Monocytes # (Auto) 1.0, Eosinophils # (Auto) 0.3, Basophils # (Auto) 0.1, Immature Granulocyte # (Auto) 0.1, Sodium Level 135, Potassium Level 3.9, Chloride Level 105, Carbon Dioxide Level 22, Anion Gap 8, Blood Urea Nitrogen 14, Creatinine 0.62, Estimat Glomerular Filtration Rate 119, BUN/Creatinine Ratio 23, Glucose Level 128H, Calcium Level 8.5, Corrected Calcium 9.6, Total Bilirubin 0.8, Aspartate Amino Transf (AST/SGOT) 104H, Alanine Aminotransferase (ALT/SGPT) 114H, Alkaline Phosphatase 132, Total Protein 6.9, Albumin 2.6L Assessment/Plan Assessment/Plan Assessment/Plan Assessment : s/p Lt BKA POD 6 DMII- uncontrolled HTN Anemia- Hgb stabilized at 11.5 Elevated liver enzymes- continued increase in AST ALT Plan: Continue proper pain control, avoid hepatotoxic agents due to elevated liver enzymes Continue insulin regimen and serial glucose measurements Continue to monitor Hgb with serial CBCs, monitor elevated LFTs with CMP continue to elevate Lt LE with loose dressings to increase fluid drainage from distal limb serial dressing changes continue to increase ambulation with PT/OT NOLAN GUNDERSON DO 06/08/22 1233: Subjective Time Seen by a Provider: 11:57 Subjective/Events-last exam Pt seen and examined, states he is doing fine. No changes and pain control is good. Review of Systems General: No Chills, No Night Sweats Pulmonary: No Dyspnea, No Cough Cardiovascular: No: Chest Pain, Palpitations Gastrointestinal: No: Nausea, Vomiting, Abdominal Pain Musculoskeletal: leg pain (Lt LE) Objective Exam General Appearance: No Apparent Distress, WD/WN HEENT: PERRL/EOMI, Moist Mucous Membranes Respiratory: Lungs Clear, Normal Breath Sounds, No Accessory Muscle Use, No Respiratory Distress Cardiovascular: Regular Rate, Rhythm, No Murmur Extremity: Non Tender, No Pedal Edema, Other (Surgical site looks much better today, less redness and swelling) Neurologic/Psychiatric: Alert, Oriented x3 Assessment/Plan Assessment/Plan Assessment/Plan S/P Left BKA POD 6 DMII- uncontrolled HTN Anemia- Hgb stabilized at 11.5 Elevated liver enzymes- continued increase in AST ALT Plan: Continue proper pain control, avoid hepatotoxic agents due to elevated liver enzymes Continue insulin regimen and serial glucose measurements Continue to monitor Hgb with serial CBCs, monitor elevated LFTs with CMP continue to elevate Lt LE with loose dressings to increase fluid drainage from distal limb serial dressing changes continue to increase ambulation with PT/OT I will sign off and reconsult if needed. Supervisory-Addendum Brief Verification & Attestation Participated in pt care: history, MDM, physical Personally performed: exam, history, MDM, supervision of care Care discussed with: Medical Student Procedures: n/a Verification and Attestation of Medical Student E/M Service A medical student performed and documented this service. I then reviewed and ve rified all information documented by the medical student and made modifications to such information, when appropriate. I personally performed a physical exam, medical decision making and then discussed any differences between the notes and made revisions as necessary to create one note. Nolan Gunderson , 06/08/22 , 12:33 AARON JACKSON Jun 08, 2022 07:28 NOLAN GUNDERSON DO Jun 08, 2022 12:33
[2022-06-08] MEDS: metFORMIN 500 MG (GLUCOPHAGE) TAB PO SCH (07:30)
[2022-06-08] MEDS: inSUlin ASPART (NovoLOG) 1 UNIT/0.01 ML (CHARGE PER UNIT) SC SCH ×3 (07:30→15:49)
[2022-06-08 08:03] VITALS: BP 119/62
[2022-06-08] MEDS: NICOTINE 14 MG (NICODERM) PATCH TD SCH (08:21)
[2022-06-08] MEDS: EMPAGLIFLOZIN 10 MG TABLET (JARDIANCE) PO SCH (08:21)
[2022-06-08] MEDS: LACTULOSE SYRUP 10GM/15ML (ENULOSE) 30ML UDC PO SCH ×2 (08:21→20:03)
--- NOTE | 2022-06-08 08:23 | Cardiology Progress Note ---
Subjective Date Seen by Provider: Jun 08, 2022 Time Seen by Provider: 08:23 Subjective/Events-last exam Patient was seen at bedside laying down comfortably No new complaint Objective-Cardiology Exam Last Set of Vital Signs Vital Signs 06/08/22 08:03 Temp 35.9 Pulse 78 Resp 16 B/P (MAP) 119/62 (81) Pulse Ox 95 O2 Delivery Room Air I&O Intake and Output 06/08/22 00:00 Intake Total 1800 ml Output Total 2200 ml Balance -400 ml Intake Oral 1800 ml Output Urine Total 2200 ml # Voids 3 Daily Weight Change No General: Alert, Oriented X3, Cooperative HEENT: Atraumatic, PERRLA Lungs: Clear to Auscultation, Normal Air Movement Heart: Regular Rate, Normal S1, Normal S2 Abdomen: Normal Bowel Sounds, Soft Extremities: Other (L BKA) Results Lab Laboratory Tests 06/08/22 05:30 A/P-Cardiology Admission Diagnosis PVD S/p Left BKA Debility/weakness HTN Assessment/Plan Peripheral arterial disease, nonhealing left foot ulcer, osteomyelitis Status post left BKA. Recovering slowly Diabetes mellitus, poor control. Noncompliant with medication, managed by medical team History of sinus tachycardia and anemia. Currently better, continue to monitor Multiple risk factors for coronary artery disease, will consider stress test as an outpatient Hypertension, was maintained on lisinopril as an outpatient. Continue to monitor Elevated liver enzymes. History of opioid dependence NOÉ MARTEL MD Jun 08, 2022 08:23
[2022-06-08] MEDS: polyethylene glycoL POWDER 17 GM (MIRALAX) PACK PO SCH ×2 (08:24→20:03)
[2022-06-08] MEDS: DOCUSATE SODIUM 100 MG (COLACE) CAP PO SCH ×2 (08:24→20:01)
[2022-06-08] MEDS: lisINopril 10 MG (PRINIVIL) TABLET PO SCH (08:24)
[2022-06-08] MEDS: GABAPENTIN 100 MG (NEURONTIN) CAP PO SCH ×3 (08:25→20:01)
[2022-06-08] MEDS: SENNA W/DOCUSATE (SENOKOT S) TABLET PO SCH ×2 (08:25→20:01)
[2022-06-08] MEDS: FERROUS SULF 325 MG (IRON) TAB PO SCH (08:25)
[2022-06-08] MEDS: amLODIPine 5 MG (NORVASC) TAB PO SCH (08:25)
[2022-06-08] MEDS: NICOTINE PATCH REMOVAL TP SCH (09:37)
--- NOTE | 2022-06-08 09:54 | Physical Therapy Daily Note ---
PT Daily Note-Current Subjective Patient in bed pre tx, agrees to PT, has 6/10 pain in left leg, needs to get dressed. Pain Section J - Health Conditions 1. Rarely or not at all 2. Occasionally 3. Frequently 4. Almost constantly 8. Unable to answer Pain Effect on Sleep: 2 Pain Interference with Therapy: 2 Pain Interference w/Day-to-Day: 2 Appearance Patient in bed post tx with nurse call, phone, tray, all needs met. Mental Status Patient Orientation: Normal For Age Transfers SCALE: Activities may be completed with or without assistive devices. 6-Xewpiecoyy-nqhydhj completes the activity by him/herself with no assistance from a helper. 5-Set-up or Clean-up Assistance-helper sets up or cleans up; patient completes activity. [place] assists only prior to or following the activity. 4-Supervision or Touching Assistance-helper provides verbal cues and/or touching/steadying and/or contact guard assistance as patient completes act ivity. Assistance may be provided throughout the activity or intermittently. 3-Partial/Moderate Assistance-helper does LESS THAN HALF the effort. [place] lifts, holds or supports trunk or limbs, but provides less than half the effort. 2-Substantial/Maximal Assistance-helper does MORE THAN HALF the effort. [place] lifts or holds trunk or limbs and provides more than half the effort. 0-Fdsndoqll-mxkops does ALL the effort. Patient does none of the effort to complete the activity. Or, the assistance of 2 or more helpers is required for the patient to complete the activity. If activity was not attempted, code reason: 7-Patient Refused. 9-Not Applicable-not attempted and the patient did not perform the activity before the current illness, exacerbation or injury. 10-Not Attempted due to Environmental Limitations-(lack of equipment, weather restraints, etc.). 88-Not Attempted due to Medical Conditions or Safety Concerns. Roll Left & Right (QC): 6 Lying to Sitting/Side of Bed(Q: 6 Sit to Stand (QC): 4 Chair/Qin-md-Rdvkk Xfer(QC): 4 Gait Training Distance: 120'x2 Walk 10 feet (QC): 4 Walk 50 ft with 2 Turns(QC): 4 Gait Persons Needed: 1 Gait Assistive Device: FWW SBA, good hopping, good foot clearance, sometimes hops a little too big but no LOB Exercises Standing: Hamstring curls (LLE), Heel/toe raises (RLE), 3 way Ex=Flex, Abd, Ext (LLE but not flexion), Mini squats (RLE) NuStep Minutes: 15 NuStep Workload: 4 Treatments bed mobility and transfers, ambulation, strengthening Assessment Current Status: Fair Progress improving general mobility and strength PT Fpc Goals Fpc Goals PT Fpc Goals Time Frame: Jun 14, 2022 Roll Left & Right (QC): 6 Sit to Lying (QC): 6 Lying-Sitting on Side/Bed(QC): 6 Sit to Stand (QC): 6 Chair/Wsu-cy-Fxlhe Xfer(QC): 6 Toilet Transfer (QC): 6 Car Transfer (QC): 6 Does the Patient Walk: Yes Walk 10 feet (QC): 6 Walk 50ft with 2 Turns (QC): 6 Walk 150 ft (QC): 88 Walking 10ft on Uneven Surface: 6 1 Step (curb) (QC): 4 (SBA) 4 Steps (QC): 4 (SBA) 12 Steps (QC): 88 Picking up an Object (QC): 6 (using cemetery workers supervisor) Wheel 50 feet with 2 turns (QC: 6 Wheel 150 feet: 6 PT Plan Problem List Problem List: Activity Tolerance, Functional Strength, Safety, Balance, Gait, Transfer, Bed Mobility, ROM Treatment/Plan Treatment Plan: Continue Plan of Care Treatment Plan: Bed Mobility, Education, Functional Activity Angeli, Functional Strength, Group Therapy, Gait, Safety, Therapeutic Exercise, Transfers Treatment Duration: Jun 21, 2022 Frequency: At least 5 of 7 days/Wk (IRF) Estimated Hrs Per Day: 1.5 hours per day Patient and/or Family Agrees t: Yes Safety Risks/Education Patient Education: Gait Training, Transfer Techniques, Correct Positioning, Safety Issues Teaching Recipient: Patient Teaching Methods: Demonstration, Discussion Response to Teaching: Reinforcement Needed Time Time In: 0900 Time Out: 1000 DATE: Jun 08, 2022 Total Billed Treatment Time: 60 Total Billed Treatment 1 visit EX 30' FA 30' ANNIKA DONALD PT Jun 08, 2022 09:54
--- NOTE | 2022-06-08 11:03 | Occupational Ther Daily Note ---
OT Current Status-Daily Note Subjective Pt in bed, agreeable to OT Tx. ADL-Treatment Therapy Code Descriptions/Definitions Functional [place] Measure: 0=Not Assessed/NA 4=Minimal Assistance 1=Total Assistance 5=Supervision or Setup 2=Maximal Assistance 6=Modified [place] 3=Moderate Assistance 7=Complete IndependenceSCALE: Activities may be completed with or without assistive devices. 2-Flfvlztlsk-yyayupx completes the activity by him/herself with no assistance from a helper. 5-Set-up or Clean-up Assistance-helper sets up or cleans up; patient completes activity. [place] assists only prior to or following the activity. 4-Supervision or Touching Assistance-helper provides verbal cues and/or touching/steadying and/or contact guard assistance as patient completes activity. Assistance may be provided throughout the activity or intermittently. 3-Partial/Moderate Assistance-helper does LESS THAN HALF the effort. [place] lifts, holds or supports trunk or limbs, but provides less than half the effort. 2-Substantial/Maximal Assistance-helper does MORE THAN HALF the effort. [place] lifts or holds trunk or limbs and provides more than half the effort. 5-Sbncobled-zcupxp does ALL the effort. Patient does none of the effort to complete the activity. Or, the assistance of 2 or more helpers is required for the patient to complete the activity. If activity was not attempted, code reason: 7-Patient Refused. 9-Not Applicable-not attempted and the patient did not perform the activity befo re the current illness, exacerbation or injury. 10-Not Attempted due to Environmental Limitations-(lack of equipment, weather re straints, etc.). 88-Not Attempted due to Medical Conditions or Safety Concerns. Eating (QC): 6 Oral Hygiene (QC): 6 Shower/Bathe Self (QC): 5 (set up to cover stump) Upper Body Dressing (QC): 6 Lower Body Dressing (QC): 6 On/Off Footwear: 6 Other Treatment Pt in bed, transferred supine to sit EOB independently, then used FWW to transfer into bathroom, SBA. Pt sat at sink to complete grooming tasks independently, then transferred to MA. Pt Doffed clothes, education provided on how to cover L stump, he verbalized understanding. Pt completed shower, transferred to w/c to don clothes. Pt performed w/c mobility around ARU common area, independently, and into therapy gym. OT tx focused on increasing BUE Strength and activity tolerance. Pt completed arm bike, x10 mins, 20 watt resistance with rest breaks as needed. Pt then performed UE reaching activity, 1lb wrist weights bilaterally. Pt completed nut/bolt block, placing/removing nuts/bolts from block, manipulating pieces in hand, and placing them back onto block. Pt able to complete x15. Pt propelled w/c back to his room, SPT to bed. Post tx, pt in bed, call light in reach and all needs met. Education OT Patient Education: Correct positioning, Energy conservation, Modified ADL techniques, Progress toward Goal/Update tx plan, Purpose of tx/functional activities, Rehab process Teaching Recipient: Patient Teaching Methods: Discussion Response to Teaching: Verbalize Understanding OT Production Expert Goals Care Home Goals Time Frame: Jun 30, 2022 Acute change in mental status: 0 Inattention: 0 Disorganized thinkin Altered level of consciousness: 0 Eating (QC): 6 Oral Hygiene (QC): 6 Toileting Hygiene (QC): 6 Shower/Bathe Self (QC): 6 Upper Body Dressing (QC): 6 Lower Body Dressing (QC): 6 On/Off Footwear (QC): 6 Additional Goals: 1-Demonstrate ADL Tasks, 2-Verbalize Understanding, 3-ImproveStrength/Angeli 1=Demonstrate adherence to instructed precautions during ADL tasks. 2=Patient will verbalize/demonstrate understanding of assistive devices/modifications for ADL. 3=Patient will improve strength/tolerance for activity to enable patient to perform ADL's. OT Education/Plan Problem List/Assessment Assessment: Decreased Activ Tolerance, Decreased UE Strength, Impaired I ADL's Discharge Recommendations Plan/Recommendations: Continue POC Treatment Plan/Plan of Care Patient would benefit from OT for education, treatment and training to promote independence in ADL's, mobility, safety and/or upper extremity function for ADL's. Plan of Care: ADL Retraining, Functional Mobility, Group Exercise/Act as Ind, UE Funct Exercise/Act Treatment Duration: Jun 30, 2022 Frequency: At least 5 of 7 days/Wk (IRF) Estimated Hrs Per Day: 1.5 hours per day Agreement: Yes Rehab Potential: Fair Time Start Time: 10:00 Stop Time: 11:30 DATE: Jun 08, 2022 Total Time Billed (hr/min): 90 Billed Treatment Time 1, EX (15'), FA 2 (30'), ADL 3 (45') JESSICA ULLOA OT Jun 08, 2022 11:03
--- NOTE | 2022-06-08 13:55 | Physical Therapy Daily Note ---
PT Daily Note-Current Subjective Patient in bed pre tx, agrees to PT, has unrated pain in left leg. Pain Section J - Health Conditions 1. Rarely or not at all 2. Occasionally 3. Frequently 4. Almost constantly 8. Unable to answer Pain Effect on Sleep: 2 Pain Interference with Therapy: 2 Pain Interference w/Day-to-Day: 2 Appearance Patient in bed post tx with nurse call, phone, tray, all needs met. Mental Status Patient Orientation: Normal For Age Transfers SCALE: Activities may be completed with or without assistive devices. 0-Runntwaihs-uiopgzm completes the activity by him/herself with no assistance from a helper. 5-Set-up or Clean-up Assistance-helper sets up or cleans up; patient completes activity. [place] assists only prior to or following the activity. 4-Supervision or Touching Assistance-helper provides verbal cues and/or touching/steadying and/or contact guard assistance as patient completes activity. Assistance may be provided throughout the activity or intermittently. 3-Partial/Moderate Assistance-helper does LESS THAN HALF the effort. [place] lifts, holds or supports trunk or limbs, but provides less than half the effort. 2-Substantial/Maximal Assistance-helper does MORE THAN HALF the effort. [place] lifts or holds trunk or limbs and provides more than half the effort. 9-Tlgokebrt-wmwqbh does ALL the effort. Patient does none of the effort to complete the activity. Or, the assistance of 2 or more helpers is required for the patient to complete the activity. If activity was not attempted, code reason: 7-Patient Refused. 9-Not Applicable-not attempted and the patient did not perform the activity before the current illness, exacerbation or injury. 10-Not Attempted due to Environmental Limitations-(lack of equipment, weather restraints, etc.). 88-Not Attempted due to Medical Conditions or Safety Concerns. Roll Left & Right (QC): 6 Sit to Lying (QC): 6 Lying to Sitting/Side of Bed(Q: 6 Sit to Stand (QC): 5 Chair/Xuu-no-Atfkk Xfer(QC): 5 Gait Training Distance: 120'x2 Walk 10 feet (QC): 5 Walk 50 ft with 2 Turns(QC): 5 Gait Assistive Device: FWW improved ambulation Exercises supine bridges with ball x20, supine lower trunk rotation using ball x20, prone hip stretch 5 min, supine knee extension stretch x5 min Treatments bed mobility and transfers, ambulation, strengthening, stretching Assessment Current Status: Fair Progress patient is maintaining full left knee extension and good left hip extension PT Agile Scrum Coach Goals Agile Scrum Coach Goals PT Agile Scrum Coach Goals Time Frame: Jun 14, 2022 Roll Left & Right (QC): 6 Sit to Lying (QC): 6 Lying-Sitting on Side/Bed(QC): 6 Sit to Stand (QC): 6 Chair/Nwk-gq-Okxgv Xfer(QC): 6 Toilet Transfer (QC): 6 Car Transfer (QC): 6 Does the Patient Walk: Yes Walk 10 feet (QC): 6 Walk 50ft with 2 Turns (QC): 6 Walk 150 ft (QC): 88 Walking 10ft on Uneven Surface: 6 1 Step (curb) (QC): 4 (SBA) 4 Steps (QC): 4 (SBA) 12 Steps (QC): 88 Picking up an Object (QC): 6 (using brickmason contractor) Wheel 50 feet with 2 turns (QC: 6 Wheel 150 feet: 6 PT Plan Problem List Problem List: Activity Tolerance, Functional Strength, Safety, Balance, Gait, Transfer, Bed Mobility, ROM Treatment/Plan Treatment Plan: Continue Plan of Care Treatment Plan: Bed Mobility, Education, Functional Activity Angeli, Functional Strength, Group Therapy, Gait, Safety, Therapeutic Exercise, Transfers Treatment Duration: Jun 21, 2022 Frequency: At least 5 of 7 days/Wk (IRF) Estimated Hrs Per Day: 1.5 hours per day Patient and/or Family Agrees t: Yes Safety Risks/Education Patient Education: Gait Training, Transfer Techniques, Correct Positioning, Safety Issues Teaching Recipient: Patient Teaching Methods: Demonstration, Discussion Response to Teaching: Reinforcement Needed Time Time In: 1325 Time Out: 1355 DATE: Jun 08, 2022 Total Billed Treatment Time: 30 Total Billed Treatment 1 visit EX 15' FA 15' ANNIKA DONALD PT Jun 08, 2022 13:55
[2022-06-08] MEDS ORDERED: HYPOCHLOROUS ACID/NaCl (VASHE) 250 ML IR PRN (15:00)
[2022-06-08] MEDS: ALPRAZolam 0.25 MG (XANAX) TAB PO PRN (20:01)
[2022-06-08 20:50] VITALS: BP 118/58
[2022-06-09] MEDS: LORazepam 1 MG (ATIVAN) TAB PO PRN ×3 (00:01→17:40)
[2022-06-09] MEDS: oxyCODONE/APAP 7.5-325 MG (PERCOCET 7.5) TABLET PO PRN ×3 (00:02→17:40)
--- NOTE | 2022-06-09 06:46 | PM&R Progress Note ---
Subjective HPI/CC On Admission Date Seen by Provider: Jun 09, 2022 Time Seen by Provider: 12:00 Subjective/Events-last exam 06/09/2022: Improved overall Insulin maintained No falls Pain controlled 06/08/2022: Much improved overall No pain issues BM+ Sugars reviewed Review of Systems General: Fatigue, Malaise Musculoskeletal: leg pain Objective Exam Vital Signs Vital Signs Date Time Temp Pulse Resp B/P (MAP) Pulse Ox O2 Delivery O2 Flow Rate FiO2 06/09/22 20:50 36.7 85 20 117/70 (86) 99 Room Air Capillary Refill : General Appearance: No Apparent Distress, WD/WN, Chronically ill HEENT: PERRL/EOMI, Normal ENT Inspection, Pharynx Normal Neck: Full Range of Motion, Normal Inspection, Non Tender, Supple, Carotid Bruit Respiratory: Chest Non Tender, Lungs Clear, Normal Breath Sounds, No Accessory Muscle Use, No Respiratory Distress Cardiovascular: Regular Rate, Rhythm, No Edema, No Gallop, No JVD, No Murmur, Normal Peripheral Pulses Gastrointestinal: Normal Bowel Sounds, No Organomegaly, No Pulsatile Mass, Non Tender, Soft Back: Normal Inspection, No CVA Tenderness, No Vertebral Tenderness Extremity: Normal Capillary Refill, Normal Inspection, Normal Range of Motion, Non Tender, No Calf Tenderness, No Pedal Edema, Other (Left below the knee amputation with dressing intact) Neurologic/Psychiatric: Alert, Oriented x3, No Motor/Sensory Deficits, income tax auditor II- XII Norm as Tested, Abnormal Gait, Depressed Affect Skin: Normal Color, Warm/Dry Lymphatic: No Adenopathy Results/Procedures Lab Patient resulted labs reviewed. FIM Transfers Therapy Code Descriptions/Definitions Functional [place] Measure: 0=Not Assessed/NA 4=Minimal Assistance 1=Total Assistance 5=Supervision or Setup 2=Maximal Assistance 6=Modified [place] 3=Moderate Assistance 7=Complete IndependenceSCALE: Activities may be completed with or without assistive devices. 0-Bkjwurijap-zqqkdqr completes the activity by him/herself with no assistance from a helper. 5-Set-up or Clean-up Assistance-helper sets up or cleans up; patient completes activity. [place] assists only prior to or following the activity. 4-Supervision or Touching Assistance-helper provides verbal cues and/or touching/steadying and/or contact guard assistance as patient completes activity. Assistance may be provided throughout the activity or intermittently. 3-Partial/Moderate Assistance-helper does LESS THAN HALF the effort. [place] lifts, holds or supports trunk or limbs, but provides less than half the effort. 2-Substantial/Maximal Assistance-helper does MORE THAN HALF the effort. [place] lifts or holds trunk or limbs and provides more than half the effort. 1-Yxcydhzds-hjqdvl does ALL the effort. Patient does none of the effort to complete the activity. Or, the assistance of 2 or more helpers is required for the patient to complete the activity. If activity was not attempted, code reason: 7-Patient Refused. 9-Not Applicable-not attempted and the patient did not perform the activity bef ore the current illness, exacerbation or injury. 10-Not Attempted due to Environmental Limitations-(lack of equipment, weather r estraints, etc.). 88-Not Attempted due to Medical Conditions or Safety Concerns. Roll Left to Right (QC): 6 Sit to Lying (QC): 6 Sit to Stand (QC): 5 Chair/Kmq-zl-Mwjwt Xfer(QC): 5 Car Transfer (QC): 4 Gait Training Does the Patient Walk?: Yes Distance: 120'x2 Walk 10 feet (QC): 5 Walk 50 ft with 2 Turns(QC): 5 Walk 150 ft (QC): 88 Walking 10ft/uneven surface-QC: 4 Gait Persons Needed: 1 Gait Assistive Device: FWW Wheelchair Training Wheel 50 ft with 2 turns (QC): 4 Wheel 150 ft (QC): 4 Type of Wheelchair: Manual Stair Training #of Steps: 1 1 Step (curb) (QC): 4 4 Steps (QC): 88 12 Steps (QC): 88 Balance Picking up an Object (QC): 4 (CGA using a public services librarian) ADL-Treatment Eating (QC): 6 Oral Hygiene (QC): 6 Shower/Bathe Self (QC): 5 (set up to cover stump) Upper Body Dressing (QC): 6 Lower Body Dressing (QC): 6 On/Off Footwear (QC): 6 Toileting Hygiene (QC): 4 (Supervision) Assessment/Plan Assessment and Plan Assess & Plan/Chief Complaint Assessment: 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 lower 2nd, 3rd, and 4th metatarsal with septic joint involvement Hyperglycemia, Type II Diabetes mellitus - uncontrolled started on insulin HTN Opioid use disorder - remission Elevated liver enzymes on admission with ultrasound evidence of cirrhosis Reactive Hepatitis C 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
[2022-06-09 08:00] VITALS: BP 138/85
[2022-06-09] MEDS: inSUlin ASPART (NovoLOG) 1 UNIT/0.01 ML (CHARGE PER UNIT) SC SCH ×3 (08:06→17:26)
[2022-06-09] MEDS: metFORMIN 500 MG (GLUCOPHAGE) TAB PO SCH (08:06)
[2022-06-09] MEDS: DOCUSATE SODIUM 100 MG (COLACE) CAP PO SCH ×2 (08:43→22:09)
[2022-06-09] MEDS: lisINopril 10 MG (PRINIVIL) TABLET PO SCH (08:43)
[2022-06-09] MEDS: EMPAGLIFLOZIN 10 MG TABLET (JARDIANCE) PO SCH (08:43)
[2022-06-09] MEDS: SENNA W/DOCUSATE (SENOKOT S) TABLET PO SCH ×2 (08:43→22:10)
[2022-06-09] MEDS: GABAPENTIN 100 MG (NEURONTIN) CAP PO SCH ×3 (08:43→21:35)
[2022-06-09] MEDS: NICOTINE 14 MG (NICODERM) PATCH TD SCH (08:43)
[2022-06-09] MEDS: amLODIPine 5 MG (NORVASC) TAB PO SCH (08:43)
[2022-06-09] MEDS: FERROUS SULF 325 MG (IRON) TAB PO SCH (08:43)
[2022-06-09] MEDS: NICOTINE PATCH REMOVAL TP SCH (08:44)
[2022-06-09] MEDS: polyethylene glycoL POWDER 17 GM (MIRALAX) PACK PO SCH ×2 (08:47→22:09)
[2022-06-09] MEDS: LACTULOSE SYRUP 10GM/15ML (ENULOSE) 30ML UDC PO SCH ×2 (08:47→22:09)
[2022-06-09] MEDS: ENOXAPARIN 40 MG/0.4 ML (LOVENOX) SYR SC SCH (08:47)
--- NOTE | 2022-06-09 09:35 | Cardiology Progress Note ---
Subjective Date Seen by Provider: Jun 09, 2022 Time Seen by Provider: 09:34 Subjective/Events-last exam Patient was seen at bedside laying down comfortably, no new complaint Review of Systems General: No Chills, No Night Sweats, No Fatigue, No Malaise, No Appetite, No Other HEENT: No Head Aches, No Visual Changes, No Eye Pain, No Ear Pain, No Dysphasia, No Sinus Congestion, No Post Nasal Drip, No Sore Throat, No Other Pulmonary: No Dyspnea, No Cough, No Pleuritic Chest Pain, No Other Cardiovascular: No: Chest Pain, Palpitations, Orthopnea, Paroxysmal Noc. Dyspnea, Edema, Lt Headedness, Other Objective-Cardiology Exam Last Set of Vital Signs Vital Signs 06/09/22 08:00 Temp 36.1 Pulse 81 Resp 16 B/P (MAP) 138/85 (102) Pulse Ox 96 O2 Delivery Room Air I&O Intake and Output 06/09/22 00:00 Intake Total 1680 ml Output Total 2800 ml Balance -1120 ml Intake Oral 1680 ml Output Urine Total 2800 ml # Voids 3 # Bowel Movements 1 General: Alert, Oriented X3, Cooperative HEENT: Atraumatic, PERRLA Lungs: Clear to Auscultation, Normal Air Movement Heart: Regular Rate, Normal S1, Normal S2 Abdomen: Normal Bowel Sounds, Soft Extremities: No Clubbing, No Cyanosis, Other (L BKA) Skin: No Rashes, No Breakdown Neuro: Normal Speech Psych/Mental Status: Mental Status NL, Mood NL A/P-Cardiology Admission Diagnosis PVD S/p Left BKA Debility/weakness HTN Assessment/Plan Peripheral arterial disease, nonhealing left foot ulcer, osteomyelitis Status post left BKA. Recovering slowly, receiving physical therapy Diabetes mellitus, poor control. Noncompliant with medication, managed by medical team History of sinus tachycardia and anemia. Currently better, continue to monitor Multiple risk factors for coronary artery disease, will consider stress test as an outpatient Hypertension, was maintained on lisinopril as an outpatient. Continue to monitor Elevated liver enzymes. History of opioid dependence NOÉ MARTEL MD Jun 09, 2022 09:35
--- NOTE | 2022-06-09 09:54 | Physical Therapy Daily Note ---
PT Daily Note-Current Subjective Patient in bed pre tx, agrees to PT, has 6/10 pain, states he has already had pain meds, patient dresses himself. Pain Section J - Health Conditions 1. Rarely or not at all 2. Occasionally 3. Frequently 4. Almost constantly 8. Unable to answer Pain Effect on Sleep: 2 Pain Interference with Therapy: 2 Pain Interference w/Day-to-Day: 2 Appearance Patient in recliner post tx with nurse call, phone, tray, all needs met. Mental Status Patient Orientation: Normal For Age Transfers SCALE: Activities may be completed with or without assistive devices. 4-Cyzlygkaxj-mgeigxy completes the activity by him/herself with no assistance from a helper. 5-Set-up or Clean-up Assistance-helper sets up or cleans up; patient completes activity. [place] assists only prior to or following the activity. 4-Supervision or Touching Assistance-helper provides verbal cues and/or touching/steadying and/or contact guard assistance as patient completes activity. Assistance may be provided throughout the activity or intermittently. 3-Partial/Moderate Assistance-helper does LESS THAN HALF the effort. [place] lifts, holds or supports trunk or limbs, but provides less than half the effort. 2-Substantial/Maximal Assistance-helper does MORE THAN HALF the effort. [place] lifts or holds trunk or limbs and provides more than half the effort. 4-Fdizngiyt-bvladp does ALL the effort. Patient does none of the effort to complete the activity. Or, the assistance of 2 or more helpers is required for the patient to complete the activity. If activity was not attempted, code reason: 7-Patient Refused. 9-Not Applicable-not attempted and the patient did not perform the activity before the current illness, exacerbation or injury. 10-Not Attempted due to Environmental Limitations-(lack of equipment, weather restraints, etc.). 88-Not Attempted due to Medical Conditions or Safety Concerns. Roll Left & Right (QC): 6 Lying to Sitting/Side of Bed(Q: 6 Sit to Stand (QC): 5 Chair/Wvy-ub-Dplve Xfer(QC): 5 Gait Training Distance: 120'x2 Walk 10 feet (QC): 4 Walk 50 ft with 2 Turns(QC): 4 Gait Persons Needed: 1 Gait Assistive Device: FWW SBA, slow but steady ambulation, patient is fairly fatigued after going 120' Exercises Standing: Hamstring curls (LLE), Heel/toe raises (RLE), 3 way Ex=Flex, Abd, Ext (LLE not flexion), Mini squats (RLE) LAQ alternating for 5 min with 2# ankle weight on right leg NuStep Minutes: 15 NuStep Workload: 5 Treatments bed mobility and transfers, ambulation, strengthening, ROM Assessment Current Status: Fair Progress improving general mobility but still fatigues fairly easily PT Operater Goals Operater Goals PT Operater Goals Time Frame: Jun 14, 2022 Roll Left & Right (QC): 6 Sit to Lying (QC): 6 Lying-Sitting on Side/Bed(QC): 6 Sit to Stand (QC): 6 Chair/Xjp-nv-Ebfiq Xfer(QC): 6 Toilet Transfer (QC): 6 Car Transfer (QC): 6 Does the Patient Walk: Yes Walk 10 feet (QC): 6 Walk 50ft with 2 Turns (QC): 6 Walk 150 ft (QC): 88 Walking 10ft on Uneven Surface: 6 1 Step (curb) (QC): 4 (SBA) 4 Steps (QC): 4 (SBA) 12 Steps (QC): 88 Picking up an Object (QC): 6 (using janitorial manager) Wheel 50 feet with 2 turns (QC: 6 Wheel 150 feet: 6 PT Plan Problem List Problem List: Activity Tolerance, Functional Strength, Safety, Balance, Gait, Transfer, Bed Mobility, ROM Treatment/Plan Treatment Plan: Continue Plan of Care Treatment Plan: Bed Mobility, Education, Functional Activity Angeli, Functional Strength, Group Therapy, Gait, Safety, Therapeutic Exercise, Transfers Treatment Duration: Jun 21, 2022 Frequency: At least 5 of 7 days/Wk (IRF) Estimated Hrs Per Day: 1.5 hours per day Patient and/or Family Agrees t: Yes Safety Risks/Education Patient Education: Gait Training, Transfer Techniques, Correct Positioning, Safety Issues Teaching Recipient: Patient Teaching Methods: Demonstration, Discussion Response to Teaching: Reinforcement Needed Time Time In: 0900 Time Out: 1000 DATE: Jun 09, 2022 Total Billed Treatment Time: 60 Total Billed Treatment 1 visit EX 45' FA 15' ANNIKA DONALD PT Jun 09, 2022 09:54
--- NOTE | 2022-06-09 10:22 | Occupational Ther Daily Note ---
OT Current Status-Daily Note Subjective Pt at EOB, agreeable to OT Tx ADL-Treatment Therapy Code Descriptions/Definitions Functional [place] Measure: 0=Not Assessed/NA 4=Minimal Assistance 1=Total Assistance 5=Supervision or Setup 2=Maximal Assistance 6=Modified [place] 3=Moderate Assistance 7=Complete IndependenceSCALE: Activities may be completed with or without assistive devices. 0-Rwimosdwrp-scfvsgx completes the activity by him/herself with no assistance from a helper. 5-Set-up or Clean-up Assistance-helper sets up or cleans up; patient completes activity. [place] assists only prior to or following the activity. 4-Supervision or Touching Assistance-helper provides verbal cues and/or touching/steadying and/or contact guard assistance as patient completes activity. Assistance may be provided throughout the activity or intermittently. 3-Partial/Moderate Assistance-helper does LESS THAN HALF the effort. [place] lifts, holds or supports trunk or limbs, but provides less than half the effort. 2-Substantial/Maximal Assistance-helper does MORE THAN HALF the effort. [place] lifts or holds trunk or limbs and provides more than half the effort. 1-Eadjzlhvm-sjlltm does ALL the effort. Patient does none of the effort to complete the activity. Or, the assistance of 2 or more helpers is required for the patient to complete the activity. If activity was not attempted, code reason: 7-Patient Refused. 9-Not Applicable-not attempted and the patient did not perform the activity before the current illness, exacerbation or injury. 10-Not Attempted due to Environmental Limitations-(lack of equipment, weather restraints, etc.). 88-Not Attempted due to Medical Conditions or Safety Concerns. Shower/Bathe Self (QC): 6 (Pt IND with shower including covering stump prior to shower.) Upper Body Dressing (QC): 6 Lower Body Dressing (QC): 6 On/Off Footwear: 6 Other Treatment Pt at EOB, used FWW to gather clothes from closet and then transfer into bathroom onto [place]. Pt doffed clothes, covered stump, completed shower, then removed bag from stump (remained dry post shower), and donned clothes IND. Pt propelled w/c to therapy gym, 1 VC for UE placement on turns. In order to increase BUE Strength and activity tolerance, pt completed arm bike x10 mins, 20 Watt resistance. Pt returned to room via w/c, due to room being cleaned, pt opted to sit at table in common area, OT instructed pt to let staff know when he is ready to transfer to bed and not to do it himself, he verbalized agreement. Post tx, pt in w/c in common area, all needs met. Education OT Patient Education: Correct positioning, Energy conservation, Modified ADL techniques, Progress toward Goal/Update tx plan, Purpose of tx/functional activities, Rehab process Teaching Recipient: Patient Teaching Methods: Discussion Response to Teaching: Verbalize Understanding OT Interlocker Maintainer Goals [facility] Goals Time Frame: Jun 30, 2022 Acute change in mental status: 0 Inattention: 0 Disorganized thinkin Altered level of consciousness: 0 Eating (QC): 6 Oral Hygiene (QC): 6 Toileting Hygiene (QC): 6 Shower/Bathe Self (QC): 6 Upper Body Dressing (QC): 6 Lower Body Dressing (QC): 6 On/Off Footwear (QC): 6 Additional Goals: 1-Demonstrate ADL Tasks, 2-Verbalize Understanding, 3- ImproveStrength/Angeli 1=Demonstrate adherence to instructed precautions during ADL tasks. 2=Patient will verbalize/demonstrate understanding of assistive devices /modifications for ADL. 3=Patient will improve strength/tolerance for activity to enable patient to perform ADL's. OT Education/Plan Problem List/Assessment Assessment: Decreased Activ Tolerance, Decreased UE Strength, Impaired Funct Balance, Impaired I ADL's, Impaired Self-Care Skills Discharge Recommendations Plan/Recommendations: Continue POC Treatment Plan/Plan of Care Patient would benefit from OT for education, treatment and training to promote independence in ADL's, mobility, safety and/or upper extremity function for ADL's. Plan of Care: ADL Retraining, Functional Mobility, Group Exercise/Act as Ind, UE Funct Exercise/Act Treatment Duration: Jun 30, 2022 Frequency: At least 5 of 7 days/Wk (IRF) Estimated Hrs Per Day: 1.5 hours per day Agreement: Yes Rehab Potential: Fair Time Start Time: 10:00 Stop Time: 11:00 DATE: Jun 09, 2022 Total Time Billed (hr/min): 60 Billed Treatment Time 1, ADL 3 (45'), EX (15') JESSICA ULLOA OT Jun 09, 2022 10:22
--- NOTE | 2022-06-09 11:58 | Occupational Ther Daily Note ---
OT Current Status-Daily Note Subjective Pt alert, lying in bed. Pt is fatigue from previous therapy sessions and requested to complete exercises in bed. Mental Status/Objective Patient Orientation: Person, Place, Time, Situation ADL-Treatment Therapy Code Descriptions/Definitions Functional [place] Measure: 0=Not Assessed/NA 4=Minimal Assistance 1=Total Assistance 5=Supervision or Setup 2=Maximal Assistance 6=Modified [place] 3=Moderate Assistance 7=Complete IndependenceSCALE: Activities may be completed with or without assistive devices. 5-Lblubocygp-cmamvpb completes the activity by him/herself with no assistance from a helper. 5-Set-up or Clean-up Assistance-helper sets up or cleans up; patient completes activity. [place] assists only prior to or following the activity. 4-Supervision or Touching Assistance-helper provides verbal cues and/or touching/steadying and/or contact guard assistance as patient completes activity. Assistance may be provided throughout the activity or intermittently. 3-Partial/Moderate Assistance-helper does LESS THAN HALF the effort. [place] lifts, holds or supports trunk or limbs, but provides less than half the effort. 2-Substantial/Maximal Assistance-helper does MORE THAN HALF the effort. [place] lifts or holds trunk or limbs and provides more than half the effort. 1-Manvohmtl-zvmdcv does ALL the effort. Patient does none of the effort to complete the activity. Or, the assistance of 2 or more helpers is required for the patient to complete the activity. If activity was not attempted, code reason: 7-Patient Refused. 9-Not Applicable-not attempted and the patient did not perform the activity before the current illness, exacerbation or injury. 10-Not Attempted due to Environmental Limitations-(lack of equipment, weather restraints, etc.). 88-Not Attempted due to Medical Conditions or Safety Concerns. Other Treatment Pt given medium resistance theraband and therapy foam to use in room with HEP. Skilled instruction for correct technique and modifications when needed. 3 therapy foam exercises completed 1 set 20 reps. 5 theraband exercises given 1 set 10 reps each. Pt will require skilled therapy until proficient at exercises. After session, pt lying in bed with call light/phone in reach. All needs met in room. OT Alf Goals Special Weapons Unit Officer Goals Time Frame: Jun 30, 2022 Acute change in mental status: 0 Inattention: 0 Disorganized thinkin Altered level of consciousness: 0 Eating (QC): 6 Oral Hygiene (QC): 6 Toileting Hygiene (QC): 6 Shower/Bathe Self (QC): 6 Upper Body Dressing (QC): 6 Lower Body Dressing (QC): 6 On/Off Footwear (QC): 6 Additional Goals: 1-Demonstrate ADL Tasks, 2-Verbalize Understanding, 3- ImproveStrength/Angeli 1=Demonstrate adherence to instructed precautions during ADL tasks. 2=Patient will verbalize/demonstrate understanding of assistive devices/modifications for ADL. 3=Patient will improve strength/tolerance for activity to enable patient to perform ADL's. OT Education/Plan Problem List/Assessment Assessment: Decreased Activ Tolerance, Decreased UE Strength Discharge Recommendations Plan/Recommendations: Continue POC Treatment Plan/Plan of Care Patient would benefit from OT for education, treatment and training to promote independence in ADL's, mobility, safety and/or upper extremity function for ADL's. Plan of Care: ADL Retraining, Functional Mobility, Group Exercise/Act as Ind, UE Funct Exercise/Act Treatment Duration: Jun 30, 2022 Frequency: At least 5 of 7 days/Wk (IRF) Estimated Hrs Per Day: 1.5 hours per day Agreement: Yes Rehab Potential: Fair Time Start Time: 11:30 Stop Time: 12:00 DATE: Jun 09, 2022 Total Time Billed (hr/min): 30 Billed Treatment Time 1 visit-EX 2 (30 min) JULIO HEREDIA Jun 09, 2022 11:58
--- NOTE | 2022-06-09 14:01 | Physical Therapy Daily Note ---
PT Daily Note-Current Subjective Pt. in bed fast asleep, very difficult to awaken at first. Pt. finally wakes enough to communicate that he is not sleeping well here and really needs a good nap, "you woke me up from something i needed" pt. never opening his eyes. Pt. refuses to get out of bed but agrees to bed ex. Pain Numeric Pain Scale: 4 Location: Left Location Body Site: Knee (residual limb /incision) Pain Description: Pressure Section J - Health Conditions 1. Rarely or not at all 2. Occasionally 3. Frequently 4. Almost constantly 8. Unable to answer Pain Effect on Sleep: 2 Pain Interference with Therapy: 2 Pain Interference w/Day-to-Day: 2 Mental Status Patient Orientation: [place] (sleepy) Transfers SCALE: Activities may be completed with or without assistive devices. 9-Kvvpanfmvi-sjxzqht completes the activity by him/herself with no assistance from a helper. 5-Set-up or Clean-up Assistance-helper sets up or cleans up; patient completes activity. [place] assists only prior to or following the activity. 4-Supervision or Touching Assistance-helper provides verbal cues and/or touching/steadying and/or contact guard assistance as patient completes activity. Assistance may be provided throughout the activity or intermittently. 3-Partial/Moderate Assistance-helper does LESS THAN HALF the effort. [place] lifts, holds or supports trunk or limbs, but provides less than half the effort. 2-Substantial/Maximal Assistance-helper does MORE THAN HALF the effort. [place] lifts or holds trunk or limbs and provides more than half the effort. 7-Mchlszunp-jxamib does ALL the effort. Patient does none of the effort to complete the activity. Or, the assistance of 2 or more helpers is required for the patient to complete the activity. If activity was not attempted, code reason: 7-Patient Refused. 9-Not Applicable-not attempted and the patient did not perform the activity before the current illness, exacerbation or injury. 10-Not Attempted due to Environmental Limitations-(lack of equipment, weather restraints, etc.). 88-Not Attempted due to Medical Conditions or Safety Concerns. Roll Left & Right (QC): 6 rolls side to side for ex indep Exercises Supine Ex: Bridging (unilat), Ankle pumps (right), Quad Set, Rolling, Glut sets, Heel Slides, Knee to chest, Short Arc Quads, Straight leg raise, Hip abd/add (side and sup) Supine Reps: 20 also performed left hip ext in sidelying as well as knee flexion for quad st retch in right sidelying for L BKA x 12 Treatments positioning after rx for LLE elevation, therex amputee protocol sup and sidelying Assessment Current Status: Good Progress PT Fdc Goals Fdc Goals PT Fdc Goals Time Frame: Jun 14, 2022 Roll Left & Right (QC): 6 Sit to Lying (QC): 6 Lying-Sitting on Side/Bed(QC): 6 Sit to Stand (QC): 6 Chair/Waw-tn-Ljuly Xfer(QC): 6 Toilet Transfer (QC): 6 Car Transfer (QC): 6 Does the Patient Walk: Yes Walk 10 feet (QC): 6 Walk 50ft with 2 Turns (QC): 6 Walk 150 ft (QC): 88 Walking 10ft on Uneven Surface: 6 1 Step (curb) (QC): 4 (SBA) 4 Steps (QC): 4 (SBA) 12 Steps (QC): 88 Picking up an Object (QC): 6 (using stockroom clerk) Wheel 50 feet with 2 turns (QC: 6 Wheel 150 feet: 6 PT Plan Treatment/Plan Treatment Plan: Continue Plan of Care Treatment Plan: Bed Mobility, Education, Functional Activity Angeli, Functional Strength, Group Therapy, Gait, Safety, Therapeutic Exercise, Transfers Treatment Duration: Jun 21, 2022 Frequency: At least 5 of 7 days/Wk (IRF) Estimated Hrs Per Day: 1.5 hours per day Patient and/or Family Agrees t: Yes Safety Risks/Education Patient Education: Correct Positioning, Disease Process Teaching Recipient: Patient Teaching Methods: Demonstration, Discussion Response to Teaching: Verbalize Understanding, Return Demonstration, Reinforcement Needed Time Time In: 1330 Time Out: 1400 DATE: Jun 09, 2022 Total Billed Treatment Time: 30 Total Billed Treatment 1,EX30m ROSEANN BUTLER PTA Jun 09, 2022 14:01
--- NOTE | 2022-06-09 16:24 | Physical Therapy Progress Note ---
Therapy Progress Note Patient will need a wheelchair for home use. Patient has had a left side below the knee amputation and will need a wheelchair for home and community use for mobility. Patient can ambulate short distances using a walker but not enough for community mobility or to walk all day. ANNIKA DONALD PT Jun 09, 2022 16:23
[2022-06-09 20:50] VITALS: BP 117/70
[2022-06-10] MEDS: LORazepam 1 MG (ATIVAN) TAB PO PRN ×3 (02:18→21:35)
[2022-06-10] MEDS: oxyCODONE/APAP 7.5-325 MG (PERCOCET 7.5) TABLET PO PRN ×4 (02:18→21:35)
[2022-06-10 07:30] VITALS: BP 120/68
[2022-06-10] MEDS: metFORMIN 500 MG (GLUCOPHAGE) TAB PO SCH (08:28)
[2022-06-10] MEDS: EMPAGLIFLOZIN 10 MG TABLET (JARDIANCE) PO SCH (08:29)
[2022-06-10] MEDS: lisINopril 10 MG (PRINIVIL) TABLET PO SCH (08:30)
[2022-06-10] MEDS: amLODIPine 5 MG (NORVASC) TAB PO SCH (08:30)
[2022-06-10] MEDS: GABAPENTIN 100 MG (NEURONTIN) CAP PO SCH ×3 (08:30→21:35)
[2022-06-10] MEDS: FERROUS SULF 325 MG (IRON) TAB PO SCH (08:30)
[2022-06-10] MEDS: NICOTINE 14 MG (NICODERM) PATCH TD SCH (08:32)
[2022-06-10] MEDS: inSUlin ASPART (NovoLOG) 1 UNIT/0.01 ML (CHARGE PER UNIT) SC SCH ×3 (08:32→17:09)
--- NOTE | 2022-06-10 08:57 | PM&R Progress Note ---
Subjective HPI/CC On Admission Date Seen by Provider: Jun 10, 2022 Time Seen by Provider: 12:00 Subjective/Events-last exam 06/10/2022: Improved overall Wants another PCP besides [facility] but the wait could be longer to get established GI appt will be obtained 06/09/2022: Improved overall Insulin maintained No falls Pain controlled 06/08/2022: Much improved overall No pain issues BM+ Sugars reviewed Review of Systems General: Fatigue, Malaise Objective Exam Vital Signs Vital Signs Date Time Temp Pulse Resp B/P (MAP) Pulse Ox O2 Delivery O2 Flow Rate FiO2 06/10/22 20:41 36.6 89 20 127/68 (87) 99 Room Air Capillary Refill : General Appearance: No Apparent Distress, WD/WN, Chronically ill HEENT: PERRL/EOMI, Normal ENT Inspection, Pharynx Normal Neck: Full Range of Motion, Normal Inspection, Non Tender, Supple, Carotid Bruit Respiratory: Chest Non Tender, Lungs Clear, Normal Breath Sounds, No Accessory Muscle Use, No Respiratory Distress Cardiovascular: Regular Rate, Rhythm, No Edema, No Gallop, No JVD, No Murmur, Normal Peripheral Pulses Gastrointestinal: Normal Bowel Sounds, No Organomegaly, No Pulsatile Mass, Non Tender, Soft Back: Normal Inspection, No CVA Tenderness, No Vertebral Tenderness Extremity: Normal Capillary Refill, Normal Inspection, Normal Range of Motion, Non Tender, No Calf Tenderness, No Pedal Edema, Other (Left below the knee amputation with dressing intact) Neurologic/Psychiatric: Alert, Oriented x3, No Motor/Sensory Deficits, tosser II- XII Norm as Tested, Abnormal Gait, Depressed Affect Skin: Normal Color, Warm/Dry Lymphatic: No Adenopathy Results/Procedures Lab Patient resulted labs reviewed. FIM Transfers Therapy Code Descriptions/Definitions Functional [place] Measure: 0=Not Assessed/NA 4=Minimal Assistance 1=Total Assistance 5=Supervision or Setup 2=Maximal Assistance 6=Modified [place] 3=Moderate Assistance 7=Complete IndependenceSCALE: Activities may be completed with or without assistive devices. 0-Swfhfwxgib-wjibldv completes the activity by him/herself with no assistance from a helper. 5-Set-up or Clean-up Assistance-helper sets up or cleans up; patient completes activity. [place] assists only prior to or following the activity. 4-Supervision or Touching Assistance-helper provides verbal cues and/or touching/steadying and/or contact guard assistance as patient completes activ ity. Assistance may be provided throughout the activity or intermittently. 3-Partial/Moderate Assistance-helper does LESS THAN HALF the effort. [place] lifts, holds or supports trunk or limbs, but provides less than half the effort. 2-Substantial/Maximal Assistance-helper does MORE THAN HALF the effort. [place] lifts or holds trunk or limbs and provides more than half the effort. 2-Deiyidjpb-rxrahc does ALL the effort. Patient does none of the effort to complete the activity. Or, the assistance of 2 or more helpers is required for the patient to complete the activity. If activity was not attempted, code reason: 7-Patient Refused. 9-Not Applicable-not attempted and the patient did not perform the activity before the current illness, exacerbation or injury. 10-Not Attempted due to Environmental Limitations-(lack of equipment, weather restraints, etc.). 88-Not Attempted due to Medical Conditions or Safety Concerns. Roll Left to Right (QC): 6 Sit to Lying (QC): 6 Sit to Stand (QC): 5 Chair/Mcc-ci-Kmsym Xfer(QC): 5 Car Transfer (QC): 4 Gait Training Does the Patient Walk?: Yes Distance: 120'x2 Walk 10 feet (QC): 4 Walk 50 ft with 2 Turns(QC): 4 Walk 150 ft (QC): 88 Walking 10ft/uneven surface-QC: 4 Gait Persons Needed: 1 Gait Assistive Device: FWW Wheelchair Training Wheel 50 ft with 2 turns (QC): 4 Wheel 150 ft (QC): 4 Type of Wheelchair: Manual Stair Training #of Steps: 1 1 Step (curb) (QC): 4 4 Steps (QC): 88 12 Steps (QC): 88 Balance Picking up an Object (QC): 4 (CGA using a safety physician) ADL-Treatment Eating (QC): 6 Oral Hygiene (QC): 6 Shower/Bathe Self (QC): 6 (Pt IND with shower including covering stump prior to shower.) Upper Body Dressing (QC): 6 Lower Body Dressing (QC): 6 On/Off Footwear (QC): 6 Toileting Hygiene (QC): 4 (Supervision) Assessment/Plan Assessment and Plan Assess & Plan/Chief Complaint Assessment: 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 lower 2nd, 3rd, and 4th metatarsal with septic joint involvement Hyperglycemia, Type II Diabetes mellitus - uncontrolled started on insulin HTN Opioid use disorder - remission Elevated liver enzymes on admission with ultrasound evidence of cirrhosis Reactive Hepatitis C ab will need ct manager referral Smoker Plan: Supportive care PT and OT Pain control Bowel regimen Insulin 06/08/2022: Monitor closely 06/09/2022: Monitor closely 06/10/2022: Referrals in place (1) Below-knee amputation of left lower extremity (2) Hepatitis C (3) Opioid dependence in remission Status: Chronic (4) Hypertension Status: Chronic (5) Elevated liver enzymes Status: Acute (6) Hyperglycemia due to type 2 diabetes mellitus Status: Acute DESTIN ANNA DO Jun 10, 2022 08:57
[2022-06-10] MEDS: NICOTINE PATCH REMOVAL TP SCH (09:00)
[2022-06-10] MEDS: polyethylene glycoL POWDER 17 GM (MIRALAX) PACK PO SCH ×2 (09:00→19:50)
[2022-06-10] MEDS: LACTULOSE SYRUP 10GM/15ML (ENULOSE) 30ML UDC PO SCH ×2 (09:00→19:50)
[2022-06-10] MEDS: SENNA W/DOCUSATE (SENOKOT S) TABLET PO SCH ×2 (09:00→19:50)
[2022-06-10] MEDS: DOCUSATE SODIUM 100 MG (COLACE) CAP PO SCH ×2 (09:00→19:49)
[2022-06-10] MEDS: ENOXAPARIN 40 MG/0.4 ML (LOVENOX) SYR SC SCH (12:17)
--- NOTE | 2022-06-10 14:03 | Physical Therapy Daily Note ---
PT Daily Note-Current Subjective Pt found seated in wheelchair upon entry. Agreed to PT. Reports he is not having any pain today. Pain Section J - Health Conditions 1. Rarely or not at all 2. Occasionally 3. Frequently 4. Almost constantly 8. Unable to answer Pain Effect on Sleep: 2 Pain Interference with Therapy: 2 Pain Interference w/Day-to-Day: 2 Mental Status Patient Orientation: Person, Place, Time Transfers SCALE: Activities may be completed with or without assistive devices. 6-Nnegsrjrcv-nhsgtqr completes the activity by him/herself with no assistance from a helper. 5-Set-up or Clean-up Assistance-helper sets up or cleans up; patient completes activity. [place] assists only prior to or following the activity. 4-Supervision or Touching Assistance-helper provides verbal cues and/or touching/steadying and/or contact guard assistance as patient completes activity. Assistance may be provided throughout the activity or intermittently. 3-Partial/Moderate Assistance-helper does LESS THAN HALF the effort. [place] lifts, holds or supports trunk or limbs, but provides less than half the effort. 2-Substantial/Maximal Assistance-helper does MORE THAN HALF the effort. [place] lifts or holds trunk or limbs and provides more than half the effort. 5-Fhuaolnbl-cbjtwf does ALL the effort. Patient does none of the effort to comp lete the activity. Or, the assistance of 2 or more helpers is required for the patient to complete the activity. If activity was not attempted, code reason: 7-Patient Refused. 9-Not Applicable-not attempted and the patient did not perform the activity before the current illness, exacerbation or injury. 10-Not Attempted due to Environmental Limitations-(lack of equipment, weather restraints, etc.). 88-Not Attempted due to Medical Conditions or Safety Concerns. Sit to Lying (QC): 4 Chair/Pga-re-Tpsuf Xfer(QC): 4 Car Transfer (QC): 4 Pt SBA with verbal cues for correct hand placement during all completed transfers. Gait Training Does the Patient Walk?: Yes Distance: 60, 60 Walk 10 feet (QC): 4 Walk 50 ft with 2 Turns(QC): 4 Gait Assistive Device: FWW Pt SBA with gait training using FWW. Ambulated 60, 60 feet while hopping on intact LE. Wheelchair Training Does the Pt Use a Wheelchair?: Yes Wheel 50 ft with 2 turns (QC): 6 Wheel 150 ft (QC): 6 Type of Wheelchair: Manual Pt independent with wheelchair training. Wheeled 150 feet total. Exercises Seated Therapy Exercises: Long arc quads, Hip flexion, Hamstring Curls, Hip abd/add Seated Reps: 10 YTB. Ball for hip abd. NuStep Minutes: 5 NuStep Workload: 5 Assessment Current Status: Good Progress Pt demonstrated good muscle endurance and strength throughout visit. Reports foot pain at end of visit due to hopping on one leg. Pt able to complete gait training and transfers with SBA and verbal cues. Continue to progress pt as raisa erated per POC to increase strength, endurance, and functional ability. PT [facility] Goals [facility] Goals PT Manufacturer Representative Goals Time Frame: Jun 14, 2022 Roll Left & Right (QC): 6 Sit to Lying (QC): 6 Lying-Sitting on Side/Bed(QC): 6 Sit to Stand (QC): 6 Chair/Ybg-on-Bcdnq Xfer(QC): 6 Toilet Transfer (QC): 6 Car Transfer (QC): 6 Does the Patient Walk: Yes Walk 10 feet (QC): 6 Walk 50ft with 2 Turns (QC): 6 Walk 150 ft (QC): 88 Walking 10ft on Uneven Surface: 6 1 Step (curb) (QC): 4 (SBA) 4 Steps (QC): 4 (SBA) 12 Steps (QC): 88 Picking up an Object (QC): 6 (using wood calker) Wheel 50 feet with 2 turns (QC: 6 Wheel 150 feet: 6 PT Plan Treatment/Plan Treatment Plan: Continue Plan of Care Treatment Plan: Bed Mobility, Education, Functional Activity Angeli, Functional Strength, Group Therapy, Gait, Safety, Therapeutic Exercise, Transfers Treatment Duration: Jun 21, 2022 Frequency: At least 5 of 7 days/Wk (IRF) Estimated Hrs Per Day: 1.5 hours per day Patient and/or Family Agrees t: Yes Time Time In: 1053 Time Out: 1112 DATE: Jun 10, 2022 Total Billed Treatment Time: 19 Total Billed Treatment 1 visit EX 1x MARCELL GARCIA DIRECTOR OF CASEWORK Jun 10, 2022 14:03
[2022-06-10 20:41] VITALS: BP 127/68
[2022-06-11 07:30] VITALS: BP 124/64
--- NOTE | 2022-06-11 07:42 | PM&R Progress Note ---
Subjective HPI/CC On Admission Date Seen by Provider: Jun 11, 2022 Time Seen by Provider: 12:00 Subjective/Events-last exam 06/11/2022: No issues Sugars reasonable No falls No pain 06/10/2022: Improved overall Wants another PCP besides [facility] but the wait could be longer to get established GI appt will be obtained 06/09/2022: Improved overall Insulin maintained No falls Pain controlled 06/08/2022: Much improved overall No pain issues BM+ Sugars reviewed Review of Systems General: Fatigue, Malaise Musculoskeletal: leg pain Objective Exam Vital Signs Vital Signs Date Time Temp Pulse Resp B/P (MAP) Pulse Ox O2 Delivery O2 Flow Rate FiO2 06/11/22 09:37 Room Air 06/11/22 07:30 36.6 87 18 124/64 (84) 96 Capillary Refill : General Appearance: No Apparent Distress, WD/WN, Chronically ill HEENT: PERRL/EOMI, Normal ENT Inspection, Pharynx Normal Neck: Full Range of Motion, Normal Inspection, Non Tender, Supple, Carotid Bruit Respiratory: Chest Non Tender, Lungs Clear, Normal Breath Sounds, No Accessory Muscle Use, No Respiratory Distress Cardiovascular: Regular Rate, Rhythm, No Edema, No Gallop, No JVD, No Murmur, Normal Peripheral Pulses Gastrointestinal: Normal Bowel Sounds, No Organomegaly, No Pulsatile Mass, Non Tender, Soft Back: Normal Inspection, No CVA Tenderness, No Vertebral Tenderness Extremity: Normal Capillary Refill, Normal Inspection, Normal Range of Motion, Non Tender, No Calf Tenderness, No Pedal Edema, Other (Left below the knee amputation with dressing intact) Neurologic/Psychiatric: Alert, Oriented x3, No Motor/Sensory Deficits, paper machine tender II- XII Norm as Tested, Abnormal Gait, Depressed Affect Skin: Normal Color, Warm/Dry Lymphatic: No Adenopathy Results/Procedures Lab Patient resulted labs reviewed. [facility]IM Transfers Therapy Code Descriptions/Definitions Functional [place] Measure: 0=Not Assessed/NA 4=Minimal Assistance 1=Total Assistance 5=Supervision or Setup 2=Maximal Assistance 6=Modified [place] 3=Moderate Assistance 7=Complete IndependenceSCALE: Activities may be completed with or without assistive devices. 7-Jybeqiubpk-zomtngo completes the activity by him/herself with no assistance from a helper. 5-Set-up or Clean-up Assistance-helper sets up or cleans up; patient completes activity. [place] assists only prior to or following the activity. 4-Supervision or Touching Assistance-helper provides verbal cues and/or touching/steadying and/or contact guard assistance as patient completes act ivity. Assistance may be provided throughout the activity or intermittently. 3-Partial/Moderate Assistance-helper does LESS THAN HALF the effort. [place] lifts, holds or supports trunk or limbs, but provides less than half the effort. 2-Substantial/Maximal Assistance-helper does MORE THAN HALF the effort. [place] lifts or holds trunk or limbs and provides more than half the effort. 1-Rbyezsjqz-ggjndn does ALL the effort. Patient does none of the effort to complete the activity. Or, the assistance of 2 or more helpers is required for the patient to complete the activity. If activity was not attempted, code reason: 7-Patient Refused. 9-Not Applicable-not attempted and the patient did not perform the activity before the current illness, exacerbation or injury. 10-Not Attempted due to Environmental Limitations-(lack of equipment, weather restraints, etc.). 88-Not Attempted due to Medical Conditions or Safety Concerns. Roll Left to Right (QC): 6 Sit to Lying (QC): 4 Sit to Stand (QC): 5 Chair/Kti-yf-Mmnno Xfer(QC): 4 Car Transfer (QC): 4 Gait Training Does the Patient Walk?: Yes Distance: 60, 60 Walk 10 feet (QC): 4 Walk 50 ft with 2 Turns(QC): 4 Walk 150 ft (QC): 88 Walking 10ft/uneven surface-QC: 4 Gait Persons Needed: 1 Gait Assistive Device: FWW Wheelchair Training Does the Pt Use a Wheelchair?: Yes Wheel 50 ft with 2 turns (QC): 6 Wheel 150 ft (QC): 6 Type of Wheelchair: Manual Stair Training #of Steps: 1 1 Step (curb) (QC): 4 4 Steps (QC): 88 12 Steps (QC): 88 Balance Picking up an Object (QC): 4 (CGA using a marine service station attendant) ADL-Treatment Eating (QC): 6 Oral Hygiene (QC): 6 Shower/Bathe Self (QC): 6 (Pt IND with shower including covering stump prior to shower.) Upper Body Dressing (QC): 6 Lower Body Dressing (QC): 6 On/Off Footwear (QC): 6 Toileting Hygiene (QC): 4 (Supervision) Assessment/Plan Assessment and Plan Assess & Plan/Chief Complaint Assessment: 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 lower 2nd, 3rd, and 4th metatarsal with septic joint involvement Hyperglycemia, Type II Diabetes mellitus - uncontrolled started on insulin HTN Opioid use disorder - remission Elevated liver enzymes on admission with ultrasound evidence of cirrhosis Reactive Hepatitis C ab will need shared services and outsourcing manager referral Smoker Plan: Supportive care PT and OT Pain control Bowel regimen Insulin 06/08/2022: Monitor closely 06/09/2022: Monitor closely 06/10/2022: Referrals in place 06/11/2022: Monitor sugar (1) Below-knee amputation of left lower extremity (2) Hepatitis C (3) Opioid dependence in remission Status: Chronic (4) Hypertension Status: Chronic (5) Elevated liver enzymes Status: Acute (6) Hyperglycemia due to type 2 diabetes mellitus Status: Acute DESTIN ANNA DO Jun 11, 2022 07:42
[2022-06-11] MEDS: metFORMIN 500 MG (GLUCOPHAGE) TAB PO SCH (07:56)
[2022-06-11] MEDS: inSUlin ASPART (NovoLOG) 1 UNIT/0.01 ML (CHARGE PER UNIT) SC SCH ×3 (07:56→17:01)
[2022-06-11] MEDS: ENOXAPARIN 40 MG/0.4 ML (LOVENOX) SYR SC SCH (08:54)
[2022-06-11] MEDS: NICOTINE 14 MG (NICODERM) PATCH TD SCH (08:55)
[2022-06-11] MEDS: FERROUS SULF 325 MG (IRON) TAB PO SCH (08:56)
[2022-06-11] MEDS: EMPAGLIFLOZIN 10 MG TABLET (JARDIANCE) PO SCH (08:56)
[2022-06-11] MEDS: GABAPENTIN 100 MG (NEURONTIN) CAP PO SCH ×3 (08:56→21:56)
[2022-06-11] MEDS: LACTULOSE SYRUP 10GM/15ML (ENULOSE) 30ML UDC PO SCH ×2 (08:58→19:33)
[2022-06-11] MEDS: DOCUSATE SODIUM 100 MG (COLACE) CAP PO SCH ×2 (08:58→19:33)
[2022-06-11] MEDS: polyethylene glycoL POWDER 17 GM (MIRALAX) PACK PO SCH ×2 (08:58→19:33)
[2022-06-11] MEDS: lisINopril 10 MG (PRINIVIL) TABLET PO SCH (08:59)
[2022-06-11] MEDS: amLODIPine 5 MG (NORVASC) TAB PO SCH (08:59)
[2022-06-11] MEDS: LORazepam 1 MG (ATIVAN) TAB PO PRN ×3 (09:02→22:00)
[2022-06-11] MEDS: oxyCODONE/APAP 7.5-325 MG (PERCOCET 7.5) TABLET PO PRN ×3 (09:03→22:02)
[2022-06-11] MEDS: SENNA W/DOCUSATE (SENOKOT S) TABLET PO SCH ×2 (09:15→19:33)
[2022-06-11] MEDS: NICOTINE PATCH REMOVAL TP SCH (09:16)
[2022-06-11 19:50] VITALS: BP 128/61
[2022-06-12] MEDS: oxyCODONE/APAP 7.5-325 MG (PERCOCET 7.5) TABLET PO PRN ×4 (02:45→21:48)
--- NOTE | 2022-06-12 06:17 | PM&R Progress Note ---
Subjective HPI/CC On Admission Date Seen by Provider: Jun 12, 2022 Time Seen by Provider: 09:00 Subjective/Events-last exam 06/12/2022: Patient doing well Sugars stable Unable to secure f/u appointments easily SW securing PCP appt at [facility] and in process for GI 06/11/2022: No issues Sugars reasonable No falls No pain 06/10/2022: Improved overall Wants another PCP besides [facility] but the wait could be longer to get established GI appt will be obtained 06/09/2022: Improved overall Insulin maintained No falls Pain controlled 06/08/2022: Much improved overall No pain issues BM+ Sugars reviewed Review of Systems General: Fatigue, Malaise Musculoskeletal: leg pain Objective Exam Vital Signs Vital Signs Date Time Temp Pulse Resp B/P (MAP) Pulse Ox O2 Delivery O2 Flow Rate FiO2 06/12/22 21:55 Room Air 06/12/22 20:42 36.4 95 16 126/63 (84) 100 Capillary Refill : General Appearance: No Apparent Distress, WD/WN, Chronically ill HEENT: PERRL/EOMI, Normal ENT Inspection, Pharynx Normal Neck: Full Range of Motion, Normal Inspection, Non Tender, Supple, Carotid Bruit Respiratory: Chest Non Tender, Lungs Clear, Normal Breath Sounds, No Accessory Muscle Use, No Respiratory Distress Cardiovascular: Regular Rate, Rhythm, No Edema, No Gallop, No JVD, No Murmur, Normal Peripheral Pulses Gastrointestinal: Normal Bowel Sounds, No Organomegaly, No Pulsatile Mass, Non Tender, Soft Back: Normal Inspection, No CVA Tenderness, No Vertebral Tenderness Extremity: Normal Capillary Refill, Normal Inspection, Normal Range of Motion, Non Tender, No Calf Tenderness, No Pedal Edema, Other (Left below the knee amputation with dressing intact) Neurologic/Psychiatric: Alert, Oriented x3, No Motor/Sensory Deficits, rail 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 FIM Transfers Therapy Code Descriptions/Definitions Functional [place] Measure: 0=Not Assessed/NA 4=Minimal Assistance 1=Total Assistance 5=Supervision or Setup 2=Maximal Assistance 6=Modified [place] 3=Moderate Assistance 7=Complete IndependenceSCALE: Activities may be completed with or without assistive devices. 8-Ixzjhgtdls-hlepctp completes the activity by him/herself with no assistance from a helper. 5-Set-up or Clean-up Assistance-helper sets up or cleans up; patient completes activity. [place] assists only prior to or following the activity. 4-Supervision or Touching Assistance-helper provides verbal cues and/or touching/steadying and/or contact guard assistance as patient completes activity. Assistance may be provided throughout the activity or intermittently. 3-Partial/Moderate Assistance-helper does LESS THAN HALF the effort. [place] lifts, holds or supports trunk or limbs, but provides less than half the effort. 2-Substantial/Maximal Assistance-helper does MORE THAN HALF the effort. [place] lifts or holds trunk or limbs and provides more than half the effort. 1-Lchekbmvk-dnycnh does ALL the effort. Patient does none of the effort to complete the activity. Or, the assistance of 2 or more helpers is required for the patient to complete the activity. If activity was not attempted, code reason: 7-Patient Refused. 9-Not Applicable-not attempted and the patient did not perform the activity before the current illness, exacerbation or injury. 10-Not Attempted due to Environmental Limitations-(lack of equipment, weather restraints, etc.). 88-Not Attempted due to Medical Conditions or Safety Concerns. Roll Left to Right (QC): 6 Sit to Lying (QC): 4 Sit to Stand (QC): 5 Chair/Gfb-gh-Mvate Xfer(QC): 4 Car Transfer (QC): 4 Gait Training Does the Patient Walk?: Yes Distance: 60, 60 Walk 10 feet (QC): 4 Walk 50 ft with 2 Turns(QC): 4 Walk 150 ft (QC): 88 Walking 10ft/uneven surface-QC: 4 Gait Persons Needed: 1 Gait Assistive Device: FWW Wheelchair Training Does the Pt Use a Wheelchair?: Yes Wheel 50 ft with 2 turns (QC): 6 Wheel 150 ft (QC): 6 Type of Wheelchair: Manual Stair Training #of Steps: 1 1 Step (curb) (QC): 4 4 Steps (QC): 88 12 Steps (QC): 88 Balance Picking up an Object (QC): 4 (CGA using a fire lieutenant marine) ADL-Treatment Eating (QC): 6 Oral Hygiene (QC): 6 Shower/Bathe Self (QC): 6 (Pt IND with shower including covering stump prior to shower.) Upper Body Dressing (QC): 6 Lower Body Dressing (QC): 6 On/Off Footwear (QC): 6 Toileting Hygiene (QC): 4 (Supervision) Assessment/Plan Assessment and Plan Assess & Plan/Chief Complaint Assessment: 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 lower 2nd, 3rd, and 4th metatarsal with septic joint involvement Hyperglycemia, Type II Diabetes mellitus - uncontrolled started on insulin HTN Opioid use disorder - remission Elevated liver enzymes on admission with ultrasound evidence of cirrhosis Reactive Hepatitis C ab will need crab backer referral Smoker Plan: Supportive care PT and OT Pain control Bowel regimen Insulin 06/08/2022: Monitor closely 06/09/2022: Monitor closely 06/10/2022: Referrals in place 06/11/2022: Monitor sugar 06/12/2022: Sugar management (1) Below-knee amputation of left lower extremity (2) Hepatitis C (3) Opioid dependence in remission Status: Chronic (4) Hypertension Status: Chronic (5) Elevated liver enzymes Status: Acute (6) Hyperglycemia due to type 2 diabetes mellitus Status: Acute DESTIN ANNA DO Jun 12, 2022 06:17
[2022-06-12 06:41] LABS: BASOPHILS # (AUTO) 0.1 10^3/uL (0.0-0.1); BASOPHILS % (AUTO) 1 % (0-10); EOSINOPHILS # (AUTO) 0.2 10^3/uL (0.0-0.3); EOSINOPHILS % (AUTO) 2 % (0-10); HEMATOCRIT 33 % (40-54); HEMOGLOBIN 11.3 g/dL (13.3-17.7); LYMPHOCYTES % (AUTO) 33 % (12-44); MEAN CORPUSCULAR HEMOGLOBIN 29 pg (25-34); MEAN CORPUSCULAR HGB CONC 34 g/dL (32-36); MEAN CORPUSCULAR VOLUME 85 fL (80-99); MONOCYTES # (AUTO) 0.9 10^3/uL (0.0-1.0); MONOCYTES % (AUTO) 10 % (0-12); NEUTROPHILS % (AUTO) 54 % (42-75); PLATELET COUNT 195 10^3/uL (130-400); WHITE BLOOD COUNT 9.1 10^3/uL (4.3-11.0)
[2022-06-12 06:54] LABS: ALBUMIN 2.5 GM/DL (3.2-4.5); POTASSIUM 3.9 MMOL/L (3.6-5.0)
[2022-06-12 06:55] LABS: CALCIUM 8.3 MG/DL (8.5-10.1)
[2022-06-12 06:56] LABS: TOTAL PROTEIN 6.9 GM/DL (6.4-8.2)
[2022-06-12 06:58] LABS: BILIRUBIN,TOTAL 0.5 MG/DL (0.1-1.0)
[2022-06-12 07:00] LABS: CREATININE SERUM 0.63 MG/DL (0.60-1.30)
[2022-06-12 08:00] VITALS: BP 118/74
[2022-06-12] MEDS: metFORMIN 500 MG (GLUCOPHAGE) TAB PO SCH (08:45)
[2022-06-12] MEDS: amLODIPine 5 MG (NORVASC) TAB PO SCH (08:45)
[2022-06-12] MEDS: FERROUS SULF 325 MG (IRON) TAB PO SCH (08:45)
[2022-06-12] MEDS: EMPAGLIFLOZIN 10 MG TABLET (JARDIANCE) PO SCH (08:45)
[2022-06-12] MEDS: GABAPENTIN 100 MG (NEURONTIN) CAP PO SCH ×3 (08:46→21:49)
[2022-06-12] MEDS: NICOTINE 14 MG (NICODERM) PATCH TD SCH (08:46)
[2022-06-12] MEDS: inSUlin ASPART (NovoLOG) 1 UNIT/0.01 ML (CHARGE PER UNIT) SC SCH ×3 (08:47→17:40)
[2022-06-12] MEDS: ENOXAPARIN 40 MG/0.4 ML (LOVENOX) SYR SC SCH (08:47)
[2022-06-12] MEDS: NICOTINE PATCH REMOVAL TP SCH (08:48)
[2022-06-12] MEDS: LACTULOSE SYRUP 10GM/15ML (ENULOSE) 30ML UDC PO SCH ×2 (08:49→21:50)
[2022-06-12] MEDS: DOCUSATE SODIUM 100 MG (COLACE) CAP PO SCH ×2 (08:49→21:50)
[2022-06-12] MEDS: lisINopril 10 MG (PRINIVIL) TABLET PO SCH (08:49)
[2022-06-12] MEDS: polyethylene glycoL POWDER 17 GM (MIRALAX) PACK PO SCH ×2 (08:49→21:50)
[2022-06-12] MEDS: SENNA W/DOCUSATE (SENOKOT S) TABLET PO SCH ×2 (08:49→21:50)
--- NOTE | 2022-06-12 09:54 | Physical Therapy Daily Note ---
PT Daily Note-Current Subjective Patient in bed pre tx, agrees to PT, has 5/10 pain in left leg. Pain Section J - Health Conditions 1. Rarely or not at all 2. Occasionally 3. Frequently 4. Almost constantly 8. Unable to answer Pain Effect on Sleep: 2 Pain Interference with Therapy: 2 Pain Interference w/Day-to-Day: 2 Appearance Patient in bed post tx with nurse call, phone, tray, all needs met. Mental Status Patient Orientation: Normal For Age Transfers SCALE: Activities may be completed with or without assistive devices. 3-Yqkwhcgtei-hbwtlju completes the activity by him/herself with no assistance from a helper. 5-Set-up or Clean-up Assistance-helper sets up or cleans up; patient completes activity. [place] assists only prior to or following the activity. 4-Supervision or Touching Assistance-helper provides verbal cues and/or touching/steadying and/or contact guard assistance as patient completes activity. Assistance may be provided throughout the activity or intermittently. 3-Partial/Moderate Assistance-helper does LESS THAN HALF the effort. [place] lifts, holds or supports trunk or limbs, but provides less than half the effort. 2-Substantial/Maximal Assistance-helper does MORE THAN HALF the effort. [place] lifts or holds trunk or limbs and provides more than half the effort. 2-Kbqrjzmbt-fpawqd does ALL the effort. Patient does none of the effort to complete the activity. Or, the assistance of 2 or more helpers is required for the patient to complete the activity. If activity was not attempted, code reason: 7-Patient Refused. 9-Not Applicable-not attempted and the patient did not perform the activity before the current illness, exacerbation or injury. 10-Not Attempted due to Environmental Limitations-(lack of equipment, weather restraints, etc.). 88-Not Attempted due to Medical Conditions or Safety Concerns. Roll Left & Right (QC): 6 Sit to Lying (QC): 6 Lying to Sitting/Side of Bed(Q: 6 Sit to Stand (QC): 6 Chair/Twu-ie-Arury Xfer(QC): 4 Toilet Transfer (QC): 4 During tx patient states he needs to have a BM, ambulates back to his room and into the restroom, toilet transfers SBA, needed some help to manage his pants trying to get them back on, is able to clean himself. Gait Training Distance: 120'x4 Walk 10 feet (QC): 4 Walk 50 ft with 2 Turns(QC): 4 Walk 150 ft (QC): 4 Gait Persons Needed: 1 Gait Assistive Device: FWW SBA, good hopping, tends to go a little fast Exercises prone hip stretch 5 min, supine knee extension stretch (L) 5 min NuStep Minutes: 15 NuStep Workload: 4 Treatments bed mobility and transfers, ambulation, strengthening, stretching Assessment Current Status: Fair Progress progressing with mobility, maintaining good ROM in preparation for prosthetic limb in the future PT Longterm Goals Customer Sales Advisor Goals PT Customer Sales Advisor Goals Time Frame: Jun 14, 2022 Roll Left & Right (QC): 6 Sit to Lying (QC): 6 Lying-Sitting on Side/Bed(QC): 6 Sit to Stand (QC): 6 Chair/Eks-nl-Qneqs Xfer(QC): 6 Toilet Transfer (QC): 6 Car Transfer (QC): 6 Does the Patient Walk: Yes Walk 10 feet (QC): 6 Walk 50ft with 2 Turns (QC): 6 Walk 150 ft (QC): 88 Walking 10ft on Uneven Surface: 6 1 Step (curb) (QC): 4 (SBA) 4 Steps (QC): 4 (SBA) 12 Steps (QC): 88 Picking up an Object (QC): 6 (using chief mechanical engineer) Wheel 50 feet with 2 turns (QC: 6 Wheel 150 feet: 6 PT Plan Problem List Problem List: Activity Tolerance, Functional Strength, Safety, Balance, Gait, Transfer, ROM Treatment/Plan Treatment Plan: Continue Plan of Care Treatment Plan: Bed Mobility, Education, Functional Activity Angeli, Functional Strength, Group Therapy, Gait, Safety, Therapeutic Exercise, Transfers Treatment Duration: Jun 21, 2022 Frequency: At least 5 of 7 days/Wk (IRF) Estimated Hrs Per Day: 1.5 hours per day Patient and/or Family Agrees t: Yes Safety Risks/Education Patient Education: Gait Training, Transfer Techniques, Correct Positioning, Safety Issues Teaching Recipient: Patient Teaching Methods: Demonstration, Discussion Response to Teaching: Reinforcement Needed Time Time In: 0900 Time Out: 1000 DATE: Jun 12, 2022 Total Billed Treatment Time: 60 Total Billed Treatment 1 visit EX 25' FA 35' ANNIKA DONALD PT Jun 12, 2022 09:54
--- NOTE | 2022-06-12 10:17 | Occupational Ther Daily Note ---
OT Current Status-Daily Note Subjective Pt seated EOB, agreeable to OT tx with focus on ADLs. Mental Status/Objective Patient Orientation: Normal For Age ADL-Treatment Therapy Code Descriptions/Definitions Functional [place] Measure: 0=Not Assessed/NA 4=Minimal Assistance 1=Total Assistance 5=Supervision or Setup 2=Maximal Assistance 6=Modified [place] 3=Moderate Assistance 7=Complete IndependenceSCALE: Activities may be completed with or without assistive devices. 0-Vhomrwraji-frronmu completes the activity by him/herself with no assistance from a helper. 5-Set-up or Clean-up Assistance-helper sets up or cleans up; patient completes activity. [place] assists only prior to or following the activity. 4-Supervision or Touching Assistance-helper provides verbal cues and/or touching/steadying and/or contact guard assistance as patient completes activity. Assistance may be provided throughout the activity or intermittently. 3-Partial/Moderate Assistance-helper does LESS THAN HALF the effort. [place] lifts, holds or supports trunk or limbs, but provides less than half the effort. 2-Substantial/Maximal Assistance-helper does MORE THAN HALF the effort. [place] lifts or holds trunk or limbs and provides more than half the effort. 8-Vmsmgrqvi-qdzxxu does ALL the effort. Patient does none of the effort to complete the activity. Or, the assistance of 2 or more helpers is required for the patient to complete the activity. If activity was not attempted, code reason: 7-Patient Refused. 9-Not Applicable-not attempted and the patient did not perform the activity before the current illness, exacerbation or injury. 10-Not Attempted due to Environmental Limitations-(lack of equipment, weather restraints, etc.). 88-Not Attempted due to Medical Conditions or Safety Concerns. Eating (QC): 6 Oral Hygiene (QC): 6 Shower/Bathe Self (QC): 6 Upper Body Dressing (QC): 6 Lower Body Dressing (QC): 6 On/Off Footwear: 6 Other Treatment Pt EOB, used FWW to gather clothes from closet, then transferred to NC. Pt doffed clothes, covered stump prior to shower, completed showering then dressing. Pt transferred to w/c, requests to take w/c to therapy gym due to not having a shoe on R foot and states hopping long distances causes him to feel the impact. Pt propelled w/c to therapy gym independently. OT tx focused on increasing BUE strength and activity tolerance. Pt completed arm bike x15 mins, 20 Watt resistance with multiple rest breaks. Pt completed UE reaching task, placing/removing 1" pegs from foam pegboard, alternating hands, RB as needed. Pt performed w/c mobility around ARU common area and 2nd floor, IND. Pt returned to his room, SPT to EOB and supine IND. Pt completed eating IND. Post tx, pt in bed, call light in reach and all needs met. Education OT Patient Education: Correct positioning, Energy conservation, Modified ADL techniques, Progress toward Goal/Update tx plan, Purpose of tx/functional activities Teaching Recipient: Patient Teaching Methods: Discussion Response to Teaching: Verbalize Understanding OT Gift Consultant Goals Mcc Goals Time Frame: Jun 30, 2022 Acute change in mental status: 0 Inattention: 0 Disorganized thinkin Altered level of consciousness: 0 Eating (QC): 6 Oral Hygiene (QC): 6 Toileting Hygiene (QC): 6 Shower/Bathe Self (QC): 6 Upper Body Dressing (QC): 6 Lower Body Dressing (QC): 6 On/Off Footwear (QC): 6 Additional Goals: 1-Demonstrate ADL Tasks, 2-Verbalize Understanding, 3-ImproveStrength/Angeli 1=Demonstrate adherence to instructed precautions during ADL tasks. 2=Patient will verbalize/demonstrate understanding of assistive devices/modifications for ADL. 3=Patient will improve strength/tolerance for activity to enable patient to perform ADL's. OT Education/Plan Problem List/Assessment Assessment: Decreased Activ Tolerance, Decreased UE Strength, Impaired Funct Balance, Impaired I ADL's Discharge Recommendations Plan/Recommendations: Continue POC Treatment Plan/Plan of Care Patient would benefit from OT for education, treatment and training to promote independence in ADL's, mobility, safety and/or upper extremity function for ADL's. Plan of Care: ADL Retraining, Functional Mobility, Group Exercise/Act as Ind, UE Funct Exercise/Act Treatment Duration: Jun 30, 2022 Frequency: At least 5 of 7 days/Wk (IRF) Estimated Hrs Per Day: 1.5 hours per day Agreement: Yes Rehab Potential: Fair Time Start Time: 10:00 Stop Time: 11:30 DATE: Jun 12, 2022 Total Time Billed (hr/min): 90 Billed Treatment Time 1, ADL 3 (45'), EX (15'), FA 2 (30') JESSICA ULLOA OT Jun 12, 2022 10:17
[2022-06-12 11:24] VITALS: BP 127/67
--- NOTE | 2022-06-12 11:50 | Physical Therapy Daily Note ---
PT Daily Note-Current Subjective Patient in bed pre tx, agrees to exercises in bed, patient says he doesn't feel well and doesn't want to get up. Pain Section J - Health Conditions 1. Rarely or not at all 2. Occasionally 3. Frequently 4. Almost constantly 8. Unable to answer Pain Effect on Sleep: 2 Pain Interference with Therapy: 2 Pain Interference w/Day-to-Day: 2 Appearance Patient in bed post tx with nurse call, phone, tray, all needs met. Mental Status Patient Orientation: Normal For Age Transfers SCALE: Activities may be completed with or without assistive devices. 2-Uvohomovym-kbtdrtp completes the activity by him/herself with no assistance from a helper. 5-Set-up or Clean-up Assistance-helper sets up or cleans up; patient completes activity. [place] assists only prior to or following the activity. 4-Supervision or Touching Assistance-helper provides verbal cues and/or touching/steadying and/or contact guard assistance as patient completes activity. Assistance may be provided throughout the activity or intermittently. 3-Partial/Moderate Assistance-helper does LESS THAN HALF the effort. [place] lifts, holds or supports trunk or limbs, but provides less than half the effort. 2-Substantial/Maximal Assistance-helper does MORE THAN HALF the effort. [place] lifts or holds trunk or limbs and provides more than half the effort. 8-Epnhdpbwa-wxxrww does ALL the effort. Patient does none of the effort to complete the activity. Or, the assistance of 2 or more helpers is required for the patient to complete the activity. If activity was not attempted, code reason: 7-Patient Refused. 9-Not Applicable-not attempted and the patient did not perform the activity before the current illness, exacerbation or injury. 10-Not Attempted due to Environmental Limitations-(lack of equipment, weather restraints, etc.). 88-Not Attempted due to Medical Conditions or Safety Concerns. Exercises Supine Ex: Bridging (using only RLE), Ankle pumps (RLE), Quad Set, Glut sets, Heel Slides (on LLE just elevated leg and did knee flex/ext), Short Arc Quads, Straight leg raise, Hip abd/add Supine Reps: 20 Treatments LE ROM/strengthening Assessment Current Status: Fair Progress fair progress overall but patient needed a couple of rest breaks and was very tired. PT Librarian Head Goals Librarian Head Goals PT Retirement Goals Time Frame: Jun 14, 2022 Roll Left & Right (QC): 6 Sit to Lying (QC): 6 Lying-Sitting on Side/Bed(QC): 6 Sit to Stand (QC): 6 Chair/Aoj-wc-Vyeyd Xfer(QC): 6 Toilet Transfer (QC): 6 Car Transfer (QC): 6 Does the Patient Walk: Yes Walk 10 feet (QC): 6 Walk 50ft with 2 Turns (QC): 6 Walk 150 ft (QC): 88 Walking 10ft on Uneven Surface: 6 1 Step (curb) (QC): 4 (SBA) 4 Steps (QC): 4 (SBA) 12 Steps (QC): 88 Picking up an Object (QC): 6 (using pneumatic tester) Wheel 50 feet with 2 turns (QC: 6 Wheel 150 feet: 6 PT Plan Problem List Problem List: Activity Tolerance, Functional Strength, Safety, Balance, Gait, Transfer, Bed Mobility, ROM Treatment/Plan Treatment Plan: Continue Plan of Care Treatment Plan: Bed Mobility, Education, Functional Activity Angeli, Functional Strength, Group Therapy, Gait, Safety, Therapeutic Exercise, Transfers Treatment Duration: Jun 21, 2022 Frequency: At least 5 of 7 days/Wk (IRF) Estimated Hrs Per Day: 1.5 hours per day Patient and/or Family Agrees t: Yes Safety Risks/Education Patient Education: Correct Positioning, Safety Issues Teaching Recipient: Patient Teaching Methods: Demonstration, Discussion Response to Teaching: Reinforcement Needed Time Time In: 1130 Time Out: 1200 DATE: Jun 12, 2022 Total Billed Treatment Time: 30 Total Billed Treatment 1 visit EX 30' ANNIKA DONALD PT Jun 12, 2022 11:50
[2022-06-12] MEDS: LORazepam 1 MG (ATIVAN) TAB PO PRN ×2 (12:48→21:49)
[2022-06-12 20:42] VITALS: BP 126/63
--- NOTE | 2022-06-13 06:01 | PM&R Progress Note ---
Subjective HPI/CC On Admission Date Seen by Provider: Jun 13, 2022 Time Seen by Provider: 09:00 Subjective/Events-last exam 06/13/2022: Doing well Increased Gabapentin for phanthom pains DC tomorrow 06/12/2022: Patient doing well Sugars stable Unable to secure f/u appointments easily SW securing PCP appt at [facility] and in process for GI 06/11/2022: No issues Sugars reasonable No falls No pain 06/10/2022: Improved overall Wants another PCP besides [facility] but the wait could be longer to get established GI appt will be obtained 06/09/2022: Improved overall Insulin maintained No falls Pain controlled 06/08/2022: Much improved overall No pain issues BM+ Sugars reviewed Review of Systems General: Fatigue, Malaise Objective Exam Vital Signs Vital Signs Date Time Temp Pulse Resp B/P (MAP) Pulse Ox O2 Delivery O2 Flow Rate FiO2 06/13/22 20:30 Room Air 06/13/22 20:00 36.9 95 20 131/65 (87) 98 Capillary Refill : General Appearance: No Apparent Distress, WD/WN, Chronically ill HEENT: PERRL/EOMI, Normal ENT Inspection, Pharynx Normal Neck: Full Range of Motion, Normal Inspection, Non Tender, Supple, Carotid Bruit Respiratory: Chest Non Tender, Lungs Clear, Normal Breath Sounds, No Accessory Muscle Use, No Respiratory Distress Cardiovascular: Regular Rate, Rhythm, No Edema, No Gallop, No JVD, No Murmur, Normal Peripheral Pulses Gastrointestinal: Normal Bowel Sounds, No Organomegaly, No Pulsatile Mass, Non Tender, Soft Back: Normal Inspection, No CVA Tenderness, No Vertebral Tenderness Extremity: Normal Capillary Refill, Normal Inspection, Normal Range of Motion, Non Tender, No Calf Tenderness, No Pedal Edema, Other (Left below the knee amputation with dressing intact) Neurologic/Psychiatric: Alert, Oriented x3, No Motor/Sensory Deficits, biomedical engineering supervisor II- XII Norm as Tested, Abnormal Gait, Depressed Affect Skin: Normal Color, Warm/Dry Lymphatic: No Adenopathy Results/Procedures Lab Patient resulted labs reviewed. FIM Transfers Therapy Code Descriptions/Definitions Functional [place] Measure: 0=Not Assessed/NA 4=Minimal Assistance 1=Total Assistance 5=Supervision or Setup 2=Maximal Assistance 6=Modified [place] 3=Moderate Assistance 7=Complete IndependenceSCALE: Activities may be completed with or without assistive devices. 7-Nofztoqtxw-dsllrum completes the activity by him/herself with no assistance from a helper. 5-Set-up or Clean-up Assistance-helper sets up or cleans up; patient completes activity. [place] assists only prior to or following the activity. 4-Supervision or Touching Assistance-helper provides verbal cues and/or touching/steadying and/or contact guard assistance as patient completes activity. Assistance may be provided throughout the activity or intermittently. 3-Partial/Moderate Assistance-helper does LESS THAN HALF the effort. [place] lifts, holds or supports trunk or limbs, but provides less than half the effort. 2-Substantial/Maximal Assistance-helper does MORE THAN HALF the effort. [place] lifts or holds trunk or limbs and provides more than half the effort. 5-Lcurfdaqu-ufljwc does ALL the effort. Patient does none of the effort to complete the activity. Or, the assistance of 2 or more helpers is required for the patient to complete the activity. If activity was not attempted, code reason: 7-Patient Refused. 9-Not Applicable-not attempted and the patient did not perform the activity before the current illness, exacerbation or injury. 10-Not Attempted due to Environmental Limitations-(lack of equipment, weather restraints, etc.). 88-Not Attempted due to Medical Conditions or Safety Concerns. Roll Left to Right (QC): 6 Sit to Lying (QC): 6 Sit to Stand (QC): 6 Chair/Uga-no-Ycpyz Xfer(QC): 4 Car Transfer (QC): 4 Gait Training Does the Patient Walk?: Yes Distance: 120'x4 Walk 10 feet (QC): 4 Walk 50 ft with 2 Turns(QC): 4 Walk 150 ft (QC): 4 Walking 10ft/uneven surface-QC: 4 Gait Persons Needed: 1 Gait Assistive Device: FWW Wheelchair Training Does the Pt Use a Wheelchair?: Yes Wheel 50 ft with 2 turns (QC): 6 Wheel 150 ft (QC): 6 Type of Wheelchair: Manual Stair Training #of Steps: 1 1 Step (curb) (QC): 4 4 Steps (QC): 88 12 Steps (QC): 88 Balance Picking up an Object (QC): 4 (CGA using a asphalt coater) ADL-Treatment Eating (QC): 6 Oral Hygiene (QC): 6 Shower/Bathe Self (QC): 6 Upper Body Dressing (QC): 6 Lower Body Dressing (QC): 6 On/Off Footwear (QC): 6 Toileting Hygiene (QC): 4 (Supervision) Assessment/Plan Assessment and Plan Assess & Plan/Chief Complaint Assessment: 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 lower 2nd, 3rd, and 4th metatarsal with septic joint involvement Hyperglycemia, Type II Diabetes mellitus - uncontrolled started on insulin HTN Opioid use disorder - remission Elevated liver enzymes on admission with ultrasound evidence of cirrhosis Reactive Hepatitis C ab will need chemical analytical sampler referral Smoker Plan: Supportive care PT and OT Pain control Bowel regimen Insulin 06/08/2022: Monitor closely 06/09/2022: Monitor closely 06/10/2022: Referrals in place 06/11/2022: Monitor sugar 06/12/2022: Sugar management 06/13/2022: Monitor closely (1) Below-knee amputation of left lower extremity (2) Hepatitis C (3) Opioid dependence in remission Status: Chronic (4) Hypertension Status: Chronic (5) Elevated liver enzymes Status: Acute (6) Hyperglycemia due to type 2 diabetes mellitus Status: Acute DESTIN ANNA DO Jun 13, 2022 06:01
[2022-06-13] MEDS: metFORMIN 500 MG (GLUCOPHAGE) TAB PO SCH (07:21)
[2022-06-13] MEDS: inSUlin ASPART (NovoLOG) 1 UNIT/0.01 ML (CHARGE PER UNIT) SC SCH ×3 (07:22→17:31)
[2022-06-13 08:00] VITALS: BP 137/72
[2022-06-13] MEDS: NICOTINE PATCH REMOVAL TP SCH (08:05)
[2022-06-13] MEDS: SENNA W/DOCUSATE (SENOKOT S) TABLET PO SCH ×2 (08:06→19:56)
[2022-06-13] MEDS: polyethylene glycoL POWDER 17 GM (MIRALAX) PACK PO SCH ×2 (08:06→19:56)
[2022-06-13] MEDS: LACTULOSE SYRUP 10GM/15ML (ENULOSE) 30ML UDC PO SCH ×2 (08:06→19:55)
[2022-06-13] MEDS: DOCUSATE SODIUM 100 MG (COLACE) CAP PO SCH ×2 (08:07→19:55)
[2022-06-13] MEDS: FERROUS SULF 325 MG (IRON) TAB PO SCH (08:19)
[2022-06-13] MEDS: EMPAGLIFLOZIN 10 MG TABLET (JARDIANCE) PO SCH (08:19)
[2022-06-13] MEDS: amLODIPine 5 MG (NORVASC) TAB PO SCH (08:20)
[2022-06-13] MEDS: GABAPENTIN 100 MG (NEURONTIN) CAP PO SCH ×4 (08:20→20:29)
[2022-06-13] MEDS: lisINopril 10 MG (PRINIVIL) TABLET PO SCH (08:20)
[2022-06-13] MEDS: NICOTINE 14 MG (NICODERM) PATCH TD SCH (08:24)
[2022-06-13] MEDS: ENOXAPARIN 40 MG/0.4 ML (LOVENOX) SYR SC SCH (08:24)
[2022-06-13] MEDS: LORazepam 1 MG (ATIVAN) TAB PO PRN ×3 (08:31→20:14)
[2022-06-13] MEDS: oxyCODONE/APAP 7.5-325 MG (PERCOCET 7.5) TABLET PO PRN ×4 (08:33→22:49)
--- NOTE | 2022-06-13 09:48 | Physical Therapy Daily Note ---
PT Daily Note-Current Subjective Patient in WC pre tx, agrees to PT, states he has very little pain. Patient is a little agitated and wants to go home. Pain Section J - Health Conditions 1. Rarely or not at all 2. Occasionally 3. Frequently 4. Almost constantly 8. Unable to answer Pain Effect on Sleep: 2 Pain Interference with Therapy: 2 Pain Interference w/Day-to-Day: 2 Appearance Patient in bed post tx with nurse call, phone, tray, all needs met. Mental Status Patient Orientation: Normal For Age Transfers SCALE: Activities may be completed with or without assistive devices. 5-Pkjirjlurd-ltlrfpv completes the activity by him/herself with no assistance from a helper. 5-Set-up or Clean-up Assistance-helper sets up or cleans up; patient completes activity. [place] assists only prior to or following the activity. 4-Supervision or Touching Assistance-helper provides verbal cues and/or touching/steadying and/or contact guard assistance as patient completes activity. Assistance may be provided throughout the activity or intermittently. 3-Partial/Moderate Assistance-helper does LESS THAN HALF the effort. [place] lifts, holds or supports trunk or limbs, but provides less than half the effort. 2-Substantial/Maximal Assistance-helper does MORE THAN HALF the effort. [place] lifts or holds trunk or limbs and provides more than half the effort. 4-Rarszlzjd-bclgfh does ALL the effort. Patient does none of the effort to complete the activity. Or, the assistance of 2 or more helpers is required for the patient to complete the activity. If activity was not attempted, code reason: 7-Patient Refused. 9-Not Applicable-not attempted and the patient did not perform the activity before the current illness, exacerbation or injury. 10-Not Attempted due to Environmental Limitations-(lack of equipment, weather restraints, etc.). 88-Not Attempted due to Medical Conditions or Safety Concerns. Roll Left & Right (QC): 6 Sit to Lying (QC): 6 Lying to Sitting/Side of Bed(Q: 6 Sit to Stand (QC): 6 Chair/Qgb-rk-Dvpnt Xfer(QC): 6 Toilet Transfer (QC): 6 Car Transfer (QC): 6 Patient performs rolling and supine <-> sit with independence, sit <-> stand and transfers independent, car transfer independent. Gait Training Distance: 150'x2 Walk 10 feet (QC): 6 Walk 50 ft with 2 Turns(QC): 6 Walk 150 ft (QC): 6 Walking 10ft/uneven surface-QC: 6 Gait Assistive Device: FWW Patient can ambulate 150' with a rolling walker with independence (including 50' with at least 2 turns of 90 degrees and 10' over an uneven surface). Patient is pretty fatigued after ambulating that distance. Wheelchair Training Wheel 50 ft with 2 turns (QC): 6 Wheel 150 ft (QC): 6 Type of Wheelchair: Manual Patient can propel a manual WC over 150' with independence. Stair Training Stair Training: Handrails/: uses walker #of Steps: 1 1 Step (curb) (QC): 4 4 Steps (QC): 88 12 Steps (QC): 88 Patient can go up and down 1 step using a rolling walker with SBA. Patient was describing the steps he will have to go up and down at his aunt's house and it sounds like he has 3 to manage but they are only about 2 inches tall each. He said there is one handrail. Recommended he use the handrail on one side and the support of another person on the other and he should be able to manage well. Balance Picking up an Object (QC): 6 (using electrical and instrument technician) Exercises prone hip flexor stretch 5 min, supine left knee extension stretch 5 min NuStep Minutes: 15 NuStep Workload: 4 Treatments bed mobility and transfers, ambulation, strengthening, stretching Assessment Current Status: Fair Progress patient is now independent with ambulation and transfers PT Shelter Goals Shelter Goals PT Shelter Goals Time Frame: Jun 14, 2022 Roll Left & Right (QC): 6 Sit to Lying (QC): 6 Lying-Sitting on Side/Bed(QC): 6 Sit to Stand (QC): 6 Chair/Fwr-rb-Ocewj Xfer(QC): 6 Toilet Transfer (QC): 6 Car Transfer (QC): 6 Does the Patient Walk: Yes Walk 10 feet (QC): 6 Walk 50ft with 2 Turns (QC): 6 Walk 150 ft (QC): 88 Walking 10ft on Uneven Surface: 6 1 Step (curb) (QC): 4 (SBA) 4 Steps (QC): 4 (SBA) 12 Steps (QC): 88 Picking up an Object (QC): 6 (using electrical and instrument technician) Wheel 50 feet with 2 turns (QC: 6 Wheel 150 feet: 6 PT Plan Problem List Problem List: Activity Tolerance, Functional Strength, Safety, Balance, Gait, Transfer, Bed Mobility, ROM Treatment/Plan Treatment Plan: Continue Plan of Care Treatment Plan: Bed Mobility, Education, Functional Activity Angeli, Functional Strength, Group Therapy, Gait, Safety, Therapeutic Exercise, Transfers Treatment Duration: Jun 21, 2022 Frequency: At least 5 of 7 days/Wk (IRF) Estimated Hrs Per Day: 1.5 hours per day Patient and/or Family Agrees t: Yes Safety Risks/Education Patient Education: Gait Training, Transfer Techniques, Steps, Correct Positioning, W/C Management, Safety Issues Teaching Recipient: Patient Teaching Methods: Demonstration, Discussion Response to Teaching: Reinforcement Needed Time Time In: 0900 Time Out: 1000 DATE: Jun 13, 2022 Total Billed Treatment Time: 60 Total Billed Treatment 1 visit EX 25' FA 35' ANNIKA DONALD PT Jun 13, 2022 09:48
[2022-06-13] MEDS ORDERED: EMPA1TAB21 PO ×2 (10:07→21:00)
[2022-06-13] MEDS ORDERED: BUPR1TAB45 SL (10:07)
--- NOTE | 2022-06-13 11:49 | Occupational Ther Daily Note ---
OT Current Status-Daily Note Subjective Pt in bed, agreeable to OT Tx. Pt states he wants to discharge as soon as possible. Mental Status/Objective Patient Orientation: Normal For Age ADL-Treatment Therapy Code Descriptions/Definitions Functional [place] Measure: 0=Not Assessed/NA 4=Minimal Assistance 1=Total Assistance 5=Supervision or Setup 2=Maximal Assistance 6=Modified [place] 3=Moderate Assistance 7=Complete IndependenceSCALE: Activities may be completed with or without assistive devices. 1-Beprmpzypo-cpgglrz completes the activity by him/herself with no assistance f rom a helper. 5-Set-up or Clean-up Assistance-helper sets up or cleans up; patient completes activity. [place] assists only prior to or following the activity. 4-Supervision or Touching Assistance-helper provides verbal cues and/or touching/steadying and/or contact guard assistance as patient completes activity. Assistance may be provided throughout the activity or intermittently. 3-Partial/Moderate Assistance-helper does LESS THAN HALF the effort. [place] lifts, holds or supports trunk or limbs, but provides less than half the effort. 2-Substantial/Maximal Assistance-helper does MORE THAN HALF the effort. [place] lifts or holds trunk or limbs and provides more than half the effort. 4-Wpmpcurxh-etynix does ALL the effort. Patient does none of the effort to complete the activity. Or, the assistance of 2 or more helpers is required for the patient to complete the activity. If activity was not attempted, code reason: 7-Patient Refused. 9-Not Applicable-not attempted and the patient did not perform the activity before the current illness, exacerbation or injury. 10-Not Attempted due to Environmental Limitations-(lack of equipment, weather restraints, etc.). 88-Not Attempted due to Medical Conditions or Safety Concerns. Eating (QC): 6 Oral Hygiene (QC): 6 Shower/Bathe Self (QC): 6 Upper Body Dressing (QC): 6 Lower Body Dressing (QC): 6 On/Off Footwear: 6 Toileting Hygiene (QC): 6 Toilet Transfer (QC): 6 Other Treatment Pt at EOB, used FWW to gather clothes and transfer into bathroom. Pt completed ADLs as listed above, pt able to cover stump prior to shower and remained dry post shower. Pt completed grooming tasks seated at sink IND. Pt propelled w/c around ARU common area/2nd floor and back to his room, IND. Pt demo'd ability to complete multiple turns both R and L. Pt transferred from w/c to EOB and supine IND. Post tx, pt in bed, call light in reach and all needs met. Education OT Patient Education: Correct positioning, Energy conservation, Modified ADL techniques, Progress toward Goal/Update tx plan, Purpose of tx/functional activities, Rehab process Teaching Recipient: Patient Teaching Methods: Discussion Response to Teaching: Verbalize Understanding BIMS CAM BIMS Expression of Ideas and Wants: Without Difficulty Understanding Verbal Content: Understands Brief Interview/Mental Status: Yes IRF MARIAJOSE BIMS: IRF MARIAJOSE BIMS Response (Comments) Value Repitition of Three Words Three 3 Recalls Socks Yes, No Cue Required 2 Recalls Blue Yes, No Cue Required 2 Recalls Bed Yes, No Cue Required 2 Year Correct 3 Day Correct 1 Total 13 [address] Staff Ass[address] Mental [address] No CAM Mental Status Change/Baseline: 0 Inattention: 0 Disorganized thinkin Altered level of consciousness: 0 OT [facility] Goals Ar Manager Goals Time Frame: Jun 30, 2022 Acute change in mental status: 0 Inattention: 0 Disorganized thinkin Altered level of consciousness: 0 Eating (QC): 6 (met) Oral Hygiene (QC): 6 (met) Toileting Hygiene (QC): 6 (met) Shower/Bathe Self (QC): 6 (met) Upper Body Dressing (QC): 6 (met) Lower Body Dressing (QC): 6 (met) On/Off Footwear (QC): 6 (met) Additional Goals: 1-Demonstrate ADL Tasks, 2-Verbalize Understanding, 3- ImproveStrength/Angeli 1=Demonstrate adherence to instructed precautions during ADL tasks. 2=Patient will verbalize/demonstrate understanding of assistive devices/sai fications for ADL. 3=Patient will improve strength/tolerance for activity to enable patient to perform ADL's. OT Education/Plan Problem List/Assessment Assessment: Decreased Activ Tolerance, Decreased UE Strength, Impaired I ADL's Discharge Recommendations Plan/Recommendations: Continue POC Treatment Plan/Plan of Care Patient would benefit from OT for education, treatment and training to promote independence in ADL's, mobility, safety and/or upper extremity function for ADL's. Plan of Care: ADL Retraining, Functional Mobility, Group Exercise/Act as Ind, UE Funct Exercise/Act Treatment Duration: Jun 30, 2022 Frequency: At least 5 of 7 days/Wk (IRF) Estimated Hrs Per Day: 1.5 hours per day Agreement: Yes Rehab Potential: Fair Time Start Time: 10:00 Stop Time: 11:00 DATE: Jun 13, 2022 Total Time Billed (hr/min): 60 Billed Treatment Time 1, ADL 3 (40'), FA (20') JESSICA ULLOA OT Jun 13, 2022 11:49
--- NOTE | 2022-06-13 14:58 | Therapy Group Daily Note ---
Therapy Daily Group Note Patient Education Topic Other List Below (AE) Exercises LE Seated Exercise, UE Exercise Session Ratio (pt:therapist): 4:1 Goal of Session: Home Safety Strategies, UE/LE Strengthing, Use of Adaptive Equipment Goal Met for this Session: Yes Pt Benefit of Group: Contributions to Others, F/U Use of Strategies @Home, Increased Functional Safety, Increased Functional Strength, Improved Cognition, Recognition of Peers, Socialization Other/Notes Pt propelled w/c to OT/PT group. Group consisted of introductions (name, favorite summer food), socialization, B UE/LE seated exercises and educational topic of AE for daily functional tasks. Pt introduced self appropriately and activity listened to peers. Pt tolerated B UE/LE movement activities well. Pt voiced own strategies and opinions about educational topic to acknowledge understanding. Pt became nauseous during group, nrsg assisted pt. After therapy, pt lying in bed with call light/phone in reach. All needs met in room. Start Time: 13:00 Stop Time: 14:15 Total Billed Treatment Time: 75 Total Billed Treatment 1-GRP JULIO HEREDIA Jun 13, 2022 14:58
[2022-06-13] MEDS: ALPRAZolam 0.25 MG (XANAX) TAB PO PRN (16:42)
[2022-06-13 20:00] VITALS: BP 131/65
[2022-06-13] MEDS ORDERED: GABAPENTIN 400 MG (NEURONTIN) CAP ONE (20:21)
[2022-06-13] MEDS ORDERED: GABAPENTIN 100 MG (NEURONTIN) CAP ONE (20:25)
[2022-06-13] MEDS ORDERED: LISI10TA25 PO (21:00)
[2022-06-13] MEDS ORDERED: OXYC1TAB16 PO (21:00)
[2022-06-13] MEDS ORDERED: AMLO-250 PO (21:00)
[2022-06-13] MEDS ORDERED: INSU100I14 SQ (21:00)
[2022-06-13] MEDS ORDERED: INSU100I29 SQ (21:00)
[2022-06-13] MEDS ORDERED: GABA-486 PO (21:00)
[2022-06-13] MEDS ORDERED: PEN-53 MC (21:01)
[2022-06-13] MEDS ORDERED: LORA-405 PO (21:01)
[2022-06-13] MEDS ORDERED: ATOR20TA49 PO (21:02)
[2022-06-14] MEDS: oxyCODONE/APAP 7.5-325 MG (PERCOCET 7.5) TABLET PO PRN ×2 (05:52→11:11)
[2022-06-14] MEDS: metFORMIN 500 MG (GLUCOPHAGE) TAB PO SCH (05:53)
[2022-06-14] MEDS: LORazepam 1 MG (ATIVAN) TAB PO PRN (05:56)
[2022-06-14 08:00] VITALS: BP 153/79
[2022-06-14] MEDS: inSUlin ASPART (NovoLOG) 1 UNIT/0.01 ML (CHARGE PER UNIT) SC SCH (08:43)
[2022-06-14] MEDS: ENOXAPARIN 40 MG/0.4 ML (LOVENOX) SYR SC SCH (08:44)
[2022-06-14] MEDS: DOCUSATE SODIUM 100 MG (COLACE) CAP PO SCH (08:44)
[2022-06-14] MEDS: amLODIPine 5 MG (NORVASC) TAB PO SCH (08:44)
[2022-06-14] MEDS: EMPAGLIFLOZIN 10 MG TABLET (JARDIANCE) PO SCH (08:45)
[2022-06-14] MEDS: FERROUS SULF 325 MG (IRON) TAB PO SCH (08:45)
[2022-06-14] MEDS: LACTULOSE SYRUP 10GM/15ML (ENULOSE) 30ML UDC PO SCH (08:45)
[2022-06-14] MEDS: GABAPENTIN 100 MG (NEURONTIN) CAP PO SCH (08:45)
[2022-06-14] MEDS: SENNA W/DOCUSATE (SENOKOT S) TABLET PO SCH (08:46)
[2022-06-14] MEDS: NICOTINE 14 MG (NICODERM) PATCH TD SCH (08:46)
[2022-06-14] MEDS: lisINopril 10 MG (PRINIVIL) TABLET PO SCH (08:46)
[2022-06-14] MEDS: polyethylene glycoL POWDER 17 GM (MIRALAX) PACK PO SCH (08:47)
[2022-06-14] MEDS: NICOTINE PATCH REMOVAL TP SCH (08:47)
--- NOTE | 2022-06-14 08:49 | Discharge Summary ---
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 with septic joint involvement Hyperglycemia, Type II Diabetes mellitus - uncontrolled started on insulin HTN Opioid use disorder - remission Elevated liver enzymes on admission with ultrasound evidence of cirrhosis Reactive Hepatitis C ab will need branner machine tender referral Smoker Plan: Supportive care PT and OT Pain control Bowel regimen Insulin 06/08/2022: Monitor closely 06/09/2022: Monitor closely 06/10/2022: Referrals in place 06/11/2022: Monitor sugar 06/12/2022: Sugar management 06/13/2022: Monitor closely (1) Below-knee amputation of left lower extremity (2) Hepatitis C (3) Opioid dependence in remission Status: Chronic (4) Hypertension Status: Chronic (5) Elevated liver enzymes Status: Acute (6) Hyperglycemia due to type 2 diabetes mellitus Status: Acute Discharge Summary Discharge Physical Examination Allergies: Coded Allergies: No Known Drug Allergies (Unverified , 07/22/21) Vitals & I&Os Vital Signs Date Time Temp Pulse Resp B/P (MAP) Pulse Ox O2 Delivery O2 Flow Rate FiO2 06/14/22 09:00 95 Room Air 06/14/22 08:00 35.8 78 18 153/79 (103) General Appearance: Alert, Oriented X3, Cooperative Respiratory: Clear to Auscultation Cardiovascular: Regular Rate Psych/Mental Status: Mental Status NL Hospital Course Was the Problem List Reviewed?: Yes Lengthy course after successful left BKA and DC from 4th floor. He was able to regain function with aggressive therapy and mostly wheelchair level but he was able to regain function of ADL's in order to return home with spouse. Sugars were much improved at time ot DC on insulin and those meds were sent to pharmacy . HCV will be addressed by ID and cirrhosis will need hepatology and his PCP [facility] until he settles into [place] his new home and chooses another PCP if he wishes. Labs (last 24 hrs) Laboratory Tests 06/07/22 12:02: Glucometer 233H 06/07/22 15:17: Glucometer 209H 06/07/22 21:04: Glucometer 158H 06/08/22 05:30: White Blood Count 11.3H, Red Blood Count 3.86L, Hemoglobin 11.5L, Hematocrit 33L , Mean Corpuscular Volume 85, Mean Corpuscular Hemoglobin 30, Mean Corpuscular Hemoglobin Concent 35, Red Cell Distribution Width 14.6H, Platelet Count 187, Mean Platelet Volume 8.8L, Immature Granulocyte % (Auto) 1, Neutrophils (%) (Auto) 57, Lymphocytes (%) (Auto) 31, Monocytes (%) (Auto) 9, Eosinophils (%) (Auto) 3, Basophils (%) (Auto) 0, Neutrophils # (Auto) 6.4, Lymphocytes # (Auto) 3.5, Monocytes # (Auto) 1.0, Eosinophils # (Auto) 0.3, Basophils # (Auto) 0.1, Immature Granulocyte # (Auto) 0.1, Sodium Level 135, Potassium Level 3.9, Chloride Level 105, Carbon Dioxide Level 22, Anion Gap 8, Blood Urea Nitrogen 14 , Creatinine 0.62, Estimat Glomerular Filtration Rate 119, BUN/Creatinine Ratio 23, Glucose Level 128H, Calcium Level 8.5, Corrected Calcium 9.6, Total Bilirubin 0.8, Aspartate Amino Transf (AST/SGOT) 104H, Alanine Aminotransferase (ALT/SGPT) 114H, Alkaline Phosphatase 132, Total Protein 6.9, Albumin 2.6L 06/08/22 11:20: Glucometer 158H 06/08/22 15:25: Glucometer 144H 06/08/22 20:20: Glucometer 157H 06/09/22 05:51: Glucometer 116H 06/09/22 11:30: Glucometer 109 06/09/22 16:44: Glucometer 124H 06/09/22 21:20: Glucometer 208H 06/10/22 06:45: Glucometer 125H 06/10/22 11:15: Glucometer 193H 06/10/22 15:24: Glucometer 199H 06/10/22 20:39: Glucometer 158H 06/11/22 06:31: Glucometer 172H 06/11/22 11:06: Glucometer 148H 06/11/22 15:26: Glucometer 183H 06/11/22 20:23: Glucometer 181H 06/12/22 05:49: Glucometer 206H 06/12/22 06:35: White Blood Count 9.1, Red Blood Count 3.89L, Hemoglobin 11.3L, Hematocrit 33L, Mean Corpuscular Volume 85, Mean Corpuscular Hemoglobin 29, Mean Corpuscular Hemoglobin Concent 34, Red Cell Distribution Width 14.8H, Platelet Count 195, Mean Platelet Volume 9.0, Immature Granulocyte % (Auto) 0, Neutrophils (%) (Auto) 54, Lymphocytes (%) (Auto) 33, Monocytes (%) (Auto) 10, Eosinophils (%) (Auto) 2, Basophils (%) (Auto) 1, Neutrophils # (Auto) 5.0, Lymphocytes # (Auto) 3.0, Monocytes # (Auto) 0.9, Eosinophils # (Auto) 0.2, Basophils # (Auto) 0.1, Immature Granulocyte # (Auto) 0.0, Sodium Level 137, Potassium Level 3.9, Chloride Level 108H, Carbon Dioxide Level 22, Anion Gap 7, Blood Urea Nitrogen 13, Creatinine 0.63, Estimat Glomerular Filtration Rate 119, BUN/Creatinine Ratio 21, Glucose Level 184H, Calcium Level 8.3L, Corrected Calcium 9.5, Total Bilirubin 0.5, Aspartate Amino Transf (AST/SGOT) 98H, Alanine Aminotransferase (ALT/SGPT) 120H, Alkaline Phosphatase 158H, Total Protein 6.9, Albumin 2.5L 06/12/22 11:03: Glucometer 206H 06/12/22 16:43: Glucometer 208H 06/12/22 20:37: Glucometer 251H 06/13/22 05:50: Glucometer 138H 06/13/22 10:47: Glucometer 159H 06/13/22 16:03: Glucometer 165H 06/13/22 20:12: Glucometer 229H 06/14/22 05:52: Glucometer 158H 06/14/22 11:01: Glucometer 130H Pending Labs Laboratory Tests 06/07/22 12:02: Glucometer 233 06/07/22 15:17: Glucometer 209 06/07/22 21:04: Glucometer 158 06/08/22 05:30: White Blood Count 11.3, Red Blood Count 3.86, Hemoglobin 11.5, Hematocrit 33, Mean Corpuscular Volume 85, Mean Corpuscular Hemoglobin 30, Mean Corpuscular Hemoglobin Concent 35, Red Cell Distribution Width 14.6, Platelet Count 187, Mean Platelet Volume 8.8, Immature Granulocyte % (Auto) 1, Neutrophils (%) (Auto) 57, Lymphocytes (%) (Auto) 31, Monocytes (%) (Auto) 9, Eosinophils (%) (Auto) 3, Basophils (%) (Auto) 0, Neutrophils # (Auto) 6.4, Lymphocytes # (Auto) 3.5, Monocytes # (Auto) 1.0, Eosinophils # (Auto) 0.3, Basophils # (Auto) 0.1, Immature Granulocyte # (Auto) 0.1, Sodium Level 135, Potassium Level 3.9, Chloride Level 105, Carbon Dioxide Level 22, Anion Gap 8, Blood Urea Nitrogen 14, Creatinine 0.62, Estimat Glomerular Filtration Rate 119, BUN/Creatinine Rat io 23, Glucose Level 128, Calcium Level 8.5, Corrected Calcium 9.6, Total Bilirubin 0.8, Aspartate Amino Transf (AST/SGOT) 104, Alanine Aminotransferase (ALT/SGPT) 114, Alkaline Phosphatase 132, Total Protein 6.9, Albumin 2.6 06/08/22 11:20: Glucometer 158 06/08/22 15:25: Glucometer 144 06/08/22 20:20: Glucometer 157 06/09/22 05:51: Glucometer 116 06/09/22 11:30: Glucometer 109 06/09/22 16:44: Glucometer 124 06/09/22 21:20: Glucometer 208 06/10/22 06:45: Glucometer 125 06/10/22 11:15: Glucometer 193 06/10/22 15:24: Glucometer 199 06/10/22 20:39: Glucometer 158 06/11/22 06:31: Glucometer 172 06/11/22 11:06: Glucometer 148 06/11/22 15:26: Glucometer 183 06/11/22 20:23: Glucometer 181 06/12/22 05:49: Glucometer 206 06/12/22 06:35: White Blood Count 9.1, Red Blood Count 3.89, Hemoglobin 11.3, Hematocrit 33, Mean Corpuscular Volume 85, Mean Corpuscular Hemoglobin 29, Mean Corpuscular Hemoglobin Concent 34, Red Cell Distribution Width 14.8, Platelet Count 195, Mean Platelet Volume 9.0, Immature Granulocyte % (Auto) 0, Neutrophils (%) (Auto) 54, Lymphocytes (%) (Auto) 33, Monocytes (%) (Auto) 10, Eosinophils (%) (Auto) 2, Basophils (%) (Auto) 1, Neutrophils # (Auto) 5.0, Lymphocytes # (Auto) 3.0, Monocytes # (Auto) 0.9, Eosinophils # (Auto) 0.2, Basophils # (Auto) 0.1, Immature Granulocyte # (Auto) 0.0, Sodium Level 137, Potassium Level 3.9, Chloride Level 108, Carbon Dioxide Level 22, Anion Gap 7, Blood Urea Nitrogen 13, Creatinine 0.63, Estimat Glomerular Filtration Rate 119, BUN/Creatinine Ratio 21, Glucose Level 184, Calcium Level 8.3, Corrected Calcium 9.5, Total Bilirubin 0.5, Aspartate Amino Transf (AST/SGOT) 98, Alanine Aminotransferase (ALT/SGPT) 120, Alkaline Phosphatase 158, Total Protein 6.9, Albumin 2.5 06/12/22 11:03: Glucometer 206 06/12/22 16:43: Glucometer 208 06/12/22 20:37: Glucometer 251 06/13/22 05:50: Glucometer 138 06/13/22 10:47: Glucometer 159 06/13/22 16:03: Glucometer 165 06/13/22 20:12: Glucometer 229 06/14/22 05:52: Glucometer 158 06/14/22 11:01: Glucometer 130 Discharge Home Medications: Active Scripts Active Humalog Kwikpen (Insulin Lispro) 100 Unit/Ml Insuln.pen 8 Unit SQ AC Lipitor (Atorvastatin Calcium) 20 Mg Tablet 20 Mg PO DAILY Ativan (Lorazepam) 1 Mg Tablet 1 Mg PO DAILY PRN Advocate Pen Needle (Pen Needle, Diabetic) 33 Gauge X 5/32" Dis.needle Each ACHS Levemir Flextouch (Insulin Detemir) 100 Unit/Ml (3 Ml) Insuln.pen 15 Unit SQ BID Gabapentin 100 Mg Capsule 200 Mg PO TID Percocet 7.5-325 mg Tablet (Oxycodone HCl/Acetaminophen) 1 Each Tablet 1 Each PO Q4H PRN Amlodipine Besylate 5 Mg Tablet 5 Mg PO DAILY Synjardy Xr 12.5-1,000 mg Tab (Empagliflozin/Metformin HCl) 12.5 Mg-1,000 Mg Tab.bp.24h 1 Each PO BID Lisinopril 10 Mg Tablet 10 Mg PO DAILY Reported Ferosul (Ferrous Sulfate) 325 Mg (65 Mg Iron) Tablet 325 Mg PO DAILY Instructions to patient/family Please see electronic discharge instructions given to patient. Diagnosis/Problems Diagnosis/Problems (1) Below-knee amputation of left lower extremity (2) Hepatitis C (3) Opioid dependence in remission Status: Chronic (4) Hypertension Status: Chronic (5) Elevated liver enzymes Status: Acute (6) Hyperglycemia due to type 2 diabetes mellitus Status: Acute DESTIN ANNA DO Jun 14, 2022 08:48
--- NOTE | 2022-06-14 10:52 | Therapy Team Discharge Summary ---
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 Upon evaluation patient performs rolling and supine <-> sit with independence, sit <-> stand and transfers with CGA, car transfer CGA, ambulate 120' with a rolling walker with CGA (including 50' with at least 2 turns of 90 degrees and 10' over an uneven surface), propelled a manual WC 150' with SBA, go up and down 1 step using a rolling walker with CGA, and could berry picker machine operator an object from the floor using a assessment expert with CGA. Patient has been performing bed mobility and transfer training, balance and endurance training, functional strengthening, stair training, gait training, and education. Patient has made good progress and has met all of his correction goals except for stairs. Now, patient performs rolling and supine <-> sit with independence, sit <-> stand and transfers independent, car transfer independent, can ambulate 150' with a rolling walker with independence (including 50' with at least 2 turns of 90 degrees and 10' over an uneven surface), can propel a manual WC over 150' with independence, can go up and down 1 step using a rolling walker with SBA, and can berry picker machine operator an object from the floor using a assessment expert with independence. Patient is being discharged from this facility today and will be discharged from PT at this time. Roll Left to Right (QC): 6 Sit to Lying (QC): 6 Lying to Sitting/Side of Bed(Q: 6 Sit to Stand (QC): 6 Chair/Pzd-ab-Czvjv Xfer(QC): 6 Toilet Transfer (QC): 6 Car Transfer (QC): 6 Does the Patient Walk: Yes Mode of Locomotion: Walk Anticipated Mode of Locomotion: Walk Walk 10 feet (QC): 6 Walk 50 ft with 2 Turns(QC): 6 Walk 150 ft (QC): 6 Walking 10ft on uneven surface: 6 Distance: 120', 100' Gait Assistive Device: FWW Does the Pt Use a Wheelchair: Yes Wheel 50 ft with 2 turns (QC): 6 Wheel 150 ft (QC): 6 Type of Wheelchair: Manual #of Steps: 1 1 Step (curb) (QC): 4 4 Steps (QC): 88 12 Steps (QC): 88 Walking Assistive Device: Walker Balance Sitting Static: Normal Balance Sitting Dynamic: Normal Balance-Standing Static: Good Picking up an Object (QC): 6 (using assessment expert) Occupational Therapy Decreased Activ Tolerance, Decreased UE Strength, Impaired I ADL's Eating (QC): 6 Oral Hygiene (QC): 6 Shower/Bathe Self (QC): 6 Upper Body Dressing (QC): 6 Lower Body Dressing (QC): 6 On/Off Footwear (QC): 6 Toileting Hygiene (QC): 6 PT Industrial Relations Director Goals Industrial Relations Director Goals PT Industrial Relations Director Goals Time Frame: Jun 14, 2022 Roll Left to Right (QC): 6 Sit to Lying (QC): 6 Lying-Sitting on Side/Bed(QC): 6 Sit to Stand (QC): 6 Chair/Zyx-fm-Dorbb Xfer(QC): 6 Toilet/Commode Transfer (QC): 6 Car Transfer (QC): 6 Does the Patient Walk: Yes Walk 10 feet (QC): 6 Walk 10ft-Uneven Surface(QC): 6 Walk 50ft with 2 Turns (QC): 6 Walk 150 ft (QC): 88 Wheel 50 feet with 2 turns (QC: 6 Wheel 150 feet: 6 1 Step (curb) (QC): 4 (SBA) 4 Steps (QC): 4 (SBA) 12 Steps (QC): 88 Picking up an Object (QC): 6 (using assessment expert) OT Industrial Relations Director Goals Industrial Relations Director Goals Time Frame: Jun 30, 2022 Acute change in mental status: 0 Inattention: 0 Disorganized thinkin Altered level of consciousness: 0 Eating (QC): 6 (met) Oral Hygiene (QC): 6 (met) Toileting Hygiene (QC): 6 (met) Shower/Bathe Self (QC): 6 (met) Upper Body Dressing (QC): 6 (met) Lower Body Dressing (QC): 6 (met) On/Off Footwear (QC): 6 (met) Additional Goals: 1-Demonstrate ADL Tasks, 2-Verbalize Understanding, 3- ImproveStrength/Angeli 1=Demonstrate adherence to instructed precautions during ADL tasks. 2=Patient will verbalize/demonstrate understanding of assistive devices/modifications for ADL. 3=Patient will improve strength/tolerance for activity to enable patient to perform ADL's. ANNIKA DONALD PT Jun 14, 2022 10:52
[2022-06-14] MEDS ORDERED: INSU100I23 SQ (10:53)
--- NOTE | 2022-06-14 14:42 | Therapy Team Discharge Summary ---
Therapy Discharge Summary Discharge Recommendations Date of Discharge Jun 14, 2022 at 12:00 Physical Therapy Roll Left to Right (QC): 6 Sit to Lying (QC): 6 Lying to Sitting/Side of Bed(Q: 6 Sit to Stand (QC): 6 Chair/Kqh-yd-Clboa Xfer(QC): 6 Toilet Transfer (QC): 6 Car Transfer (QC): 6 Does the Patient Walk: Yes Mode of Locomotion: Walk Anticipated Mode of Locomotion: Walk Walk 10 feet (QC): 6 Walk 50 ft with 2 Turns(QC): 6 Walk 150 ft (QC): 6 Walking 10ft on uneven surface: 6 Distance: 120', 100' Gait Assistive Device: FWW Does the Pt Use a Wheelchair: Yes Wheel 50 ft with 2 turns (QC): 6 Wheel 150 ft (QC): 6 Type of Wheelchair: Manual #of Steps: 1 1 Step (curb) (QC): 4 4 Steps (QC): 88 12 Steps (QC): 88 Walking Assistive Device: Walker Balance Sitting Static: Normal Balance Sitting Dynamic: Normal Balance-Standing Static: Good Picking up an Object (QC): 6 (using interactive video technician) Occupational Therapy Pt admitted to [facility] s/p L [facility]. At [facility], pt was independent with ADLS and functional mobility, no AD. Upon initial evaluation, pt was independent with eating and oral care, required supervision with showering, LE dressing and toileting, and set up UE dressing and footwear. OT tx focused on increasing BUE Strength and activity tolerance, and increasing independence with ADLs and functional mobility. Pt made good progress towards goals, attaining IND level with all ADLs. Pt discharged home with family support, d/c from OT. Decreased Activ Tolerance, Decreased UE Strength, Impaired I ADL's Eating (QC): 6 Oral Hygiene (QC): 6 Shower/Bathe Self (QC): 6 Upper Body Dressing (QC): 6 Lower Body Dressing (QC): 6 On/Off Footwear (QC): 6 Toileting Hygiene (QC): 6 PT Pamphlet Distributor Goals Nursing Home Goals PT Pamphlet Distributor Goals Time Frame: Jun 14, 2022 Roll Left to Right (QC): 6 Sit to Lying (QC): 6 Lying-Sitting on Side/Bed(QC): 6 Sit to Stand (QC): 6 Chair/Zqe-qd-Bbzom Xfer(QC): 6 Toilet/Commode Transfer (QC): 6 Car Transfer (QC): 6 Does the Patient Walk: Yes Walk 10 feet (QC): 6 Walk 10ft-Uneven Surface(QC): 6 Walk 50ft with 2 Turns (QC): 6 Walk 150 ft (QC): 88 Wheel 50 feet with 2 turns (QC: 6 Wheel 150 feet: 6 1 Step (curb) (QC): 4 (SBA) 4 Steps (QC): 4 (SBA) 12 Steps (QC): 88 Picking up an Object (QC): 6 (using interactive video technician) OT Nursing Home Goals Nursing Home Goals Time Frame: Jun 30, 2022 Acute change in mental status: 0 Inattention: 0 Disorganized thinkin Altered level of consciousness: 0 Eating (QC): 6 (met) Oral Hygiene (QC): 6 (met) Toileting Hygiene (QC): 6 (met) Shower/Bathe Self (QC): 6 (met) Upper Body Dressing (QC): 6 (met) Lower Body Dressing (QC): 6 (met) On/Off Footwear (QC): 6 (met) Additional Goals: 1-Demonstrate ADL Tasks, 2-Verbalize Understanding, 3- ImproveStrength/Angeli 1=Demonstrate adherence to instructed precautions during ADL tasks. 2=Patient will verbalize/demonstrate understanding of assistive devices/modifications for ADL. 3=Patient will improve strength/tolerance for activity to enable patient to perform ADL's. JESSICA ULLOA OT Jun 14, 2022 14:42
== END 2022-06-14 12:00 | disposition home health service (06) | DRG 561 ==
PROVIDERS: ADMIT Internal Medicine; ATTEND Internal Medicine
DX: Z47.81 Encounter for orthopedic aftercare following surgical amputation (principal); Z89.512 Acquired absence of left leg below knee; E11.65 Type 2 diabetes mellitus with hyperglycemia; E11.51 Type 2 diabetes mellitus with diabetic peripheral angiopathy without gangrene; E11.40 Type 2 diabetes mellitus with diabetic neuropathy, unspecified; K74.60 Unspecified cirrhosis of liver; B19.20 Unspecified viral hepatitis C without hepatic coma; F17.200 Nicotine dependence, unspecified, uncomplicated; F41.9 Anxiety disorder, unspecified; F32.A Depression, unspecified; F11.91 Opioid use, unspecified, in remission; I10 Essential (primary) hypertension; Z79.4 Long term (current) use of insulin
CPT/HCPCS: 36415; 80053; 82947; 85025